=== PATIENT | female | born 1960 | race Two or more races ===

== ENCOUNTER → 2020-05-28 09:27 | Outpatient (BNVA) | payer OTHER, SELFPAY | PROVIDERS: PCP Internal Medicine; Referring Provider Internal Medicine; Visit Provider Hospitalist | DX: J45.909 Unspecified asthma, uncomplicated (principal); J47.9 Bronchiectasis, uncomplicated; R05 Cough; Z23 Encounter for immunization | CPT/HCPCS: 90686; 99212 ==

== ENCOUNTER → 2020-09-17 13:55 | Outpatient (BNVA) | payer OTHER, SELFPAY | PROVIDERS: PCP Internal Medicine; Visit Provider Hospitalist | DX: Z76.89 Persons encountering health services in other specified circumstances (principal) | CPT/HCPCS: 99212 ==

== ENCOUNTER → 2020-12-15 13:47 | Outpatient (BNVA) | payer OTHER, SELFPAY | PROVIDERS: PCP Internal Medicine; Visit Provider Hospitalist | DX: J47.9 Bronchiectasis, uncomplicated (principal); J45.40 Moderate persistent asthma, uncomplicated; R05 Cough | CPT/HCPCS: Q3014 ==

== ENCOUNTER 2021-01-18 09:06 | Outpatient (REF) | payer OTHER, SELFPAY ==
--- NOTE | ~2021-01-18 | XR_ITS ---
EXAMINATION: XR CHEST CLINICAL INFORMATION: J47.9 - Bronchiectasis, uncomplicated COMPARISON: Chest radiographs 05/23/2019, 05/30/2017, CT chest noncontrast 07/30/2019 TECHNIQUE: 2 views of the chest were obtained. FINDINGS: There are chronic postoperative changes right hemithorax with extensive surgical clips and pleural parenchymal scarring right apex. There is again volume loss on the right with rightward shift mediastinum and rightward bowing tracheal air column. There is known extensive basilar cystic bronchiectasis, greater on right. There is increased pleural reaction periphery right lower zone along with opacity lateral right base on frontal view. There is no lobar or segmental airspace consolidation on lateral view or air bronchogram. Right posterior costophrenic sulcus is clear. No effusion. The left lung is clear. Left costophrenic angle well-defined. The vascularity is normal. No acute bony abnormality. XR/XR chest 2V IMPRESSION: 1. Chronic right hemithorax postoperative changes. 2. Chronic cystic bronchiectasis, greater on right. 2. Opacity right lateral base with increased pleural thickening since prior exam 2018. Left lung clear.
[2021-01-18 10:01] LABS: MANUAL DIFF FLAG NO
[2021-01-18 10:06] LABS: Basophils Percent Auto 0.3 % (0-2); Eosinophils Absolute Auto 0.3 X10*3/uL (0.0-0.4); Eosinophils Percent Auto 4.3 % (0-4); Hematocrit 41.4 % (37-47); Hemoglobin 13.3 g/dl (12.0-16.0); Imm Gran Abs Auto 0.03 X10*3/uL (0.00-0.03); Imm Gran Pct Auto 0.5 % (0.0-0.4); Lymphocytes Absolute Auto 2.7 X10*3/uL (1.2-4.9); Lymphocytes Percent Auto 42.9 % (20-40); Mean Corpuscular HGB Conc 32.1 g/dl (31.0-35.0); Mean Corpuscular Hemoglobin 27.1 pg (27.0-33.0); Mean Corpuscular Volume 84.5 fL (80-98); Mean Platelet Volume 9.7 fL (9.4-12.3); Monocytes Absolute Auto 0.4 X10*3/uL (0.1-1.2); Monocytes Percent Auto 5.6 % (2-11); Neutrophils Absolute Auto 2.9 X10*3/uL (2.0-8.3); Neutrophils Percent Auto 46.4 % (45-73); Platelet Count 309 X10*3/uL (160-400); Red Cell Distribution Width 13.3 % (11.0-16.0); White Blood Count 6.3 X10*3/uL (4.8-10.8)
[2021-01-18 10:35] LABS: Alanine Aminotransferase 9 U/L (0-31); Alkaline Phosphatase 63 U/L (39-117); Anion Gap 11 (12-20); Aspartate Amino Transferase 14 U/L (5-31); Bilirubin Total 0.3 mg/dL (0.0-1.0); Blood Urea Nitrogen 13 mg/dL (9-16); Calcium 9.4 mg/dL (8.4-10.2); Carbon Dioxide 27 mmol/L (22-29); Chloride 107 mmol/L (96-108); Cholesterol 171 mg/dL; Estimated Glomerular Filt Rate > 60; Glucose Random 93 mg/dL (60-115); HDL Cholesterol 50 mg/dL; LDL Cholesterol Calculated 110 mg/dl; Potassium 4.2 mmol/L (3.3-5.1); Sodium 141 mmol/L (135-145); Total Protein 7.5 g/dL (6.5-8.0); Triglycerides 57 mg/dL
[2021-01-18 10:57] LABS: Thyroid Stimulating Hormone 1.17 uIU/mL (0.32-4.0)
[2021-01-18 11:08] LABS: Erythrocyte Sedimentation Rate 70 MM/HR (0-20)
[2021-01-19 13:42] LABS: IgA 516 mg/dL (47-310); IgG 1468 mg/dL (600-1640); IgM 255 mg/dL (50-300)
[2021-01-19 14:06] LABS: Alpha 1 Anti-trypsin 177 mg/dL (83-199)
[2021-01-19 20:37] LABS: Immunoglobulin G Subclass 1 675 mg/dL (382-929); Immunoglobulin G Subclass 2 519 mg/dL (241-700); Immunoglobulin G Subclass 3 194 mg/dL (22-178); Immunoglobulin G Subclass 4 55.8 mg/dL (4-86); Immunoglobulin G Total 1466 mg/dL (600-1640)
[2021-01-21 11:56] LABS: Immunoglobulin E 163 kU/L (<OR=114)
== END 2021-01-18 09:07 | disposition home or self-care (01) ==
LOC: HO.LAB 09:06
PROVIDERS: Absent Provider Internal Medicine; PCP Internal Medicine; Visit Provider Hospitalist
DX: F32.89 Other specified depressive episodes (principal); I10 Essential (primary) hypertension; J47.9 Bronchiectasis, uncomplicated
CPT/HCPCS: 36415; 71046; 80053; 80061; 82103; 82784; 82785; 84443; 85025; 85652

== ENCOUNTER → 2021-03-19 13:08 | Outpatient (BNVA) | payer OTHER, SELFPAY | PROVIDERS: PCP Internal Medicine; Visit Provider Hospitalist | DX: J47.0 Bronchiectasis with acute lower respiratory infection (principal); J45.40 Moderate persistent asthma, uncomplicated; R05 Cough | CPT/HCPCS: 99212 ==

== ENCOUNTER 2021-04-02 14:08 | Outpatient (REF) | payer OTHER, SELFPAY | END 2021-04-02 14:09 | disposition home or self-care (01) | LOC: HO.LAB 14:08 | PROVIDERS: PCP Internal Medicine; Visit Provider Internal Medicine | DX: Z20.822 Contact with and (suspected) exposure to COVID-19 (principal) | CPT/HCPCS: C9803; U0003; U0005 ==

== ENCOUNTER → 2021-05-20 10:04 | Outpatient (BNVA) | payer OTHER, SELFPAY | PROVIDERS: PCP Internal Medicine; Visit Provider Hospitalist | DX: J47.0 Bronchiectasis with acute lower respiratory infection (principal); J45.40 Moderate persistent asthma, uncomplicated; R05.9 Cough, unspecified | CPT/HCPCS: 99212 ==

== ENCOUNTER 2021-05-26 14:04 | Outpatient (REF) | payer OTHER, SELFPAY | END 2021-05-26 14:05 | disposition home or self-care (01) | LOC: HO.LAB 14:04 | PROVIDERS: PCP Internal Medicine; Visit Provider Internal Medicine | DX: Z20.822 Contact with and (suspected) exposure to COVID-19 (principal) | CPT/HCPCS: C9803; U0003; U0005 ==

== ENCOUNTER 2021-07-05 10:45 | Outpatient (REF) | payer OTHER, SELFPAY ==
--- NOTE | ~2021-07-05 | MM_ITS ---
EXAMINATION: MM SCREENING DIGITAL BREAST TOMOSYNTHESIS, BILATERAL CLINICAL INFORMATION: Screening. Asymptomatic. The lifetime risk of breast cancer based on the Tyrer-Cuzick Model is 5%. COMPARISON: Mammography: 01/20/2020, 01/11/2017 TECHNIQUE: Digital breast tomosynthesis is performed in both the craniocaudal and mediolateral oblique views along with computer-aided detection (CAD). Synthesized 2D images are generated from the tomosynthesis. FINDINGS: There are scattered areas of fibroglandular density (ACR BI-RADS breast composition Category b). There are no significant masses, abnormal calcifications, or other abnormalities. Parenchymal pattern is similar to prior exams. No developing density. No significant changes. MM/MM tomosynthesis screening BI IMPRESSION: No mammographic evidence of malignancy. ASSESSMENT: BI-RADS 1: Negative RECOMMENDATION: Routine annual mammography screening. This patient's information was entered into a reminder system with a target due date for their next mammogram.
== END 2021-07-05 10:46 | disposition home or self-care (01) ==
LOC: HO.MAMMO 10:45
PROVIDERS: Visit Provider Internal Medicine
DX: Z12.31 Encounter for screening mammogram for malignant neoplasm of breast (principal)
CPT/HCPCS: 77063; 77067

== ENCOUNTER → 2021-09-16 13:42 | Outpatient (BNVA) | payer OTHER, SELFPAY | PROVIDERS: PCP Internal Medicine; Visit Provider Hospitalist | DX: J47.0 Bronchiectasis with acute lower respiratory infection (principal); J45.40 Moderate persistent asthma, uncomplicated; J01.91 Acute recurrent sinusitis, unspecified; R05.9 Cough, unspecified; Z79.899 Other long term (current) drug therapy | CPT/HCPCS: Q3014 ==

== ENCOUNTER → 2021-10-12 14:06 | Outpatient (BNVA) | payer OTHER, SELFPAY | PROVIDERS: PCP Internal Medicine; Visit Provider Hospitalist | DX: J45.40 Moderate persistent asthma, uncomplicated (principal); J47.0 Bronchiectasis with acute lower respiratory infection; R05.9 Cough, unspecified | CPT/HCPCS: 99212 ==

== ENCOUNTER 2021-11-10 13:19 | Outpatient (REF) | payer OTHER, SELFPAY ==
--- NOTE | ~2021-11-10 | XR_ITS ---
EXAMINATION: XR CHEST CLINICAL INFORMATION: Bronchiectasis with acute lower respiratory infection COMPARISON: Chest x-ray 12/30/2020 TECHNIQUE: 2 views of the chest were obtained. FINDINGS: There is a chronic loss of right lung volume with right apical pleural thickening and postsurgical changes. There is ipsilateral mediastinal shift. There is a known cystic bronchiectasis changes in the right lower lobe with mild elevated right hemidiaphragm. There is left lung remains expanded and clear. The heart size and pulmonary vascularity is normal. No gross bony abnormality seen. XR/XR chest 2V IMPRESSION: Postsurgical changes right upper lobe with chronic loss of right lung volume and bronchiectasis in the right lower lobe. Ipsilateral mediastinal shift. Left lung remains clear. No major change from 01/18/2021.
[2021-11-10 13:42] LABS: MANUAL DIFF FLAG NO
[2021-11-10 14:06] LABS: Basophils Percent Auto 0.3 % (0-2); Eosinophils Absolute Auto 0.2 X10*3/uL (0.0-0.4); Eosinophils Percent Auto 2.4 % (0-4); Hematocrit 42.1 % (37.0-47.0); Hemoglobin 13.5 g/dl (12.0-16.0); Imm Gran Abs Auto 0.03 X10*3/uL (0.00-0.03); Imm Gran Pct Auto 0.3 % (0.0-0.4); Lymphocytes Absolute Auto 2.4 X10*3/uL (1.2-4.9); Lymphocytes Percent Auto 25.9 % (20-40); Mean Corpuscular HGB Conc 32.1 g/dl (31.0-35.0); Mean Corpuscular Hemoglobin 27.3 pg (27.0-33.0); Mean Corpuscular Volume 85.2 fL (80.0-98.0); Mean Platelet Volume 9.2 fL (9.4-12.3); Monocytes Absolute Auto 0.7 X10*3/uL (0.1-1.2); Monocytes Percent Auto 7.5 % (2-11); Neutrophils Absolute Auto 5.9 x10*3/uL (2.0-8.3); Neutrophils Percent Auto 63.6 % (45-73); Platelet Count 365 X10*3/uL (160-400); Red Blood Count 4.94 X10*6/uL (4.20-5.50); White Blood Count 9.3 X10*3/uL (4.8-10.8)
[2021-11-10 14:54] LABS: Erythrocyte Sedimentation Rate 80 MM/HR (0-20)
[2021-11-11 11:02] LABS: Immunoglobulin E 152 kU/L (<OR=114)
[2021-11-12 15:06] LABS: Immunoglobulin G Subclass 1 653 mg/dL (382-929); Immunoglobulin G Subclass 2 641 mg/dL (241-700); Immunoglobulin G Subclass 3 >220 mg/dL (22-178); Immunoglobulin G Subclass 4 68.4 mg/dL (4-86); Immunoglobulin G Total 1432 mg/dL (600-1640)
[2021-11-17 16:51] LABS: Asperg fumigatus Precip Abs NEGATIVE (NEGATIVE); Micropoly faeni Abs NEGATIVE (NEGATIVE); Pigeon serum Abs NEGATIVE (NEGATIVE); Saccharo pora viridis Abs NEGATIVE (NEGATIVE); Thermo candidus Abs NEGATIVE (NEGATIVE); Thermoa vulgaris #1 NEGATIVE (NEGATIVE)
== END 2021-11-10 13:20 | disposition home or self-care (01) ==
LOC: HO.XRAY 13:19
PROVIDERS: PCP Internal Medicine; Visit Provider Hospitalist
DX: J45.40 Moderate persistent asthma, uncomplicated (principal); J01.00 Acute maxillary sinusitis, unspecified; J47.0 Bronchiectasis with acute lower respiratory infection; R05.9 Cough, unspecified; R91.8 Other nonspecific abnormal finding of lung field
CPT/HCPCS: 36415; 71046; 82784; 82785; 85025; 85652; 86003; 86331; 86606; 86609

== ENCOUNTER 2022-01-07 14:29 | Outpatient (REF) | payer OTHER, SELFPAY ==
[2022-01-07 14:44] LABS: MANUAL DIFF FLAG NO
[2022-01-07 14:51] LABS: Basophils Percent Auto 0.3 % (0-2); Eosinophils Absolute Auto 0.3 X10*3/uL (0.0-0.4); Eosinophils Percent Auto 3.5 % (0-4); Hemoglobin 14.3 g/dl (12.0-16.0); Imm Gran Abs Auto 0.02 X10*3/uL (0.00-0.03); Imm Gran Pct Auto 0.2 % (0.0-0.4); Lymphocytes Absolute Auto 2.6 X10*3/uL (1.2-4.9); Lymphocytes Percent Auto 30.1 % (20-40); Mean Corpuscular HGB Conc 32.5 g/dl (31.0-35.0); Mean Corpuscular Hemoglobin 27.1 pg (27.0-33.0); Mean Corpuscular Volume 83.5 fL (80.0-98.0); Mean Platelet Volume 9.3 fL (9.4-12.3); Monocytes Absolute Auto 0.5 X10*3/uL (0.1-1.2); Monocytes Percent Auto 5.7 % (2-11); Neutrophils Absolute Auto 5.2 x10*3/uL (2.0-8.3); Neutrophils Percent Auto 60.2 % (45-73); Platelet Count 309 X10*3/uL (160-400); Red Blood Count 5.27 X10*6/uL (4.20-5.50); Red Cell Distribution Width 13.6 % (11.0-16.0); White Blood Count 8.6 X10*3/uL (4.8-10.8)
[2022-01-07 15:29] LABS: Erythrocyte Sedimentation Rate 57 MM/HR (0-20)
[2022-01-10 11:42] LABS: Alpha 1 Anti-trypsin 186 mg/dL (83-199); IgA 607 mg/dL (47-310); IgG 1701 mg/dL (600-1640); IgM 290 mg/dL (50-300)
[2022-01-10 14:21] LABS: Anti Nuclear Antibody Screen NEGATIVE (NEGATIVE)
[2022-01-12 00:27] LABS: Cyclic Citrullinated Peptide <16 UNITS
[2022-01-12 06:27] LABS: Angiotensin Converting Enzyme 44 U/L (9-67)
[2022-01-14 21:46] LABS: Immunoglobulin E 133 kU/L (<OR=114)
== END 2022-01-07 14:30 | disposition home or self-care (01) ==
LOC: HO.LAB 14:29
PROVIDERS: Visit Provider Hospitalist
DX: J47.0 Bronchiectasis with acute lower respiratory infection (principal); J45.50 Severe persistent asthma, uncomplicated
CPT/HCPCS: 36415; 82103; 82164; 82784; 82785; 85025; 85652; 86038; 86039; 86200; 87070; 87205; 99212

== ENCOUNTER → 2022-03-10 14:44 | Outpatient (BNVA) | payer OTHER, SELFPAY | PROVIDERS: PCP Internal Medicine; Visit Provider Hospitalist | DX: J44.9 Chronic obstructive pulmonary disease, unspecified (principal); R05.9 Cough, unspecified; J45.909 Unspecified asthma, uncomplicated | CPT/HCPCS: 94010; 99212 ==

== ENCOUNTER 2022-03-17 07:34 | Day surgery (SDC) | payer OTHER, SELFPAY ==
--- NOTE | 2022-03-16 08:46 | HO.ANESPROP2 ---
Documented by User: Grace Saravia NP 03/16/22 08:48 HPI - Anesthesia Eval Consult details Narrative: 61yo F for Bronchoscopy Fiberoptic PMFSH Active Problems Active Problems: All Active Problems (Updated 03/10/22 @ 23:24 by Mitchell Barron MD) Asthma-COPD overlap syndrome (Acute) Sinusitis (Acute) Sinusitis (Acute) Cough (Acute) Bronchiectasis (Acute) Asthma (Acute) Past Medical History Medical History Asthma Asthma-COPD overlap syndrome Bronchiectasis Cough Family History Family History (Updated 07/16/20 @ 22:07 by Mitchell Barron MD) Daughter Bronchiectasis Social History Social History (Updated 03/19/21 @ 13:19 by DREW Barnhart) Patient Tobacco Use Status: Former Tobacco user Tobacco use type: Cigarette Years Smoked: 5 years Use of substances other than those prescribed or required for medical reasons: No Are you DNR?: No Advance Directives: No Advance Directives Information Provided: Yes Meds Allergies Allergy/AdvReac Type Severity Reaction Status Date / Time lisinopril Allergy Mild cough Verified 03/10/22 14:45 moxifloxacin [Avelox] Allergy Mild rash Verified 03/10/22 14:45 Home Medications Medication Instructions Recorded Confirmed Last Taken Type clonazepam 0.5 mg tablet 1.5 mg PO Q OTHER DAY PRN 05/28/20 10/12/21 Unknown History ibuprofen 400 mg tablet 400 mg PO Q4-6H PRN 05/28/20 10/12/21 Unknown History ipratropium 0.5 mg-albuterol 3 mg 3 ml inhalation Q6-8H PRN 05/28/20 10/12/21 Unknown History (2.5 mg base)/3 mL nebulization soln ketotifen fumarate 0.025 % (0.035 1 drp ophthalmic (eye) BID 05/28/20 10/12/21 Unknown History %) eye drops losartan 100 1 tab PO DAILY 05/28/20 10/12/21 Unknown History mg-hydrochlorothiazide 12.5 mg tablet escitalopram oxalate 20 mg tablet 20 mg PO DAILY 07/16/20 10/12/21 Unknown History fluticasone propionate 50 0 mcg intranasal 09/17/20 10/12/21 Unknown History mcg/actuation nasal spray,suspension Exam Exam Date and Time: March 16, 2022 0846 Narrative Narrative: CXR 10/2021 XR chest 2V IMPRESSION: Postsurgical changes right upper lobe with chronic loss of right lung volume and bronchiectasis in the right lower lobe. Ipsilateral mediastinal shift. Left lung remains clear. ? No major change from 01/18/2021. Assessment and Plan Assessment Anesthesia Assessment: Chart Reviewed Documented by User: Syed Wilcox MD 03/17/22 08:43 PMFSH Active Problems Active Problems: All Active Problems (Updated 03/10/22 @ 23:24 by Mitchell Barron MD) Asthma-COPD overlap syndrome (Acute) Sinusitis (Acute) Sinusitis (Acute) Cough (Acute) Bronchiectasis (Acute) Asthma (Acute) hypertension Past Medical History Medical History Asthma Asthma-COPD overlap syndrome Bronchiectasis Cough Family History Family History (Updated 07/16/20 @ 22:07 by Mitchell Barron MD) Daughter Bronchiectasis Family history of problems with anesthesia: No Surgical History History of Problems with Anesthesia: No Social History Social History (Updated 03/19/21 @ 13:19 by DREW Barnhart) Patient Tobacco Use Status: Former Tobacco user Tobacco use type: Cigarette Years Smoked: 5 years Use of substances other than those prescribed or required for medical reasons: No Are you DNR?: No Advance Directives: No Advance Directives Information Provided: Yes Meds Allergies Allergy/AdvReac Type Severity Reaction Status Date / Time lisinopril Allergy Mild cough Verified 03/10/22 14:45 moxifloxacin [Avelox] Allergy Mild rash Verified 03/10/22 14:45 Home Medications Medication Instructions Recorded Confirmed Last Taken Type clonazepam 0.5 mg tablet 1.5 mg PO Q OTHER DAY PRN 05/28/20 10/12/21 Unknown History ibuprofen 400 mg tablet 400 mg PO Q4-6H PRN 05/28/20 10/12/21 Unknown History ipratropium 0.5 mg-albuterol 3 mg 3 ml inhalation Q6-8H PRN 05/28/20 10/12/21 Unknown History (2.5 mg base)/3 mL nebulization soln ketotifen fumarate 0.025 % (0.035 1 drp ophthalmic (eye) BID 05/28/20 10/12/21 Unknown History %) eye drops losartan 100 1 tab PO DAILY 05/28/20 10/12/21 Unknown History mg-hydrochlorothiazide 12.5 mg tablet escitalopram oxalate 20 mg tablet 20 mg PO DAILY 07/16/20 10/12/21 Unknown History fluticasone propionate 50 0 mcg intranasal 09/17/20 10/12/21 Unknown History mcg/actuation nasal spray,suspension Exam Airway Mallampati Class: I TM Dist: >3cm Neck ROM: Full Loose/Missing/Broken Teeth: Yes and Lower Heart: rrr Lungs: clear Assessment and Plan Final Anesthetic Review Family History of Problems with Anesthesia: No History of Problems with Anesthesia: No NPO: Yes ASA Class: III Final Preanesthetic Review: No Changes in Pt Med Stat, Meds/Allgs Chart Reviewed, Consent Obtained/Reviewed and Anes Risks/Benef Reviewed Patient Risk: Intermediate Procedure Risk: Low Anesthetic Plan Anesthetic Plan: MAC: Disposition: Standard PACU
[2022-03-17] VITALS (14 sets, daily range): BP systolic 83–148; BP diastolic 56–96; PULSE 74–104; RESP 18–31; TEMP 36.4–36.9; O2SAT 94–100; BMI 29.0
--- NOTE | 2022-03-17 07:58 | MHC.SHP ---
Pre-Procedural Eval Section A Date of Service: 03/17/22 The patient is an INPATIENT: No Changes since office visit: No Cold of Flu in the past 2 weeks, No New Medical Problems, No Changes in Medication and No Patient answered all questions The History & Physical has been completed within 30 days and I have reviewed it.: Yes Section B Chief Complaint: bronchiectasis Allergies: Allergies Allergy/AdvReac Type Severity Reaction Status Date / Time lisinopril Allergy Mild cough Verified 03/10/22 14:45 moxifloxacin [Avelox] Allergy Mild rash Verified 03/10/22 14:45 Plan I have reviewed the history and physical and performed a pertinent physical examination on my patient. No changes have occurred unless specified.
[2022-03-17] MEDS: Albuterol/Iprat 2.5/0.5MG 3 ML AMPUL.NEB INHALE (08:33)
--- NOTE | 2022-03-17 09:30 | PM.OP ---
Brief Operative Note Date of Service: 03/17/22 Pre-op diagnosis: bronchiectasis, TBM, asthma Post-op diagnosis: same Procedure: Bronchoscopy with washings Surgeon: Mitchell Barron MD Anesthesia: GLMA Was an Corporate Technical Recruiter used for this Procedure?: No Estimated blood loss (mL): 0 Pathology: none sent Condition: stable Disposition: same day
[2022-03-17] MEDS: methylPREDNISolone Sod Succ 125 MG/2 ML VIAL IVPUSH (09:38)
[2022-03-17] MEDS: Racepinephrine HCL 0.5 ML VIAL.NEB INHALE (09:57)
[2022-03-17] MEDS: Throat Lozenge, Medicated LOZENGE 1 LOZENGE MUCOUS MEM (10:50)
--- NOTE | 2022-03-17 21:25 | OP_ITS ---
SURGEON: Mitchell Barron MD PREOPERATIVE DIAGNOSIS: POSTOPERATIVE DIAGNOSIS: PROCEDURE PERFORMED: Bronchoscopy with washings. ESTIMATED BLOOD LOSS: Zero. COMPLICATIONS: None. ANESTHESIA: ASSISTANTS: SPECIMENS: ASA classification 4. PREOPERATIVE DIAGNOSES: Bronchiectasis and asthma. POSTOPERATIVE DIAGNOSES: Bronchiectasis, asthma, and tracheobronchomalacia. DESCRIPTION OF PROCEDURE: The patient was adequately sedated with MAC. The flexible digital bronchoscope was initially inserted through the oral airway. The patient started having some dry heaves and she also desaturated, therefore, the mask was removed and LMA was placed. The patient again had the bronchoscopy. The vocal cords were visualized, moved symmetrically to the midline, although she did have some laryngeal spasms at times. The bronchoscope was passed through vocal cords to the level of the trachea. Tracheal mucosa indeed had certain evidence of tracheomalacia and some purulent secretions that were little bit more thick and exudative. After instilling additional lidocaine, the bronchoscope was then navigated to the entire tracheobronchial tree, which was examined to the subsegmental level. Again, the patient did have some tracheal bronchomalacia, but mainly bronchomalacia. No endobronchial lesions or masses noted. Although, her tracheobronchial mucosa was very friable becoming significantly erythematous with minimal suctioning. No any bleeding noted. Bronchial washings were collected throughout removing mucus plugs bilaterally. Because of her tenuous state, we did not do any brushings and we did not use any Mucomyst. Once therapeutic cleaning of the airways was completed, the bronchoscope was removed. The total endoscopic time approximately 10 minutes. The patient again had some issues tolerating MAC and had some issues with hypoxia initially, but that improved. Otherwise, she tolerated procedure well. I will be treating her for her asthma upon completion of the bronchoscopy. INTERPRETATION: 1. Successful therapeutic cleaning of the airways. 2. Significant asthma, bronchiectasis, and exudative secretions with mucus plugs, status post cleaning out. MD MEMO Hickey/MODGopal / [id number]
== END 2022-03-17 11:53 | disposition home or self-care (01) ==
PROVIDERS: Visit Provider Hospitalist
PROC: 0BJ08ZZ Inspection of Tracheobronchial Tree, Via Natural or Artificial Opening Endoscopic (ICD-10-PCS; CPT 31622; principal; 2022-03-17 09:00)
DX: J47.0 Bronchiectasis with acute lower respiratory infection (principal); J39.8 Other specified diseases of upper respiratory tract; J45.909 Unspecified asthma, uncomplicated; Z87.891 Personal history of nicotine dependence
CPT/HCPCS: 31622; 87071; 87077; 87102; 87116; 87186; 87205; 88112; 88305; 88312; J0171; J2250; J2930

== ENCOUNTER → 2022-09-06 14:37 | Outpatient (BNVA) | payer OTHER, SELFPAY | PROVIDERS: PCP Internal Medicine; Visit Provider Hospitalist | DX: J45.50 Severe persistent asthma, uncomplicated (principal); J47.0 Bronchiectasis with acute lower respiratory infection | CPT/HCPCS: 99212 ==

== ENCOUNTER → 2022-11-11 14:29 | Outpatient (BNVA) | payer OTHER, SELFPAY | PROVIDERS: PCP Internal Medicine; Visit Provider Hospitalist | DX: J18.0 Bronchopneumonia, unspecified organism (principal); J47.0 Bronchiectasis with acute lower respiratory infection; J45.50 Severe persistent asthma, uncomplicated; H92.09 Otalgia, unspecified ear | CPT/HCPCS: 99212 ==

== ENCOUNTER 2022-11-15 12:52 | Outpatient (REF) | payer OTHER, SELFPAY ==
--- NOTE | ~2022-11-15 | MM_ITS ---
EXAMINATION: BONE DENSITOMETRY CLINICAL INDICATION: Menopause. COMPARISON: Baseline BD dated 06/04/2015. TECHNIQUE: Using a [employer] DXA System (software version: 13.1) manufactured by [employer], dual-energy x-ray absorptiometry was performed of the lumbar spine and left hip. The images are of good technical quality. Summary results are attached. FINDINGS: AP SPINE L1-L4: Current: BMD 1.265 g/cm2, Z-score 1.9, T-score 0.7, normal, 6.9% decrease from baseline (<5% change is not significant). Baseline: BMD 1.359 g/cm2. LEFT FEMUR, NECK: Current: BMD 0.912 g/cm2, Z-score 0.3, T-score -0.9, normal. Baseline: BMD 1.099 g/cm2. LEFT FEMUR, TOTAL: Current: BMD 0.959 g/cm2, Z-score 0.5, T-score -0.4, normal, 10.7% decrease from baseline (<5% change is not significant). Baseline: BMD 1.074 g/cm2. IDENTIFIED RISK FACTORS: Menopause. HISTORY OF FRACTURE: None listed. MEDICATIONS: None listed. MM/XR DEXA axial skeleton IMPRESSION: 1. DIAGNOSIS: Normal bone density based on the lowest T-score value of -0.9 in the femoral neck applying World Health Organization criteria. 2. 10-YEAR FRACTURE RISK PREDICTION, FRAX: According to the guidelines, FRAX calculation should only be performed on patients in the osteopenia bone density category. Therefore, FRAX was not performed on this patient. 3. Treatment Recommendations: NOF guidelines recommend consideration for treatment in postmenopausal women and men age 50 and older presenting with the following: -A hip or vertebral (clinical or morphometric) fracture. -T-score less than or equal to -2.5 at the femoral neck or spine after appropriate evaluation to exclude secondary causes. -Low bone mass at the hip or spine and a 10-year fracture probability by FRAX of greater than or equal to 3% for hip fracture or greater than or equal to 20% for major osteoporotic fracture based on the [place] adapted WHO algorithm. 4. Other Recommendations: All treatment decisions require clinical judgment and consideration of individual patient factors, including patient preferences, comorbidities, previous drug use, risk factors not captured in the FRAX model (e.g. frailty, falls, vitamin D deficiency, increased bone turnover, interval significant decline in bone density) and possible under or overestimation of fracture risk by FRAX. FUTURE SCAN RECOMMENDATION: People with diagnosed cases of osteoporosis or at high risk for fracture should have regular bone mineral density tests. For patients eligible for Medicare, routine testing is allowed once every 2 years. The testing frequency can be increased to one year for patients who have rapidly progressing disease, those who are receiving or discontinuing medical therapy to restore bone mass, or have additional risk factors.
--- NOTE | ~2022-11-15 | MM_ITS ---
EXAMINATION: MM SCREENING DIGITAL BREAST TOMOSYNTHESIS, BILATERAL CLINICAL INFORMATION: Screening. Asymptomatic. The lifetime risk of breast cancer based on the Tyrer-Cuzick Model is 5%. COMPARISON: Mammography: 07/05/2021 and studies dating back to 01/24/2011. TECHNIQUE: Digital breast tomosynthesis is performed in both the craniocaudal and mediolateral oblique views along with computer-aided detection (CAD). Synthesized 2-D images are generated from the tomosynthesis. FINDINGS: There are scattered areas of fibroglandular density (ACR BI-RADS breast composition Category b). There is stable parenchymal pattern of the left breast with no new abnormal dominant mass or suspicious grouping of microcalcifications. Within the anterior aspect of the right breast on mediolateral oblique projection only, there is a region of density not seen previously for which spot compression and 90 degree mediolateral views are recommended. This likely represents superimposition of fibroglandular tissue. No craniocaudal view correlate is seen. MM/MM tomosynthesis screening BI IMPRESSION: Right breast density for further evaluation. ASSESSMENT: BI-RADS 0: Incomplete - Need Additional Imaging Evaluation. RECOMMENDATION: 1. Additional views of the right breast. 2. Targeted ultrasound if warranted after review of the additional views. 3. Radiology department staff will contact the patient for additional imaging. This patient's information was entered into a reminder system with a target due date for their next mammogram.
== END 2022-11-15 12:53 | disposition home or self-care (01) ==
LOC: HO.MAMMO 12:52
PROVIDERS: PCP Internal Medicine; Visit Provider Internal Medicine
DX: Z12.31 Encounter for screening mammogram for malignant neoplasm of breast (principal); Z13.820 Encounter for screening for osteoporosis; Z78.0 Asymptomatic menopausal state
CPT/HCPCS: 77063; 77067; 77080

== ENCOUNTER → 2022-11-22 11:55 | Outpatient (BNVA) | payer OTHER, SELFPAY | PROVIDERS: PCP Internal Medicine; Visit Provider Physician Assistant | DX: Z12.11 Encounter for screening for malignant neoplasm of colon (principal); K59.09 Other constipation | CPT/HCPCS: 99202 ==

== ENCOUNTER 2022-12-06 14:57 | Outpatient (REF) | payer OTHER, SELFPAY ==
--- NOTE | ~2022-12-06 | MM_ITS ---
EXAMINATION: MM DIAGNOSTIC DIGITAL BREAST TOMOSYNTHESIS, RIGHT CLINICAL INFORMATION: Recall from screening for question of asymmetric density retroareolar right breast on MLO view, suspected summation artifact. COMPARISON: Prior mammography exams, most recent 11/15/2022. TECHNIQUE: Digital breast tomosynthesis is performed. 2D images are generated from the tomosynthesis. The following views are obtained: Spot MLO, standard ML. FINDINGS: There are scattered areas of fibroglandular density (ACR BI-RADS breast composition Category b). The additional views show no asymmetric density, mass, architectural abnormality. There are no significant changes from prior studies. Results are discussed with the patient at time of visit, using an neuroscience specialist. MM/MM tomosynthesis added views R IMPRESSION: -No mammographic evidence of malignancy. -No significant changes from prior studies. ASSESSMENT: BI-RADS 1: Negative RECOMMENDATION: Routine annual mammography screening. This patient's information was entered into a reminder system with a target due date for their next mammogram.
== END 2022-12-06 14:58 | disposition home or self-care (01) ==
LOC: HO.MAMMO 14:57
PROVIDERS: PCP Internal Medicine; Visit Provider Internal Medicine
DX: R92.2 Inconclusive mammogram (principal)
CPT/HCPCS: 77061; 77065

== ENCOUNTER 2023-02-08 14:06 | Outpatient (AMB) | payer OTHER, SELFPAY ==
--- NOTE | 2023-02-08 14:06 | A.OFFPC_ITS ---
Vital Signs 02/08/23 14:10 BP 138/81 Comment bp given by patient Intake Visit Reasons: 4m F/U BP/[phone] Intake Note: Telehealth 4 month follow up bp Allergies lisinopril Allergy (Mild, Verified 02/08/23 14:12) cough moxifloxacin [Avelox] Allergy (Mild, Verified 02/08/23 14:12) rash Medication List - Last Reconciled 02/08/23 by Sol Hall MD albuterol sulfate 2.5 mg (3 mL) inhalation Q4H PRN albuterol sulfate 90 mcg/actuation 2 puffs inhalation Q6H PRN bisacodyl (Dulcolax (bisacodyl)) 10 mg DC DAILY PRN bisacodyl (Dulcolax (bisacodyl)) 10 mg (2 x 5 mg) PO ONCE 1 day budesonide 0.5 mg (2 mL) inhalation BID cetirizine 10 mg PO DAILY docusate sodium (Colace) 200 mg (2 x 100 mg) PO BEDTIME escitalopram oxalate 20 mg PO DAILY fluticasone propionate 50 mcg/actuation 0 mcg intranasal lphdwbxmicw-cocansxjd-rnadflpj 200-62.5-25 mcg (Trelegy Ellipta) 1 inh inhalation DAILY 30 days ibuprofen 400 mg PO Q4-6H PRN ipratropium-albuterol 0.5 mg-3 mg(2.5 mg base)/3 mL 3 mL inhalation Q6-8H PRN lorazepam 0 mg PO losartan-hydrochlorothiazide 100-12.5 mg 1 tab PO DAILY 90 days methylcellulose (laxative) (Citrucel) 500 mg PO BID montelukast 10 mg PO BEDTIME polyethylene glycol 3350 (Miralax) 17 grams PO DAILY polyethylene glycol 3350 (Miralax) 238 grams PO ONCE 1 day prednisone PO daily; Take 2 tabs daily x 5 days, then 1 tablet daily x 5 days 10 days sodium chloride 3% 4 mL inhalation BID 30 days sulfamethoxazole-trimethoprim 800-160 mg (Bactrim DS) 1 tab PO Q12H 21 days Trelegy Ellipta 200-62.5-25 mcg (ktqwrjhlexk-nbjzbbvcb-kawvqltl) 1 inh inhalat ion DAILY NS triamcinolone acetonide 0.5% 1 appl topical TID Tobacco use date assessed: 10/03/22 HPI HPI Comments History of Present Illness Details This is a 62-year-old female with elevated hemoglobin, hypertension, asthma-COPD overlap syndrome and mild recurrent major depression that has tele health visit by phone today for follow-up on blood pressure. She takes her blood pressure at home and it has always been less than 140/90. Had recent labs at [facility] hemoglobin was elevated and this will be repeated. Asthma-COPD overlap syndrome has been well control and this is follow by pulmonology. Depression also stable. [facility] Medical History (Updated 02/08/23 @ 14:20 by Sol Hall MD) Asthma Asthma-COPD overlap syndrome Bronchiectasis Bronchopneumonia Cough Ear discomfort Surgical History History of lung surgery Family History Daughter Bronchiectasis Colon polyps Brother Mental health disorder Mother No problems noted. Father Stroke Social History Housing: Apartment Alcohol intake: current Alcohol intake frequency: holidays/special occasions only Alcohol type: wine Patient Tobacco Use Status: Former Tobacco user Tobacco use type: Cigarette Years Smoked: 5 years e-Cigarette/Vaping Use: Never Used Second Hand Smoke Exposure: No service: No Current occupational status: unemployed and retired Cognitive needs: No Hearing needs: No Vision needs: Yes Questionnaire PHQ-9 Over the last 2 weeks, how often have you been bothered by any of the following problems? 1. Little interest or pleasure in doing things: several days 2. Feeling down, depressed, or hopeless: more than half the days 3. Trouble falling or staying asleep, or sleeping too much: several days 4. Feeling tired or having little energy: several days 5. Poor appetite or overeating: not at all 6. Feeling bad about yourself - or that you are a failure or have let yourself or your family down: not at all 7. Trouble concentrating on things, such as reading the newspaper or watching television: not at all 8. Moving or speaking so slowly that other people could have noticed. Or the opposite - being so fidgety or restless that you have been moving around a lot more than usual: several days 9. Thoughts that you would be better off or of hurting yourself in some way: not at all Total score: 6 Depression Screening Interpretation: Positive Depression Screening Follow-up: Existing condition and In treatment 63833 - PHQ-9 Billing: Yes Source: Developed by Drs. Fredy Quiñones, Elsi Dominguez, Isiah Larkin and colleagues, with an educational joshua from [email or web address]. Thrive Questionnaire Date Thrive assessed: 10/03/22 AUDIT C Alcohol Use Questionnaire (AUDIT-C) 1. How often do you have a drink containing alcohol?: Monthly or less 2. How many drinks containing alcohol do you have on a typical day when you are drinking?: 1 or 2 3. How often do you have six or more drinks on one occasion?: Never Total Score: 1 Score Reviewed/Action Taken: No AMNA-7 AMB Questionnaire AMNA-7 Date AMNA - 7 assessed: 02/08/23 Feeling nervous, anxious, or on edge: 2 = More than half the days Not being able to stop or control worryin = Not at all Worrying too much about different things: 1 = Several days Trouble relaxin = Not at all Being so restless that it is hard to sit still: 0 = Not at all Becoming easily annoyed or irritable: 1 = Several days Feeling afraid as if something awful might happen: 0 = Not at all Total AMNA-7 score (0-4 normal; 5-9 mild; 10-14 moderate; 15-21 severe): 4 Source: Developed by Drs. Fredy Quiñones, Elsi Dominguez, Isiah Larkin and colleagues, with an educational joshua from [email or web address]. AMNA-7 Assessment Billing AMNA-7 Assessment Tool: AMNA-7 Assessment 62605 Review of Systems Const All systems reviewed & are unremarkable except as noted in HPI and below Eyes Reports no additional complaints, Denies change in vision and Denies other visual disturbances Card Denies chest pain at rest, Denies chest pain with activity, Denies edema, Denies irregular heart rhythm, Denies claudication, Denies dyspnea, Denies dyspnea on exertion, Denies orthopnea, Denies paroxysmal nocturnal dyspnea and Denies slow heart rate Resp Denies cough, Denies dyspnea and Denies dyspnea on exertion GI Denies abdominal pain, Denies change in bowel habits, Denies excessive flatus, Denies nausea and Denies vomiting Denies urinary incontinence, Denies urinary hesitancy and Denies urinary urgency Musc Denies abnormal gait, Denies atrophy, Denies deformity and Denies limited range of motion Skin/Breast Denies bleeding lesions, Denies changing lesions and Denies rash Neuro Denies abnormal gait and Denies lack of coordination Physical exam (Primary Care) Vital Signs: Last Vital Signs BP 138/81 02/08/23 14:10 Tobacco/Smoking Status: Tobacco use Status Tobacco use date assessed 10/03/22 02/08/23 14:12 Patient Tobacco Use Status Former Tobacco user 02/08/23 14:12 Tobacco use type Cigarette 02/08/23 14:12 e-Cigarette/Vaping Use Never Used 02/08/23 14:12 PHQ-9: PHQ-9 Score PHQ-9: Total score 6 02/08/23 14:16 Depression Screening Interpretation: Positive Depression Screening Follow-up: Existing condition and In treatment Thrive Assessment: Date of Thrive Assessment Date Thrive assessed 10/03/22 02/08/23 14:12 Telehealth Telehealth Location of provider rendering services: practice address Location of patient: address on file Patient Identification confirmed using: Name, : Yes Telehealth method: voice only Patient verbally consented to treatment: Yes Patient verbally consented to billing insurance company: Yes Patient informed of any privacy concerns related to visit: Yes Minutes spent on Phone/Video with Pt.: 15 Assessment and Plan Assessment & Plan (1) Asthma-COPD overlap syndrome: Code(s): J44.9 - Chronic obstructive pulmonary disease, unspecified Plan: Continue Trelegy. Use rescue inhaler as needed. Follow-up with pulmonology (2) Essential hypertension: Code(s): I10 - Essential (primary) hypertension Plan: Continue losartan-hydrochlorothiazide. Blood pressure goal is equal or less than 130/80 his (3) Mild recurrent major depression: Code(s): F33.0 - Major depressive disorder, recurrent, mild Plan: Continue escitalopram. (4) Elevated hemoglobin: Code(s): D58.2 - Other hemoglobinopathies Plan: Repeat hemoglobin Orders: Orders Comprehensive [place]. Panel Fast Today K59.09 - Other constipation Lipid Panel Today E78.5 - Hyperlipidemia, unspecified Magnesium Today M25.50 - Pain in unspecified joint Complete Blood Count Auto Diff Today D58.2 - Other hemoglobinopathies Coding Level of Care Code Tele New Pt Level 4 (33508) Diagnoses Asthma-COPD overlap syndrome J44.9 Essential hypertension I10 Mild recurrent major depression F33.0 Elevated hemoglobin D58.2 Additional Codes AMNA-7 Assessment Billing - AMNA-7 Assessment Tool: AMNA-7 Assessment 22148 ([id number]) Time Spent (min) 15
[2023-02-08 14:10] VITALS: BP 138/81
== END 2023-02-08 14:46 | disposition home or self-care (01) ==
LOC: HO.HMGH 14:06
PROVIDERS: PCP Internal Medicine; Visit Provider Internal Medicine
DX: J44.9 Chronic obstructive pulmonary disease, unspecified (principal); I10 Essential (primary) hypertension; F33.0 Major depressive disorder, recurrent, mild; D58.2 Other hemoglobinopathies
CPT/HCPCS: 99442

== ENCOUNTER 2023-03-20 13:05 | Outpatient (REF) | payer OTHER, SELFPAY ==
[2023-03-20 14:15] LABS: MANUAL DIFF FLAG NO
[2023-03-20 14:41] LABS: Basophils Percent Auto 0.4 % (0-2); Eosinophils Absolute Auto 0.2 X10*3/uL (0.0-0.4); Eosinophils Percent Auto 1.9 % (0-4); Hemoglobin 12.7 g/dl (12.0-16.0); Imm Gran Abs Auto 0.02 X10*3/uL (0.00-0.03); Imm Gran Pct Auto 0.2 % (0.0-0.4); Lymphocytes Absolute Auto 2.4 X10*3/uL (1.2-4.9); Lymphocytes Percent Auto 28.2 % (20-40); Mean Corpuscular HGB Conc 32.6 g/dl (31.0-35.0); Mean Corpuscular Hemoglobin 27.7 pg (27.0-33.0); Mean Corpuscular Volume 85.2 fL (80.0-98.0); Mean Platelet Volume 9.4 fL (9.4-12.3); Monocytes Absolute Auto 0.4 X10*3/uL (0.1-1.2); Monocytes Percent Auto 4.5 % (2-11); Neutrophils Absolute Auto 5.4 x10*3/uL (2.0-8.3); Neutrophils Percent Auto 64.8 % (45-73); Platelet Count 326 X10*3/uL (160-400); Red Blood Count 4.58 X10*6/uL (4.20-5.50); Red Cell Distribution Width 14.7 % (11.0-16.0); White Blood Count 8.4 X10*3/uL (4.8-10.8)
[2023-03-20 15:21] LABS: Erythrocyte Sedimentation Rate 65 MM/HR (0-20)
[2023-03-22 06:28] LABS: Immunoglobulin E 73 kU/L (<OR=114)
[2023-03-22 16:32] LABS: IgA 548 mg/dL (70-320); IgG 1583 mg/dL (600-1540); IgM 257 mg/dL (50-300)
[2023-03-27 10:14] LABS: Asperg fumigatus Precip Abs NEGATIVE (NEGATIVE); Micropoly faeni Abs NEGATIVE (NEGATIVE); Pigeon serum Abs NEGATIVE (NEGATIVE); Saccharo pora viridis Abs NEGATIVE (NEGATIVE); Thermo candidus Abs NEGATIVE (NEGATIVE); Thermoa vulgaris #1 NEGATIVE (NEGATIVE)
== END 2023-03-20 13:06 | disposition home or self-care (01) ==
LOC: HO.LAB 13:05
PROVIDERS: PCP Internal Medicine; Visit Provider Hospitalist
DX: J45.50 Severe persistent asthma, uncomplicated (principal); J44.9 Chronic obstructive pulmonary disease, unspecified; D58.2 Other hemoglobinopathies; J32.9 Chronic sinusitis, unspecified; J18.0 Bronchopneumonia, unspecified organism; R91.8 Other nonspecific abnormal finding of lung field; R05.9 Cough, unspecified
CPT/HCPCS: 36415; 82784; 82785; 85025; 85652; 86331; 86606; 86609; 87070; 87077; 87116; 87186; 87205; 87206; 99212

== ENCOUNTER 2023-03-20 13:05 | Outpatient (AMB) | payer OTHER, SELFPAY ==
[2023-03-20 13:11] VITALS: BP 128/70; PULSE 78; O2SAT 96; BMI 25.7
--- NOTE | 2023-03-20 13:11 | MHC.OFFVIS ---
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 She was in her usual state health until about a week ago when she started developing productive cough with yellowish phlegm. She has also had some chills and subjective fevers. Also has been complaining of pleuritic discomfort mainly on the right side. Mild in nature. In the office she was noted to be wheezing. She did receive a nebulized treatment. We try getting a sputum sample which he was unable to do so. She has had bronchoscopies in the past. I would have to go to [facility] to review her cultures. In the meantime going to treated for pneumonia. She was treated with Augmentin for bronchopneumonia. Her x-ray also demonstrated worsening right basilar opacity. She is status post bronchoscopy. Ultimately doing much better after the procedure. She did have significant period secretions. She did grow Proteus and was treated with antibiotics. No Pseudomonas was found into specimens which is reassuring that she no longer has Pseudomonas in her bronchiectatic airways. Unfortunate she did become sick with flu-like symptoms. She then developed a sore throat. She also has a cough. But otherwise has not had any fevers or chills or any other constitutional complaint. She has been on multiple antibiotics already so therefore will try to hold off on any antibiotics at this time. She has been using her nebulizer treatments and has been using her percussion vest. She is to continue to do so. 09/16/2021 the patient has a telephone visit. This is a sick visit. The patient started developing URI like symptoms along with chills. She lost her taste and smell. She was concerned she was developing COVID. She did have a COVID test done and just came back today negative. She was not sure if he was a PCR versus an antigen test. I did request that if he was in antigen test that she should Re test in a few days. In the meantime the patient does have significant sinus pressure and congestion. She has significant drainage of mucus greenish in color. She cannot tolerate the quinolones due to rash. Therefore I will start her on Augmentin. The patient does have significant chest congestion as well. She has Extensive bronchiectasis. After completing the 2 weeks of antibiotics will reassess in the office. If the patient is no better will plan to perform a bronchoscopy for therapeutic cleaning. 10/12/2021 the patient is here for a pulmonary follow-up visit. The patient is starting to feel better. She did require antibiotics recently for sinusitis. Ultimately feeling better. She continues with respiratory therapy with partial improvement of her symptoms. The patient has not been using the nebulizer nor her percussion wrap. She understands with the bronchiectasis she needs to be able to perform chest PT in order to minimize mucus plugging and decrease her risk of infection. The patient does have a significant family history of airway disease. Therefore will have her undergo awful 1 DNA testing today. The patient continues to have significant asthma. Severe persistent. She has been on maximum therapy is still requiring multiple courses of prednisone and antibiotics. Her eosinophils in her IgE level were elevated the last time they were checked. I will have her repeat blood work to see if there is still elevated and to see if she has a an Allergic phenotype. If the levels are elevated that she may be a great candidate for biologic therapy. Will consider Dupixent as a very good option for her. Will decide further when she gets her laboratory data. I will also have her get a chest x-ray in view of her significant bronchiectatic changes. 01/07/2022 the patient is here for pulmonary follow-up visit. Overall she is about the same. She started developing worsening productive cough with green thick tenacious sputum. She was able to save the specimen to sent to the laboratory. Will have her go for additional blood work. The patient also has significant asthma requiring frequent prednisone. Last time we did check her allergies in the were positive in her IgE levels were elevated. Will have her undergo blood work again to see if she qualifies for other biologic therapy. Based on her frequent prednisone use she will benefit from biologic therapy to reduce exacerbations and minimize hospitalizations. The patient also had a chest x-ray which we personally reviewed demonstrating the most of the airspace disease hearing on the right hemithorax. On examination she does have rhonchi and wheezing. He is going to start antibiotics and if she is no better she is going to start the prednisone as well. In the meantime will looking to starting Xolair therapy for the patient. 03/10/2022 the patient is here for a pulmonary follow-up visit. She continues to have worsening chest congestion shortness of breath and chest tightness. Moderate to severe. She has been maximizing her respiratory therapy. For trying to get her on biologics including Xolair with her elevated IgE and after she was denied by her insurance company we did try to approve Tezspire, but that was also denied. Her IgE level was elevated although her allergy testing that we perform has been negative. Therefore the patient is agreeable to a allergy referral in order to have additional allergy testing to see if she can be started on biologics in view of her severe asthma and bronchiectasis. The patient has significant chest congestion. Difficult to clear. She does have a percussion vest and also an Acapella valve. She needs to be started on hypertonic saline that she can use after using her bronchodilator. In the meantime we also talked about performing a bronchoscopy for airway clearance pulmonary toilet in addition to the cultures from her lungs. If the patient has any evidence of Pseudomonas inhaled tobramycin may be very effective in helping her symptoms. we did review her last chest x-ray demonstrating significant airspace disease in the right lower lobe zone. 09/06/2022 the patient is here for a pulmonary follow-up visit. She still complaining of chest congestion chest tightness. She continues with respiratory medication. However, she is not taking her biologic anymore. I did consult with the humanities coordinator. Apparently she did not follow-up at the new office. Therefore, if she were to continue taking biologics she will have to be reestablished. In the meantime she is not performing her chest physical therapy with her chest vest. She is going to start using it. I did speak to her family regarding that. She does have cough she with chest congestion which is typical of her significant bronchiectasis. It is moderate severity. She also has increased wheezing associated with it. Denies any fevers or chills. 11/11/2022 the patient is here for pulmonary follow-up visit. She is complaining of increasing pleuritic discomfort in the right lung. Also been noticing worsening cough with green sputum. Feeling more congested. The having some chest tightness. She has been using her nebulizer. Unfortunately his sister got sick and therefore she had not been following through with her medical therapy. She stop the azithromycin because it was causing her irritability and mood changes therefore she stopped it. She is not performing the percussion therapy. We did look at her cultures previously she grew Proteus. Sensitive to Bactrim. Under go ahead and give her back to in order to treat for Staph aureus and also Proteus. Hopefully this helps her. Otherwise she can always call and give her stronger antibiotic. We can also try to get a sputum culture. She will get an x-ray as well she has no better. She also has prednisone available in case she gets worse she can always start it. 03/20/2023 the patient is here for pulmonary follow-up visit. The patient is still struggling with her significant bronchiectasis. Has had increased chest congestion. The mucus is greenish in color. She did bring up a sample not appear to be more purulent. Significant amount of mucus. She has been using the Trelegy inhaler. She has not been using the nebulizer or the percussion vest. She is here with her daughter in a emphasize the need for chest physical therapy with percussion vest. I will increase her hypertonic saline from 3% to 7%. She needs to also use a nebulizer prior to the hypertonic saline. She had been using the azithromycin medication 3 times a week but has not seen a significant improvement. Will switch over to Augmentin. Previous that she did grow Proteus in her sputum. She has significant bronchiectasis. Her last chest x-ray was noted to be abnormal. Will request a CT scan of the chest to better address her ongoing symptoms. In the meantime she also has significant allergies. She had responded well to Dupixent although was given her adverse side effects of myalgias and arthralgias and she has to stop it. Will go ahead and request additional blood work today to see if she is a candidate for addition biologic injection. [facility] Medical History Asthma Asthma-COPD overlap syndrome Bronchiectasis Bronchopneumonia Cough Ear discomfort Surgical History History of lung surgery Family History Daughter Bronchiectasis Colon polyps Brother Mental health disorder Mother No problems noted. Father Stroke Social History Housing: Apartment Alcohol intake: current Alcohol intake frequency: holidays/special occasions only Alcohol type: wine Patient Tobacco Use Status: Former Tobacco user Tobacco use type: Cigarette Years Smoked: 5 years e-Cigarette/Vaping Use: Never Used Second Hand Smoke Exposure: No service: No Current occupational status: unemployed and retired Cognitive needs: No Hearing needs: No Vision needs: Yes Review of Systems Const Denies night sweats ENT Denies change in voice, Denies lip swelling, Denies mouth pain, Reports nasal congestion, Reports nasal discharge, Reports post nasal drip, Reports sinus pain, Reports sinus pressure and Denies tongue swelling Card Denies chest pain and Reports dyspnea Resp Reports change in phlegm color, Reports chest congestion, Reports cough, Denies hemoptysis, Reports excessive phlegm production and Reports dyspnea GI Denies abdominal pain Musc Denies no additional complaints Neuro Denies Neuro-related abnormal movements Psych Denies no additional complaints Jay/Lymph Denies easy bleeding and Denies lymphadenopathy Aller/Immun Denies lip swelling and Denies tongue swelling Physical Exam Vital Signs: Last Vital Signs Pulse 78 03/20/23 13:11 BP 128/70 03/20/23 13:11 Pulse Ox 96 03/20/23 13:11 Oxygen Delivery Method Room Air 03/20/23 13:11 BMI result Body Mass Index 25.7 Const General: alert Neck Neck: Yes normal visual inspection, Yes full ROM and Yes no lymphadenopathy Chest Chest palpation & inspection: normal inspection of the chest Resp Auscultation: crackles, rhonchi, wheezes and diminished lung sounds Cardio Rate: regular rate Rhythm: regular rhythm Heart sounds: S1 normal heart sound present and S2 normal heart sound present GI Palpation (GI): Soft to palpation and nontender Auscultation: normal bowel sounds Skin General skin exam: rashes and/or lesions noted Assessment & Plan Assessment & Plan (1) Asthma: Code(s): J45.909 - Unspecified asthma, uncomplicated Qualifiers: Asthma complication type: uncomplicated Asthma persistence: persistent Asthma severity: severe Qualified Code(s): J45.50 - Severe persistent asthma, uncomplicated (2) Bronchiectasis: Code(s): J47.9 - Bronchiectasis, uncomplicated Qualifiers: Bronchiectasis type: with acute lower respiratory infection Qualified Code(s): J47.0 - Bronchiectasis with acute lower respiratory infection (3) Cough: Code(s): R05 - Cough (4) Asthma-COPD overlap syndrome: Code(s): J44.9 - Chronic obstructive pulmonary disease, unspecified Plan Start Augmetin sputum culture Continue Trelegy Continue nebulized therapy bloodwork to assess for biologic therapy. Adverse reaction to Dupixent not using Daliresp Prednisone if no better Stopped Azithromycin MWF CPT with albuterol->hypertonic saline 7% with percussion vest Follow-up in 2-3 months Orders: Orders Complete Blood Count Auto Diff Today J32.9 - Chronic sinusitis, unspecified, J44.9 - Chronic obstructive pulmonary disease, unspecified, J45.909 - Unspecified asthma, uncomplicated Hypersensitive Pneumonitis Prf Today J32.9 - Chronic sinusitis, unspecified, J44.9 - Chronic obstructive pulmonary disease, unspecified, J45.909 - Unspecified asthma, uncomplicated, R91.8 - Other nonspecific abnormal finding of lung field Immunoglobulin E Today J32.9 - Chronic sinusitis, unspecified, J44.9 - Chronic obstructive pulmonary disease, unspecified, J45.909 - Unspecified asthma, uncomplicated CT chest wo IV con Today J18.0 - Bronchopneumonia, unspecified organism, J47.9 - Bronchiectasis, uncomplicated Sputum Cult + Gram stain Today J18.0 - Bronchopneumonia, unspecified organism, J45.909 - Unspecified asthma, uncomplicated Erythrocyte Sedimentation Rate Today J18.0 - Bronchopneumonia, unspecified organism, J45.909 - Unspecified asthma, uncomplicated Immunoglobulins,IgG IgA IgM Today J18.0 - Bronchopneumonia, unspecified organism, J45.909 - Unspecified asthma, uncomplicated Acid-fast Culture + Smear Today J18.0 - Bronchopneumonia, unspecified organism, J45.909 - Unspecified asthma, uncomplicated Medications: New albuterol sulfate 2.5 mg (3 mL) inhalation Q6H 30 days PRN 180 mL 11RF shortness of breath or wheezing sodium chloride 7% 4 mL inhalation BID 30 days 240 mL 11RF amoxicillin-pot clavulanate 875-125 mg 1 tab PO BID 14 days 28 tabs 0RF Coding Level of Care Code Est Pt Level 4 (00298) Diagnoses Asthma J45.50 Asthma complication type: uncomplicated Asthma persistence: persistent Asthma severity: severe Bronchiectasis J47.0 Bronchiectasis type: with acute lower respiratory infection Cough R05 Asthma-COPD overlap syndrome J44.9 Time Spent (min) 20
== END 2023-03-20 13:43 | disposition home or self-care (01) ==
PROVIDERS: PCP Internal Medicine; Visit Provider Hospitalist
DX: J45.50 Severe persistent asthma, uncomplicated (principal); R05.9 Cough, unspecified
CPT/HCPCS: 99214

== ENCOUNTER 2023-05-02 15:00 | Outpatient (REF) | payer OTHER, SELFPAY | END 2023-05-02 15:01 | disposition home or self-care (01) | LOC: HO.CT 15:00 | PROVIDERS: PCP Internal Medicine; Visit Provider Hospitalist | DX: J18.0 Bronchopneumonia, unspecified organism (principal); J47.9 Bronchiectasis, uncomplicated | CPT/HCPCS: 71250 ==

== ENCOUNTER 2023-06-26 13:52 | Outpatient (AMB) | payer OTHER, SELFPAY ==
--- NOTE | 2023-06-26 14:02 | A.OFFVIS_ITS ---
Intake Vital Signs 06/26/23 14:09 Height 5 ft 3 in Weight 140 lb BMI 24.8 Pulse 80 Pulse Source Pulse Oximeter Pulse Oximetry (%) 93 Oxygen Delivery Method Room Air Intake Visit Reasons: cough Third Loader Required: No Allergies lisinopril Allergy (Mild, Verified 06/26/23 14:10) cough moxifloxacin [Avelox] Allergy (Mild, Verified 06/26/23 14:10) rash sulfamethoxazole [From Bactrim] Allergy (Mild, Verified 06/26/23 14:10) Rash trimethoprim [From Bactrim] Allergy (Mild, Verified 06/26/23 14:10) Rash HPI HPI Comments History of Present Illness Details The patient is a 62-year-old woman known severe persistent asthma and also bronchiectasis. She was in her usual state health until about a week ago when she started developing productive cough with yellowish phlegm. She has also had some chills and subjective fevers. Also has been complaining of pleuritic discomfort mainly on the right side. Mild in nature. In the office she was noted to be wheezing. She did receive a nebulized treatment. We try getting a sputum sample which he was unable to do so. She has had bronchoscopies in the past. I would have to go to [facility] to review her cultures. In the meantime going to treated for pneumonia. She was treated with Augmentin for bronchopneumonia. Her x-ray also demonstrated worsening right basilar opacity. She is status post bronchoscopy. Ultimately doing much better after the procedure. She did have significant period secretions. She did grow Proteus and was treated with a ntibiotics. No Pseudomonas was found into specimens which is reassuring that she no longer has Pseudomonas in her bronchiectatic airways. Unfortunate she did become sick with flu-like symptoms. She then developed a sore throat. She also has a cough. But otherwise has not had any fevers or chills or any other constitutional complaint. She has been on multiple antibiotics already so therefore will try to hold off on any antibiotics at this time. She has been using her nebulizer treatments and has been using her percussion vest. She is to continue to do so. 09/16/2021 the patient has a telephone visit. This is a sick visit. The patient started developing URI like symptoms along with chills. She lost her taste and smell. She was concerned she was developing COVID. She did have a CO VID test done and just came back today negative. She was not sure if he was a PCR versus an antigen test. I did request that if he was in antigen test that she should Re test in a few days. In the meantime the patient does have significant sinus pressure and congestion. She has significant drainage of mucus greenish in color. She cannot tolerate the quinolones due to rash. Therefore I will start her on Augmentin. The patient does have significant chest congestion as well. She has Extensive bronchiectasis. After completing the 2 weeks of antibiotics will reassess in the office. If the patient is no better will plan to perform a bronchoscopy for therapeutic cleaning. 10/12/2021 the patient is here for a pulmonary follow-up visit. The patient is starting to feel better. She did require antibiotics recently for sinusitis. Ultimately feeling better. She continues with respiratory therapy with partial improvement of her symptoms. The patient has not been using the nebulizer nor her percussion wrap. She understands with the bronchiectasis she needs to be able to perform chest PT in order to minimize mucus plugging and decrease her risk of infection. The patient does have a significant family history of airway disease. Therefore will have her undergo awful 1 DNA testing today. The patient continues to have significant asthma. Severe persistent. She has been on maximum therapy is still requiring multiple courses of prednisone and antibiotics. Her eosinophils in her IgE level were elevated the last time they were checked. I will have her repeat blood work to see if there is still elevated and to see if she has a an Allergic phenotype. If the levels are elevated that she may be a great candidate for biologic therapy. Will consider Dupixent as a very good option for her. Will decide further when she gets her laboratory data. I will also have her get a chest x-ray in view of her significant bronchiectatic changes. 01/07/2022 the patient is here for pulmonary follow-up visit. Overall she is about the same. She started developing worsening productive cough with green thick tenacious sputum. She was able to save the specimen to sent to the laboratory. Will have her go for additional blood work. The patient also has significant asthma requiring frequent prednisone. Last time we did check her allergies in the were positive in her IgE levels were elevated. Will have her undergo blood work again to see if she qualifies for other biologic therapy. Based on her frequent prednisone use she will benefit from biologic therapy to reduce exacerbations and minimize hospitalizations. The patient also had a chest x-ray which we personally reviewed demonstrating the most of the airspace disease hearing on the right hemithorax. On examination she does have rhonchi and wheezing. He is going to start antibiotics and if she is no better she is going to start the prednisone as well. In the meantime will looking to starting Xolair therapy for the patient. 03/10/2022 the patient is here for a pulmonary follow-up visit. She continues to have worsening chest congestion shortness of breath and chest tightness. Moderate to severe. She has been maximizing her respiratory therapy. For trying to get her on biologics including Xolair with her elevated IgE and after she was denied by her insurance company we did try to approve Tezspire, but that was also denied. Her IgE level was elevated although her allergy testing that we perform has been negative. Therefore the patient is agreeable to a allergy referral in order to have additional allergy testing to see if she can be started on biologics in view of her severe asthma and bronchiectasis. The patient has significant chest congestion. Difficult to clear. She does have a percussion vest and also an Acapella valve. She needs to be started on hypertonic saline that she can use after using her bronchodilator. In the meantime we also talked about performing a bronchoscopy for airway clearance pulmonary toilet in addition to the cultures from her lungs. If the patient has any evidence of Pseudomonas inhaled tobramycin may be very effective in helping her symptoms. we did review her last chest x-ray demonstrating significant airspace disease in the right lower lobe zone. 09/06/2022 the patient is here for a pulmonary follow-up visit. She still complaining of chest congestion chest tightness. She continues with respiratory medication. However, she is not taking her biologic anymore. I did consult with the judicial law clerk. Apparently she did not follow-up at the new office. Therefore, if she were to continue taking biologics she will have to be reestablished. In the meantime she is not performing her chest physical therapy with her chest vest. She is going to start using it. I did speak to her family regarding that. She does have cough she with chest congestion which is typical of her significant bronchiectasis. It is moderate severity. She also has increased wheezing associated with it. Denies any fevers or chills. 11/11/2022 the patient is here for pulmonary follow-up visit. She is complaining of increasing pleuritic discomfort in the right lung. Also been noticing worsening cough with green sputum. Feeling more congested. The having some chest tightness. She has been using her nebulizer. Unfortunately his s ister got sick and therefore she had not been following through with her medical therapy. She stop the azithromycin because it was causing her irritability and mood changes therefore she stopped it. She is not performing the percussion therapy. We did look at her cultures previously she grew Proteus. Sensitive to Bactrim. Under go ahead and give her back to in order to treat for Staph aureus and also Proteus. Hopefully this helps her. Otherwise she can always call and give her stronger antibiotic. We can also try to get a sputum culture. She will get an x-ray as well she has no better. She also has prednisone available in case she gets worse she can always start it. 03/20/2023 the patient is here for pulmonary follow-up visit. The patient is still struggling with her significant bronchiectasis. Has had increased chest congestion. The mucus is greenish in color. She did bring up a sample not appear to be more purulent. Significant amount of mucus. She has been using the Trelegy inhaler. She has not been using the nebulizer or the percussion vest. She is here with her daughter in a emphasize the need for chest physical therapy with percussion vest. I will increase her hypertonic saline from 3% to 7%. She needs to also use a nebulizer prior to the hypertonic saline. She had been using the azithromycin medication 3 times a week but has not seen a significant improvement. Will switch over to Augmentin. Previous that she did grow Proteus in her sputum. She has significant bronchiectasis. Her last chest x-ray was noted to be abnormal. Will request a CT scan of the chest to better address her ongoing symptoms. In the meantime she also has significant allergies. She had responded well to Dupixent although was given her adverse side effects of myalgias and arthralgias and she has to stop it. Will go ahead and request additional blood work today to see if she is a candidate for addition biologic injection. 06/26/2023 the patient is here for a pulmonary follow-up visit. She is doing better from a medication adherence standpoint. She did complete the Augmentin and treated the Proteus lung infection. She has been using her percussion vest. She also has been using the Trelegy inhaler and also hypertonic saline for CPT. The patient also has been taking the azithromycin 3 times a week. She is doing a little better and I did remind her that this is chronic therapy and she needs to continue. It is helping. Recently she did have a respiratory illness and she was having worsening respiratory symptoms and she responded well to just using her nebulizer more often. Did not need any more prednisone which is reassuring. Right now her respiratory exam is better. Also, we did review her CT scan of the chest. She has extensive bronchiectatic changes. significantly cystic in nature. Affecting primarily the right hemithorax although also has some in the left lower lobe. We did review the blood work. No evidence of any immunodeficiencies or connective tissue conditions. She did have a surgery when she was in [place]. We do not have the pathology although that would be helpful. based on the severity of disease in her asthma we did review her blood work. Her IgE level was actually within normal and also her eosinophilic level. Therefore biologic therapies are likely to be effective for her. Therefore hold off. I did recommend she get a 2nd opinion in [place]. Ideally the same hospital that her daughter goes to in case there is a genetic disposition. The patient will give me the name in the hospital so I can make the referral. In the meantime we are going to repeat her sweat test looking for cystic fibrosis variance and also would be also a candidate for lung transplant specially the bronchiectasis were to worsen. [facility] Medical History Asthma Asthma-COPD overlap syndrome Bronchiectasis Bronchopneumonia Cough Ear discomfort Surgical History History of lung surgery Family History Daughter Bronchiectasis Colon polyps Brother Mental health disorder Mother No problems noted. Father Stroke Housing: Apartment Alcohol intake: current Alcohol intake frequency: holidays/special occasions only Alcohol type: wine Patient Tobacco Use Status: Former Tobacco user Tobacco use type: Cigarette Years Smoked: 5 years e-Cigarette/Vaping Use: Never Used Second Hand Smoke Exposure: No service: No Current occupational status: unemployed and retired Cognitive needs: No Hearing needs: No Vision needs: Yes Review of Systems Const Denies night sweats ENT Denies change in voice, Denies lip swelling, Denies mouth pain, Reports nasal congestion, Reports nasal discharge, Reports post nasal drip and Denies tongue swelling Card Denies chest pain and Reports dyspnea Resp Reports chest congestion, Reports cough, Denies hemoptysis and Reports dyspnea GI Denies abdominal pain Musc Denies no additional complaints Neuro Denies Neuro-related abnormal movements Psych Denies no additional complaints Jay/Lymph Denies easy bleeding and Denies lymphadenopathy Aller/Immun Denies lip swelling and Denies tongue swelling Physical Exam Vital Signs: Last Vital Signs Pulse 80 06/26/23 14:09 Pulse Ox 93 06/26/23 14:09 Oxygen Delivery Method Room Air 06/26/23 14:09 BMI result Body Mass Index 24.8 Const General: alert Neck Neck: Yes normal visual inspection, Yes full ROM and Yes no lymphadenopathy Chest Chest palpation & inspection: normal inspection of the chest Resp Effort & Inspection: normal respiratory effort Auscultation: no rhonchi, no wheezes and diminished lung sounds Cardio Rate: regular rate Rhythm: regular rhythm Heart sounds: S1 normal heart sound present and S2 normal heart sound present GI Palpation (GI): Soft to palpation and nontender Auscultation: normal bowel sounds Skin General skin exam: rashes and/or lesions noted Assessment & Plan Assessment & Plan (1) Asthma: Code(s): J45.909 - Unspecified asthma, uncomplicated Qualifiers: Asthma complication type: uncomplicated Asthma persistence: persistent Asthma severity: severe Qualified Code(s): J45.50 - Severe persistent asthma, uncomplicated (2) Bronchiectasis: Code(s): J47.9 - Bronchiectasis, uncomplicated Qualifiers: Bronchiectasis type: with acute lower respiratory infection Qualified Code(s): J47.0 - Bronchiectasis with acute lower respiratory infection (3) Cough: Code(s): R05 - Cough Qualifiers: Cough type: chronic Qualified Code(s): R05.3 - Chronic cough (4) Asthma-COPD overlap syndrome: Code(s): J44.9 - Chronic obstructive pulmonary disease, unspecified Plan Continue Trelegy Continue nebulized therapy conrinue Azithromycin MWF CPT with albuterol->hypertonic saline 7% with percussion vest sweat test at [facility] [place] referral to [place] for the extensive bronchiectasis Follow-up in 3-4 months Medications: New azithromycin Take 1 tablet on Monday/Monday/Monday 250 mg PO 3XW 28 days 12 tabs 11RF K21.9 - Gastro-esophageal reflux disease without esophagitis Refilled Trelegy Ellipta 200-62.5-25 mcg ([id number]) 1 inh inhalation DAILY 60 ea 11RF NS Coding Level of Care Code Est Pt Level 4 (00336) Diagnoses Severe persistent asthma without complication J45.50 Asthma complication type: uncomplicated Asthma persistence: persistent Asthma severity: severe Bronchiectasis with acute lower respiratory infection J47.0 Bronchiectasis type: with acute lower respiratory infection Chronic cough R05.3 Cough type: chronic Asthma-COPD overlap syndrome J44.9 Time Spent (min) 17
[2023-06-26 14:09] VITALS: PULSE 80; O2SAT 93; BMI 24.8
== END 2023-06-26 14:41 | disposition home or self-care (01) ==
PROVIDERS: PCP Internal Medicine; Visit Provider Hospitalist
DX: J45.50 Severe persistent asthma, uncomplicated (principal); J47.0 Bronchiectasis with acute lower respiratory infection; R05.3 Chronic cough; J44.9 Chronic obstructive pulmonary disease, unspecified
CPT/HCPCS: 99214

== ENCOUNTER → 2023-06-26 13:52 | Outpatient (BNVA) | payer OTHER, SELFPAY | PROVIDERS: PCP Internal Medicine; Visit Provider Hospitalist | DX: J45.50 Severe persistent asthma, uncomplicated (principal); J47.0 Bronchiectasis with acute lower respiratory infection; J47.9 Bronchiectasis, uncomplicated; J18.0 Bronchopneumonia, unspecified organism; R05.3 Chronic cough; J44.9 Chronic obstructive pulmonary disease, unspecified | CPT/HCPCS: 99212 ==

== ENCOUNTER 2023-06-27 10:57 | Outpatient (AMB) | payer OTHER, SELFPAY ==
--- NOTE | 2023-06-27 11:03 | A.OFFVIS_ITS ---
Intake Vital Signs 06/27/23 11:04 Height 5 ft 3 in Weight 140 lb 3.424 oz BMI 24.8 BP 120/74 Blood Pressure Location Rt brachial Position Sitting Pulse 82 Pulse Source Pulse Oximeter Temp 97.0 F Temp Source Skin Pulse Oximetry (%) 96 Oxygen Delivery Method Room Air Intake Visit Reasons: Polyarthralgia Intake Note: New pt presents today for consult. C/o diffuse joint pain. Chief Warden Required: No Accompanied by: Daughter Allergies lisinopril Allergy (Mild, Verified 06/27/23 11:07) cough moxifloxacin [Avelox] Allergy (Mild, Verified 06/27/23 11:07) rash sulfamethoxazole [From Bactrim] Allergy (Mild, Verified 06/27/23 11:07) Rash trimethoprim [From Bactrim] Allergy (Mild, Verified 06/27/23 11:07) Rash Medication List - Last Reconciled 06/27/23 by Mahogany Olea MD albuterol sulfate 2.5 mg (3 mL) inhalation Q4H PRN albuterol sulfate 90 mcg/actuation 2 puffs inhalation Q6H PRN albuterol sulfate 2.5 mg (3 mL) inhalation Q6H PRN 30 days azithromycin 250 mg PO 3XW 28 days budesonide 0.5 mg (2 mL) inhalation BID cetirizine 10 mg PO DAILY escitalopram oxalate 20 mg PO DAILY fluticasone propionate 50 mcg/actuation 1 spray intranasal PRN [id number] 200-62.5-25 mcg (Trelegy Ellipta) 1 inh inhalation DAILY 30 days ibuprofen 400 mg PO Q6H PRN 30 days ipratropium-albuterol 0.5 mg-3 mg(2.5 mg base)/3 mL 3 mL inhalation Q6-8H PRN lorazepam 0 mg PO losartan-hydrochlorothiazide 100-12.5 mg 1 tab PO DAILY 90 days methylcellulose (laxative) (Citrucel) 500 mg PO BID montelukast 10 mg PO BEDTIME nebulizers As directed polyethylene glycol 3350 (Miralax) 17 grams PO DAILY PRN sodium chloride 7% 4 mL inhalation BID 30 days Trelegy Ellipta 200-62.5-25 mcg (mhtaapoezba-hxppwgcep-[id number]) 1 inh inhalation DAILY NS triamcinolone acetonide 0.5% 1 appl topical TID HPI HPI Comments History of Present Illness Details This is a 62-year-old female with bronchiectasis who presents for evaluation of diffuse pain. Patient states that she has pain in her neck, shoulders, upper back, elbows, thighs. She denies any swollen joints. Patient lost her 41-year-old son from a heart attack 6 months ago. She has lost 25 lb. She does not sleep well. Has not had much of an appetite. She follows up with a counselor regularly. She is on escitalopram. She states that she was diagnosed with bronchiectasis since she was a child. She is unaware of any family history of an autoimmune rheumatic illness. Denies any history of DVT/PE [facility] Medical History Bronchopneumonia Ear discomfort Asthma-COPD overlap syndrome Cough Bronchiectasis Asthma Surgical History History of lung surgery Family History Daughter Bronchiectasis Colon polyps Brother Mental health disorder Mother No problems noted. Father Stroke Housing: Apartment Alcohol intake: current Alcohol intake frequency: holidays/special occasions only Alcohol type: wine Patient Tobacco Use Status: Former Tobacco user Tobacco use type: Cigarette Years Smoked: 5 years e-Cigarette/Vaping Use: Never Used Second Hand Smoke Exposure: No service: No Current occupational status: unemployed and retired Cognitive needs: No Hearing needs: No Vision needs: Yes Female Reproductive History Menstrual Total pregnancies: 4 Full term: 5 Number of Living Children: 4 Review of Systems Const Reports fatigue, Reports snoring, Reports weakness and Reports weight loss Eyes Reports blurry vision, Reports diplopia and Reports itchy eyes ENT Reports neck pain Card Reports chest pain, Reports irregular heart rhythm and Reports dyspnea Resp Reports dyspnea, Reports snoring and Reports wheezing GI Reports abdominal pain and Reports constipation Musc Reports back pain, Reports myalgias, Reports arthralgias and Reports neck pain Skin/Breast Reports alopecia Neuro Reports weakness Psych Reports abnormal sleep pattern and Reports anxiety Endo Reports fatigue and Reports polydipsia Aller/Immun Reports itchy eyes and Reports wheezing Physical Exam Vital Signs: Last Vital Signs Temp 97.0 F 06/27/23 11:04 Pulse 82 06/27/23 11:04 BP 120/74 06/27/23 11:04 Pulse Ox 96 06/27/23 11:04 Oxygen Delivery Method Room Air 06/27/23 11:04 BMI result Body Mass Index 24.8 Const General: cooperative, healthy appearing and comfortable Nutritional Appearance: average body habitus Orientation/consciousness: patient oriented x3 Limitations: no limitations HEENT Head: Yes normocephalic and Yes atraumatic Mouth: moist mucous membranes Resp Effort & Inspection: normal respiratory effort and able to speak in complete sentences Auscultation: crackles and diminished lung sounds Cardio Rate: regular rate Rhythm: regular rhythm Neuro General: patient oriented x3 Extrem Other: No active synovitis Few myofascial tender points Proximal Muscle strength 5/5 all 4 extremities Normal nailfold capillaroscopy Assessment & Plan Assessment & Plan (1) Polyarthralgia: Code(s): M25.50 - Pain in unspecified joint Plan: This is a 62-year-old female with history of bronchiectasis who presents for evaluation of diffuse pain. Upon evaluation I do not see any signs of an autoimmune rheumatic disease. Previous labs showed negative NANY/PCP. Follow-up with PCP. Plan I spent 26 minutes reviewing patient's chart, evaluating patient, counseling patient and documenting in the chart Coding Level of Care Code New Pt Level 3 (77678) Diagnoses Polyarthralgia M25.50
[2023-06-27 11:04] VITALS: BP 120/74; PULSE 82; TEMP 36.1; O2SAT 96; BMI 24.8
== END 2023-06-27 11:35 | disposition home or self-care (01) ==
PROVIDERS: PCP Internal Medicine; Visit Provider Student in an Organized Health Care Education/Training Program
DX: M25.50 Pain in unspecified joint (principal)
CPT/HCPCS: 99203

== ENCOUNTER → 2023-06-27 10:57 | Outpatient (BNVA) | payer OTHER, SELFPAY | PROVIDERS: PCP Internal Medicine; Visit Provider Student in an Organized Health Care Education/Training Program | DX: M25.50 Pain in unspecified joint (principal) | CPT/HCPCS: 99202 ==

== ENCOUNTER 2023-07-04 11:21 | Outpatient (AMB) | payer OTHER, SELFPAY ==
[2023-07-04 11:22] VITALS: BP 116/68; PULSE 63; O2SAT 95; BMI 25.5
--- NOTE | 2023-07-04 11:22 | MHC.PC.OV ---
Vital Signs 07/04/23 11:22 Height 5 ft 3 in Weight 144 lb 0.2 oz BMI 25.5 BP 116/68 Blood Pressure Location Lt brachial Position Sitting Pulse 63 Pulse Source Pulse Oximeter Temp Source Skin Pulse Oximetry (%) 95 Oxygen Delivery Method Room Air Intake Visit Reasons: inflammation/headaches and vision Intake Note: pt states dizziness/headaches, blurry vision right eye X1 month It Sales Representative Required: No Allergies lisinopril Allergy (Mild, Verified 07/04/23 11:33) cough moxifloxacin [Avelox] Allergy (Mild, Verified 07/04/23 11:33) rash sulfamethoxazole [From Bactrim] Allergy (Mild, Verified 07/04/23 11:33) Rash trimethoprim [From Bactrim] Allergy (Mild, Verified 07/04/23 11:33) Rash Medication List - Last Reconciled 07/04/23 by EDMUND Acuña albuterol sulfate 2.5 mg (3 mL) inhalation Q4H PRN albuterol sulfate 90 mcg/actuation 2 puffs inhalation Q6H PRN albuterol sulfate 2.5 mg (3 mL) inhalation Q6H PRN 30 days azithromycin 250 mg PO 3XW 28 days budesonide 0.5 mg (2 mL) inhalation BID cetirizine 10 mg PO DAILY escitalopram oxalate 20 mg PO DAILY fluticasone propionate 50 mcg/actuation 1 spray intranasal PRN mbhbenispji-fyixujulm-uypoghdh 200-62.5-25 mcg (Trelegy Ellipta) 1 inh inhalation DAILY 30 days ibuprofen 400 mg PO Q6H PRN 30 days ipratropium-albuterol 0.5 mg-3 mg(2.5 mg base)/3 mL 3 mL inhalation Q6-8H PRN lorazepam 0 mg PO losartan-hydrochlorothiazide 100-12.5 mg 1 tab PO DAILY 90 days methylcellulose (laxative) (Citrucel) 500 mg PO BID montelukast 10 mg PO BEDTIME nebulizers As directed polyethylene glycol 3350 (Miralax) 17 grams PO DAILY PRN sodium chloride 7% 4 mL inhalation BID 30 days Trelegy Ellipta 200-62.5-25 mcg (mvasmjbzswl-dfyuxunto-ksileyfb) 1 inh inhalation DAILY NS triamcinolone acetonide 0.5% 1 appl topical TID Tobacco use date assessed: 07/04/23 Dental Screening Dental Screen Date: 07/04/23 Did you have a dental visit in the last 12 months?: Yes Did you have a dental problem in the last 6 months where you did not have access to dental care?: No Was dental information given to patient?: Patient has dentist HPI inflammation/headaches and vision HPI Details Patient is a 62-year-old female who presents today with headaches for many years now and blurry vision intermittent in both eyes for long time now. Patient of Dr. Simon. Medical history significant for asthma, hypertension, anxiety, depression. Patient reports that 1 month ago she did see bright light on the side of her right eye, no more episodes since then, she will call her eye doctor for an appointment. Denies eyeball pain, reports her eyes get watery sometimes. Reports she has cataracts, saw eye doctor 02/2023. Reports usually headaches in the morning that go away on its own or after taking Motrin or Tylenol. Patient also reports that she wears glasses. Denies headache or dizziness in the office today. Also reports intermittent dizziness. Patient is a [place]-speaking and her daughter Kalli was helping with interpretation. [facility] Medical History Bronchopneumonia Ear discomfort Asthma-COPD overlap syndrome Cough Bronchiectasis Asthma Surgical History History of lung surgery Family History Daughter Bronchiectasis Colon polyps Brother Mental health disorder Mother No problems noted. Father Stroke Social History Housing: Apartment Alcohol intake: current Alcohol intake frequency: holidays/special occasions only Alcohol type: wine Patient Tobacco Use Status: Former Tobacco user Tobacco use type: Cigarette Years Smoked: 5 years e-Cigarette/Vaping Use: Never Used Second Hand Smoke Exposure: No service: No Current occupational status: unemployed and retired Cognitive needs: No Hearing needs: No Vision needs: Yes Questionnaire Thrive Questionnaire Date Thrive assessed: 10/03/22 AUDIT C Alcohol Use Questionnaire (AUDIT-C) 1. How often do you have a drink containing alcohol?: Monthly or less 2. How many drinks containing alcohol do you have on a typical day when you are drinking?: 1 or 2 3. How often do you have six or more drinks on one occasion?: Never Total Score: 1 Score Reviewed/Action Taken: No AMNA-7 AMB Questionnaire AMNA-7 Date AMNA - 7 assessed: 02/08/23 Source: Developed by Drs. Fredy Quiñones, Elsi Dominguez, Isiah Larkin and colleagues, with an educational joshua from [employer]. Review of Systems Const Denies body aches, Denies chills, Denies fever(s) and Reports headache(s) (Intermittent) Eyes Reports blurry vision (Intermittent) and Denies change in vision ENT Reports dizziness (Intermittent), Denies otalgia, Reports headache(s) (Intermittent), Denies nasal discharge, Denies sinus pain and Denies sore throat Card Denies chest pain, Denies edema, Denies lightheadedness and Denies dyspnea Resp Denies cough, Denies dyspnea and Denies wheezing GI Denies abdominal pain Musc Denies myalgias Skin/Breast Denies rash Neuro Reports dizziness (Intermittent) and Reports headache(s) (Intermittent) Aller/Immun Denies wheezing Physical exam (Primary Care) Vital Signs: Last Vital Signs Pulse 63 07/04/23 11:22 BP 116/68 07/04/23 11:22 Pulse Ox 95 07/04/23 11:22 Oxygen Delivery Method Room Air 07/04/23 11:22 BMI result Body Mass Index 25.5 Tobacco/Smoking Status: Tobacco use Status Tobacco use date assessed 07/04/23 07/04/23 11:30 Patient Tobacco Use Status Former Tobacco user 07/04/23 11:30 Tobacco use type Cigarette 07/04/23 11:30 e-Cigarette/Vaping Use Never Used 07/04/23 11:30 Thrive Assessment: Date of Thrive Assessment Date Thrive assessed 10/03/22 07/04/23 11:30 Const General: cooperative and no acute distress Orientation/consciousness: patient oriented x3 HENMT Head: Yes normocephalic and Yes atraumatic Face and sinus: Yes sinuses nontender Mouth: oropharynx normal and moist mucous membranes Throat: Yes posterior oropharynx normal Eyes General: appearance normal, both eyes and all related structures Pupils: Equal, round and reactive pupils present EOM: EOMs intact bilaterally Neck Neck: Yes normal visual inspection, Yes full ROM and Yes no lymphadenopathy Resp Effort & Inspection: normal respiratory effort and able to speak in complete sentences Auscultation: clear to auscultation bilaterally, no crackles, no rales, no rhonchi and no wheezes Cardio Rate: regular rate Rhythm: regular rhythm Heart sounds: S1 normal heart sound present and S2 normal heart sound present GI Auscultation: normal bowel sounds Skin General skin exam: no rashes or lesions noted Neuro General: patient oriented x3 and CN's II-XI intact bilaterally Cranial nerves: Yes Equal, round and reactive pupils present Gait exam (Neuro): Normal gait present Motor exam (neuro): 5/5 motor strength present throughout Romberg Test: Negative Extrem General: Yes full ROM Assessment and Plan Assessment & Plan (1) Headache: Code(s): R51.9 - Headache, unspecified Plan: Patient reports intermittent headaches in the morning for many years now that are resolved on its own or after taking kinb-fuf-fhjfnqw medication. Physical exam with no acute findings. Patient denies headache in the office today. Patient is to continue Tylenol 650 mg every 6 hours as needed or ibuprofen 400 mg every 8 hours as needed. Signs and symptoms reviewed when to notify provider go to the emergency department. (2) Blurry vision, bilateral: Code(s): H53.8 - Other visual disturbances Plan: Encouraged patient to follow-up with her eye doctor for an exam. Signs and symptoms reviewed when to notify provider or when to go to the emergency department Plan Keep appointment with PCP as scheduled or follow-up sooner as needed Coding Level of Care Code Est Pt Level 3 (82732) Diagnoses Headache R51.9 Blurry vision, bilateral H53.8
== END 2023-07-04 12:07 | disposition home or self-care (01) ==
PROVIDERS: PCP Internal Medicine; Visit Provider Nurse Practitioner Family
DX: R51.9 Headache, unspecified (principal); H53.8 Other visual disturbances
CPT/HCPCS: 99213

== ENCOUNTER 2023-08-21 18:37 | Inpatient (IN) | payer OTHER, SELFPAY ==
[2023-08-21] VITALS (11 sets, daily range): BP systolic 100–160; BP diastolic 38–69; PULSE 64–123; RESP 17–30; TEMP 36.8–38.8; O2SAT 89–96; BMI 27.8
--- NOTE | ~2023-08-21 | XR_ITS ---
EXAMINATION: XR CHEST CLINICAL INFORMATION: Cough chills COMPARISON: CT chest from 05/02/2023 TECHNIQUE: Frontal view of the chest was obtained. FINDINGS: Postsurgical changes of the right lung with volume loss, right apical scarring, bronchiectatic changes, elevation the right hemidiaphragm, and mediastinal/tracheal deviation to the right, stable. Slightly more prominent left basilar radiopacity which may reflect atelectasis versus evolving infectious/inflammatory etiology. No pneumothorax. Cardiomediastinal silhouette is stable. No large pleural effusion. Osseous structures are intact. Surgical clips right upper chest/lower neck. XR/XR chest 1V IMPRESSION: 1. Slightly more prominent left basilar radiopacity which may reflect atelectasis versus evolving infectious/inflammatory etiology. 2. Postsurgical changes of the right lung with volume loss, right apical scarring, bronchiectatic changes, elevation the right hemidiaphragm, and mediastinal/tracheal deviation to the right, stable.
--- NOTE | 2023-08-21 18:49 | ECG_ITS ---
Test Reason : SOB Blood Pressure : / mmHG Vent. Rate : 109 BPM Atrial Rate : 109 BPM P-R Int : 132 ms QRS Dur : 072 ms QT Int : 308 ms P-R-T Axes : 051 062 -20 degrees QTc Int : 414 ms Sinus tachycardia Nonspecific ST and T wave abnormality Abnormal ECG When compared with ECG of 30-MAY-2017 18:38, Non-specific change in ST segment in Anterior leads Inverted T waves have replaced nonspecific T wave abnormality in Inferior leads Nonspecific T wave abnormality now evident in Anterolateral leads Referred By: Sofya Canales Electronically Signed By:Roberto Carlos Uribe
--- NOTE | 2023-08-21 19:40 | ED.URI ---
HPI - URI/Sore Throat General Chief Complaint: Dyspnea Stated Complaint: difficulty breathing, tightness and burning Time Seen by Provider: 08/21/23 18:42 Source: patient and old records reviewed Mode of arrival: EMS Limitations: no limitations History of Present Illness HPI Narrative: 63 yo female with PMH of bronchiectasis on trelegy and azithromycin MWF managed by Dr. Mantilla, AMNA, depression, HTN, asthma-COPD overlap, asthma, bronchitis here with c/o nausea, cough, shortness of breath and not feeling well. No travel no sick contacts. States her stomach was upset earlier today as well but feels better. MD elicited complaint: fever and cough Pertinent past history: asthma Onset (ago): day(s) (1) Consistency: constant Severity: moderate Description of mucous: clear Able to tolerate fluids by mouth: Yes Exacerbating factors: nothing Relieving factors: nothing Associated symptoms: chills, headache, cough, shortness of breath and nausea Treatments prior to arrival: other (EMS gave zofran) Related Data Home Medications Medication Instructions Recorded Confirmed ipratropium 0.5 mg-albuterol 3 mg 3 ml inhalation Q6-8H PRN 05/28/20 07/04/23 (2.5 mg base)/3 mL nebulization soln escitalopram oxalate 20 mg tablet 20 mg PO DAILY 07/16/20 07/04/23 lorazepam 0.5 mg tablet 0 mg PO 05/19/22 07/04/23 triamcinolone acetonide 0.5 % 1 appl topical TID 05/19/22 07/04/23 topical cream cetirizine 10 mg tablet 10 mg PO DAILY 11/11/22 07/04/23 nebulizers 06/26/23 07/04/23 fluticasone propionate 50 1 spray intranasal PRN 06/27/23 07/04/23 mcg/actuation nasal spray,suspension polyethylene glycol 3350 17 17 g PO DAILY PRN 06/27/23 07/04/23 gram/dose oral powder (Miralax) Previous Rx's Medication Instructions Recorded budesonide 0.5 mg/2 mL suspension 0.5 mg (2 mL) inhalation BID #120 02/10/21 for nebulization mL albuterol sulfate 2.5 mg/3 mL 2.5 mg (3 mL) inhalation Q4H PRN 08/24/21 (0.083 %) solution for nebulization for wheezing #300 mL montelukast 10 mg tablet 10 mg PO BEDTIME #30 tabs 09/02/22 fluticasone fur. 200 mcg-umeclid 1 inh inhalation DAILY 30 days #60 09/06/22 62.5 mcg-vilant 25 mcg ea inhalat.powder (Trelegy Ellipta) albuterol sulfate 90 mcg/actuation 2 puff inhalation Q6H PRN for 10/27/22 aerosol inhaler wheezing #1 ea methylcellulose (laxative) 500 mg 500 mg PO BID #60 tabs 11/22/22 tablet (Citrucel) ibuprofen 400 mg tablet 400 mg PO Q6H PRN pain 30 days 02/13/23 #120 tabs albuterol sulfate 2.5 mg/3 mL 2.5 mg (3 mL) inhalation Q6H PRN 03/20/23 (0.083 %) solution for nebulization shortness of breath or wheezing 30 days #180 mL sodium chloride 7 % for 4 ml inhalation BID 30 days #240 mL 03/20/23 nebulization Trelegy Ellipta 200 mcg-62.5 1 inh inhalation DAILY #60 ea 06/26/23 mcg-25 mcg powder for inhalation (nvjdkhjtmck-tckbxqiru-fwwoetlc) azithromycin 250 mg tablet 250 mg PO 3XW 28 days #12 tabs 06/26/23 losartan 100 1 tab PO DAILY 90 days #90 tabs 07/06/23 mg-hydrochlorothiazide 12.5 mg tablet disposable gloves #200 ea 07/07/23 Allergies Allergy/AdvReac Type Severity Reaction Status Date / Time lisinopril Allergy Mild cough Verified 07/04/23 11:33 moxifloxacin [Avelox] Allergy Mild rash Verified 07/04/23 11:33 sulfamethoxazole Allergy Mild Rash Verified 07/04/23 11:33 [From Bactrim] trimethoprim [From Bactrim] Allergy Mild Rash Verified 07/04/23 11:33 Review of Systems Review of Systems: Constitutional : No Fever, pos Chills ENT/Mouth : No Hoarseness, No sore throat, No Rhinorrhea Eyes: No Redness, No Discharge, No Vision Changes Cardiovascular : No Chest Pain, positive SOB, positive Dyspnea on Exertion, No Edema Respiratory : positive Cough, No Sputum, positive Wheezing, Gastrointestinal : pos Nausea, No Vomiting, No Diarrhea, No abdominal Pain Genitourinary : No Dysuria, No Hematuria Musculoskeletal : No joint pain, No Myalgias Skin : No rash Neuro : No Weakness, No Numbness, No Headache Psych : No anxiety, depression Heme/Lymph: No Bruising, No Bleeding Endocrine : No Polyuria, No Polydipsia All other systems reviewed and are negative [facility] Past Medical History Source: old records reviewed Medical History Bronchopneumonia Ear discomfort Asthma-COPD overlap syndrome Cough Bronchiectasis Asthma Surgical History History of lung surgery Family History Family History Daughter Bronchiectasis Colon polyps Brother Mental health disorder Mother No problems noted. Father Stroke Social History Social History Housing: Apartment Alcohol intake: current Alcohol intake frequency: holidays/special occasions only Alcohol type: wine Patient Tobacco Use Status: Former Tobacco user Tobacco use type: Cigarette Years Smoked: 5 years e-Cigarette/Vaping Use: Never Used Second Hand Smoke Exposure: No Advance Directives: No Advance Directives Information Provided: No service: No Current occupational status: unemployed and retired Cognitive needs: No Hearing needs: No Vision needs: Yes Physical Exam Vital Signs: Vital Signs: Last Vital Signs Temp 99.5 F 08/21/23 21:00 Pulse 102 H 08/21/23 22:08 Resp 18 08/21/23 22:08 BP 113/51 L 08/21/23 22:08 Pulse Ox 95 08/21/23 22:08 O2 Del Method Nasal Cannula 08/21/23 22:08 O2 Flow Rate 2 08/21/23 22:08 BMI result Body Mass Index 27.8 Appearance: Alert. Oriented X3. No acute distress. Eyes: Pupils equal, round and reactive to light. ENT: Pharynx normal. Neck: Normal inspection. Neck supple. CVS: sinus tachycardic heart rate and rhythm. Pulses normal. Respiratory: No respiratory distress. Breath sounds diminished in both bases Abdomen: Soft and very mild epigastric ttp no rebound or guarding Skin: Skin warm and dry. Normal skin color. Normal skin turgor. Extremities: No lower extremity edema. No calf ttp Neuro: Oriented X 3. No motor deficit. No sensory deficit. Medications Administered Generic Name Dose Route Start Last Admin Trade Name Kyleigh PRN Reason Stop Dose Admin Azithromycin 500 mg/ Sodium 250 mls @ 125 mls/hr 08/21/23 20:56 08/21/23 21:17 Chloride IV 08/21/23 22:55 125 mls/hr ONCE ONE Administration Discontinued Medications Generic Name Dose Route Start Last Admin Trade Name Kyleigh PRN Reason Stop Dose Admin Acetaminophen 650 mg 08/21/23 19:29 08/21/23 19:52 Acetaminophen 325 Mg Tablet PO 08/21/23 19:30 650 mg ONCE ONE Administration Albuterol Sulfate 2.5 mg/ 5 mg 08/21/23 20:22 08/21/23 20:26 Albuterol Sulfate 2.5 mg INHALE 08/21/23 20:23 5 mg ONCE ONE Administration Ceftriaxone Sodium 1 gm/ 50 mls @ 100 mls/hr 08/21/23 19:29 08/21/23 21:02 Sodium Chloride IV 08/21/23 19:58 Infused ONCE ONE Infusion Sodium Chloride 1,000 mls @ 999 mls/hr 08/21/23 19:45 08/21/23 21:02 Ns IV 08/21/23 20:45 Infused .Q1H1M CHELY Infusion Sodium Chloride 1,000 mls @ 999 mls/hr 08/21/23 21:00 08/21/23 21:11 Ns IV 08/21/23 22:00 999 mls/hr .Q1H1M CHELY Administration Methylprednisolone Sodium Succinate 60 mg 08/21/23 18:48 08/21/23 19:53 Methylprednisolone Sod Succ 125 Mg/2 Ml Vial IVPUSH 08/21/23 18:49 60 mg ONCE ONE Administration Oseltamivir Phosphate 75 mg 08/21/23 20:14 08/21/23 20:36 Oseltamivir Phosphate 75 Mg Capsule PO 08/21/23 20:15 75 mg ONCE ONE Administration Medical Decision Making Medical Decision Making MDM Narrative: 63 yo female with PMH of bronchiectasis on trelegy and azithromycin MWF managed by Dr. Mantilla, AMNA, depression, HTN, asthma-COPD overlap, asthma, bronchitis, Proteus in sputum in past at this time presents with chills, not feeling well, cough, increased shortness of breath and nausea at this time arrives with fever of 102, will alert sepsis and start on IVF, cultures, lactic acid, CXR and start on empiric steroids/bronch protocol and ceftriaxone based off prior proteus. Viral panel also sent off. Differential Diagnosis Differential Diagnoses: The differential diagnosis associated with the presentation includes viral syndrome, bronchiectasis, pneumonia, UTI Admission/Observation Consideration of admission/observation: Escalation of care including admission/observation considered admit given flu A fever, work of breathing 89% on RA hypoxic does not use O2 at home Consult Healthcare Provider Management of the patient was discussed with: Hospitalist (will admit) Lab Data MDM Lab Attestation statement: I reviewed the patient's lab results. 08/21/23 21:08 08/21/23 19:41 Labs: Lab Results 08/21/23 08/21/23 08/21/23 Range/Units 19:41 20:20 21:08 WBC 12.7 H (4.8-10.8) X10*3/uL RBC 4.57 (4.20-5.50) X10*6/uL Hgb 12.5 (12.0-16.0) g/dl Hct 37.6 (37.0-47.0) % MCV 82.3 (80.0-98.0) fL MCH 27.4 (27.0-33.0) pg MCHC 33.2 (31.0-35.0) g/dl RDW 14.4 (11.0-16.0) % Plt Count 283 (160-400) X10*3/uL MPV 8.9 L (9.4-12.3) fL Immature Gran % (Auto) 0.4 (0.0-0.4) % Neut % (Auto) 93.3 H (45-73) % Lymph % (Auto) 3.9 L (20-40) % Runnels % (Auto) 2.2 (2-11) % Eos % (Auto) 0.0 (0-4) % Baso % (Auto) 0.2 (0-2) % Lymph # (Auto) 0.5 L (1.2-4.9) X10*3/uL Runnels # (Auto) 0.3 (0.1-1.2) X10*3/uL Eos # (Auto) 0.0 (0.0-0.4) X10*3/uL Baso # (Auto) 0.0 (0.0-0.2) X10*3/uL Abs Immat Gran (auto) 0.05 H (0.00-0.03) X10*3/uL Absolute Neuts (auto) 11.8 H (2.0-8.3) x10*3/uL Absolute Nucleated RBC 0.000 (0.0-0.012) X10*3/uL Nucleated RBC % (auto) 0.0 (0.0-0.2) /100WBC Smear Tech's Comments VERIFIED PT 13.1 (11.1-13.3) SEC INR 1.1 (0.9-1.1) VBG pH (7.32-7.43) VBG pCO2 mmHg VBG pO2 mmHg VBG HCO3 (22-26) mmol/L VBG O2 Saturation % VBG Base Excess mmol/L Sodium 135 (135-145) mmol/L Potassium 3.7 (3.3-5.1) mmol/L Chloride 103 (96-108) mmol/L Carbon Dioxide 22 (22-29) mmol/L Anion Gap 14 (12-20) BUN 10 (9-16) mg/dL Creatinine 0.66 (0.5-1.4) mg/dL Estim Creat Clear Calc 80.3 Estimated GFR > 60 Random Glucose 106 (60-115) mg/dL Lactic Acid 1.2 (0.5-2.0) mmol/L Calcium 9.5 (8.4-10.2) mg/dL Magnesium 1.7 (1.6-2.6) mg/dL Total Bilirubin 0.3 (0.0-1.0) mg/dL Direct Bilirubin 0.1 (0.0-0.5) mg/dL AST 23 (5-31) U/L ALT 15 (0-31) U/L Alkaline Phosphatase 74 (39-117) U/L Troponin I High Sens < 2.7 (<3.5-17.0) ng/L B-Natriuretic Peptide 71 (<100) pg/mL Total Protein 7.8 (6.5-8.0) g/dL Albumin 3.8 (3.5-5.0) g/dL Lipase 12 (8-78) U/L COVID-19 (TOSIN) Negative (Negative) COVID-19 Clin Com See Note Influenza Type A (FLORINDA) Positive A (Negative) Influenza Type B (FLORINDA) Negative (Negative) Influenza A & B Note See Note 08/21/23 Range/Units 21:14 WBC (4.8-10.8) X10*3/uL RBC (4.20-5.50) X10*6/uL Hgb (12.0-16.0) g/dl Hct (37.0-47.0) % MCV (80.0-98.0) fL MCH (27.0-33.0) pg MCHC (31.0-35.0) g/dl RDW (11.0-16.0) % Plt Count (160-400) X10*3/uL MPV (9.4-12.3) fL Immature Gran % (Auto) (0.0-0.4) % Neut % (Auto) (45-73) % Lymph % (Auto) (20-40) % Runnels % (Auto) (2-11) % Eos % (Auto) (0-4) % Baso % (Auto) (0-2) % Lymph # (Auto) (1.2-4.9) X10*3/uL Runnels # (Auto) (0.1-1.2) X10*3/uL Eos # (Auto) (0.0-0.4) X10*3/uL Baso # (Auto) (0.0-0.2) X10*3/uL Abs Immat Gran (auto) (0.00-0.03) X10*3/uL Absolute Neuts (auto) (2.0-8.3) x10*3/uL Absolute Nucleated RBC (0.0-0.012) X10*3/uL Nucleated RBC % (auto) (0.0-0.2) /100WBC Smear Tech's Comments PT (11.1-13.3) SEC INR (0.9-1.1) VBG pH 7.50 H (7.32-7.43) VBG pCO2 28 mmHg VBG pO2 104 mmHg VBG HCO3 22 (22-26) mmol/L VBG O2 Saturation 100.0 % VBG Base Excess 0.1 mmol/L Sodium (135-145) mmol/L Potassium (3.3-5.1) mmol/L Chloride (96-108) mmol/L Carbon Dioxide (22-29) mmol/L Anion Gap (12-20) BUN (9-16) mg/dL Creatinine (0.5-1.4) mg/dL Estim Creat Clear Calc Estimated GFR Random Glucose (60-115) mg/dL Lactic Acid (0.5-2.0) mmol/L Calcium (8.4-10.2) mg/dL Magnesium (1.6-2.6) mg/dL Total Bilirubin (0.0-1.0) mg/dL Direct Bilirubin (0.0-0.5) mg/dL AST (5-31) U/L ALT (0-31) U/L Alkaline Phosphatase (39-117) U/L Troponin I High Sens (<3.5-17.0) ng/L B-Natriuretic Peptide (<100) pg/mL Total Protein (6.5-8.0) g/dL Albumin (3.5-5.0) g/dL Lipase (8-78) U/L COVID-19 (TOSIN) (Negative) COVID-19 Clin Com Influenza Type A (FLORINDA) (Negative) Influenza Type B (FLORINDA) (Negative) Influenza A & B Note Independent Interpretation I performed an independent interpretation of an: EKG and Plain X-Ray (worsening disease left lung) Interpretation: Rate: 109 Rhythm: sinus tachycardia [place]: normal Normal P waves. Normal DARIANA. Normal QRS complex. ST T wave : nonspecific ST T wave changes diffusely qTC: 414 prior studies: no prior The study has been interpreted contemporaneously by me. . Radiology Impression Discussion of test interpretation with radiology: I have reviewed the radiologist's reading. Independent Historian Clinical information obtained from an independent historian. History obtained from or confirmed by: EMS External Record Review External record reviewed: Inpatient record and Office record Critical Care Time Critical Care Time Critical Care Time: Yes Total Critical Care Time: 35 Attestation: correction of hypoxia, review of records, sepsis protocol I attest to this time spent taking care of the patient Discharge Plan Discharge Clinical Impression: Influenza A, Acute febrile illness, Hypoxia Asthma Qualifiers: Asthma severity: moderate Asthma persistence: persistent Asthma complication type: with acute exacerbation Qualified Code(s): J45.41 - Moderate persistent asthma with (acute) exacerbation Bronchiectasis Qualifiers: Bronchiectasis type: with acute lower respiratory infection Qualified Code(s): J47.0 - Bronchiectasis with acute lower respiratory infection Patient Disposition: Admitted As Inpatient
--- NOTE | 2023-08-21 19:45 | PC.NURSE ---
delay in 30 minute antibiotic administrationfor sepsis protocol as there was a mild delay in second blood culture draw due to patient being a hard stick.
[2023-08-21] MEDS: Acetaminophen 325 MG TABLET 650 MG PO (19:52)
[2023-08-21] MEDS: methylPREDNISolone Sod Succ 125 MG/2 ML VIAL 60 MG IVPUSH (19:53)
[2023-08-21] MEDS: 0.9 % Sodium Chloride 1,000 ML 999 ML IV ×2 (19:54→21:11)
[2023-08-21 20:03] LABS: Lactic Acid 1.2 mmol/L (0.5-2.0)
[2023-08-21 20:06] LABS: COVID-19 Test Negative (Negative); IDNOW Serial# 08D9AD1C
[2023-08-21 20:08] LABS: IDNOW Serial# 152EDE1D; Influenza A Positive (Negative); Influenza B2 Negative (Negative)
[2023-08-21 20:12] LABS: Alanine Aminotransferase 15 U/L (0-31); Albumin Level 3.8 g/dL (3.5-5.0); Alkaline Phosphatase 74 U/L (39-117); Anion Gap 14 (12-20); Aspartate Amino Transferase 23 U/L (5-31); Bilirubin Direct 0.1 mg/dL (0.0-0.5); Bilirubin Total 0.3 mg/dL (0.0-1.0); Blood Urea Nitrogen 10 mg/dL (9-16); Calcium 9.5 mg/dL (8.4-10.2); Carbon Dioxide 22 mmol/L (22-29); Chloride 103 mmol/L (96-108); Creatinine Clr Calc Pharmacy 80.3; Estimated Glomerular Filt Rate > 60; Glucose Random 106 mg/dL (60-115); Lipase 12 U/L (8-78); Magnesium 1.7 mg/dL (1.6-2.6); Potassium 3.7 mmol/L (3.3-5.1); Sodium 135 mmol/L (135-145); Total Protein 7.8 g/dL (6.5-8.0)
[2023-08-21 20:16] LABS: Troponin-I High Sensitivity < 2.7 ng/L (<3.5-17.0)
[2023-08-21] MEDS: cefTRIAXone sodium 1 GM in 0.9 % Sodium Chloride 50 ML IV (20:24)
[2023-08-21] MEDS: Albuterol Sulfate 2.5 MG, Albuterol Sulfate (0.083%) 2.5 MG 5 MG INHALE (20:26)
[2023-08-21] MEDS: Oseltamivir Phosphate 75 MG CAPSULE PO (20:36)
[2023-08-21 20:41] LABS: INTERNATIONAL NORM RATIO 1.1 (0.9-1.1); Prothrombin Time 13.1 SEC (11.1-13.3)
[2023-08-21] MEDS: Azithromycin 500 MG in 0.9 % Sodium Chloride 250 ML 125 MG IV (21:17)
[2023-08-21 21:19] LABS: Basophils Percent Auto 0.2 % (0-2); Hematocrit 37.6 % (37.0-47.0); Hemoglobin 12.5 g/dl (12.0-16.0); Imm Gran Abs Auto 0.05 X10*3/uL (0.00-0.03); Imm Gran Pct Auto 0.4 % (0.0-0.4); Lymphocytes Absolute Auto 0.5 X10*3/uL (1.2-4.9); Lymphocytes Percent Auto 3.9 % (20-40); MANUAL DIFF FLAG SCAN; Mean Corpuscular HGB Conc 33.2 g/dl (31.0-35.0); Mean Corpuscular Hemoglobin 27.4 pg (27.0-33.0); Mean Corpuscular Volume 82.3 fL (80.0-98.0); Mean Platelet Volume 8.9 fL (9.4-12.3); Monocytes Absolute Auto 0.3 X10*3/uL (0.1-1.2); Monocytes Percent Auto 2.2 % (2-11); Neutrophils Absolute Auto 11.8 x10*3/uL (2.0-8.3); Neutrophils Percent Auto 93.3 % (45-73); Platelet Count 283 X10*3/uL (160-400); Red Blood Count 4.57 X10*6/uL (4.20-5.50); Red Cell Distribution Width 14.4 % (11.0-16.0); SCAN SMEAR FLAG 1; White Blood Count 12.7 X10*3/uL (4.8-10.8)
[2023-08-21 21:20] LABS: VBG Base Excess 0.1 mmol/L; VBG HCO3 22 mmol/L (22-26); VBG pCO2 28 mmHg; VBG pO2 104 mmHg
[2023-08-21 21:22] LABS: Venous Blood Gas Refer to POC result
[2023-08-21 21:45] LABS: B Type Natriuretic Peptide 71 pg/mL (<100)
[2023-08-21 21:56] LABS: SLIDE REVIEW VERIFIED
[2023-08-21 22:28] LABS: Appearance Urine Clear; Color Urine Yellow; Glucose Urine UA Negative (Negative); Leukocyte Esterase Urine Small (1+) (Negative); Nitrite Urine Negative (Negative); PH 5.5 (5.0-9.0); UMIC TRIGGER UACC YES; Urine Blood Negative (Negative); Urine Ketones 15 mg/dL (Negative); Urine Protein Negative (Neg-Trace)
[2023-08-21 22:38] LABS: Bacteria Urine None Seen (None Seen); Hyaline Casts Urine 0-2 /LPF (0-2); RBC Urine 0-2 /HPF (0-2); Squamous Epithelial Cell Urine 0-2 /HPF (0-2); UACC Culture Trigger YES; WBC Urine 0-5 /HPF (0-5)
--- NOTE | 2023-08-21 23:17 | P.HPHOSP_ITS ---
History of Present Illness Date of Service: 08/21/23 Attending physician on admission: Aisha Boyle Chief Complaint: Shortness of breath. Dina Neville is a 63 years old woman with past medical history significant for COPD -not on home O2 or chronic steroids use, anxiety and depression presents to the emergency department complaining of worsening shortness of breath that started yesterday. She mentioned that on Monday she started to present sore throat associated with chills and generalized weakness. Yesterday she started to develop a dry cough and mild wheezing. She also report nausea but no events of vomiting or diarrhea. She does have an occasional abdominal discomfort. Patient denies fever. She denied any acute urinary symptoms. She is a former tobacco smoker, quit smoking several years ago. She denied alcohol abuse or illicit drug use. She takes azithromycin every other day. In the ED, she was found to have sinus tachycardia and tachypnea. Blood pressure is stable. She is currently requiring 2 liters/minute supplemental oxygen via nasal cannula and satting at 95%. Blood workup is remarkable for leukocytosis of 12.7. Venous blood gas showed elevated pH, 7.5. CO2 is not elevated. LFTs are normal as well as the renal function. BNP is normal. Urinalysis is unremarkable. Viral testing is positive for influenza type A. CXR showed slightly more prominent left basilar radiopacity, atelectasis versus infectious/inflammatory etiology. ED tx: Solu-Medrol 60 mg IV, acetaminophen 650 mg p.o., ceftriaxone 1 g IV, Tamiflu 75 mg p.o. x1, azithromycin 500 mg IV and 1 L NS bolus. Review of Systems 2 Review of Systems: All 12 systems were reviewed and normal except as noted in HPI. [facility] Medical History Bronchopneumonia Ear discomfort Asthma-COPD overlap syndrome Cough Bronchiectasis Asthma Family History Daughter Bronchiectasis Colon polyps Brother Mental health disorder Mother No problems noted. Father Stroke Surgical History History of lung surgery Social History Housing: Apartment Alcohol intake: current Alcohol intake frequency: holidays/special occasions only Alcohol type: wine Patient Tobacco Use Status: Former Tobacco user Tobacco use type: Cigarette Years Smoked: 5 years e-Cigarette/Vaping Use: Never Used Second Hand Smoke Exposure: No Advance Directives: No Advance Directives Information Provided: No service: No Current occupational status: unemployed and retired Cognitive needs: No Hearing needs: No Vision needs: Yes Meds Allergies Allergy/AdvReac Type Severity Reaction Status Date / Time lisinopril Allergy Mild cough Verified 07/04/23 11:33 moxifloxacin [Avelox] Allergy Mild rash Verified 07/04/23 11:33 sulfamethoxazole Allergy Mild Rash Verified 07/04/23 11:33 [From Bactrim] trimethoprim [From Bactrim] Allergy Mild Rash Verified 07/04/23 11:33 Active Medications: Current Medications Acetaminophen (Acetaminophen 325 Mg Tablet) 975 mg PO Q6H PRN PRN Reason: Pain, Mild (Pain Scale 1-3) Albuterol/Ipratropium (Albuterol/Iprat 2.5/0.5mg 3 Ml Ampul.Neb) 3 ml INHALE RQ4H WHILE AWAKE [facility] Fluticasone/Umeclidinium/Vilanterol (Fluticasone/Umeclidinium/Vilanterol 200/62.5/25 Blst.W.Dev) 1 puff INHALE DAILY [facility] Heparin Sodium (Porcine) (Heparin Sodium,Porcine 5,000 Unit/Ml Vial) 5,000 unit SUBCUT Q8H [facility] Azithromycin 500 mg/ Sodium (Chloride) 250 mls @ 125 mls/hr IV Q24H [facility] Ceftriaxone Sodium 1 gm/ (Sodium Chloride) 100 mls @ 200 mls/hr IV Q24H [facility] Lorazepam (Lorazepam 0.5 Mg Tablet) 0.5 mg PO Q6H PRN PRN Reason: Anxiety Losartan Potassium (Losartan Potassium 50 Mg Tablet) 100 mg PO ONCE CHELY; Protocol Methylprednisolone Sodium Succinate (Methylprednisolone Sod Succ 40 Mg/Ml Vial) 40 mg IVPUSH Q12H CHE[facility] Ondansetron HCl (Ondansetron Hcl 4 Mg/2 Ml Vial) 4 mg IVPUSH Q8H PRN PRN Reason: Nausea and Vomiting Sodium Chloride (0.9 % Sodium Chloride Flush 3 Ml Syringe) 3 ml IVFLUSH QSHIFT [facility] Home Medications Medication Instructions Recorded Confirmed Last Taken Type ipratropium 0.5 mg-albuterol 3 mg 3 ml inhalation Q6-8H PRN 05/28/20 07/04/23 Unknown History (2.5 mg base)/3 mL nebulization soln escitalopram oxalate 20 mg tablet 20 mg PO DAILY 07/16/20 07/04/23 Unknown History lorazepam 0.5 mg tablet 0 mg PO 05/19/22 07/04/23 Unknown History triamcinolone acetonide 0.5 % 1 appl topical TID 05/19/22 07/04/23 Unknown History topical cream cetirizine 10 mg tablet 10 mg PO DAILY 11/11/22 07/04/23 Unknown History nebulizers 06/26/23 07/04/23 Unknown History fluticasone propionate 50 1 spray intranasal PRN 06/27/23 07/04/23 Unknown History mcg/actuation nasal spray,suspension polyethylene glycol 3350 17 17 g PO DAILY PRN 06/27/23 07/04/23 Unknown History gram/dose oral powder (Miralax) Physical Exam 2 Vital Signs and Narrative: Vital Signs: Last Vital Signs Temp 99.5 F 08/21/23 21:00 Pulse 102 H 08/21/23 22:08 Resp 18 08/21/23 22:08 BP 113/51 L 08/21/23 22:08 Pulse Ox 95 08/21/23 22:08 O2 Del Method Nasal Cannula 08/21/23 22:08 O2 Flow Rate 2 08/21/23 22:08 BMI result Body Mass Index 27.8 Constitutional - Awake and Alert, No apparent distress. Nasal cannula in place. HEENT -atraumatic, normocephalic, moist oral mucosa. Erythematous throat. Cardiovascular - mild tachycardia. Regular rate. No murmurs. Respiratory - Normal lung expansion, Normal respiratory effort, No respiratory distress. Tachypnea. End expiratory wheezes. No crackles. No rhonchi. Gastrointestinal - NT / ND; +BS; No rebound or guarding Extremities - no calf tenderness bilaterally, no swelling Musculoskeletal - Normal inspection, normal ROM Skin - Warm/Dry Neurological - Alert & oriented x3. Psychological - Appropriate affect Results Labs 08/21/23 21:08 08/21/23 19:41 Labs: Laboratory Results - last 24 hr 08/21/23 08/21/23 08/21/23 19:41 20:20 21:08 MCV 82.3 MCH 27.4 MCHC 33.2 RDW 14.4 Plt Count 283 MPV 8.9 L Immature Gran % (Auto) 0.4 Neut % (Auto) 93.3 H Lymph % (Auto) 3.9 L [place] % (Auto) 2.2 Eos % (Auto) 0.0 Baso % (Auto) 0.2 Lymph # (Auto) 0.5 L [place] # (Auto) 0.3 Eos # (Auto) 0.0 Baso # (Auto) 0.0 Abs Immat Gran (auto) 0.05 H Absolute Neuts (auto) 11.8 H Absolute Nucleated RBC 0.000 Nucleated RBC % (auto) 0.0 Smear Tech's Comments VERIFIED PT 13.1 INR 1.1 VBG pH VBG pCO2 VBG pO2 VBG HCO3 VBG O2 Saturation VBG Base Excess Anion Gap 14 Estim Creat Clear Calc 80.3 Estimated GFR > 60 Random Glucose 106 Lactic Acid 1.2 Calcium 9.5 Magnesium 1.7 Total Bilirubin 0.3 Direct Bilirubin 0.1 AST 23 ALT 15 Alkaline Phosphatase 74 B-Natriuretic Peptide 71 Total Protein 7.8 Albumin 3.8 Lipase 12 Urine Color Urine Appearance Urine pH Ur Specific [place] Urine Protein Urine Glucose (UA) Urine Ketones Urine Blood Urine Nitrite Ur Leukocyte Esterase Urine RBC Urine WBC Ur Squamous Epith Cells Urine Bacteria Hyaline Casts COVID-19 (TOSIN) Negative COVID-19 Clin Com See Note Influenza Type A (FLORINDA) Positive A Influenza Type B (FLORINDA) Negative Influenza A & B Note See Note 08/21/23 08/21/23 21:14 22:19 MCV MCH MCHC RDW Plt Count MPV Immature Gran % (Auto) Neut % (Auto) Lymph % (Auto) [place] % (Auto) Eos % (Auto) Baso % (Auto) Lymph # (Auto) [place] # (Auto) Eos # (Auto) Baso # (Auto) Abs Immat Gran (auto) Absolute Neuts (auto) Absolute Nucleated RBC Nucleated RBC % (auto) Smear Tech's Comments PT INR VBG pH 7.50 H VBG pCO2 28 VBG pO2 104 VBG HCO3 22 VBG O2 Saturation 100.0 VBG Base Excess 0.1 Anion Gap Estim Creat Clear Calc Estimated GFR Random Glucose Lactic Acid Calcium Magnesium Total Bilirubin Direct Bilirubin AST ALT Alkaline Phosphatase B-Natriuretic Peptide Total Protein Albumin Lipase Urine Color Yellow Urine Appearance Clear Urine pH 5.5 Ur Specific [place] 1.010 Urine Protein Negative Urine Glucose (UA) Negative Urine Ketones 15 Urine Blood Negative Urine Nitrite Negative Ur Leukocyte Esterase Small (1+) H Urine RBC 0-2 Urine WBC 0-5 Ur Squamous Epith Cells 0-2 Urine Bacteria None Seen Hyaline Casts 0-2 COVID-19 (TOSIN) COVID-19 Clin Com Influenza Type A (FLORINDA) Influenza Type B (FLORINDA) Influenza A & B Note Imaging Radiologist's Impressions: Impressions Chest X-Ray 08/21/23 19:59 IMPRESSION: 1. Slightly more prominent left basilar radiopacity which may reflect atelectasis versus evolving infectious/inflammatory etiology. 2. Postsurgical changes of the right lung with volume loss, right apical scarring, bronchiectatic changes, elevation the right hemidiaphragm, and mediastinal/tracheal deviation to the right, stable. Assessment and Plan (1) Influenza A: Status: Acute (2) Acute hypoxic respiratory failure: Status: Acute Plan Dina Neville is a 63 years old woman admitted with: 1. Acute hypoxic respiratory failure secondary to influenza type a infection associated with acute exacerbation of chronic obstructive pulmonary disease. Admit to hospitalist service. Telemetry. Pulse oximetry. Continue supplemental oxygen to keep oxygen saturation above 90%. Continue bronchodilator therapy, IV steroids and empiric IV antibiotic therapy as well as Tamiflu course to complete a course of 5 days. Pulmonology consult for further recommendations. 2. Anxiety. Low-dose lorazepam as needed. 3. Depression. Patient stated that she take escitalopram sometimes only. DVT prophylaxis: Heparin subcut. Code status: Full. Patient will require hospitalization for at least 2 midnight for hypoxic respiratory failure treatment/acute exacerbation of chronic obstructive pulmonary disease therapy with supplemental oxygen, bronchodilator therapy, IV steroids, empiric IV antibiotic therapy, Tamiflu and pulmonology service evaluation. Quality Stroke Does the patient have a stroke diagnosis?: No VTE Prior VTE?: No VTE Risk Level:: Medical - moderate - high VTE Device Contraindication: Treatment Not Indicated VTE Drug Contraindication: N/A - Med Ordered
[2023-08-22] VITALS (11 sets, daily range): BP systolic 105–128; BP diastolic 50–66; PULSE 63–97; RESP 18–20; TEMP 36.3–37.7; O2SAT 92–97
[2023-08-22] MEDS: Albuterol/Iprat 2.5/0.5MG 3 ML AMPUL.NEB INHALE ×5 (03:15→19:07)
[2023-08-22] MEDS: methylPREDNISolone Sod Succ 40 MG/ML VIAL IVPUSH ×2 (05:18→17:56)
[2023-08-22] MEDS: Acetaminophen 325 MG TABLET 975 MG PO ×2 (05:18→17:55)
[2023-08-22 05:44] LABS: Basophils Percent Auto 0.3 % (0-2); Hematocrit 36.5 % (37.0-47.0); Hemoglobin 11.9 g/dl (12.0-16.0); Imm Gran Abs Auto 0.05 X10*3/uL (0.00-0.03); Imm Gran Pct Auto 0.5 % (0.0-0.4); Lymphocytes Absolute Auto 0.4 X10*3/uL (1.2-4.9); Lymphocytes Percent Auto 3.4 % (20-40); MANUAL DIFF FLAG SCAN; Mean Corpuscular HGB Conc 32.6 g/dl (31.0-35.0); Mean Corpuscular Hemoglobin 28.1 pg (27.0-33.0); Mean Corpuscular Volume 86.3 fL (80.0-98.0); Mean Platelet Volume 9.6 fL (9.4-12.3); Monocytes Absolute Auto 0.2 X10*3/uL (0.1-1.2); Monocytes Percent Auto 1.7 % (2-11); Neutrophils Absolute Auto 10.3 x10*3/uL (2.0-8.3); Neutrophils Percent Auto 94.1 % (45-73); Platelet Count 257 X10*3/uL (160-400); Red Blood Count 4.23 X10*6/uL (4.20-5.50); Red Cell Distribution Width 14.6 % (11.0-16.0); SCAN SMEAR FLAG 1
[2023-08-22 06:01] LABS: Alanine Aminotransferase 16 U/L (0-31); Albumin Level 3.5 g/dL (3.5-5.0); Alkaline Phosphatase 61 U/L (39-117); Anion Gap 12 (12-20); Aspartate Amino Transferase 23 U/L (5-31); Bilirubin Total 0.1 mg/dL (0.0-1.0); Blood Urea Nitrogen 10 mg/dL (9-16); Calcium 8.9 mg/dL (8.4-10.2); Carbon Dioxide 24 mmol/L (22-29); Chloride 106 mmol/L (96-108); Creatinine Clr Calc Pharmacy 75.7; Estimated Glomerular Filt Rate > 60; Glucose Random 136 mg/dL (60-115); Potassium 3.8 mmol/L (3.3-5.1); Sodium 138 mmol/L (135-145); Total Protein 7.3 g/dL (6.5-8.0)
--- NOTE | 2023-08-22 08:26 | PHA.MEDREC ---
Pharmacy Consult ? Medication Reconciliation Pharmacy has completed the medication reconciliation. Spoke with patient in the ED who was able to list off her medications.
--- NOTE | 2023-08-22 10:25 | PM.CNPUL ---
History of Present Illness History of Present Illness Consult date: 08/22/23 Requesting physician: Aisha Boyle Chief complaint: Hypoxic respiratory failure Narrative: 63-year-old lady with underlying severe right-sided bronchiectasis and asthma, no evidence of COPD admitted on 08/21/2023 with dyspnea and hypoxia. Evaluation patient influenza positive and started on empiric antibiotics and Tamiflu. Requiring 2 L of supplemental oxygen via nasal cannula to maintain normal oximetry. On my examination this a.m. patient reports improved dyspnea symptoms and no longer requires supplemental oxygen to maintain normal oximetry. Review of Systems Constitutional: Constitutional: Denies daytime sleepiness, Denies excessive sweating, Denies fatigue, Reports fever(s), Denies lethargy, Reports malaise, Denies night sweats, Denies snoring and Denies weight loss Eyes: Eyes: Denies blurry vision and Denies itchy eyes ENT: Denies nasal congestion, Denies post nasal drip, Denies sinus pain, Denies sinus pressure and Denies other ( Thrush) Cardiovascular: Cardiovascular: Denies chest pain, Denies pedal edema, Denies dyspnea, Reports dyspnea on exertion, Denies orthopnea and Denies paroxysmal nocturnal dyspnea Respiratory: Respiratory: Denies cough, Denies hemoptysis, Denies excessive phlegm production, Denies dyspnea, Reports dyspnea on exertion, Denies snoring and Denies wheezing Gastrointestinal: Gastrointestinal: Denies abdominal pain and Denies heartburn Musculoskeletal: Musculoskeletal: Denies myalgias, Denies arthralgias and Denies joint swelling Integumentary/Breasts: Skin/Breast: Denies rash Neurologic: Denies memory loss and Denies seizure-like activity Psychiatric: Psychiatric: Denies abnormal sleep pattern, Denies anxiety and Denies memory loss Endocrine: Endocrine: Denies excessive sweating, Denies fatigue and Denies heat intolerance Hematologic/Lymphatic: Hematologic/Lymphatic: Denies easy bruising Allergic/Immunologic: Allergic/Immunologic: Denies itchy eyes, Denies seasonal rhinorrhea and Denies wheezing PMFSH Past Medical History Medical History Bronchopneumonia Ear discomfort Asthma-COPD overlap syndrome Cough Bronchiectasis Asthma Family History Family History Daughter Bronchiectasis Colon polyps Brother Mental health disorder Mother No problems noted. Father Stroke Surgical History Surgical History History of lung surgery Social History Social History Housing: Apartment Alcohol intake: current Alcohol intake frequency: holidays/special occasions only Alcohol type: wine Patient Tobacco Use Status: Former Tobacco user Tobacco use type: Cigarette Years Smoked: 5 years e-Cigarette/Vaping Use: Never Used Second Hand Smoke Exposure: No Advance Directives: No Advance Directives Information Provided: No Nutrition Risks: No Nutritional Risk service: No Current occupational status: unemployed and retired Cognitive needs: No Hearing needs: No Vision needs: Yes Meds Allergies Allergy/AdvReac Type Severity Reaction Status Date / Time lisinopril Allergy Mild cough Verified 07/04/23 11:33 moxifloxacin [Avelox] Allergy Mild rash Verified 07/04/23 11:33 sulfamethoxazole Allergy Mild Rash Verified 07/04/23 11:33 [From Bactrim] trimethoprim [From Bactrim] Allergy Mild Rash Verified 07/04/23 11:33 Active Medications: Current Medications Acetaminophen (Acetaminophen 325 Mg Tablet) 975 mg PO Q6H PRN PRN Reason: Pain, Mild (Pain Scale 1-3) Last Admin: 08/22/23 05:18 Dose: 975 mg Albuterol/Ipratropium (Albuterol/Iprat 2.5/0.5mg 3 Ml Ampul.Neb) 3 ml INHALE RQ4H WHILE AWAKE [facility] Last Admin: 08/22/23 07:35 Dose: 3 ml Escitalopram Oxalate (Escitalopram Oxalate 20 Mg Tablet) 20 mg PO DAILY [facility] Fluticasone/Umeclidinium/Vilanterol (Fluticasone/Umeclidinium/Vilanterol 200/62.5/25 Blst.W.Dev) 1 puff INHALE DAILY [facility] Heparin Sodium (Porcine) (Heparin Sodium,Porcine 5,000 Unit/Ml Vial) 5,000 unit SUBCUT Q8H [facility] Azithromycin 500 mg/ Sodium (Chloride) 250 mls @ 125 mls/hr IV Q24H [facility] Ceftriaxone Sodium 1 gm/ (Sodium Chloride) 100 mls @ 200 mls/hr IV Q24H [facility] Loratadine (Loratadine 10 Mg Tablet) 10 mg PO DAILY [facility] Lorazepam (Lorazepam 0.5 Mg Tablet) 0.5 mg PO Q6H PRN PRN Reason: Anxiety Lorazepam (Lorazepam 0.5 Mg Tablet) 0.5 mg PO BID PRN PRN Reason: Anxiety Losartan Potassium (Losartan Potassium 50 Mg Tablet) 100 mg PO ONCE CHELY; Protocol Methylprednisolone Sodium Succinate (Methylprednisolone Sod Succ 40 Mg/Ml Vial) 40 mg IVPUSH Q12H [facility] Last Admin: 08/22/23 05:18 Dose: 40 mg Ondansetron HCl (Ondansetron Hcl 4 Mg/2 Ml Vial) 4 mg IVPUSH Q8H PRN PRN Reason: Nausea and Vomiting Oseltamivir Phosphate (Oseltamivir Phosphate 75 Mg Capsule) 75 mg PO Q12H [facility] Stop: 08/26/23 09:01 Polyethylene Glycol (Polyethylene Glycol 3350 17 Gm Powd.Pack) 17 gm PO DAILY PRN PRN Reason: Constipation Sodium Chloride (0.9 % Sodium Chloride Flush 3 Ml Syringe) 3 ml IVFLUSH QSHIFT [facility] Last Admin: 08/22/23 07:35 Dose: Not Given Sodium Chloride (Sodium Chloride 3 % Inhalation 15 Ml Vial.Neb) 4 ml INHALE BID [facility] Triamcinolone Acetonide (Triamcinolone Acet 0.5 % Cream 15 Gm Tube) 1 appl TOPICAL TID PRN; Protocol PRN Reason: Rash Home Medications Medication Instructions Recorded Confirmed Last Taken Type escitalopram oxalate 20 mg tablet 20 mg PO DAILY 07/16/20 08/22/23 08/21/23 History lorazepam 0.5 mg tablet 0.5 mg PO BID PRN Anxiety 05/19/22 08/22/23 Unknown History triamcinolone acetonide 0.5 % 1 appl topical TID PRN Rash 05/19/22 08/22/23 Unknown History topical cream cetirizine 10 mg tablet 10 mg PO DAILY 11/11/22 08/22/23 08/21/23 History nebulizers 06/26/23 07/04/23 Unknown History fluticasone propionate 50 1 spray intranasal DAILY PRN 06/27/23 08/22/23 Unknown History mcg/actuation nasal Allergy Symptoms spray,suspension polyethylene glycol 3350 17 17 g PO DAILY PRN Constipation 06/27/23 08/22/23 Unknown History gram/dose oral powder (Miralax) azithromycin 250 mg tablet 250 mg PO MOWEFR@0900 08/22/23 08/22/23 08/21/23 History sodium chloride 7 % for 4 ml inhalation BID 08/22/23 08/22/23 08/21/23 History nebulization Physical Exam Vital Signs: Vital Signs: Last Vital Signs Temp 99.5 F 08/22/23 06:42 Pulse 86 08/22/23 07:37 Resp 18 08/22/23 07:37 BP 125/64 08/22/23 05:13 Pulse Ox 96 08/22/23 05:13 O2 Del Method Nasal Cannula 08/22/23 05:13 O2 Flow Rate 2 08/22/23 05:13 BMI result Body Mass Index 27.8 Const: General: no acute distress and alert Nutritional Appearance: not obese Orientation/consciousness: Other orientation findings ( oriented) HEENT: Head: Yes atraumatic Eyes: General: appearance normal, both eyes and all related structures Sclerae: sclerae normal EOM: EOMs intact bilaterally Neck: Neck: Yes supple Lymphatic: no lymphadenopathy noted Resp: Effort & Inspection: normal respiratory effort and no use of accessory muscles Auscultation: clear to auscultation bilaterally Cardio: Rate: regular rate Rhythm: regular rhythm Heart sounds: no gallops, no murmurs and no rubs Skin: General skin exam: other ( warm) Extrem: General: No clubbing, No cyanosis and No edema Results Laboratory Findings 08/22/23 05:07 08/22/23 05:07 ABG, PT/INR, D-dimer: PT/INR, D-dimer PT 13.1 SEC (11.1-13.3) 08/21/23 20:20 INR 1.1 (0.9-1.1) 08/21/23 20:20 Abnormal lab findings: Abnormal Labs 08/21/23 08/21/23 08/21/23 19:41 21:08 21:14 WBC 12.7 H Hgb Hct MPV 8.9 L Immature Gran % (Auto) Neut % (Auto) 93.3 H Lymph % (Auto) 3.9 L [place] % (Auto) Lymph # (Auto) 0.5 L Abs Immat Gran (auto) 0.05 H Absolute Neuts (auto) 11.8 H VBG pH 7.50 H Random Glucose Ur Leukocyte Esterase Influenza Type A (FLORINDA) Positive A 08/21/23 08/22/23 22:19 05:07 WBC 11.0 H Hgb 11.9 L Hct 36.5 L MPV Immature Gran % (Auto) 0.5 H Neut % (Auto) 94.1 H Lymph % (Auto) 3.4 L [place] % (Auto) 1.7 L Lymph # (Auto) 0.4 L Abs Immat Gran (auto) 0.05 H Absolute Neuts (auto) 10.3 H VBG pH Random Glucose 136 H Ur Leukocyte Esterase Small (1+) H Influenza Type A (FLORINDA) Assessment and Plan (1) Bronchiectasis: Qualifiers: Bronchiectasis type: with acute lower respiratory infection Qualified Code(s): J47.0 - Bronchiectasis with acute lower respiratory infection Status: Acute (2) Influenza A: Status: Acute (3) Asthma: Qualifiers: Asthma complication type: with acute exacerbation Asthma persistence: persistent Asthma severity: moderate Qualified Code(s): J45.41 - Moderate persistent asthma with (acute) exacerbation Status: Acute Plan Impression: 63-year-old lady with underlying severe bronchiectasis and asthma admitted with acute hypoxic respiratory failure secondary to influenza a and exacerbation of underlying bronchiectasis, now improving slowly. Recommendations: Agree with Tamiflu and empiric antibiotics for community-acquired pneumonia to cover bronchiectasis exacerbation and prevent possible post viral pneumonia. Hypoxemia has essentially resolved. At this time does not require systemic glucocorticoids. Procedures Date of Service Date of Service: 08/22/23
[2023-08-22] MEDS: Heparin Sodium,Porcine 5,000 UNIT/ML VIAL 5000 UNIT SUBCUT ×2 (11:01→17:56)
[2023-08-22] MEDS: Escitalopram Oxalate 20 MG TABLET PO (11:01)
[2023-08-22] MEDS: Loratadine 10 MG TABLET PO (11:01)
[2023-08-22] MEDS: Oseltamivir Phosphate 75 MG CAPSULE PO ×2 (11:01→20:24)
[2023-08-22] MEDS: Fluticasone/Umeclidinium/Vilanterol 200/62.5/25 BLST.W.DEV 1 PUFF INHALE (11:33)
--- NOTE | 2023-08-22 13:24 | MHC.CM.PN ---
IMM 08/22/23, Pt. lives with her family, she has 33 hours a week of [employer] services, provided by her daughter and grand daughter. She has medical equipment of cane and shower chair. Pt. completed HCP, naming Kalli Mcguire, . She has a nurse from [facility] that visits her once a month. Her family can transport home upon DC. PCP: Sol Hall.
--- NOTE | 2023-08-22 16:59 | HO.PM.IMPN ---
Subjective Subjective Date of Service: 08/22/23 Interval History: Acute hypoxemic respiratory failure secondary to COPD exacerbation and influenza. Review of Systems Patient is still short of breath with minimal exertion, has cough Denies any chest pain. Physical Exam Vital Signs: Vital Signs: Last Vital Signs Temp 97.6 F 08/22/23 16:42 Pulse 69 08/22/23 16:42 Resp 18 08/22/23 16:42 BP 128/66 08/22/23 16:42 Pulse Ox 92 08/22/23 16:42 O2 Del Method Room Air 08/22/23 16:42 O2 Flow Rate 2 08/22/23 05:13 BMI result Body Mass Index 27.8 Appearance: Alert.? Oriented X3.? ENT: Pharynx normal.? Moist mucous membranes. cvs: rrr, [id number] , no murmur res: air entry diminshed ,b/l wheezing abd: no rebound or guarding ,nt, bs present. ext pulses present , no cyanosis. neuro: axo3 , nonfocal. Objective Data Active Medications Acetaminophen (Acetaminophen 325 Mg Tablet) 975 mg PO Q6H PRN PRN Reason: Pain, Mild (Pain Scale 1-3) Last Admin: 08/22/23 05:18 Dose: 975 mg Documented By: NATHALIE Albuterol/Ipratropium (Albuterol/Iprat 2.5/0.5mg 3 Ml Ampul.Neb) 3 ml INHALE RQ4H WHILE AWAKE [facility] Last Admin: 08/22/23 16:34 Dose: 3 ml Documented By: BAR Escitalopram Oxalate (Escitalopram Oxalate 20 Mg Tablet) 20 mg PO DAILY [facility] Last Admin: 08/22/23 11:01 Dose: 20 mg Documented By: MARLEE Fluticasone/Umeclidinium/Vilanterol (Fluticasone/Umeclidinium/Vilanterol 200/62.5/25 Blst.W.Dev) 1 puff INHALE DAILY [facility] Last Admin: 08/22/23 11:33 Dose: 1 puff Documented By: BAR Heparin Sodium (Porcine) (Heparin Sodium,Porcine 5,000 Unit/Ml Vial) 5,000 unit SUBCUT Q8H [facility] Last Admin: 08/22/23 11:01 Dose: 5,000 unit Documented By: MARLEE Azithromycin 500 mg/ Sodium (Chloride) 250 mls @ 125 mls/hr IV Q24H [facility] Ceftriaxone Sodium 1 gm/ (Sodium Chloride) 100 mls @ 200 mls/hr IV Q24H [facility] Loratadine (Loratadine 10 Mg Tablet) 10 mg PO DAILY [facility] Last Admin: 08/22/23 11:01 Dose: 10 mg Documented By: MARLEE Lorazepam (Lorazepam 0.5 Mg Tablet) 0.5 mg PO Q6H PRN PRN Reason: Anxiety Lorazepam (Lorazepam 0.5 Mg Tablet) 0.5 mg PO BID PRN PRN Reason: Anxiety Losartan Potassium (Losartan Potassium 50 Mg Tablet) 100 mg PO ONCE CHELY; Protocol Methylprednisolone Sodium Succinate (Methylprednisolone Sod Succ 40 Mg/Ml Vial) 40 mg IVPUSH Q12H [facility] Last Admin: 08/22/23 05:18 Dose: 40 mg Documented By: NATHALIE Ondansetron HCl (Ondansetron Hcl 4 Mg/2 Ml Vial) 4 mg IVPUSH Q8H PRN PRN Reason: Nausea and Vomiting Oseltamivir Phosphate (Oseltamivir Phosphate 75 Mg Capsule) 75 mg PO Q12H [facility] Stop: 08/26/23 09:01 Last Admin: 08/22/23 11:01 Dose: 75 mg Documented By: MARLEE Polyethylene Glycol (Polyethylene Glycol 3350 17 Gm Powd.Pack) 17 gm PO DAILY PRN PRN Reason: Constipation Sodium Chloride (0.9 % Sodium Chloride Flush 3 Ml Syringe) 3 ml IVFLUSH QSHIFT [facility] Last Admin: 08/22/23 07:35 Dose: Not Given Documented By: MARLEE Non-Admin Reason: Med Not Available Sodium Chloride (Sodium Chloride 3 % Inhalation 15 Ml Vial.Neb) 4 ml INHALE BID [facility] Triamcinolone Acetonide (Triamcinolone Acet 0.5 % Cream 15 Gm Tube) 1 appl TOPICAL TID PRN; Protocol PRN Reason: Rash Labs 08/22/23 05:07 08/22/23 05:07 Labs: Laboratory Results - last 24 hr 08/21/23 08/21/23 08/21/23 19:41 20:20 21:08 MCV 82.3 MCH 27.4 MCHC 33.2 RDW 14.4 Plt Count 283 MPV 8.9 L Immature Gran % (Auto) 0.4 Neut % (Auto) 93.3 H Lymph % (Auto) 3.9 L [place] % (Auto) 2.2 Eos % (Auto) 0.0 Baso % (Auto) 0.2 Lymph # (Auto) 0.5 L [place] # (Auto) 0.3 Eos # (Auto) 0.0 Baso # (Auto) 0.0 Abs Immat Gran (auto) 0.05 H Absolute Neuts (auto) 11.8 H Absolute Nucleated RBC 0.000 Nucleated RBC % (auto) 0.0 Smear Tech's Comments VERIFIED PT 13.1 INR 1.1 VBG pH VBG pCO2 VBG pO2 VBG HCO3 VBG O2 Saturation VBG Base Excess Anion Gap 14 Estim Creat Clear Calc 80.3 Estimated GFR > 60 Random Glucose 106 Lactic Acid 1.2 Calcium 9.5 Magnesium 1.7 Total Bilirubin 0.3 Direct Bilirubin 0.1 AST 23 ALT 15 Alkaline Phosphatase 74 B-Natriuretic Peptide 71 Total Protein 7.8 Albumin 3.8 Lipase 12 Urine Color Urine Appearance Urine pH Ur Specific [place] Urine Protein Urine Glucose (UA) Urine Ketones Urine Blood Urine Nitrite Ur Leukocyte Esterase Urine RBC Urine WBC Ur Squamous Epith Cells Urine Bacteria Hyaline Casts COVID-19 (TOSIN) Negative COVID-19 Clin Com See Note Influenza Type A (FLORINDA) Positive A Influenza Type B (FLORINDA) Negative Influenza A & B Note See Note 08/21/23 08/21/23 08/22/23 21:14 22:19 05:07 MCV 86.3 MCH 28.1 MCHC 32.6 RDW 14.6 Plt Count 257 MPV 9.6 Immature Gran % (Auto) 0.5 H Neut % (Auto) 94.1 H Lymph % (Auto) 3.4 L [place] % (Auto) 1.7 L Eos % (Auto) 0.0 Baso % (Auto) 0.3 Lymph # (Auto) 0.4 L [place] # (Auto) 0.2 Eos # (Auto) 0.0 Baso # (Auto) 0.0 Abs Immat Gran (auto) 0.05 H Absolute Neuts (auto) 10.3 H Absolute Nucleated RBC 0.000 Nucleated RBC % (auto) 0.0 Smear Tech's Comments PT INR VBG pH 7.50 H VBG pCO2 28 VBG pO2 104 VBG HCO3 22 VBG O2 Saturation 100.0 VBG Base Excess 0.1 Anion Gap 12 Estim Creat Clear Calc 75.7 Estimated GFR > 60 Random Glucose 136 H Lactic Acid Calcium 8.9 D Magnesium Total Bilirubin 0.1 Direct Bilirubin AST 23 ALT 16 Alkaline Phosphatase 61 B-Natriuretic Peptide Total Protein 7.3 Albumin 3.5 Lipase Urine Color Yellow Urine Appearance Clear Urine pH 5.5 Ur Specific [place] 1.010 Urine Protein Negative Urine Glucose (UA) Negative Urine Ketones 15 Urine Blood Negative Urine Nitrite Negative Ur Leukocyte Esterase Small (1+) H Urine RBC 0-2 Urine WBC 0-5 Ur Squamous Epith Cells 0-2 Urine Bacteria None Seen Hyaline Casts 0-2 COVID-19 (TOSIN) COVID-19 Clin Com Influenza Type A (FLORINDA) Influenza Type B (FLORINDA) Influenza A & B Note Microbiology Microbiology Results: Microbiology 08/21/23 Unknown Urine Culture - Preliminary Urine clean catch - Urine bello top No growth to date. Assessment and Plan (1) Acute hypoxic respiratory failure: Status: Acute (2) Influenza A: Status: Acute Plan 63 years old woman admitted with: Acute hypoxic respiratory failure secondary to influenza type a infection associated with acute exacerbation of chronic obstructive pulmonary disease. Admit to hospitalist service. Telemetry. Pulse oximetry. Continue supplemental oxygen to keep oxygen saturation above 90%. Continue bronchodilator therapy, IV steroids and empiric IV antibiotic therapy as well as Tamiflu course to complete a course of 5 days. Pulmonology consult for further recommendations. Anxiety. Low-dose lorazepam as needed. Depression. Patient stated that she take escitalopram sometimes only. DVT prophylaxis: Heparin subcut. ongoing hospitalization need :for hypoxic respiratory failure treatment/acute exacerbation of chronic obstructive pulmonary disease therapy with supplemental oxygen, bronchodilator therapy, IV steroids, empiric IV antibiotic therapy, Tamiflu and pulmonology service evaluation. Quality Stroke Does the patient have a stroke diagnosis?: No VTE Prior VTE?: No VTE Risk Level:: Medical - moderate - high VTE Device Contraindication: Treatment Not Indicated VTE Drug Contraindication: N/A - Med Ordered
[2023-08-22] MEDS: 0.9 % Sodium Chloride Flush 3 ML SYRINGE IVFLUSH ×2 (17:56→21:51)
[2023-08-22] MEDS: Sodium Chloride 3 % Inhalation 15 ML VIAL.NEB 4 ML INHALE (19:07)
[2023-08-22] MEDS: LORazepam 0.5 MG TABLET PO (20:40)
[2023-08-22] MEDS: cefTRIAXone sodium 1 GM in 0.9 % Sodium Chloride 50 ML IV (20:46)
[2023-08-22] MEDS: Azithromycin 500 MG in 0.9 % Sodium Chloride 250 ML 125 MG IV (21:51)
[2023-08-23 03:25] VITALS: BP 103/59; PULSE 61; RESP 18; TEMP 36.2; O2SAT 94
[2023-08-23] MEDS: methylPREDNISolone Sod Succ 40 MG/ML VIAL IVPUSH (05:39)
[2023-08-23] MEDS: Heparin Sodium,Porcine 5,000 UNIT/ML VIAL 5000 UNIT SUBCUT ×2 (05:40→09:41)
[2023-08-23 07:42] VITALS: BP 131/70; PULSE 69; RESP 20; TEMP 36.7; O2SAT 95
[2023-08-23] MEDS: Sodium Chloride 3 % Inhalation 15 ML VIAL.NEB 4 ML INHALE (07:55)
[2023-08-23] MEDS: Albuterol/Iprat 2.5/0.5MG 3 ML AMPUL.NEB INHALE ×2 (07:55→11:29)
[2023-08-23] MEDS: Fluticasone/Umeclidinium/Vilanterol 200/62.5/25 BLST.W.DEV 1 PUFF INHALE (07:56)
[2023-08-23 07:58] VITALS: PULSE 52; RESP 16; O2SAT 100
[2023-08-23] MEDS: 0.9 % Sodium Chloride Flush 3 ML SYRINGE IVFLUSH (09:41)
[2023-08-23] MEDS: Loratadine 10 MG TABLET PO (09:44)
[2023-08-23] MEDS: Oseltamivir Phosphate 75 MG CAPSULE PO (09:44)
[2023-08-23] MEDS: Escitalopram Oxalate 20 MG TABLET PO (09:44)
[2023-08-23] MEDS: guaiFEN/Codeine SF 200/20/10ML 10 ML LIQUID PO (10:26)
--- NOTE | 2023-08-23 11:07 | MHC.CM.PN ---
Addendum entered by Julia العراقي RN 08/23/23 12:47: CM CONTACTED PT'S DTR ELISABET WHO PT STAYS WITH, ELISABET CURRENTLY UNABLE TO DRIVE D/T AWAITING HEART TRANSPLANT, ELISABET'S DTR IS THE ONE WHO CARES FOR PT HOWEVER IS AT WORK UNTIL 5:30PM, CM OFFERED TO SET UP TRANSPORT HOWEVER ELISABET WOULD LIKE TO FIND PT A RIDE HOME AND WILL FOLLOW UP W/CM. Original Note: PT MEDICALLY CLEARED FOR DC HOME W/RESUMP OF SCRAP CHARGER HRS, MONTHLY NSG VISITS FROM [facility] AND FAMILY SUPPORT W/FAMILY FOR TRANSPORT.
--- NOTE | 2023-08-23 11:16 | PM.DS ---
DS: Providers Provider Date of Service: 08/23/23 Date of admission: 08/21/23 23:09 Date of discharge: 08/23/23 Primary care physician: Sol Hall MD Consults: 08/21/23 23:06 Consult to Pulmonology Routine Consulting Provider: [facility] [place] Pulmonology Services Reason for consultation: Hypoxic respiratory failure Has provider been notified: No Attending physician on discharge: Erica Lopez Discharging clinician: Erica Lopez DS: Diagnosis Discharge Diagnosis (1) Acute hypoxic respiratory failure: Status: Acute (2) Influenza A: Status: Acute DS: Summary Hospital Course Hospital Course: 63 years old woman with past medical history significant for COPD -not on home O2 or chronic steroids use, anxiety and depression presents to the emergency department complaining of worsening shortness of breath that started yesterday. She mentioned that on Monday she started to present sore throat associated with chills and generalized weakness. Yesterday she started to develop a dry cough and mild wheezing. She also report nausea but no events of vomiting or diarrhea. She does have an occasional abdominal discomfort. Patient denies fever. She denied any acute urinary symptoms. She is a former tobacco smoker, quit smoking several years ago. She denied alcohol abuse or illicit drug use. She takes azithromycin every other day. In the ED, she was found to have sinus tachycardia and tachypnea. Blood pressure is stable. She is currently requiring 2 liters/minute supplemental oxygen via nasal cannula and satting at 95%. Blood workup is remarkable for leukocytosis of 12.7. Venous blood gas showed elevated pH, 7.5. CO2 is not elevated. LFTs are normal as well as the renal function. BNP is normal. Urinalysis is unremarkable. Viral testing is positive for influenza type A. CXR showed slightly more prominent left basilar radiopacity, atelectasis versus infectious/inflammatory etiology. ED tx: Solu-Medrol 60 mg IV, acetaminophen 650 mg p.o., ceftriaxone 1 g IV, Tamiflu 75 mg p.o. x1, azithromycin 500 mg IV and 1 L NS bolus. Hospital course: Acute hypoxemic respiratory failure secondary to COPD exacerbation and influenza- found to have leucocytosis and Slightly more prominent left basilar radiopacity(possible mild pneumonia) ,blood culture sent-started on nebs ,steriods ,antibiotics and tamiflu, pulmonary Seen the patient(patient seems to be improved significantly with current management): Leukocytosis trending down, blood culture negative @24hours.no fevers ,sats 95% room air . going home with tamiflu for 4 days ,prednisone 40 mg po daily for 4 days ,continue ceftin 500 mg po bid for 7 days ,azithromycin 500 mg daily 5 days. plan: tamiflu for 4 days ,prednisone 40 mg po daily for 4 days ,continue ceftin 500 mg po bid for 7 days ,azithromycin 500 mg daily 5 days, Repeat chest imaging in 3-4 weeks to see resolution of pneumonia. Above management discussed with the patient in detail length she understand and in agreement with the above plan, time spent 50 minutes and 50% time spent on counseling. Time Attestation Discharge coordination time: Greater than 30 minutes Quality: Safe Use of Opioids Does Pt have an Active Cancer Diagnosis on the Problem List?: No Quality: Stroke Does the patient have a stroke diagnosis?: No Physical Exam Vital Signs: Vital Signs: Last Vital Signs Temp 98.1 F 08/23/23 07:42 Pulse 52 08/23/23 07:58 Resp 16 08/23/23 07:58 BP 131/70 08/23/23 07:42 Pulse Ox 95 08/23/23 07:42 O2 Del Method Room Air 08/23/23 07:42 O2 Flow Rate 2 08/23/23 03:25 BMI result Body Mass Index 27.8 Appearance: Alert.? Oriented X3.? cvs: [id number], [id number] , no murmur res: clear to auscultation ,no rhonchii or wheezing abd: no rebound or guarding ,nt, bs present. ext pulses present , no cyanosis . neuro: axo3 , nonfocal. DS: Data Data Completed and Pending Labs on day of discharge: Preliminary micro results at discharge 08/21/23 20:20 Blood Culture - Preliminary Blood - Venous No growth after 24 hours. 08/21/23 19:41 Blood Culture - Preliminary Blood - Venous No growth after 24 hours. 08/21/23 Unknown Urine Culture - Preliminary Urine clean catch - Urine bello top No growth to date. Imaging Chest x-ray: Radiologist's impression: ITS Impressions Chest X-Ray 08/21/23 19:59 IMPRESSION: 1. Slightly more prominent left basilar radiopacity which may reflect atelectasis versus evolving infectious/inflammatory etiology. 2. Postsurgical changes of the right lung with volume loss, right apical scarring, bronchiectatic changes, elevation the right hemidiaphragm, and mediastinal/tracheal deviation to the right, stable. Discharge Plan Discharge Anticipated Discharge Date/Time: 08/23/23 10:53 Patient Disposition: Home, Self-Care Discharge Diagnosis: Hypoxemic respiratory failure secondary to copd excerebation and influenza A. Referrals: Sol Mendosa MD [Primary Care Provider] - 1 Week Discharge Medications: New oseltamivir [Tamiflu] 75 mg Capsule 75 mg PO Q12H Qty: 6 0RF azithromycin 500 mg tablet 500 mg PO DAILY 5 Days Qty: 5 0RF cefuroxime axetil 500 mg tablet 500 mg PO BID Qty: 14 0RF prednisone 20 mg tablet 40 mg PO DAILY Qty: 8 0RF codeine-guaifenesin 10-100 mg/5 mL Liquid 10 ml PO Q6H PRN (Reason: Cough) Qty: 100 0RF Continued albuterol sulfate 2.5 mg /3 mL (0.083 %) solution for nebulization 2.5 mg inhalation Q4H PRN (Reason: for wheezing) Qty: 300 0RF albuterol sulfate 90 mcg/actuation HFA aerosol inhaler 2 puff inhalation Q6H PRN (Reason: for wheezing) Qty: 1 0RF losartan-hydrochlorothiazide 100-12.5 mg tablet 1 tab PO DAILY 90 Days Qty: 90 1RF (DME) disposable gloves Misc See Rx Instructions .Route Qty: 200 0RF Rx Instructions: As directed azithromycin 250 mg tablet 250 mg PO MOWEFR@0900 Rx Instructions: Take 1 tablet on Monday/Monday/Monday sodium chloride 7 % solution for nebulization 4 ml inhalation BID lorazepam 0.5 mg tablet 0.5 mg PO BID PRN (Reason: Anxiety) triamcinolone acetonide 0.5 % cream 1 appl topical TID PRN (Reason: Rash) escitalopram oxalate 20 mg tablet 20 mg PO DAILY fluticasone propionate 50 mcg/actuation spray,suspension 1 spray intranasal DAILY PRN (Reason: Allergy Symptoms) cetirizine 10 mg tablet 10 mg PO DAILY (DME) nebulizers Misc See Rx Instructions .Route Rx Instructions: As directed Trelegy Ellipta 200-62.5-25 mcg blister with device 1 inh inhalation DAILY Qty: 60 11RF polyethylene glycol 3350 [Miralax] 17 gram/dose powder 17 g PO DAILY PRN (Reason: Constipation) Held ibuprofen 400 mg tablet 400 mg PO Q6H PRN (Reason: pain) 30 Days Qty: 120 1RF Hold Instructions: Resume on 08/29/23. Discharge Orders: Discharge Order (Routine); Ordered 08/23/23 Ordered By: Erica Lopez Diet: Advance to usual diet Activity on Discharge: As tolerated Stand Alone Forms: Patient Portal Discharge page Care Plan Goals: Acute hypoxemic respiratory failure secondary to COPD exacerbation and influenza- found to have leucocytosis and Slightly more prominent left basilar radiopacity ,blood culture sent-started on nebs ,steriods ,antibiotics and tamiflu, pulmonary Seen the patient(patient seems to be improved significantly with current management): Leukocytosis trending down, blood culture negative @24hours.no fevers ,sats 95% room air . going home with tamiflu for 4 days ,prednisone 40 mg po daily for 4 days ,continue ceftin 500 mg po bid for 7 days ,azithromycin 500 mg daily 5 days. please repeat chest imaging in 3-4 weeks to see resolution of pneumonia. Health Concerns: as above. Plan of Treatment: as above. Assessment: as above. Discharge Date/Time: 08/23/23 14:44
[2023-08-23 11:22] VITALS: BP 139/63
[2023-08-23 11:30] VITALS: PULSE 68; RESP 18; O2SAT 99
[2023-08-23 12:00] VITALS: BP 137/63; PULSE 58; RESP 20; TEMP 36.5; O2SAT 98
== END 2023-08-23 14:44 | disposition home or self-care (01) | DRG 191 ==
LOC: HO.ED 21:00 → HO.EDOVER 23:14 → HO.IMC 08-22 14:55
PROVIDERS: Admitting Provider Internal Medicine; Emergency Provider Emergency Medicine; PCP Internal Medicine; Visit Provider Internal Medicine
DX: J47.1 Bronchiectasis with (acute) exacerbation (principal); J45.41 Moderate persistent asthma with (acute) exacerbation; J98.11 Atelectasis; J10.1 Influenza due to other identified influenza virus with other respiratory manifestations; J47.0 Bronchiectasis with acute lower respiratory infection; J18.9 Pneumonia, unspecified organism; F41.9 Anxiety disorder, unspecified; F32.A Depression, unspecified; Z87.891 Personal history of nicotine dependence; Z79.899 Other long term (current) drug therapy
CPT/HCPCS: 36415; 71045; 80048; 80053; 80076; 81001; 82803; 83605; 83690; 83735; 83880; 84484; 85025; 85610; 87040; 87086; 87502; 87635; 93005; 94640; 99285; J0456; J0696; J1644; J2920; J2930

== ENCOUNTER → 2023-08-21 18:49 | Outpatient (BNV) | payer OTHER, SELFPAY | PROVIDERS: Admitting Provider Internal Medicine; Emergency Provider Emergency Medicine; PCP Internal Medicine; Visit Provider Internal Medicine Cardiovascular Disease | DX: R00.0 Tachycardia, unspecified (principal); R94.31 Abnormal electrocardiogram [ECG] [EKG] | CPT/HCPCS: 93010 ==

== ENCOUNTER → 2023-08-21 23:09 | Outpatient (BNV) | payer OTHER, SELFPAY | PROVIDERS: Admitting Provider Internal Medicine; Emergency Provider Emergency Medicine; PCP Internal Medicine; Visit Provider Internal Medicine Pulmonary Disease | DX: J47.0 Bronchiectasis with acute lower respiratory infection (principal); J10.1 Influenza due to other identified influenza virus with other respiratory manifestations; J45.41 Moderate persistent asthma with (acute) exacerbation | CPT/HCPCS: 99222 ==

== ENCOUNTER → 2023-08-21 23:09 | Outpatient (BNV) | payer OTHER, SELFPAY | PROVIDERS: Admitting Provider Internal Medicine; Emergency Provider Emergency Medicine; PCP Internal Medicine; Visit Provider Internal Medicine | DX: J96.01 Acute respiratory failure with hypoxia (principal); J10.1 Influenza due to other identified influenza virus with other respiratory manifestations | CPT/HCPCS: 99223; 99232; 99239 ==

== ENCOUNTER 2023-09-12 09:55 | Outpatient (AMB) | payer OTHER, SELFPAY ==
--- NOTE | 2023-09-12 09:55 | A.OFFVIS_ITS ---
Intake Vital Signs 09/12/23 09:56 Height 5 ft 3 in Weight 140 lb BMI 24.8 Intake Visit Reasons: Hypoxic respiratory failure : Hosp f/u Secy Required: No Allergies lisinopril Allergy (Mild, Verified 09/12/23 09:56) cough moxifloxacin [Avelox] Allergy (Mild, Verified 09/12/23 09:56) rash sulfamethoxazole [From Bactrim] Allergy (Mild, Verified 09/12/23 09:56) Rash trimethoprim [From Bactrim] Allergy (Mild, Verified 09/12/23 09:56) Rash HPI HPI Comments History of Present Illness Details The patient is a 63-year-old woman known severe persistent asthma and also bronchiectasis. She was in her usual state health until about a week ago when she started developing productive cough with yellowish phlegm. She has also had some chills and subjective fevers. Also has been complaining of pleuritic discomfort mainly on the right side. Mild in nature. In the office she was noted to be wheezing. She did receive a nebulized treatment. We try getting a sputum sample which he was unable to do so. She has had bronchoscopies in the past. I would have to go to [facility] to review her cultures. In the meantime going to treated for pneumonia. She was treated with Augmentin for bronchopneumonia. Her x-ray also demonstrated worsening right basilar opacity. She is status post bronchoscopy. Ultimately doing much better after the procedure. She did have significant period secretions. She did grow Proteus and was treated with antibiotics. No Pseudomonas was found into specimens which is reassuring that she no longer has Pseudomonas in her bronchiectatic airways. Unfortunate she did become sick with flu-like symptoms. She then developed a sore throat. She also has a cough. But otherwise has not had any fevers or chills or any other constitutional complaint. She has been on multiple antibiotics already so therefore will try to hold off on any antibiotics at this time. She has been using her nebulizer treatments and has been using her percussion vest. She is to continue to do so. 09/16/2021 the patient has a telephone vi sit. This is a sick visit. The patient started developing URI like symptoms along with chills. She lost her taste and smell. She was concerned she was developing COVID. She did have a COVID test done and just came back today negative. She was not sure if he was a PCR versus an antigen test. I did request that if he was in antigen test that she should Re test in a few days. In the meantime the patient does have significant sinus pressure and congestion. She has significant drainage of mucus greenish in color. She cannot tolerate the quinolones due to rash. Therefore I will start her on Augmentin. The patient does have significant chest congestion as well. She has Extensive bronchiectasis. After completing the 2 weeks of antibiotics will reassess in the office. If the patient is no better will plan to perform a bronchoscopy for therapeutic cleaning. 10/12/2021 the patient is here for a pulm onary follow-up visit. The patient is starting to feel better. She did require antibiotics recently for sinusitis. Ultimately feeling better. She continues with respiratory therapy with partial improvement of her symptoms. The patient has not been using the nebulizer nor her percussion wrap. She understands with the bronchiectasis she needs to be able to perform chest PT in order to minimize mucus plugging and decrease her risk of infection. The patient does have a significant family history of airway disease. Therefore will have her undergo awful 1 DNA testing today. The patient continues to have significant asthma. Severe persistent. She has been on maximum therapy is still requiring multiple courses of prednisone and antibiotics. Her eosinophils in her IgE level were elevated the last time they were checked. I will have her repeat blood work to see if there is still elevated and to see if she has a an Allergic phenotype. If the levels are elevated that she may be a great candidate for biologic therapy. Will consider Dupixent as a very good option for her. Will decide further when she gets her laboratory data. I will also have her get a chest x-ray in view of her significant bronchiectatic changes. 01/07/2022 the patient is here for pulmon abdirashid follow-up visit. Overall she is about the same. She started developing worsening productive cough with green thick tenacious sputum. She was able to save the specimen to sent to the laboratory. Will have her go for additional blood work. The patient also has significant asthma requiring frequent prednisone. Last time we did check her allergies in the were positive in her IgE levels were elevated. Will have her undergo blood work again to see if she qualifies for other biologic therapy. Based on her frequent prednisone use she will benefit from biologic therapy to reduce exacerbations and minimize hospitalizations. The patient also had a chest x-ray which we personally reviewed demonstrating the most of the airspace disease hearing on the right hemithorax. On examination she does have rhonchi and wheezing. He is going to start antibiotics and if she is no better she is going to start the prednisone as well. In the meantime will looking to starting Xolair therapy for the patient. 03/10/2022 the patient is here for a pul onbreesport follow-up visit. She continues to have worsening chest congestion shortness of breath and chest tightness. Moderate to severe. She has been maximizing her respiratory therapy. For trying to get her on biologics including Xolair with her elevated IgE and after she was denied by her insurance company we did try to approve Tezspire, but that was also denied. Her IgE level was elevated although her allergy testing that we perform has been negative. Therefore the patient is agreeable to a allergy referral in order to have additional allergy testing to see if she can be started on biologics in view of her severe asthma and bronchiectasis. The patient has significant chest congestion. Difficult to clear. She does have a percussion vest and also an Acapella valve. She needs to be started on hypertonic saline that she can use after using her bronchodilator. In the mic ntime we also talked about performing a bronchoscopy for airway clearance pulmonary toilet in addition to the cultures from her lungs. If the patient has any evidence of Pseudomonas inhaled tobramycin may be very effective in helping her symptoms. we did review her last chest x-ray demonstrating significant airspace disease in the right lower lobe zone. 09/06/2022 the patient is here for a pulmo nary follow-up visit. She still complaining of chest congestion chest tightness. She continues with respiratory medication. However, she is not taking her biologic anymore. I did consult claus encarnacion the optometry doctor. Apparently she did not follow-up at the new office. Therefore, if she were to continue taking biologics she will have to be reestablished. In the meantime she is not performing her chest physical therapy with her chest vest. She is going to start using it. I did speak to her family regarding that. She does have cough she with chest congestion which is typical of her significant bronchiectasis. It is moderate severity. She also has increased wheezing associated with it. Denies any fevers or chills. 11/11/2022 the patient is here for pulmon abdirashid follow-up visit. She is complaining of increasing pleuritic discomfort in the right lung. Also been noticing worsening cough with green sputum. Feeling more congested. The having some chest tightness. She has been using her nebulizer. Unfortunately his sister got sick and therefore she had not been following through with her medical therapy. She stop the azithromycin because it was causing her irritability and mood changes therefore she stopped it. She is not performing the percussion therapy. We did look at her cultures previously she grew Proteus. Sensitive to Bactrim. Under go ahead and give her back to in order to treat for Staph aureus and also Proteus. Hopefully this helps her. Otherwise she can always call and give her stronger antibiotic. We can also try to get a sputum culture. She w ill get an x-ray as well she has no better. She also has prednisone available in case she gets worse she can always start it. 03/20/2023 the patient is here for pulmon abdirashid follow-up visit. The patient is still struggling with her significant bronchiectasis. Has had increased chest congestion. The mucus is greenish in color. She did bring up a sample not appear to be more purulent. Significant amount of mucus. She has been using the Trelegy inhaler. She has not been using the nebulizer or the percussion vest. She is here with her daughter in a emphasize the need for chest physical therapy with percussion vest. I will increase her hypertonic saline from 3% to 7%. She needs to also use a nebulizer prior to the hypertonic saline. She had been using the azithromycin medication 3 times a week but has not seen a significant improvement. Will switch over to Augmentin. Previous that she did grow Proteus in her sputum. She has significant bronchiectasis. Her last chest x-ray was noted to be abnormal. Will request a CT scan of the chest to better address her ongoing symptoms. In the meantime she also has significant allergies. She had responded well to Dupixent although was given her adverse side effects of myalgias and arthralgias and she has to stop it. Will go ahead and request additional blood work today to see if she is a candidate for addition biologic injection. 06/26/2023 the patient is here for a pul monary follow-up visit. She is doing better from a medication adherence standpoint. She did complete the Augmentin and treated the Proteus lung infection. She has been using her percussion vest. She also has been using the Trelegy inhaler and also hypertonic saline for CPT. The patient also has been taking the azithromycin 3 times a week. She is doing a little better and I did remind her that this is chronic therapy and she needs to continue. It is helping. Recently she did have a respiratory illness and she was having worsening respiratory symptoms and she responded well to just using her nebulizer more often. Did not need any more prednisone which is reassuring. Right now her respiratory exam is better. Also, we did review her CT scan of the chest. She has extensive bronchiectatic changes. significantly cystic in nature. Affecting primarily the right hemithorax although also has some in the left lower lobe. We did review the blood work. No evidence of any immunodeficiencies or connective tissue conditions. She did have a surgery when she was in [place]. We do not have the pathology although that would be helpful. based on the severity of disease in her asthma we did review her blood work. Her IgE level was actually within normal and also her eosinophilic level. Therefore biologic therapies are likely to be effective for her. Therefore hold off. I did recommend she get a 2nd opinion in [place]. Ideally the same hospital that her daughter goes to in case there is a genetic disposition. The patient will give me the name in the hospital so I can make the referral. In the meantime we are going to repeat her sweat test looking for cystic fibrosis variance and also would be also a candidate for lung transplant specially the bronchiectasis were to worsen. 09/12/2023 the patient has a telehealth v isit today. She was recently in the hospital with severe influenza. The patient did have an abnormal chest x-ray with airspace disease and she was treated with antiviral therapy. She was also given antibiotics and prednisone. She was receiving oxygen. She was able to be weaned off oxygen and be able to be discharged on oral antibiotics. Initially she was feeling well and now she started to develop worsening cough chest congestion. Her mucus secretions are greenish in color. They are thick and tenacious. She is using the nebulizer. She also has a percussion vest that she can use for chest physical therapy. Will go ahead and send doxycycline to the pharmacy to treat her for postviral bacterial infections. In the meantime if symptoms worsen or not improve she should call back the office back to the hospital the patient did complete a course of prednisone although she still feels chest tightness and wheezing. Will go ahead and send a lower dose for longer period of time. Otherwise follow-up in several weeks in the office to perform a 6 minute walk test. Likely the patient will need additional imaging studies. [facility] Medical History Bronchopneumonia Ear discomfort Asthma-COPD overlap syndrome Cough Bronchiectasis Asthma Surgical History History of lung surgery Family History Daughter Bronchiectasis Colon polyps Brother Mental health disorder Mother No problems noted. Father Stroke Social History Housing: Apartment Do you presently have visiting nurse or other home services: No Alcohol intake: current Alcohol intake frequency: holidays/special occasions only Alcohol type: wine Patient Tobacco Use Status: Former Tobacco user Tobacco use type: Cigarette Years Smoked: 5 years e-Cigarette/Vaping Use: Never Used Second Hand Smoke Exposure: No service: No Current occupational status: unemployed and retired Cognitive needs: No Hearing needs: No Vision needs: Yes Review of Systems Const Denies night sweats ENT Denies change in voice, Denies lip swelling, Denies mouth pain, Reports nasal congestion, Reports nasal discharge, Reports post nasal drip and Denies tongue swelling Card Denies chest pain, Reports dyspnea and Reports dyspnea on exertion Resp Reports change in phlegm color, Reports chest congestion, Reports cough, Denies hemoptysis, Reports excessive phlegm production, Reports dyspnea and Reports dyspnea on exertion GI Denies abdominal pain Musc Denies no additional complaints Neuro Denies Neuro-related abnormal movements Psych Denies no additional complaints Jay/Lymph Denies easy bleeding and Denies lymphadenopathy Aller/Immun Denies lip swelling and Denies tongue swelling Physical Exam Vital Signs: BMI result Body Mass Index 24.8 Const General: comfortable Orientation/consciousness: patient oriented x3 Resp Effort & Inspection: normal respiratory effort and able to speak in complete sentences Neuro General: patient oriented x3 Assessment & Plan Assessment & Plan (1) Asthma: Code(s): J45.909 - Unspecified asthma, uncomplicated Qualifiers: Asthma complication type: uncomplicated Asthma persistence: persistent Asthma severity: severe Qualified Code(s): J45.50 - Severe persistent asthma, uncomplicated (2) Bronchiectasis: Code(s): J47.9 - Bronchiectasis, uncomplicated Qualifiers: Bronchiectasis type: with acute lower respiratory infection Qualified Code(s): J47.0 - Bronchiectasis with acute lower respiratory infection (3) Cough: Code(s): R05 - Cough Qualifiers: Cough type: chronic Qualified Code(s): R05.3 - Chronic cough (4) Asthma-COPD overlap syndrome: Code(s): J44.9 - Chronic obstructive pulmonary disease, unspecified Plan Continue Trelegy Continue nebulized therapy start Doxycycline start prednisone low taper hold Azithromycin MWF while on Doxy CPT with albuterol->hypertonic saline 7% with percussion vest sweat test at [facility] referral to [place] for the extensive bronchiectasis Follow-up in 3-4 weeks Medications: New doxycycline monohydrate 100 mg PO BID 14 days 28 tabs 0RF prednisone PO daily; 2 tabs daily x 10 days, then 1 tab daily x 10 days 20 days 30 tabs 0RF Telehealth Telehealth Location of provider rendering services: practice address Location of patient: address on file Patient Identification confirmed using: Name, : Yes Telehealth method: voice only Patient verbally consented to treatment: Yes Patient verbally consented to billing insurance company: Yes Patient informed of any privacy concerns related to visit: Yes Coding Level of Care Code Tele Est Pt Level 4 (58729) Diagnoses Severe persistent asthma without complication J45.50 Asthma complication type: uncomplicated Asthma persistence: persistent Asthma severity: severe Bronchiectasis with acute lower respiratory infection J47.0 Bronchiectasis type: with acute lower respiratory infection Chronic cough R05.3 Cough type: chronic Asthma-COPD overlap syndrome J44.9 Time Spent (min) 16
[2023-09-12 09:56] VITALS: BMI 24.8
== END 2023-09-12 10:27 | disposition home or self-care (01) ==
LOC: HO.HPS 09:55
PROVIDERS: PCP Internal Medicine; Visit Provider Hospitalist
DX: J45.50 Severe persistent asthma, uncomplicated (principal); R05.3 Chronic cough
CPT/HCPCS: 99442

== ENCOUNTER → 2023-09-12 09:55 | Outpatient (BNVA) | payer OTHER, SELFPAY | PROVIDERS: PCP Internal Medicine; Visit Provider Hospitalist ==

== ENCOUNTER 2023-10-06 14:00 | Outpatient (AMB) | payer OTHER, SELFPAY ==
--- NOTE | 2023-10-06 14:03 | A.OFFVIS_ITS ---
Intake Vital Signs 10/06/23 14:05 Height 5 ft 3 in Weight 147 lb BMI 26.0 BP 111/64 Blood Pressure Location Rt brachial Position Sitting Pulse 90 Pulse Source Doppler Pulse Oximetry (%) 94 Oxygen Delivery Method Room Air Intake Visit Reasons: cough Allergies lisinopril Allergy (Mild, Verified 10/06/23 14:07) cough moxifloxacin [Avelox] Allergy (Mild, Verified 10/06/23 14:07) rash sulfamethoxazole [From Bactrim] Allergy (Mild, Verified 10/06/23 14:07) Rash trimethoprim [From Bactrim] Allergy (Mild, Verified 10/06/23 14:07) Rash HPI HPI Comments History of Present Illness Details The patient is a 63-year-old woman known severe persistent asthma and also bronchiectasis. She was in her usual state health until about a week ago when she started developing productive cough with yellowish phlegm. She has also had some chills and subjective fevers. Also has been complaining of pleuritic discomfort mainly on the right side. Mild in nature. In the office she was noted to be wheezing. She did receive a nebulized treatment. We try getting a sputum sample which he was unable to do so. She has had bronchoscopies in the past. I would have to go to [facility] to review her cultures. In the meantime going to treated for pneumonia. She was treated with Augmentin for bronchopneumonia. Her x-ray also demonstrated worsening right basilar opacity. She is status post bronchoscopy. Ultimately doing much better after the procedure. She did have significant period secretions. She did grow Proteus and was treated with antibiotics. No Pseudomonas was found into specimens which is reassuring that she no longer has Pseudomonas in her bronchiectatic airways. Unfortunate she did become sick with flu-like symptoms. She then developed a sore throat. She also has a cough. But otherwise has not had any fevers or chills or any other constitutional complaint. She has been on multiple antibiotics already so therefore will try to hold off on any antibiotics at this time. She has been using her nebulizer treatments and has been using her percussion vest. She is to continue to do so. 09/16/2021 the patient has a telephone vi sit. This is a sick visit. The patient started developing URI like symptoms along with chills. She lost her taste and smell. She was concerned she was developing COVID. She did have a COVID test done and just came back today negative. She was not sure if he was a PCR versus an antigen test. I did request that if he was in antigen test that she should Re test in a few days. In the meantime the patient does have significant sinus pressure and congestion. She has significant drainage of mucus greenish in color. She cannot tolerate the quinolones due to rash. Therefore I will start her on Augmentin. The patient does have significant chest congestion as well. She has Extensive bronchiectasis. After completing the 2 weeks of antibiotics will reassess in the office. If the patient is no better will plan to perform a bronchoscopy for therapeutic cleaning. 10/12/2021 the patient is here for a pulm onary follow-up visit. The patient is starting to feel better. She did require antibiotics recently for sinusitis. Ultimately feeling better. She continues with respiratory therapy with partial improvement of her symptoms. The patient has not been using the nebulizer nor her percussion wrap. She understands with the bronchiectasis she needs to be able to perform chest PT in order to minimize mucus plugging and decrease her risk of infection. The patient does have a significant family history of airway disease. Therefore will have her undergo awful 1 DNA testing today. The patient continues to have significant asthma. Severe persistent. She has been on maximum therapy is still requiring multiple courses of prednisone and antibiotics. Her eosinophils in her IgE level were elevated the last time they were checked. I will have her repeat blood work to see if there is still elevated and to see if she has a an Allergic phenotype. If the levels are elevated that she may be a great candidate for biologic therapy. Will consider Dupixent as a very good option for her. Will decide further when she gets her laboratory data. I will also have her get a chest x-ray in view of her significant bronchiectatic changes. 01/07/2022 the patient is here for pulmon abdirashid follow-up visit. Overall she is about the same. She started developing worsening productive cough with green thick tenacious sputum. She was able to save the specimen to sent to the laboratory. Will have her go for additional blood work. The patient also has significant asthma requiring frequent prednisone. Last time we did check her allergies in the were positive in her IgE levels were elevated. Will have her undergo blood work again to see if she qualifies for other biologic therapy. Based on her frequent prednisone use she will benefit from biologic therapy to reduce exacerbations and minimize hospitalizations. The patient also had a chest x-ray which we personally reviewed demonstrating the most of the airspace disease hearing on the right hemithorax. On examination she does have rhonchi and wheezing. He is going to start antibiotics and if she is no better she is going to start the prednisone as well. In the meantime will looking to starting Xolair therapy for the patient. 03/10/2022 the patient is here for a pulm onary follow-up visit. She continues to have worsening chest congestion shortness of breath and chest tightness. Moderate to severe. She has been maximizing her respiratory therapy. For trying to get her on biologics including Xolair with her elevated IgE and after she was denied by her insurance company we did try to approve Tezspire, but that was also denied. Her IgE level was elevated although her allergy testing that we perform has been negative. Therefore the patient is agreeable to a allergy referral in order to have additional allergy testing to see if she can be started on biologics in view of her severe asthma and bronchiectasis. The patient has significant chest congestion. Difficult to clear. She does have a percussion vest and also an Acapella valve. She needs to be started on hypertonic saline that she can use after using her bronchodilator. In the meantime we also talked about performing a bronchoscopy for airway clearance pulmonary toilet in addition to the cultures from her lungs. If the patient has any evidence of Pseudomonas inhaled tobramycin may be very effective in helping her symptoms. we did review her last chest x-ray demonstrating significant airspace disease in the right lower lobe zone. 09/06/2022 the patient is here for a pulmo nary follow-up visit. She still complaining of chest congestion chest tightness. She continues with respiratory medication. However, she is not taking her biologic anymore. I did consult with the machine assembler. Apparently she did not follow-up at the new office. Therefore, if she were to continue taking biologics she will have to be reestablished. In the meantime she is not performing her chest physical therapy with her chest vest. She is going to start using it. I did speak to her family regarding that. She does have cough she with chest congestion which is typical of her significant bronchiectasis. It is moderate severity. She also has increased wheezing associated with it. Denies any fevers or chills. 11/11/2022 the patient is here for pulmon abdirashid follow-up visit. She is complaining of increasing pleuritic discomfort in the right lung. Also been noticing worsening cough with green sputum. Feeling more congested. The having some chest tightness. She has been using her nebulizer. Unfortunately his sister got sick and therefore she had not been following through with her medical therapy. She stop the azithromycin because it was causing her irritability and mood changes therefore she stopped it. She is not performing the percussion therapy. We did look at her cultures previously she grew Proteus. Sensitive to Bactrim. Under go ahead and give her back to in order to treat for Staph aureus and also Proteus. Hopefully this helps her. Otherwise she can always call and give her stronger antibiotic. We can also try to get a sputum culture. She will get an x-ray as well she has no better. She also has prednisone available in case she gets worse she can always start it. 03/20/2023 the patient is here for pulmon abdirashid follow-up visit. The patient is still struggling with her significant bronchiectasis. Has had increased chest congestion. The mucus is greenish in color. She did bring up a sample not appear to be more purulent. Significant amount of mucus. She has been using the Trelegy inhaler. She has not been using the nebulizer or the percussion vest. She is here with her daughter in a emphasize the need for chest physical therapy with percussion vest. I will increase her hypertonic saline from 3% to 7%. She needs to also use a nebulizer prior to the hypertonic saline. She had been using the azithromycin medication 3 times a week but has not seen a significant improvement. Will switch over to Augmentin. Previous that she did grow Proteus in her sputum. She has significant bronchiectasis. Her last chest x-ray was noted to be abnormal. Will request a CT scan of the chest to better address her ongoing symptoms. In the meantime she also has significant allergies. She had responded well to Dupixent although was given her adverse side effects of myalgias and arthralgias and she has to stop it. Will go ahead and request additional blood work today to see if she is a candidate for addition biologic injection. 06/26/2023 the patient is here for a pul monary follow-up visit. She is doing better from a medication adherence standpoint. She did complete the Augmentin and treated the Proteus lung infection. She has been using her percussion vest. She also has been using the Trelegy inhaler and also hypertonic saline for CPT. The patient also has been taking the azithromycin 3 times a week. She is doing a little better and I did remind her that this is chronic therapy and she needs to continue. It is helping. Recently she did have a respiratory illness and she was having worsening respiratory symptoms and she responded well to just using her nebulizer more often. Did not need any more prednisone which is reassuring. Right now her respiratory exam is better. Also, we did review her CT scan of the chest. She has extensive bronchiectatic changes. significantly cystic in nature. Affecting primarily the right hemithorax although also has some in the left lower lobe. We did review the blood work. No evidence of any immunodeficiencies or connective tissue conditions. She did have a surgery when she was in [place]. We do not have the pathology although that would be helpful. based on the severity of disease in her asthma we did review her blood work. Her IgE level was actually within normal and also her eosinophilic level. Therefore biologic therapies are likely to be effective for her. Therefore hold off. I did recommend she get a 2nd opinion in [place]. Ideally the same hospital that her daughter goes to in case there is a genetic disposition. The patient will give me the name in the hospital so I can make the referral. In the meantime we are going to repeat her sweat test looking for cystic fibrosis variance and also would be also a candidate for lung transplant specially the bronchiectasis were to worsen. 09/12/2023 the patient has a telehealth v isit today. She was recently in the hospital with severe influenza. The patient did have an abnormal chest x-ray with airspace disease and she was treated with antiviral therapy. She was also given antibiotics and prednisone. She was receiving oxygen. She was able to be weaned off oxygen and be able to be discharged on oral antibiotics. Initially she was feeling well and now she started to develop worsening cough chest co ngestion. Her mucus secretions are greenish in color. They are thick and tenacious. She is using the nebulizer. She also has a percussion vest that she can use for chest physical therapy. Will go ahead and send doxycycline to the pharmacy to treat her for postviral bacterial infections. In the meantime if symptoms worsen or not improve she should call back the office back to the hospital the patient did complete a course of prednisone although she still feels chest tightness and wheezing. Will go ahead and send a lower dose for longer period of time. Otherwise follow-up in several weeks in the office to perform a 6 minute walk test. Likely the patient will need additional imaging studies. 10/06/2023 the patient is here for pulmona ry follow-up visit. She still struggles with her cough and chest congestion. Her cough is productive of purulent like secretions. We were able to get 1 for the laboratory. Will waiting for the results. In the meantime she had been on doxycycline and she did respond well to it while she was on it for few weeks. Now she is offering her symptoms are getting worse. It may be that she has a component of stenotrophomonas. Will go ahead and send another sputum in place her back on doxycycline. If she has a resistant organism or resistant enteric organism we may need to do additional antibiotics. We could also consider inhaled tobramycin for Pseudomonas. Will have to wait for the results. In the meantime she does have significant bronchiectasis. She does not always use her vest. I did have an Acapella valve I did provide her she can use that in between when she can not get to using her percussion vest. She understands the importance of mucus clearance. She continues with respiratory therapy. Currently she has not on any prednisone. We also talked about a referral to [place]. Right now which the waiting for her to be scheduled but I do believe that based on the severity of disease would be very reasonable to have her go to [place] for a 2nd opinion. [facility] Medical History Bronchopneumonia Ear discomfort Asthma-COPD overlap syndrome Cough Bronchiectasis Asthma Surgical History History of lung surgery Family History Daughter Bronchiectasis Colon polyps Brother Mental health disorder Mother No problems noted. Father Stroke Social History Housing: Apartment Do you presently have visiting nurse or other home services: No Alcohol intake: current Alcohol intake frequency: holidays/special occasions only Alcohol type: wine Patient Tobacco Use Status: Former Tobacco user Tobacco use type: Cigarette Years Smoked: 5 years e-Cigarette/Vaping Use: Never Used Second Hand Smoke Exposure: No service: No Current occupational status: unemployed and retired Cognitive needs: No Hearing needs: No Vision needs: Yes Review of Systems Const Denies night sweats ENT Denies change in voice, Denies lip swelling, Denies mouth pain, Reports nasal congestion, Reports nasal discharge, Reports post nasal drip and Denies tongue swelling Card Denies chest pain, Reports dyspnea and Reports dyspnea on exertion Resp Reports change in phlegm color, Reports chest congestion, Reports cough, Denies hemoptysis, Reports excessive phlegm production, Reports dyspnea and Reports dyspnea on exertion GI Denies abdominal pain Musc Denies no additional complaints Neuro Denies Neuro-related abnormal movements Psych Denies no additional complaints Jay/Lymph Denies easy bleeding and Denies lymphadenopathy Aller/Immun Denies lip swelling and Denies tongue swelling Physical Exam Vital Signs: Last Vital Signs Pulse 90 10/06/23 14:05 BP 111/64 10/06/23 14:05 Pulse Ox 94 10/06/23 14:05 Oxygen Delivery Method Room Air 10/06/23 14:05 BMI result Body Mass Index 26.0 Const General: alert Neck Neck: Yes normal visual inspection, Yes full ROM and Yes no lymphadenopathy Chest Chest palpation & inspection: normal inspection of the chest Resp Effort & Inspection: normal respiratory effort Auscultation: rhonchi, no wheezes and diminished lung sounds Cardio Rate: regular rate Rhythm: regular rhythm Heart sounds: S1 normal heart sound present and S2 normal heart sound present GI Palpation (GI): Soft to palpation and nontender Auscultation: normal bowel sounds Skin General skin exam: rashes and/or lesions noted Assessment & Plan Assessment & Plan (1) Asthma: Code(s): J45.909 - Unspecified asthma, uncomplicated Qualifiers: Asthma complication type: uncomplicated Asthma persistence: persistent Asthma severity: severe Qualified Code(s): J45.50 - Severe persistent asthma, uncomplicated (2) Bronchiectasis: Code(s): J47.9 - Bronchiectasis, uncomplicated Qualifiers: Bronchiectasis type: with acute lower respiratory infection Qualified Code(s): J47.0 - Bronchiectasis with acute lower respiratory infection (3) Cough: Code(s): R05 - Cough Qualifiers: Cough type: chronic Qualified Code(s): R05.3 - Chronic cough (4) Asthma-COPD overlap syndrome: Code(s): J44.9 - Chronic obstructive pulmonary disease, unspecified (5) Bronchiectasis: Code(s): J47.9 - Bronchiectasis, uncomplicated Qualifiers: Bronchiectasis type: with acute lower respiratory infection Qualified Code(s): J47.0 - Bronchiectasis with acute lower respiratory infection Plan Continue Trelegy Continue nebulized therapy hold Azithromycin MWF while on Doxy daily bloodwork CPT with albuterol->hypertonic saline 7% with percussion vest and also has an acapella sputum cx sweat [place] [facility] for the extensive bronchiectasis Follow-up in 3-4 weeks Orders: Orders Sputum Cult + Gram stain 10/06/23 J47.9 - Bronchiectasis, uncomplicated Complete Blood Count Auto Diff 10/06/23 R09.02 - Hypoxemia, T78.40XA - Allergy, unspecified, initial encounter Resp Allergy Profile Region I 10/06/23 R09.02 - Hypoxemia, R91.1 - Solitary pulmonary nodule, T78.40XA - Allergy, unspecified, initial encounter Cyclic Citrullinated Peptide 10/06/23 R09.02 - Hypoxemia, T78.40XA - Allergy, unspecified, initial encounter Alpha 1 Anti-trypsin 10/06/23 R09.02 - Hypoxemia, T78.40XA - Allergy, unspecified, initial encounter NANY Reflex Titer and Pattern 10/06/23 R09.02 - Hypoxemia, T78.40XA - Allergy, unspecified, initial encounter Hypersensitive Pneumonitis Prf 10/06/23 R09.02 - Hypoxemia, R91.8 - Other nonspecific abnormal finding of lung field, T78.40XA - Allergy, unspecified, initial encounter Referrals Pulmonary Medicine Referral J47.9 - Bronchiectasis, uncomplicated Medications: Changed From doxycycline monohydrate 100 mg PO BID 14 days 28 tabs 0RF To doxycycline monohydrate 100 mg PO DAILY 30 days 30 tabs 3RF Coding Level of Care Code Est Pt Level 4 (14431) Diagnoses Severe persistent asthma without complication J45.50 Asthma complication type: uncomplicated Asthma persistence: persistent Asthma severity: severe Bronchiectasis with acute lower respiratory infection J47.0 Bronchiectasis type: with acute lower respiratory infection Chronic cough R05.3 Cough type: chronic Asthma-COPD overlap syndrome J44.9 Time Spent (min) 18
[2023-10-06 14:05] VITALS: BP 111/64; PULSE 90; O2SAT 94; BMI 26.0
== END 2023-10-06 14:27 | disposition home or self-care (01) ==
PROVIDERS: PCP Internal Medicine; Visit Provider Hospitalist
DX: J45.50 Severe persistent asthma, uncomplicated (principal); J47.0 Bronchiectasis with acute lower respiratory infection; R05.3 Chronic cough; J44.9 Chronic obstructive pulmonary disease, unspecified
CPT/HCPCS: 99214

== ENCOUNTER 2023-10-06 14:00 | Outpatient (REF) | payer OTHER, SELFPAY | END 2023-10-06 14:01 | disposition home or self-care (01) | LOC: HO.LNP 14:00 | PROVIDERS: PCP Internal Medicine; Visit Provider Hospitalist | DX: J44.9 Chronic obstructive pulmonary disease, unspecified (principal); J18.0 Bronchopneumonia, unspecified organism; K21.9 Gastro-esophageal reflux disease without esophagitis; J45.50 Severe persistent asthma, uncomplicated; J47.0 Bronchiectasis with acute lower respiratory infection; R05.3 Chronic cough; R09.02 Hypoxemia; T78.40XA Allergy, unspecified, initial encounter; R91.1 Solitary pulmonary nodule | CPT/HCPCS: 87070; 87077; 87186; 87205; 99212 ==

== ENCOUNTER 2023-10-11 12:47 | Outpatient (AMB) | payer OTHER, SELFPAY ==
--- NOTE | 2023-10-11 12:55 | A.OFFPC_ITS ---
Vital Signs 10/11/23 12:58 Height 5 ft 3 in Weight 156 lb BMI 27.6 BP 122/80 Blood Pressure Location Lt brachial Position Sitting Intake Visit Reasons: PE Intake Note: Patient here for a physical exam Customer Care Consultant Required: No Accompanied by: Daughter Allergies lisinopril Allergy (Mild, Verified 10/11/23 13:14) cough moxifloxacin [Avelox] Allergy (Mild, Verified 10/11/23 13:14) rash sulfamethoxazole [From Bactrim] Allergy (Mild, Verified 10/11/23 13:14) Rash trimethoprim [From Bactrim] Allergy (Mild, Verified 10/11/23 13:14) Rash Medication List - Last Reconciled 10/11/23 by Sol Hall MD albuterol sulfate 2.5 mg (3 mL) inhalation Q4H PRN albuterol sulfate 90 mcg/actuation 2 puffs inhalation Q6H PRN cetirizine 10 mg PO DAILY disposable gloves As directed doxycycline monohydrate 100 mg PO DAILY 30 days escitalopram oxalate 20 mg PO DAILY fluticasone propionate 50 mcg/actuation 1 spray intranasal DAILY PRN ibuprofen 400 mg PO Q6H PRN 30 days lorazepam 0.5 mg PO BID PRN losartan-hydrochlorothiazide 100-12.5 mg 1 tab PO DAILY 90 days nebulizers As directed polyethylene glycol 3350 (Miralax) 17 grams PO DAILY PRN sodium chloride 7% 4 mL inhalation BID Trelegy Ellipta 200-62.5-25 mcg (esbuqxglxjb-fxjsztkxs-nbuntggz) 1 inh inhalation DAILY NS triamcinolone acetonide 0.5% 1 appl topical TID PRN trifluridine 1% drps ophthalmic (eye) Tobacco use date assessed: 10/11/23 Dental Screening Dental Screen Date: 10/11/23 Did you have a dental visit in the last 12 months?: No Did you have a dental problem in the last 6 months where you did not have access to dental care?: No Was dental information given to patient?: Patient has dentist HPI HPI Comments History of Present Illness Details This is a 63-year-old female with mild recurrent major depression and asthma-COPD overlap syndrome that comes for her physical exam accompanied by daughter. Depression stable with medications and this is follow by Psychiatry. Asthma-COPD overlap syndrome stable with Trelegy and this is follow by pulmonology. She denies any chest pain or shortness of breath. Last bone density was 2022 and was normal. Last mammogram was 2022. Last colonoscopy was 2011 and was referred through open access but thinks she missed appointment. Last Pap smear was less than 4 years ago as per patient. Complains of diffuse joint pain and would like to be referred to [employer]. [facility] Medical History Bronchopneumonia Ear discomfort Asthma-COPD overlap syndrome Cough Bronchiectasis Asthma Surgical History History of lung surgery Family History Daughter Bronchiectasis Colon polyps Brother Mental health disorder Mother No problems noted. Father Stroke Social History Housing: Apartment Do you presently have visiting nurse or other home services: No Alcohol intake: current Alcohol intake frequency: holidays/special occasions only Alcohol type: wine Patient Tobacco Use Status: Former Tobacco user Tobacco use type: Cigarette Years Smoked: 5 years e-Cigarette/Vaping Use: Never Used Second Hand Smoke Exposure: No service: No Current occupational status: unemployed and retired Cognitive needs: No Hearing needs: No Vision needs: Yes Questionnaire PHQ-9 Over the last 2 weeks, how often have you been bothered by any of the following problems? 1. Little interest or pleasure in doing things: several days 2. Feeling down, depressed, or hopeless: nearly every day 3. Trouble falling or staying asleep, or sleeping too much: more than half the days 4. Feeling tired or having little energy: nearly every day 5. Poor appetite or overeating: several days 6. Feeling bad about yourself - or that you are a failure or have let yourself or your family down: not at all 7. Trouble concentrating on things, such as reading the newspaper or watching television: more than half the days 8. Moving or speaking so slowly that other people could have noticed. Or the opposite - being so fidgety or restless that you have been moving around a lot more than usual: more than half the days 9. Thoughts that you would be better off or of hurting yourself in some way: not at all Total score: 14 Depression Screening Interpretation: Positive Depression Screening Follow-up: Existing condition, In treatment and Community Mental Health Worker F/U Depression Screening Done: Yes 64982 - PHQ-9 Billing: Yes Source: Developed by Drs. Fredy Quiñones, Elsi Dominguez, Isiah Larkin and colleagues, with an educational joshua from [employer]. Thrive Questionnaire Date Thrive assessed: 10/11/23 I am a: Patient What is your living situation today?: I have a steady place to live Within the past 12 months, did the food you bought not last and you didn't have the money to get more?: Never true Within the past 12 months, did you worry whether your food would run out before you got money to buy more?: Never true Do you have trouble paying for medicines?: No Do you have trouble getting transportation to medical appointments?: No Do you have trouble paying your heating and electricity bill?: No Do you have trouble taking care of your child, family member or friend?: No Do you have trouble with day-to-day activities such as bathing, preparing meals, shopping, managing finances, etc.?: No Are you currently unemployed and looking for a job?: No Are you interested in more education?: No Please select the resources that you would like help with: None Currently or been in a relationship where the following occur: no concerns reported THRIVE Score: 0 AUDIT C Alcohol Use Questionnaire (AUDIT-C) 1. How often do you have a drink containing alcohol?: Monthly or less 2. How many drinks containing alcohol do you have on a typical day when you are drinking?: 1 or 2 3. How often do you have six or more drinks on one occasion?: Never Total Score: 1 Score Reviewed/Action Taken: No AMNA-7 AMB Questionnaire AMNA-7 Date AMNA - 7 assessed: 10/11/23 Feeling nervous, anxious, or on edge: 2 = More than half the days Not being able to stop or control worryin = Several days Worrying too much about different things: 2 = More than half the days Trouble relaxin = Several days Being so restless that it is hard to sit still: 0 = Not at all Becoming easily annoyed or irritable: 1 = Several days Feeling afraid as if something awful might happen: 1 = Several days Total AMNA-7 score (0-4 normal; 5-9 mild; 10-14 moderate; 15-21 severe): 8 Source: Developed by Drs. Fredy Quiñones, Elsi Dominguez, Isiah Larkin and colleagues, with an educational joshua from [employer]. AMNA-7 Assessment Billing AMNA-7 Assessment Tool: AMNA-7 Assessment 01809 Review of Systems Const All systems reviewed & are unremarkable except as noted in HPI and below Eyes Reports no additional complaints, Denies change in vision and Denies other visual disturbances Card Denies chest pain at rest, Denies chest pain with activity, Denies edema, Denies irregular heart rhythm, Denies claudication, Denies dyspnea, Denies dyspnea on exertion, Denies orthopnea, Denies paroxysmal nocturnal dyspnea and Denies slow heart rate Resp Denies cough, Denies dyspnea and Denies dyspnea on exertion GI Denies abdominal pain, Denies change in bowel habits, Denies excessive flatus, Denies nausea and Denies vomiting Denies urinary incontinence, Denies urinary hesitancy and Denies urinary urgency Musc Denies abnormal gait, Denies atrophy, Denies deformity and Denies limited range of motion Skin/Breast Denies bleeding lesions, Denies changing lesions and Denies rash Neuro Denies abnormal gait, Denies behavioral changes, Denies confusion and Denies lack of coordination Psych Denies behavioral changes and Denies confusion Physical exam (Primary Care) Vital Signs: Last Vital Signs BP 122/80 10/11/23 12:58 BMI result Body Mass Index 27.6 Tobacco/Smoking Status: Tobacco use Status Tobacco use date assessed 10/11/23 10/11/23 13:06 Patient Tobacco Use Status Former Tobacco user 10/11/23 12:57 Tobacco use type Cigarette 10/11/23 12:57 e-Cigarette/Vaping Use Never Used 10/11/23 12:57 PHQ-9: PHQ-9 Score PHQ-9: Total score 14 10/11/23 13:06 Depression Screening Interpretation: Positive Depression Screening Follow-up: Existing condition, In treatment and Community Mental Health Worker F/U Thrive Assessment: Date of Thrive Assessment Date Thrive assessed 10/11/23 10/11/23 13:06 Currently or been in a relationship where the following occur: no concerns reported Const General: No confusion Orientation/consciousness: patient oriented x3 and No confusion HENMT Head: Yes normal to inspection, Yes normocephalic and Yes atraumatic Ears: external ears normal Eyes General: appearance normal, both eyes and all related structures Eyelids: Yes eyelids normal Conjunctivae: conjunctivae normal Neck Neck: Yes normal visual inspection and Yes supple Resp Effort & Inspection: normal respiratory effort Auscultation: wheezes Cardio Jugular venous distension: no JVD Rate: regular rate Rhythm: regular rhythm Heart sounds: S1 normal heart sound present and S2 normal heart sound present GI Inspection: Yes normal to inspection Palpation (GI): Soft to palpation and nontender Auscultation: normal bowel sounds Skin General skin exam: no rashes or lesions noted Neuro General: patient oriented x3, no focal motor deficits and No confusion Extrem General: Yes full ROM Psych Appearance: grossly normal Assessment and Plan Assessment & Plan (1) Physical exam: Code(s): Z00.00 - Encounter for general adult medical examination without abnormal findings Plan: Repeat in a year. (2) Mild recurrent major depression: Code(s): F33.0 - Major depressive disorder, recurrent, mild Plan: Continue escitalopram. (3) Asthma-COPD overlap syndrome: Code(s): J44.9 - Chronic obstructive pulmonary disease, unspecified Plan: Continue Trelegy. Use rescue inhaler as needed. Follow-up with pulmonology. Orders: Orders Comprehensive [place]. Panel Fast Today Z00.00 - Encounter for general adult medical examination without abnormal findings Lipid Panel Today Z00.00 - Encounter for general adult medical examination without abnormal findings Complete Blood Count Auto Diff Today D64.9 - Anemia, unspecified IRON PROFILE Today D64.9 - Anemia, unspecified MM screening mammo BI Today Z12.31 - Encounter for screening mammogram for malignant neoplasm of breast Referrals Open Access Screening Colonoscopy Referral Z12.11 - Encounter for screening for malignant neoplasm of colon Rheumatology Referral M25.50 - Pain in unspecified joint Coding Level of Care Code Est Pt Prev Care 40-64y(94886) Diagnoses Physical exam Z00.00 Mild recurrent major depression F33.0 Asthma-COPD overlap syndrome J44.9 Additional Codes AMNA-7 Assessment Billing - AMNA-7 Assessment Tool: AMNA-7 Assessment [id number] ([id number]) Time Spent (min) 34
[2023-10-11 12:58] VITALS: BP 122/80; BMI 27.6
== END 2023-10-11 13:29 | disposition home or self-care (01) ==
PROVIDERS: Visit Provider Internal Medicine
DX: Z00.00 Encounter for general adult medical examination without abnormal findings (principal); F33.0 Major depressive disorder, recurrent, mild; J44.9 Chronic obstructive pulmonary disease, unspecified
CPT/HCPCS: 99396

== ENCOUNTER 2023-12-06 13:05 | Outpatient (REF) | payer OTHER, SELFPAY | END 2023-12-06 13:06 | disposition home or self-care (01) | LOC: HO.MAMMO 13:05 | PROVIDERS: PCP Internal Medicine; Visit Provider Internal Medicine | DX: Z12.31 Encounter for screening mammogram for malignant neoplasm of breast (principal) | CPT/HCPCS: 77063; 77067 ==

== ENCOUNTER → 2023-12-06 13:15 | Outpatient (BNV) | payer OTHER, SELFPAY | PROVIDERS: PCP Internal Medicine; Visit Provider Radiology Diagnostic Radiology | DX: Z12.31 Encounter for screening mammogram for malignant neoplasm of breast (principal) | CPT/HCPCS: 77063; 77067 ==

== ENCOUNTER 2023-12-18 15:13 | Outpatient (AMB) | payer OTHER, SELFPAY ==
[2023-12-18 15:17] VITALS: PULSE 90; O2SAT 93; BMI 27.6
--- NOTE | 2023-12-18 15:17 | A.OFFVIS_ITS ---
Vital Signs 12/18/23 15:17 Height 5 ft 3 in Weight 155 lb 13.869 oz BMI 27.6 Pulse 90 Pulse Source Pulse Oximeter Pulse Oximetry (%) 93 Oxygen Delivery Method Room Air Intake Visit Reasons: Cough Finishing Operator Required: No Allergies lisinopril Allergy (Mild, Verified 12/18/23 15:18) cough moxifloxacin [Avelox] Allergy (Mild, Verified 12/18/23 15:18) rash sulfamethoxazole [From Bactrim] Allergy (Mild, Verified 12/18/23 15:18) Rash trimethoprim [From Bactrim] Allergy (Mild, Verified 12/18/23 15:18) Rash HPI Comments Details: The patient is a 63-year-old woman known severe persistent asthma and also bronchiectasis. She was in her usual state health until about a week ago when she started developing productive cough with yellowish phlegm. She has also had some chills and subjective fevers. Also has been complaining of pleuritic discomfort mainly on the right side. Mild in nature. In the office she was noted to be wheezing. She did receive a nebulized treatment. We try getting a sputum sample which he was unable to do so. She has had bronchoscopies in the past. I would have to go to [facility] to review her cultures. In the meantime going to treated for pneumonia. She was treated with Augmentin for bronchopneumonia. Her x-ray also demonstrated worsening right basilar opacity. She is status post bronchoscopy. Ultimately doing much better after the procedure. She did have significant period secretions. She did grow Proteus and was treated with antibiotics. No Pseudomonas was found into specimens which is reassuring that she no longer has Pseudomonas in her bronchiectatic airways. Unfortunate she did become sick with flu-like symptoms. She then developed a sore throat. She also has a cough. But otherwise has not had any fevers or chills or any other constitutional complaint. She has been on multiple antibiotics already so therefore will try to hold off on any antibiotics at this time. She has been using her nebulizer treatments and has been using her percussion vest. She is to continue to do so. 06/26/2023 the patient is here for a pulmonary follow-up visit. She is doing better from a medication adherence standpoint. She did complete the Augmentin and treated the Proteus lung infection. She has been using her percussion vest. She also has been using the Trelegy inhaler and also hypertonic saline for CPT. The patient also has been taking the azithromycin 3 times a week. She is doing a little better and I did remind her that this is chronic therapy and she needs to continue. It is helping. Recently she did have a respiratory illness and she was having worsening respiratory symptoms and she responded well to just using her nebulizer more often. Did not need any more prednisone which is reassuring. Right now her respiratory exam is better. Also, we did review her CT scan of the chest. She has extensive bronchiectatic changes. significantly cystic in nature. Affecting primarily the right hemithorax although also has some in the left lower lobe. We did review the blood work. No evidence of any immunodeficiencies or connective tissue conditions. She did have a surgery when she was in [place]. We do not have the pathology although that would be helpful. based on the severity of disease in her asthma we did review her blood work. Her IgE level was actually within normal and also her eosinophilic level. Therefore biologic therapies are likely to be effective for her. Therefore hold off. I did recommend she get a 2nd opinion in [place]. Ideally the same hospital that her daughter goes to in case there is a genetic disposition. The patient will give me the name in the hospital so I can make the referral. In the meantime we are going to repeat her sweat test looking for cystic fibrosis variance and also would be also a candidate for lung transplant specially the bronchiectasis were to worsen. 09/12/2023 the patient has a telehealth visit today. She was recently in the hospital with severe influenza. The patient did have an abnormal chest x-ray with airspace disease and she was treated with antiviral therapy. She was also given antibiotics and prednisone. She was receiving oxygen. She was able to be weaned off oxygen and be able to be discharged on oral antibiotics. Initially she was feeling well and now she started to develop worsening cough chest congestion. Her mucus secretions are greenish in color. They are thick and tenacious. She is using the nebulizer. She also has a percussion vest that she can use for chest physical therapy. Will go ahead and send doxycycline to the pharmacy to treat her for postviral bacterial infections. In the meantime if symptoms worsen or not improve she should call back the office back to the hospital the patient did complete a course of prednisone although she still feels chest tightness and wheezing. Will go ahead and send a lower dose for longer period of time. Otherwise follow-up in several weeks in the office to perform a 6 minute walk test. Likely the patient will need additional imaging studies. 10/06/2023 the patient is here for pulmonary follow-up visit. She still struggles with her cough and chest congestion. Her cough is productive of purulent like secretions. We were able to get 1 for the laboratory. Will waiting for the results. In the meantime she had been on doxycycline and she did respond well to it while she was on it for few weeks. Now she is offering her symptoms are getting worse. It may be that she has a component of stenotrophomonas. Will go ahead and send another sputum in place her back on doxycycline. If she has a resistant organism or resistant enteric organism we may need to do additional antibiotics. We could also consider inhaled tobramycin for Pseudomonas. Will have to wait for the results. In the meantime she does have significant bronchiectasis. She does not always use her vest. I did have an Acapella valve I did provide her she can use that in between when she can not get to using her percussion vest. She understands the importance of mucus clearance. She continues with respiratory therapy. Currently she has not on any prednisone. We also talked about a referral to [place]. Right now which the waiting for her to be scheduled but I do believe that based on the severity of disease would be very reasonable to have her go to [place] for a 2nd opinion. 12/18/2023 the patient is here for a pulmonary follow-up visit. Since we last spoke the patient did have a sputum sample positive for Pseudomonas. We did order the inhaled tobramycin but she had an allergic reaction with some redness of the eyes. She then took a break and then she restarted the medicine just once a day she still had a reaction should she stopped it altogether. The patient starting to get more chest congestion. She feels shortness of breath. During the office visit we did taken for 6 minute walk test the patient did desaturate down to 88% during the walk. She was visibly dyspneic with a dyspnea score of 6/10. The patient at this point based on her chronic lung disease and now seems to be worsening progressive in nature would benefit from oxygen supplementation. Will set her up with a local [employer] with a portable oxygen concentrator that she can use with activity. The patient also will start ciprofloxacin to see if we can treat her underlying Pseudomonas in her lungs seems to be getting worse at this time. She has had a reaction to Avelox in the past. Although was mainly rash. Will go ahead and start a small dose and see if she can not tolerate it. If she does then she will continue. Then, I did give her a Ernestine system where she could try to see if using this device will be less contact with her eyes and hopefully she could tolerate the inhaled CARLOS. But she knows not to start both antibiotics together because then we will not know if she has a reaction or interaction. The patient does have a referral to [place] for her underlying bronchiectasis and she will be seeing 1 of the hospitals in [place] in the beginning all this. So the Will try to improve her respiratory issues right now but hopefully she will get further guidance when she goes for her 2nd opinion. [facility] Medical History Bronchopneumonia Ear discomfort Asthma-COPD overlap syndrome Cough Bronchiectasis Asthma Surgical History History of lung surgery Family History Daughter Bronchiectasis Colon polyps Brother Mental health disorder Mother No problems noted. Father Stroke Social History Housing: Apartment Do you presently have visiting nurse or other home services: No Alcohol intake: current Alcohol intake frequency: holidays/special occasions only Alcohol type: wine Patient Tobacco Use Status: Former Tobacco user Tobacco use type: Cigarette Years Smoked: 5 years e-Cigarette/Vaping Use: Never Used Second Hand Smoke Exposure: No service: No Current occupational status: unemployed and retired Cognitive needs: No Hearing needs: No Vision needs: Yes Review of Systems Const Denies night sweats ENT Denies change in voice, Denies lip swelling, Denies mouth pain, Reports nasal congestion, Reports nasal discharge, Reports post nasal drip and Denies tongue swelling Card Denies chest pain, Reports dyspnea and Reports dyspnea on exertion Resp Reports change in phlegm color, Reports chest congestion, Reports cough, Denies hemoptysis, Reports excessive phlegm production, Reports dyspnea and Reports dyspnea on exertion GI Denies abdominal pain Musc Denies no additional complaints Neuro Denies Neuro-related abnormal movements Psych Denies no additional complaints Jay/Lymph Denies easy bleeding and Denies lymphadenopathy Aller/Immun Denies lip swelling and Denies tongue swelling Physical Exam Vital Signs: Last Vital Signs Pulse 90 12/18/23 15:17 Pulse Ox 93 12/18/23 15:17 Oxygen Delivery Method Room Air 12/18/23 15:17 BMI result Body Mass Index 27.6 Const General: alert Neck Neck: Yes normal visual inspection, Yes full ROM and Yes no lymphadenopathy Chest Chest palpation & inspection: normal inspection of the chest Resp Effort & Inspection: normal respiratory effort Auscultation: rhonchi, no wheezes and diminished lung sounds Cardio Rate: regular rate Rhythm: regular rhythm Heart sounds: S1 normal heart sound present and S2 normal heart sound present GI Palpation (GI): Soft to palpation and nontender Auscultation: normal bowel sounds Skin General skin exam: rashes and/or lesions noted Office Procedures 6 Minute Walk Time:: 23:14 SPO2 % at rest: 94 Pulse at rest: 78 SPO2 % during excercise: 88 Pulse during excercise: 102 Distance in yards walked: 300 Ranjith Score: 6 Supplemental Oxygen: pt on RA at rest maintained pox 94%. With activity on RA dropped to 88%. placed on 2L/pulse keeping pox 93% with activity. 25911 - 6 Minute Walk Assessment & Plan Assessment & Plan (1) Asthma: Code(s): J45.909 - Unspecified asthma, uncomplicated Category: Medical Qualifiers: Asthma complication type: uncomplicated Asthma persistence: persistent Asthma severity: severe Qualified Code(s): J45.50 - Severe persistent asthma, uncomplicated (2) Bronchiectasis: Code(s): J47.9 - Bronchiectasis, uncomplicated Category: Medical Qualifiers: Bronchiectasis type: with acute lower respiratory infection Qualified Code(s): J47.0 - Bronchiectasis with acute lower respiratory infection (3) Cough: Code(s): R05 - Cough Category: Medical Qualifiers: Cough type: chronic Qualified Code(s): R05.3 - Chronic cough (4) Asthma-COPD overlap syndrome: Code(s): J44.9 - Chronic obstructive pulmonary disease, unspecified Category: Medical (5) Bronchiectasis: Code(s): J47.9 - Bronchiectasis, uncomplicated Category: Medical Qualifiers: Bronchiectasis type: with acute lower respiratory infection Qualified Code(s): J47.0 - Bronchiectasis with acute lower respiratory infection Plan start oxygen 2L/pulse with portable oxygen concentrator with activity Continue Trelegy Continue nebulized therapy hold Azithromycin MWF start cipro, monitor for allergic reactions consider trying the inhaled Carlos again with the ernestine system once completed the cipro CPT with albuterol->hypertonic saline 7% with percussion vest and also has an acapella sweat test at [facility] [place] referral to [place] for the extensive bronchiectasis, February 28 Follow-up in 3-4 months Medications: New ciprofloxacin HCl (Cipro) 250 mg PO BID 28 tabs 0RF 14 days Coding Level of Care Code Est Pt Level 4 (26364) Diagnoses Severe persistent asthma without complication J45.50 Asthma complication type: uncomplicated Asthma persistence: persistent Asthma severity: severe Bronchiectasis with acute lower respiratory infection J47.0 Bronchiectasis type: with acute lower respiratory infection Chronic cough R05.3 Cough type: chronic Asthma-COPD overlap syndrome J44.9 CPT Codes Coding ([id number]) Time Spent (min) 18
[2023-12-18 23:13] VITALS: PULSE 78; O2SAT 94
== END 2023-12-18 15:53 | disposition home or self-care (01) ==
PROVIDERS: PCP Internal Medicine; Visit Provider Hospitalist
DX: J45.50 Severe persistent asthma, uncomplicated (principal); J47.0 Bronchiectasis with acute lower respiratory infection; R05.3 Chronic cough; J44.9 Chronic obstructive pulmonary disease, unspecified
CPT/HCPCS: 94618; 99214

== ENCOUNTER → 2023-12-18 15:13 | Outpatient (BNVA) | payer OTHER, SELFPAY | PROVIDERS: PCP Internal Medicine; Visit Provider Hospitalist | DX: J45.50 Severe persistent asthma, uncomplicated (principal); J47.0 Bronchiectasis with acute lower respiratory infection; J44.9 Chronic obstructive pulmonary disease, unspecified; R05.3 Chronic cough | CPT/HCPCS: 94618; 99212 ==

== ENCOUNTER 2024-03-26 14:06 | Outpatient (AMB) | payer OTHER, SELFPAY ==
--- NOTE | 2024-03-26 14:15 | MHC.OFFVIS ---
Vital Signs 03/26/24 14:17 Height 5 ft 3 in Weight 139 lb BMI 24.6 Pulse 84 Pulse Source Pulse Oximeter Pulse Oximetry (%) 97 Oxygen Delivery Method Room Air Comment 2 Liters Oxygen([employer]) Intake Visit Reasons: Cough Allergies lisinopril Allergy (Mild, Verified 03/26/24 14:15) cough moxifloxacin [Avelox] Allergy (Mild, Verified 03/26/24 14:15) rash sulfamethoxazole [From Bactrim] Allergy (Mild, Verified 03/26/24 14:15) Rash trimethoprim [From Bactrim] Allergy (Mild, Verified 03/26/24 14:15) Rash HPI Comments Details: The patient is a 63-year-old woman known severe persistent asthma and also bronchiectasis. She was in her usual state health until about a week ago when she started developing productive cough with yellowish phlegm. She has also had some chills and subjective fevers. Also has been complaining of pleuritic discomfort mainly on the right side. Mild in nature. In the office she was noted to be wheezing. She did receive a nebulized treatment. We try getting a sputum sample which he was unable to do so. She has had bronchoscopies in the past. I would have to go to [facility] to review her cultures. In the meantime going to treated for pneumonia. She was treated with Augmentin for bronchopneumonia. Her x-ray also demonstrated worsening right basilar opacity. She is status post bronchoscopy. Ultimately doing much better after the procedure. She did have significant period secretions. She did grow Proteus and was treated with antibiotics. No Pseudomonas was found into specimens which is reassuring that she no longer has Pseudomonas in her bronchiectatic airways. Unfortunate she did become sick with flu-like symptoms. She then developed a sore throat. She also has a cough. But otherwise has not had any fevers or chills or any other constitutional complaint. She has been on multiple antibiotics already so therefore will try to hold off on any antibiotics at this time. She has been using her nebulizer treatments and has been using her percussion vest. She is to continue to do so. 06/26/2023 the patient is here for a pulmonary follow-up visit. She is doing better from a medication adherence standpoint. She did complete the Augmentin and treated the Proteus lung infection. She has been using her percussion vest. She also has been using the Trelegy inhaler and also hypertonic saline for CPT. The patient also has been taking the azithromycin 3 times a week. She is doing a little better and I did remind her that this is chronic therapy and she needs to continue. It is helping. Recently she did have a respiratory illness and she was having worsening respiratory symptoms and she responded well to just using her nebulizer more often. Did not need any more prednisone which is reassuring. Right now her respiratory exam is better. Also, we did review her CT scan of the chest. She has extensive bronchiectatic changes. significantly cystic in nature. Affecting primarily the right hemithorax although also has some in the left lower lobe. We did review the blood work. No evidence of any immunodeficiencies or connective tissue conditions. She did have a surgery when she was in [place]. We do not have the pathology although that would be helpful. based on the severity of disease in her asthma we did review her blood work. Her IgE level was actually within normal and also her eosinophilic level. Therefore biologic therapies are likely to be effective for her. Therefore hold off. I did recommend she get a 2nd opinion in [place]. Ideally the same hospital that her daughter goes to in case there is a genetic disposition. The patient will give me the name in the hospital so I can make the referral. In the meantime we are going to repeat her sweat test looking for cystic fibrosis variance and also would be also a candidate for lung transplant specially the bronchiectasis were to worsen. 09/12/2023 the patient has a telehealth visit today. She was recently in the hospital with severe influenza. The patient did have an abnormal chest x-ray with airspace disease and she was treated with antiviral therapy. She was also given antibiotics and prednisone. She was receiving oxygen. She was able to be weaned off oxygen and be able to be discharged on oral antibiotics. Initially she was feeling well and now she started to develop worsening cough chest congestion. Her mucus secretions are greenish in color. They are thick and tenacious. She is using the nebulizer. She also has a percussion vest that she can use for chest physical therapy. Will go ahead and send doxycycline to the pharmacy to treat her for postviral bacterial infections. In the meantime if symptoms worsen or not improve she should call back the office back to the hospital the patient did complete a course of prednisone although she still feels chest tightness and wheezing. Will go ahead and send a lower dose for longer period of time. Otherwise follow-up in several weeks in the office to perform a 6 minute walk test. Likely the patient will need additional imaging studies. 10/06/2023 the patient is here for pulmonary follow-up visit. She still struggles with her cough and chest congestion. Her cough is productive of purulent like secretions. We were able to get 1 for the laboratory. Will waiting for the results. In the meantime she had been on doxycycline and she did respond well to it while she was on it for few weeks. Now she is offering her symptoms are getting worse. It may be that she has a component of stenotrophomonas. Will go ahead and send another sputum in place her back on doxycycline. If she has a resistant organism or resistant enteric organism we may need to do additional antibiotics. We could also consider inhaled tobramycin for Pseudomonas. Will have to wait for the results. In the meantime she does have significant bronchiectasis. She does not always use her vest. I did have an Acapella valve I did provide her she can use that in between when she can not get to using her percussion vest. She understands the importance of mucus clearance. She continues with respiratory therapy. Currently she has not on any prednisone. We also talked about a referral to [place]. Right now which the waiting for her to be scheduled but I do believe that based on the severity of disease would be very reasonable to have her go to [place] for a 2nd opinion. 12/18/2023 the patient is here for a pulmonary follow-up visit. Since we last spoke the patient did have a sputum sample positive for Pseudomonas. We did order the inhaled tobramycin but she had an allergic reaction with some redness of the eyes. She then took a break and then she restarted the medicine just once a day she still had a reaction should she stopped it altogether. The patient starting to get more chest congestion. She feels shortness of breath. During the office visit we did taken for 6 minute walk test the patient did desaturate down to 88% during the walk. She was visibly dyspneic with a dyspnea score of 6/10. The patient at this point based on her chronic lung disease and now seems to be worsening progressive in nature would benefit from oxygen supplementation. Will set her up with a local [employer] with a portable oxygen concentrator that she can use with activity. The patient also will start ciprofloxacin to see if we can treat her underlying Pseudomonas in her lungs seems to be getting worse at this time. She has had a reaction to Avelox in the past. Although was mainly rash. Will go ahead and start a small dose and see if she can not tolerate it. If she does then she will continue. Then, I did give her a Ernestine system where she could try to see if using this device will be less contact with her eyes and hopefully she could tolerate the inhaled CARLOS. But she knows not to start both antibiotics together because then we will not know if she has a reaction or interaction. The patient does have a referral to [place] for her underlying bronchiectasis and she will be seeing 1 of the hospitals in [place] in the beginning all this. So the Will try to improve her respiratory issues right now but hopefully she will get further guidance when she goes for her 2nd opinion. 03/26/2024 the patient is here for a pulmonary follow-up visit. The patient did go to [place]. She is currently being evaluated. She is going to undergo a CT scan is PFTs in the near future. In the meantime she does continue to use inhaled tobramycin. She has been taking care for daughter who has been sick after a cardiac transplant. Therefore she has not been as compliant to the therapy. She does have worsening chest congestion. Moderate severity. Significant mucus production. Will go ahead and start her on ciprofloxacin times if we can help with significant worsening of respiratory symptoms. She has been using the oxygen with good effect. She does have a portable oxygen concentrator that she uses with activity. [facility] Medical History Bronchopneumonia Ear discomfort Asthma-COPD overlap syndrome Cough Bronchiectasis Asthma Surgical History History of lung surgery Family History Daughter Bronchiectasis Colon polyps Brother Mental health disorder Mother No problems noted. Father Stroke Social History Housing: Apartment Do you presently have visiting nurse or other home services: No Alcohol intake: current Alcohol intake frequency: holidays/special occasions only Alcohol type: wine Patient Tobacco Use Status: Former Tobacco user Tobacco use type: Cigarette Years Smoked: 5 years e-Cigarette/Vaping Use: Never Used Second Hand Smoke Exposure: No service: No Current occupational status: unemployed and retired Cognitive needs: No Hearing needs: No Vision needs: Yes Review of Systems Const Denies night sweats ENT Denies change in voice, Denies lip swelling, Denies mouth pain, Reports nasal congestion, Reports nasal discharge, Reports post nasal drip and Denies tongue swelling Card Denies chest pain, Reports dyspnea and Reports dyspnea on exertion Resp Reports change in phlegm color, Reports chest congestion, Reports cough, Denies hemoptysis, Reports excessive phlegm production, Reports dyspnea and Reports dyspnea on exertion GI Denies abdominal pain Musc Denies no additional complaints Neuro Denies Neuro-related abnormal movements Psych Denies no additional complaints Jay/Lymph Denies easy bleeding and Denies lymphadenopathy Aller/Immun Denies lip swelling and Denies tongue swelling Physical Exam Vital Signs: Last Vital Signs Pulse 84 03/26/24 14:17 Pulse Ox 97 03/26/24 14:17 Oxygen Delivery Method Room Air 03/26/24 14:17 BMI result Body Mass Index 24.6 Const General: alert Neck Neck: Yes normal visual inspection, Yes full ROM and Yes no lymphadenopathy Chest Chest palpation & inspection: normal inspection of the chest Resp Effort & Inspection: normal respiratory effort Auscultation: crackles, rhonchi, no wheezes and diminished lung sounds Cardio Rate: regular rate Rhythm: regular rhythm Heart sounds: S1 normal heart sound present and S2 normal heart sound present GI Palpation (GI): Soft to palpation and nontender Auscultation: normal bowel sounds Skin General skin exam: rashes and/or lesions noted Assessment & Plan Assessment & Plan (1) Asthma: Code(s): J45.909 - Unspecified asthma, uncomplicated Category: Medical Qualifiers: Asthma complication type: uncomplicated Asthma persistence: persistent Asthma severity: severe Qualified Code(s): J45.50 - Severe persistent asthma, uncomplicated (2) Bronchiectasis: Code(s): J47.9 - Bronchiectasis, uncomplicated Category: Medical Qualifiers: Bronchiectasis type: with acute lower respiratory infection Qualified Code(s): J47.0 - Bronchiectasis with acute lower respiratory infection (3) Cough: Code(s): R05 - Cough Category: Medical Qualifiers: Cough type: chronic Qualified Code(s): R05.3 - Chronic cough (4) Asthma-COPD overlap syndrome: Code(s): J44.9 - Chronic obstructive pulmonary disease, unspecified Category: Medical (5) Bronchiectasis: Code(s): J47.9 - Bronchiectasis, uncomplicated Category: Medical Qualifiers: Bronchiectasis type: with acute lower respiratory infection Qualified Code(s): J47.0 - Bronchiectasis with acute lower respiratory infection Plan continue oxygen 2L/pulse with portable oxygen concentrator with activity Continue Breztri Continue nebulized therapy start Azithromycin MWF once completed the cipro inhaled Carlos 28 days on; 28 days off CPT with albuterol->hypertonic saline 7% with percussion vest and also has an [facility] referral to [place] for the extensive bronchiectasis Follow-up in 3-4 months Medications: New prednisone PO daily; Take 2 tabs daily x 7 days, then 1 tab daily x 7 days 28 tabs 0RF 14 days ciprofloxacin HCl 500 mg PO BID 28 tabs 0RF 14 days Coding Level of Care Code Est Pt Level 4 (16499) Complex EM visit Add On G2211 Diagnoses Severe persistent asthma without complication J45.50 Asthma complication type: uncomplicated Asthma persistence: persistent Asthma severity: severe Bronchiectasis with acute lower respiratory infection J47.0 Bronchiectasis type: with acute lower respiratory infection Chronic cough R05.3 Cough type: chronic Asthma-COPD overlap syndrome J44.9 Time Spent (min) 16
[2024-03-26 14:17] VITALS: PULSE 84; O2SAT 97; BMI 24.6
== END 2024-03-26 14:49 | disposition home or self-care (01) ==
PROVIDERS: PCP Internal Medicine; Visit Provider Hospitalist
DX: J45.50 Severe persistent asthma, uncomplicated (principal); J47.0 Bronchiectasis with acute lower respiratory infection; R05.3 Chronic cough; J44.9 Chronic obstructive pulmonary disease, unspecified
CPT/HCPCS: 99214; G2211

== ENCOUNTER → 2024-03-26 14:06 | Outpatient (BNVA) | payer OTHER, SELFPAY | PROVIDERS: PCP Internal Medicine; Visit Provider Hospitalist | DX: J44.9 Chronic obstructive pulmonary disease, unspecified (principal); J45.50 Severe persistent asthma, uncomplicated; J47.0 Bronchiectasis with acute lower respiratory infection; R05.3 Chronic cough; Z99.81 Dependence on supplemental oxygen | CPT/HCPCS: 99212 ==

== ENCOUNTER 2024-04-15 14:10 | Outpatient (AMB) | payer OTHER, SELFPAY ==
[2024-04-15 14:12] VITALS: BP 110/64; BMI 24.4
--- NOTE | 2024-04-15 14:12 | A.OFFPC_ITS ---
Vital Signs 04/15/24 14:12 Height 5 ft 3 in Weight 138 lb BMI 24.4 BP 110/64 Blood Pressure Location Lt brachial Position Sitting Intake Visit Reasons: polyarthralgia, depression Edge [employer] Required: No Accompanied by: Self / Same As Patient Allergies lisinopril Allergy (Mild, Verified 04/15/24 14:22) cough moxifloxacin [Avelox] Allergy (Mild, Verified 04/15/24 14:22) rash sulfamethoxazole [From Bactrim] Allergy (Mild, Verified 04/15/24 14:22) Rash trimethoprim [From Bactrim] Allergy (Mild, Verified 04/15/24 14:22) Rash Medication List - Last Reconciled 04/15/24 by Sol Hall MD albuterol sulfate 2.5 mg (3 mL) inhalation Q4H PRN albuterol sulfate 90 mcg/actuation 2 puffs inhalation Q6H PRN cetirizine 10 mg PO DAILY disposable gloves As directed escitalopram oxalate 20 mg PO DAILY fluticasone propionate 50 mcg/actuation 1 spray intranasal DAILY PRN nkotfwyzakn-qhiizwavj-pfcqkwsz 200-62.5-25 mcg (Trelegy Ellipta) 1 inh inhalation DAILY 30 days ibuprofen 400 mg PO Q6H PRN 30 days lorazepam 0.5 mg PO BID PRN losartan-hydrochlorothiazide 100-12.5 mg 1 tab PO DAILY 90 days nebulizers As directed Oxygen Home Use As directed [pulse oximeter As directed] sodium chloride 7% 4 mL inhalation BID tobramycin in 0.225 % NaCl 300 mg/5 mL (Chris) 300 mg (5 mL) inhalation BID 28 days Trelegy Ellipta 200-62.5-25 mcg (ashxqeudzwv-xlkyrflgb-xehlhuiu) 1 inh inhalation DAILY NS triamcinolone acetonide 0.5% 1 appl topical TID PRN underpads (Bed Underpads) As directed [wipes As directed] Tobacco use date assessed: 10/11/23 Dental Screening Dental Screen Date: 04/15/24 Did you have a dental visit in the last 12 months?: No Did you have a dental problem in the last 6 months where you did not have access to dental care?: No Was dental information given to patient?: Patient has dentist HPI HPI Comments History of Present Illness Details This is a 63-year-old female with mild recurrent major depression, anxiety, asthma-COPD overlap syndrome and bronchiectasis that comes today for follow-up on her conditions. Depression and anxiety have been stable with medications and follow by counseling. She is short of breath and is follow by [facility] pulmonology and in [place] for her asthma-COPD overlap syndrome and bronchiectasis. She complains of diffuse joint pain and was referred to rheum atology but did not heard back from them so I will make the referral again. She also complains of dizziness when she picked up something from the floor to quick most likely due to vasovagal reaction. I did explain to the patient. [facility] Medical History (Updated 04/15/24 @ 14:36 by Sol Hall MD) Acute hypoxic respiratory failure Bronchopneumonia Ear discomfort Asthma-COPD overlap syndrome Cough Bronchiectasis Asthma Surgical History History of lung surgery Family History Daughter Bronchiectasis Colon polyps Brother Mental health disorder Mother No problems noted. Father Stroke Social History Housing: Apartment Do you presently have visiting nurse or other home services: No Alcohol intake: current Alcohol intake frequency: holidays/special occasions only Alcohol type: wine Patient Tobacco Use Status: Former Tobacco user Tobacco use type: Cigarette Years Smoked: 5 years e-Cigarette/Vaping Use: Never Used Second Hand Smoke Exposure: No service: No Current occupational status: unemployed and retired Cognitive needs: No Hearing needs: No Vision needs: Yes Questionnaire Thrive Questionnaire Date Thrive assessed: 10/11/23 Are you currently unemployed and looking for a job?: No AMNA-7 AMB Questionnaire AMNA-7 Date AMNA - 7 assessed: 10/11/23 Source: Developed by Drs. Fredy Quiñones, Elsi Dominguez, Isiah Larkin and colleagues, with an educational joshua from [employer]. Review of Systems Const All systems reviewed & are unremarkable except as noted in HPI and below ENT Reports dizziness Card Denies chest pain at rest, Denies chest pain with activity, Denies edema, Denies irregular heart rhythm, Denies claudication, Reports dyspnea, Reports dyspnea on exertion, Denies orthopnea, Denies paroxysmal nocturnal dyspnea and Denies slow heart rate Resp Denies cough, Reports dyspnea and Reports dyspnea on exertion Musc Reports arthralgias Neuro Reports dizziness Physical exam (Primary Care) Vital Signs: Last Vital Signs BP 110/64 04/15/24 14:12 BMI result Body Mass Index 24.4 Tobacco/Smoking Status: Tobacco use Status Tobacco use date assessed 10/11/23 04/15/24 14:18 Patient Tobacco Use Status Former Tobacco user 04/15/24 14:18 Tobacco use type Cigarette 04/15/24 14:18 e-Cigarette/Vaping Use Never Used 04/15/24 14:18 Thrive Assessment: Date of Thrive Assessment Date Thrive assessed 10/11/23 04/15/24 14:18 Resp Effort & Inspection: normal respiratory effort Auscultation: rhonchi Cardio Jugular venous distension: no JVD Rate: regular rate Rhythm: regular rhythm Heart sounds: S1 normal heart sound present and S2 normal heart sound present Extrem General: Yes full ROM Assessment and Plan Assessment & Plan (1) Bronchiectasis: Code(s): J47.9 - Bronchiectasis, uncomplicated Qualifiers: Bronchiectasis type: with acute lower respiratory infection Qualified Code(s): J47.0 - Bronchiectasis with acute lower respiratory infection Plan: Continue long-acting inhaler. Follow-up with pulmonology. (2) Mild recurrent major depression: Code(s): F33.0 - Major depressive disorder, recurrent, mild Plan: Continue escitalopram. Follow-up with counseling and psychiatry. (3) AMNA (generalized anxiety disorder): Code(s): F41.1 - Generalized anxiety disorder Plan: Continue escitalopram. Follow-up with psychiatry. (4) Asthma-COPD overlap syndrome: Code(s): J44.9 - Chronic obstructive pulmonary disease, unspecified Plan: Continue Trelegy. Use rescue inhaler as needed. Orders: Referrals Rheumatology Referral M25.50 - Pain in unspecified joint Medications: Changed From cetirizine 10 mg PO DAILY To cetirizine 10 mg PO DAILY 90 days PRN 90 tabs 1RF allergy symptoms Coding Level of Care Code Est Pt Level 4 (93961) Complex EM visit Add On G2211 Diagnoses Bronchiectasis J47.0 Bronchiectasis type: with acute lower respiratory infection Mild recurrent major depression F33.0 AMNA (generalized anxiety disorder) F41.1 Asthma-COPD overlap syndrome J44.9 Time Spent (min) 21
== END 2024-04-15 14:33 | disposition home or self-care (01) ==
PROVIDERS: PCP Internal Medicine; Visit Provider Internal Medicine
DX: J47.0 Bronchiectasis with acute lower respiratory infection (principal); F33.0 Major depressive disorder, recurrent, mild; F41.1 Generalized anxiety disorder; J44.9 Chronic obstructive pulmonary disease, unspecified

== ENCOUNTER → 2024-04-15 14:10 | Outpatient (BNVA) | payer OTHER, SELFPAY | PROVIDERS: PCP Internal Medicine; Visit Provider Internal Medicine | DX: J47.0 Bronchiectasis with acute lower respiratory infection (principal); F33.0 Major depressive disorder, recurrent, mild; F41.1 Generalized anxiety disorder; J44.9 Chronic obstructive pulmonary disease, unspecified | CPT/HCPCS: 99212 ==

== ENCOUNTER 2024-06-06 09:10 | Outpatient (AMB) | payer OTHER, SELFPAY ==
--- NOTE | 2024-06-06 09:13 | MHC.PC.OV ---
Vital Signs 06/06/24 09:15 Height 5 ft 3 in Weight 136 lb BMI 24.1 BP 112/80 Blood Pressure Location Lt brachial Position Sitting Intake Visit Reasons: left-sided nasal intubation on 06/25 Business Applications Specialist Required: No Accompanied by: Self / Same As Patient Allergies lisinopril Allergy (Mild, Verified 06/06/24 09:36) cough moxifloxacin [Avelox] Allergy (Mild, Verified 06/06/24 09:36) rash sulfamethoxazole [From Bactrim] Allergy (Mild, Verified 06/06/24 09:36) Rash trimethoprim [From Bactrim] Allergy (Mild, Verified 06/06/24 09:36) Rash Medication List - Last Reconciled 06/06/24 by Sol Hall MD albuterol sulfate 2.5 mg (3 mL) inhalation Q4H PRN albuterol sulfate 90 mcg/actuation 2 puffs inhalation Q6H PRN cetirizine 10 mg PO DAILY PRN 90 days disposable gloves As directed escitalopram oxalate 20 mg PO DAILY fluticasone propionate 50 mcg/actuation 1 spray intranasal DAILY PRN nzdgslpuhmd-chdolchtn-agagfnsu 200-62.5-25 mcg (Trelegy Ellipta) 1 inh inhalation DAILY 30 days ibuprofen 400 mg PO Q6H PRN 30 days lorazepam 0.5 mg PO BID PRN losartan-hydrochlorothiazide 100-12.5 mg 1 tab PO DAILY 90 days nebulizers As directed Oxygen Home Use As directed [pulse oximeter As directed] sodium chloride 7% 4 mL inhalation BID tobramycin in 0.225 % NaCl 300 mg/5 mL (Chris) 300 mg (5 mL) inhalation BID 28 days Trelegy Ellipta 200-62.5-25 mcg (jlmeesbpjoa-bmdmswshw-npjkfsrk) 1 inh inhalation DAILY NS triamcinolone acetonide 0.5% 1 appl topical TID PRN underpads (Bed Underpads) As directed [wipes As directed] Tobacco use date assessed: 10/11/23 Dental Screening Dental Screen Date: 04/15/24 HPI HPI Comments History of Present Illness Details This is a 63-year-old female with hypertension, mild recurrent major depression, bronchiectasis and asthma-COPD overlap syndrome that comes today for preop evaluation for left-sided dacryocystorhinostomy and nasolacrimal duct intubation under general anesthesia scheduled for 06/25/2024. She complains of occasional chest pain and shortness of breaths that happens at rest. She follows with pulmonology. Has 4-7 Mets of activities of daily living. EKG and labs are pending for medical clearance but I will defer preop to pulmonology due to her bronchiectasis and asthma-COPD overlap syndrome. Blood pressure stable. Depression well control with escitalopram. [facility] Medical History Acute hypoxic respiratory failure Bronchopneumonia Ear discomfort Asthma-COPD overlap syndrome Cough Bronchiectasis Asthma Surgical History History of lung surgery Family History Daughter Bronchiectasis Colon polyps Brother Mental health disorder Mother No problems noted. Father Stroke Social History Housing: Apartment Do you presently have visiting nurse or other home services: No Alcohol intake: current Alcohol intake frequency: holidays/special occasions only Alcohol type: wine Patient Tobacco Use Status: Former Tobacco user Tobacco use type: Cigarette Years Smoked: 5 years e-Cigarette/Vaping Use: Never Used Second Hand Smoke Exposure: No service: No Current occupational status: unemployed and retired Cognitive needs: No Hearing needs: No Vision needs: Yes Questionnaire Thrive Questionnaire Date Thrive assessed: 06/06/24 I am a: Patient What is your living situation today?: I have a steady place to live Within the past 12 months, did the food you bought not last and you didn't have the money to get more?: Never true Within the past 12 months, did you worry whether your food would run out before you got money to buy more?: Never true Do you have trouble paying for medicines?: No Do you have trouble getting transportation to medical appointments?: No Do you have trouble paying your heating and electricity bill?: No Do you have trouble taking care of your child, family member or friend?: No Do you have trouble with day-to-day activities such as bathing, preparing meals, shopping, managing finances, etc.?: No Are you currently unemployed and looking for a job?: No Are you interested in more education?: No Please select the resources that you would like help with: None Currently or been in a relationship where the following occur: No concerns reported THRIVE Score: 0 AUDIT C Alcohol Use Questionnaire (AUDIT-C) 1. How often do you have a drink containing alcohol?: Monthly or less 2. How many drinks containing alcohol do you have on a typical day when you are drinking?: 1 or 2 3. How often do you have six or more drinks on one occasion?: Less than monthly Total Score: 2 Score Reviewed/Action Taken: No AMNA-7 AMB Questionnaire AMNA-7 Date AMNA - 7 assessed: 10/11/23 Source: Developed by Drs. Fredy Quiñones, Elsi Dominguez, Isiah Larkin and colleagues, with an educational joshua from [employer]. Review of Systems Const All systems reviewed & are unremarkable except as noted in HPI and below Card Reports chest pain at rest, Reports chest pain with activity, Denies edema, Denies irregular heart rhythm, Denies claudication, Reports dyspnea, Denies dyspnea on exertion, Denies orthopnea, Denies paroxysmal nocturnal dyspnea and Denies slow heart rate Resp Denies cough, Reports dyspnea and Denies dyspnea on exertion Denies urinary incontinence, Denies urinary hesitancy and Denies urinary urgency Physical exam (Primary Care) Vital Signs: Last Vital Signs BP 112/80 06/06/24 09:15 BMI result Body Mass Index 24.1 Tobacco/Smoking Status: Tobacco use Status Tobacco use date assessed 10/11/23 06/06/24 09:22 Patient Tobacco Use Status Former Tobacco user 06/06/24 09:22 Tobacco use type Cigarette 06/06/24 09:22 e-Cigarette/Vaping Use Never Used 06/06/24 09:22 Thrive Assessment: Date of Thrive Assessment Date Thrive assessed 06/06/24 06/06/24 09:22 Currently or been in a relationship where the following occur: No concerns reported Resp Effort & Inspection: normal respiratory effort Auscultation: wheezes Cardio Jugular venous distension: no JVD Rate: regular rate Rhythm: regular rhythm Heart sounds: S1 normal heart sound present and S2 normal heart sound present Extrem General: Yes full ROM Office Procedures Flu Questionnaire Does the patient have a severe egg allergy?: No Does the patient have severe life threatening allergies?: No Does the patient have a fever or illness today?: No Has the patient ever had Guillain-Dewitt Syndrome?: No Has the patient ever had any past reaction to a flu shot?: No Immunizations Fluarix Triv [id number] (PF) 45 mcg (15 mcg x 3)/0.5 mL IM syringe Performing Provider: Sol Hall MD [facility] Administered by: DREW Ornelas on 06/06/24 09:54 Dose Route Admin Location Dispensed Lot Number Expiration Date NDC Distance Education Faculty Liaison 0.5 mL IM Right Deltoid 0.5 mL [id number] 01/27/25 06664-700-50 [employer] VIS Given Date VIS Provided VIS Publication Date 06/06/24 Single Vaccine 21 Eligibility Eligibility Date Funding Source Not [facility] Eligible 06/06/24 Private Coding Level of Care Code Est Pt Level 4 (75208) Complex EM visit Add On G2211 Diagnoses Pre-op evaluation Z01.818 Bronchiectasis J47.0 Bronchiectasis type: with acute lower respiratory infection Asthma-COPD overlap syndrome J44.9 Mild recurrent major depression F33.0 Essential hypertension I10 Time Spent (min) 23 Assessment & Plan Assessment & Plan (1) Pre-op evaluation: Code(s): Z01.818 - Encounter for other preprocedural examination Category: Medical Plan: EKG and labs ordered. Deferred to pulmonology for medical clearance. (2) Bronchiectasis: Code(s): J47.9 - Bronchiectasis, uncomplicated Category: Medical Qualifiers: Bronchiectasis type: with acute lower respiratory infection Qualified Code(s): J47.0 - Bronchiectasis with acute lower respiratory infection Plan: Follow-up with pulmonology. (3) Asthma-COPD overlap syndrome: Code(s): J44.9 - Chronic obstructive pulmonary disease, unspecified Category: Medical Plan: Continue long-acting inhaler. Use rescue inhaler as needed. (4) Mild recurrent major depression: Code(s): F33.0 - Major depressive disorder, recurrent, mild Category: Medical Plan: Continue escitalopram. (5) Essential hypertension: Code(s): I10 - Essential (primary) hypertension Category: Medical Plan: Continue losartan-hydrochlorothiazide. Blood pressure goal is equal or less than 130/80. Orders: Orders Comprehensive [place]. Panel Fast Today Z01.818 - Encounter for other preprocedural examination Influenza [id number] Immunization Today Z23 - Encounter for immunization ECG 12 lead EKG Today Z01.818 - Encounter for other preprocedural examination Complete Blood Count Auto Diff Today T78.40XA - Allergy, unspecified, initial encounter Referrals Pulmonology Referral Z01.818 - Encounter for other preprocedural examination
[2024-06-06 09:15] VITALS: BP 112/80; BMI 24.1
== END 2024-06-06 09:59 | disposition home or self-care (01) ==
LOC: HO.HMCH 09:10
PROVIDERS: PCP Internal Medicine; Visit Provider Internal Medicine
DX: Z01.818 Encounter for other preprocedural examination (principal); J47.0 Bronchiectasis with acute lower respiratory infection; J44.9 Chronic obstructive pulmonary disease, unspecified; F33.0 Major depressive disorder, recurrent, mild; I10 Essential (primary) hypertension; Z23 Encounter for immunization

== ENCOUNTER → 2024-06-06 09:10 | Outpatient (BNVA) | payer OTHER, SELFPAY | PROVIDERS: PCP Internal Medicine; Visit Provider Internal Medicine | DX: Z01.818 Encounter for other preprocedural examination (principal); Z23 Encounter for immunization; J47.0 Bronchiectasis with acute lower respiratory infection; J44.9 Chronic obstructive pulmonary disease, unspecified; F33.0 Major depressive disorder, recurrent, mild; I10 Essential (primary) hypertension | CPT/HCPCS: 90471; 90656; 99212 ==

== ENCOUNTER 2024-06-08 08:49 | Outpatient (REF) | payer OTHER, SELFPAY ==
[2024-06-08 09:09] LABS: MANUAL DIFF FLAG NO
[2024-06-08 09:55] LABS: Basophils Percent Auto 0.4 % (0-2); Eosinophils Absolute Auto 0.3 X10*3/uL (0.0-0.4); Eosinophils Percent Auto 3.4 % (0-4); Hematocrit 41.2 % (37.0-47.0); Hemoglobin 13.2 g/dl (12.0-16.0); Imm Gran Abs Auto 0.06 X10*3/uL (0.00-0.03); Imm Gran Pct Auto 0.8 % (0.0-0.4); Lymphocytes Absolute Auto 2.6 X10*3/uL (1.2-4.9); Lymphocytes Percent Auto 34.6 % (20-40); Mean Corpuscular Hemoglobin 26.7 pg (27.0-33.0); Mean Corpuscular Volume 83.4 fL (80.0-98.0); Mean Platelet Volume 9.2 fL (9.4-12.3); Monocytes Absolute Auto 0.5 X10*3/uL (0.1-1.2); Monocytes Percent Auto 6.6 % (2-11); Neutrophils Percent Auto 54.2 % (45-73); Platelet Count 372 X10*3/uL (160-400); Red Blood Count 4.94 X10*6/uL (4.20-5.50); White Blood Count 7.4 X10*3/uL (4.8-10.8)
[2024-06-08 10:21] LABS: Alanine Aminotransferase 11 U/L (0-31); Alkaline Phosphatase 73 U/L (39-117); Anion Gap 16 (12-20); Aspartate Amino Transferase 20 U/L (5-31); Bilirubin Total 0.3 mg/dL (0.0-1.0); Blood Urea Nitrogen 14 mg/dL (9-16); Calcium 10.2 mg/dL (8.4-10.2); Carbon Dioxide 26 mmol/L (22-29); Chloride 104 mmol/L (96-108); Estimated Glomerular Filt Rate > 60; Glucose Fasting 97 mg/dL (60-99); Sodium 142 mmol/L (135-145); Total Protein 8.4 g/dL (6.5-8.0)
== END 2024-06-08 08:50 | disposition home or self-care (01) ==
LOC: HO.LAB 08:49
PROVIDERS: Absent Provider Hospitalist; PCP Internal Medicine; Visit Provider Internal Medicine
DX: Z01.818 Encounter for other preprocedural examination (principal); T78.40XA Allergy, unspecified, initial encounter
CPT/HCPCS: 36415; 80053; 85025

== ENCOUNTER 2024-06-17 09:22 | Outpatient (AMB) | payer OTHER, SELFPAY ==
[2024-06-17 09:24] VITALS: BP 108/62; PULSE 111; O2SAT 93; BMI 24.0
--- NOTE | 2024-06-17 09:24 | A.OFFVIS_ITS ---
Vital Signs 3 06/17/24 09:24 Height 5 ft 3 in Weight 135 lb 9.349 oz BMI 24.0 BP 108/62 Blood Pressure Location Rt brachial Position Sitting Pulse 111 H Pulse Source Doppler Pulse Oximetry (%) 93 Oxygen Delivery Method Room Air Intake Visit Reasons: Bronchiectasis/L tear duct ([facility]) Allergies lisinopril Allergy (Mild, Verified 06/17/24 09:29) cough moxifloxacin [Avelox] Allergy (Mild, Verified 06/17/24 09:29) rash sulfamethoxazole [From Bactrim] Allergy (Mild, Verified 06/17/24 09:29) Rash trimethoprim [From Bactrim] Allergy (Mild, Verified 06/17/24 09:29) Rash HPI Comments Details: The patient is a 63-year-old woman known severe persistent asthma and also bronchiectasis. She was in her usual state health until about a week ago when she started developing productive cough with yellowish phlegm. She has also had some chills and subjective fevers. Also has been complaining of pleuritic discomfort mainly on the right side. Mild in nature. In the office she was noted to be wheezing. She did receive a nebulized treatment. We try getting a sputum sample which he was unable to do so. She has had bronchoscopies in the past. I would have to go to [facility] to review her cultures. In the meantime going to treated for pneumonia. She was treated with Augmentin for bronchopneumonia. Her x-ray also demonstrated worsening right basilar opacity. She is status post bronchoscopy. Ultimately doing much better after the procedure. She did have significant period secretions. She did grow Proteus and was treated with antibiotics. No Pseudomonas was found into specimens which is reassuring that she no longer has Pseudomonas in her bronchiectatic airways. Unfortunate she did become sick with flu-like symptoms. She then developed a sore throat. She also has a cough. But otherwise has not had any fevers or chills or any other constitutional complaint. She has been on multiple antibiotics already so therefore will try to hold off on any antibiotics at this time. She has been using her nebulizer treatments and has been using her percussion vest. She is to continue to do so. 06/26/2023 the patient is here for a pulmonary follow-up visit. She is doing better from a medication adherence standpoint. She did complete the Augmentin and treated the Proteus lung infection. She has been using her percussion vest. She also has been using the Trelegy inhaler and also hypertonic saline for CPT. The patient also has been taking the azithromycin 3 times a week. She is doing a little better and I did remind her that this is chronic therapy and she needs to continue. It is helping. Recently she did have a respiratory illness and she was having worsening respiratory symptoms and she responded well to just using her nebulizer more often. Did not need any more prednisone which is reassuring. Right now her respiratory exam is better. Also, we did review her CT scan of the chest. She has extensive bronchiectatic changes. significantly cystic in nature. Affecting primarily the right hemithorax although also has some in the left lower lobe. We did review the blood work. No evidence of any immunodeficiencies or connective tissue conditions. She did have a surgery when she was in [place]. We do not have the pathology although that would be helpful. based on the severity of disease in her asthma we did review her blood work. Her IgE level was actually within normal and also her eosinophilic level. Therefore biologic therapies are likely to be effective for her. Therefore hold off. I did recommend she get a 2nd opinion in [place]. Ideally the same hospital that her daughter goes to in case there is a genetic disposition. The patient will give me the name in the hospital so I can make the referral. In the meantime we are going to repeat her sweat test looking for cystic fibrosis variance and also would be also a candidate for lung transplant specially the bronchiectasis were to worsen. 09/12/2023 the patient has a telehealth visit today. She was recently in the hospital with severe influenza. The patient did have an abnormal chest x-ray with airspace disease and she was treated with antiviral therapy. She was also given antibiotics and prednisone. She was receiving oxygen. She was able to be weaned off oxygen and be able to be discharged on oral antibiotics. Initially she was feeling well and now she started to develop worsening cough chest congestion. Her mucus secretions are greenish in color. They are thick and tenacious. She is using the nebulizer. She also has a percussion vest that she can use for chest physical therapy. Will go ahead and send doxycycline to the pharmacy to treat her for postviral bacterial infections. In the meantime if symptoms worsen or not improve she should call back the office back to the hospital the patient did complete a course of prednisone although she still feels chest tightness and wheezing. Will go ahead and send a lower dose for longer period of time. Otherwise follow-up in several weeks in the office to perform a 6 minute walk test. Likely the patient will need additional imaging studies. 10/06/2023 the patient is here for pulmonary follow-up visit. She still struggles with her cough and chest congestion. Her cough is productive of purulent like secretions. We were able to get 1 for the laboratory. Will waiting for the results. In the meantime she had been on doxycycline and she did respond well to it while she was on it for few weeks. Now she is offering her symptoms are getting worse. It may be that she has a component of stenotrophomonas. Will go ahead and send another sputum in place her back on doxycycline. If she has a resistant organism or resistant enteric organism we may need to do additional antibiotics. We could also consider inhaled tobramycin for Pseudomonas. Will have to wait for the results. In the meantime she does have significant bronchiectasis. She does not always use her vest. I did have an Acapella valve I did provide her she can use that in between when she can not get to using her percussion vest. She understands the importance of mucus clearance. She continues with respiratory therapy. Currently she has not on any prednisone. We also talked about a referral to [place]. Right now which the waiting for her to be scheduled but I do believe that based on the severity of disease would be very reasonable to have her go to [place] for a 2nd opinion. 12/18/2023 the patient is here for a pulmonary follow-up visit. Since we last spoke the patient did have a sputum sample positive for Pseudomonas. We did order the inhaled tobramycin but she had an allergic reaction with some redness of the eyes. She then took a break and then she restarted the medicine just once a day she still had a reaction should she stopped it altogether. The patient starting to get more chest congestion. She feels shortness of breath. During the office visit we did taken for 6 minute walk test the patient did desaturate down to 88% during the walk. She was visibly dyspneic with a dyspnea score of 6/10. The patient at this point based on her chronic lung disease and now seems to be worsening progressive in nature would benefit from oxygen supplementation. Will set her up with a local [employer] with a portable oxygen concentrator that she can use with activity. The patient also will start ciprofloxacin to see if we can treat her underlying Pseudomonas in her lungs seems to be getting worse at this time. She has had a reaction to Avelox in the past. Although was mainly rash. Will go ahead and start a small dose and see if she can not tolerate it. If she does then she will continue. Then, I did give her a Ernestine system where she could try to see if using this device will be less contact with her eyes and hopefully she could tolerate the inhaled CARLOS. But she knows not to start both antibiotics together because then we will not know if she has a reaction or interaction. The patient does have a referral to [place] for her underlying bronchiectasis and she will be seeing 1 of the hospitals in [place] in the beginning all this. So the Will try to improve her respiratory issues right now but hopefully she will get further guidance when she goes for her 2nd opinion. 03/26/2024 the patient is here for a pulmonary follow-up visit. The patient did go to [place]. She is currently being evaluated. She is going to undergo a CT scan is PFTs in the near future. In the meantime she does continue to use inhaled tobramycin. She has been taking care for daughter who has been sick after a cardiac transplant. Therefore she has not been as compliant to the therapy. She does have worsening chest congestion. Moderate severity. Significant mucus production. Will go ahead and start her on ciprofloxacin times if we can help with significant worsening of respiratory symptoms. She has been using the oxygen with good effect. She does have a portable oxygen concentrator that she uses with activity. 06/17/2024 the patient is here for preoperative evaluation. The patient overall has been doing okay from a respiratory status. She has been doing the inhaled tobramycin and also the azithromycin 3 times a week. She also continues with chest PT. she is having issues with her tearing specially on the left eye. She did follow-up with Ophthalmology they did recommend surgery. She was referred to us for preoperative evaluation. Respiratory status is doing okay. She is having some on and off discomfort in the right lung which she has significant bronchiectasis. The patient also has oxygen that she uses with activity. She has been able to intermittently use it since she has been feeling a little better. The patient also followed up in [place] and getting additional workup for the bronchiectasis and sinusitis. She completed spirometry in the office and her FEV1 is only 48% consistent with severe obstructive airway disease. [facility] Medical History (Updated 06/17/24 @ 09:35 by Mitchell Barron MD) Pre-op chest exam Acute hypoxic respiratory failure Bronchopneumonia Ear discomfort Asthma-COPD overlap syndrome Cough Bronchiectasis Asthma Surgical History History of lung surgery Family History Daughter Bronchiectasis Colon polyps Brother Mental health disorder Mother No problems noted. Father Stroke Social History Housing: Apartment Do you presently have visiting nurse or other home services: No Alcohol intake: current Alcohol intake frequency: holidays/special occasions only Alcohol type: wine Patient Tobacco Use Status: Former Tobacco user Tobacco use type: Cigarette Years Smoked: 5 years e-Cigarette/Vaping Use: Never Used Second Hand Smoke Exposure: No service: No Current occupational status: unemployed and retired Cognitive needs: No Hearing needs: No Vision needs: Yes Review of Systems Const Denies night sweats Eyes Reports as per HPI ENT Denies change in voice, Denies lip swelling, Denies mouth pain, Reports nasal congestion, Reports nasal discharge, Reports post nasal drip and Denies tongue swelling Card Denies chest pain and Reports dyspnea on exertion Resp Reports chest congestion, Reports cough, Denies hemoptysis, Denies excessive phlegm production and Reports dyspnea on exertion GI Denies abdominal pain Musc Denies no additional complaints Neuro Denies Neuro-related abnormal movements Psych Denies no additional complaints Jay/Lymph Denies easy bleeding and Denies lymphadenopathy Aller/Immun Denies lip swelling and Denies tongue swelling Physical Exam Vital Signs: Last Vital Signs Pulse 111 H 06/17/24 09:24 BP 108/62 06/17/24 09:24 Pulse Ox 93 06/17/24 09:24 Oxygen Delivery Method Room Air 06/17/24 09:24 BMI result Body Mass Index 24.0 Const General: alert Neck Neck: Yes normal visual inspection, Yes full ROM and Yes no lymphadenopathy Chest Chest palpation & inspection: normal inspection of the chest Resp Effort & Inspection: normal respiratory effort Auscultation: crackles, no wheezes and diminished lung sounds Cardio Rate: regular rate Rhythm: regular rhythm Heart sounds: S1 normal heart sound present and S2 normal heart sound present GI Palpation (GI): Soft to palpation and nontender Auscultation: normal bowel sounds Skin General skin exam: rashes and/or lesions noted Office Procedures Spirometry Testing Spirometry Comments: In office spirometry completed with results given to Dr Barron. [id number] Spirometry Results Reviewed Results Reviewed: Assessment & Plan Assessment & Plan (1) Pre-op chest exam: Code(s): Z01.811 - Encounter for preprocedural respiratory examination Category: Medical (2) Asthma: Code(s): J45.909 - Unspecified asthma, uncomplicated Category: Medical Qualifiers: Asthma complication type: uncomplicated Asthma persistence: persistent Asthma severity: severe Qualified Code(s): J45.50 - Severe persistent asthma, uncomplicated (3) Bronchiectasis: Code(s): J47.9 - Bronchiectasis, uncomplicated Category: Medical Qualifiers: Bronchiectasis type: with acute lower respiratory infection Qualified Code(s): J47.0 - Bronchiectasis with acute lower respiratory infection (4) Cough: Code(s): R05 - Cough Category: Medical Qualifiers: Cough type: chronic Qualified Code(s): R05.3 - Chronic cough (5) Asthma-COPD overlap syndrome: Code(s): J44.9 - Chronic obstructive pulmonary disease, unspecified Category: Medical (6) Bronchiectasis: Code(s): J47.9 - Bronchiectasis, uncomplicated Category: Medical Qualifiers: Bronchiectasis type: with acute lower respiratory infection Qualified Code(s): J47.0 - Bronchiectasis with acute lower respiratory infection Plan The patient is high risk for perioperative pulmonary complications, which include: atelectasis, hypoxia, bronchospasms, pneumonia, prolonged mechanical ventilation, and . I would not recommend the patient having any elective surgeries. If the patient requires semi elective surgery, then, should only be considered if all alternative non surgical procedures have been tried. continue oxygen 2L/pulse with portable oxygen concentrator with activity Continue Breztri Continue nebulized therapy Azithromycin MWF once completed the cipro inhaled Carlos 28 days on; 28 days off CPT with albuterol->hypertonic saline 7% with percussion vest and also has an [facility] referral to [place] for the extensive bronchiectasis in progress Follow-up in 3-4 months Orders: Orders 2 AMB Spirometry Testing Today J44.9 - Chronic obstructive pulmonary disease, unspecified, J47.0 - Bronchiectasis with acute lower respiratory infection Coding Level of Care Code Est Pt Level 4 (35954) Complex EM visit Add On G2211 Diagnoses Pre-op chest exam Z01.811 Severe persistent asthma without complication J45.50 Asthma complication type: uncomplicated Asthma persistence: persistent Asthma severity: severe Bronchiectasis with acute lower respiratory infection J47.0 Bronchiectasis type: with acute lower respiratory infection Chronic cough R05.3 Cough type: chronic Asthma-COPD overlap syndrome J44.9 CPT Codes Spirometry - CPT: 07100- Spirometry ([id number]) Time Spent (min) 20
== END 2024-06-17 10:09 | disposition home or self-care (01) ==
PROVIDERS: PCP Internal Medicine; Visit Provider Hospitalist
DX: Z01.811 Encounter for preprocedural respiratory examination (principal); J45.50 Severe persistent asthma, uncomplicated; J47.0 Bronchiectasis with acute lower respiratory infection; R05.3 Chronic cough; J44.9 Chronic obstructive pulmonary disease, unspecified
CPT/HCPCS: 94010; 99214; G2211

== ENCOUNTER → 2024-06-17 09:22 | Outpatient (REF) | payer OTHER, SELFPAY ==
--- NOTE | 2024-06-17 10:21 | ECG_ITS ---
Test Reason : PRE OP Blood Pressure : / mmHG Vent. Rate : 070 BPM Atrial Rate : 070 BPM P-R Int : 144 ms QRS Dur : 078 ms QT Int : 402 ms P-R-T Axes : -09 063 028 degrees QTc Int : 434 ms Normal sinus rhythm Normal ECG When compared with ECG of 21-AUG-2023 19:48, Vent. rate has decreased BY 39 BPM Non-specific change in ST segment in Anterior leads Nonspecific T wave abnormality has replaced inverted T waves in Inferior leads Nonspecific T wave abnormality no longer evident in Anterolateral leads Referred By: Sol Hall Electronically Signed By:HENNY LAYNE MD
== END ==
LOC: HO.CARD 09:22
PROVIDERS: Absent Provider Internal Medicine; PCP Internal Medicine; Visit Provider Hospitalist
DX: Z01.818 Encounter for other preprocedural examination (principal); J45.50 Severe persistent asthma, uncomplicated; J47.0 Bronchiectasis with acute lower respiratory infection; R05.3 Chronic cough
CPT/HCPCS: 93005; 94010; 99212

== ENCOUNTER → 2024-06-17 10:21 | Outpatient (BNV) | payer OTHER, SELFPAY | PROVIDERS: Absent Provider Internal Medicine; PCP Internal Medicine; Visit Provider Internal Medicine Cardiovascular Disease | DX: Z01.810 Encounter for preprocedural cardiovascular examination (principal) | CPT/HCPCS: 93010 ==

== ENCOUNTER 2024-08-09 14:13 | Outpatient (AMB) | payer OTHER, SELFPAY ==
[2024-08-09 14:16] VITALS: BP 123/75; PULSE 101; BMI 23.1
--- NOTE | 2024-08-09 14:16 | MHC.OFFVIS ---
Vital Signs 08/09/24 14:16 Height 5 ft 3 in Weight 130 lb 8.218 oz BMI 23.1 BP 123/75 Blood Pressure Location Rt brachial Position Sitting Pulse 101 H Intake Visit Reasons: Colonoscopy Screening/Nano PT Intake Note: Dina presents in office today for colonoscopy screening. CC: Patient reports poor appetite and weight loss. She c/o of abdominal pain sometimes after eating, and nausea. Final Operations Technician Required: No Accompanied by: Self / Same As Patient Allergies lisinopril Allergy (Mild, Verified 08/09/24 14:27) cough moxifloxacin [Avelox] Allergy (Mild, Verified 08/09/24 14:27) rash sulfamethoxazole [From Bactrim] Allergy (Mild, Verified 08/09/24 14:27) Rash trimethoprim [From Bactrim] Allergy (Mild, Verified 08/09/24 14:27) Rash HPI HPI Colonoscopy Screening/Nano PT: Details: 63-year-old female here for preprocedural meeting to discuss a screening colonoscopy. Apparently she was seen in the past by Nano Rizvi but the colonoscopy never happened. Her primary care provider is Sol Mendosa. PMX Asthma/COPD overlap Bronchiectasis Hypertension Chronic headaches Polyarthralgia Depression with anxiety Urinary incontinence Constipation Chronic sinusitis glaucoma Blocked tear ducts * SURGICAL HISTORY Bronchoscopy COlonoscopy - 10 years ago Kelley neg study Tonsillectomy * ALLERGIES Lisinopril - swelling Avelox - severe itching Sulfa - rash * [facility] LABS: Laboratory Tests 06/08/24 09:08 WBC 7.4 Hgb 13.2 Hct 41.2 Plt Count 372 D Estimated GFR > 60 Total Bilirubin 0.3 AST 20 ALT 11 Alkaline Phosphatase 73 TODAY'S VISIT Croatian #Sol Live She does not remember seeing Nano Rizvi. She had a prior colonoscopy 10 years ago that was negative. She has ASTHMA/COPD and is seen by both Dr. Barron and at [facility], I will send note to be sure we have resp approval, she denies any cardiac problems. There are no prior problems with anesthesia and sedation. NO ID problems. There is no known FHX or crc or polyps. [facility] Medical History Blurry vision, bilateral Asthma Cough Sinusitis Sinusitis Bronchiectasis Asthma Physical exam Screen for colon cancer Ear discomfort Bronchopneumonia Elevated hemoglobin Influenza A Acute febrile illness Hypoxia Allergies Pre-op chest exam Acute hypoxic respiratory failure Asthma-COPD overlap syndrome Bronchiectasis Surgical History (Updated 08/09/24 @ 15:10 by LORI Churchill) H/O pneumonectomy History of bronchoscopy Family History Daughter Bronchiectasis Colon polyps Brother Mental health disorder Mother No problems noted. Father Stroke Social History Housing: Apartment Do you presently have visiting nurse or other home services: No Alcohol intake: current Alcohol intake frequency: holidays/special occasions only Alcohol type: wine Patient Tobacco Use Status: Former Tobacco user Tobacco use type: Cigarette Years Smoked: 5 years e-Cigarette/Vaping Use: Never Used Second Hand Smoke Exposure: No service: No Current occupational status: unemployed and retired Cognitive needs: No Hearing needs: No Vision needs: Yes Review of Systems Const Denies fatigue, Denies fever(s), Denies night sweats, Denies poor appetite and Denies weight loss ENT Reports Normal hearing present, Denies dysphagia, Denies odynophagia, Denies throat swelling and Denies tongue swelling Card Reports no additional complaints Resp Reports no additional complaints GI Details: Denies abdominal pain, Denies melena, Denies bloating, Denies hematochezia, Denies constipation, Denies GI cramping, Denies dysphagia, Denies excessive flatus, Denies early satiety, Denies heartburn, Denies diarrhea, Denies nausea, Denies odynophagia, Denies vomiting and Denies hematemesis Skin/Breast Denies pruritus, Denies lesions, Denies rash and Denies jaundice Neuro Reports Normal hearing present and Denies Abnormal speech present Endo Denies fatigue Aller/Immun Denies throat swelling and Denies tongue swelling Physical Exam Vital Signs: Last Vital Signs Pulse 101 H 08/09/24 14:16 BP 123/75 08/09/24 14:16 BMI result Body Mass Index 23.1 Const General: cooperative, no acute distress, well developed and well groomed Nutritional Appearance: average body habitus and well nourished Orientation/consciousness: oriented to person, oriented to place and oriented to time Limitations: language barrier HEENT Head: Yes normocephalic and Yes atraumatic Eyes General: appearance normal, both eyes and all related structures Pupils: Equal, round and reactive pupils present Neck Neck: Yes normal visual inspection and Yes no lymphadenopathy Thyroid: Thyroid normal Resp Other: absent breath sounds RLL Effort & Inspection: normal respiratory effort and able to speak in complete sentences Auscultation: wheezes expiratory wheezes, inspiratory wheezes and throughout and diminished lung sounds on the left in the lower lung hawkins Cardio Palpation: abnormal PMI displaced PMI (to right) Rate: regular rate Rhythm: regular rhythm Heart sounds: Normal, physiologic split S2 sound present Peripheral pulses: radial pulses present and posterior tibial pulses present GI Inspection: No distended and No Abdominal panniculus present Palpation (GI): Soft to palpation, nontender, no guarding, not rigid and No hepatosplenomegaly present Percussion: Yes normal to percussion Auscultation: normal bowel sounds Rectal Exam - Female: deferred Skin General skin exam: no rashes or lesions noted, turgor normal, skin not dry, no jaundice, No spider nevi and no striae Rashes: no rashes Nails: normal Neuro General: oriented to person, oriented to place and oriented to time Cranial nerves: Yes Equal, round and reactive pupils present and Yes Normal hearing present Speech: No Abnormal speech present Extrem General: Yes normal to inspection, No clubbing, No cyanosis and No edema Psych Appearance: grossly normal and well kempt Mental Status: mental status grossly normal Speech and movement: Normal speech and movement present Affect: normal affect Attitude: cooperative Thought process: Normal thought process present and not confabulating Thought content: Normal thought content present Insight: Fair insight present (Psych) Judgement: Fair judgement present (Psych) Results Reviewed Results Reviewed: Laboratory Tests 06/08/24 09:08 WBC 7.4 Hgb 13.2 Hct 41.2 Plt Count 372 D Estimated GFR > 60 Total Bilirubin 0.3 AST 20 ALT 11 Alkaline Phosphatase 73 Assessment & Plan Assessment & Plan (1) Pre-op evaluation: Code(s): Z01.818 - Encounter for other preprocedural examination Category: Medical (2) Asthma-COPD overlap syndrome: Code(s): J44.9 - Chronic obstructive pulmonary disease, unspecified Category: Medical (3) Bronchiectasis: Code(s): J47.9 - Bronchiectasis, uncomplicated Category: Medical Qualifiers: Bronchiectasis type: with acute lower respiratory infection Qualified Code(s): J47.0 - Bronchiectasis with acute lower respiratory infection Plan Croatian #Sol Live She does not remember seeing Nano Rizvi. She had a prior colonoscopy 10 years ago that was negative. She has ASTHMA/COPD and is seen by both Dr. Barron and at [facility], I will send note to be sure we have resp approval, she denies any cardiac problems. There are no prior problems with anesthesia and sedation. NO ID problems. There is no known FHX or crc or polyps. Orders: Orders Colonoscopy - GI Use Only Today Z.818 - Encounter for other preprocedural examination Medications: New bisacodyl (Dulcolax (bisacodyl)) 10 mg (2 x 5 mg) PO BEDTIME 4 tabs 0RF 2 days peg 3350-electrolytes 236-22.74-6.74 -5.86 gram (Golytely) until fecal effluent is clear; do not exceed a total volume of 2,000 mL 240 mL PO Q10M 4,000 mL 0RF 1 day Z12.11 - Encounter for screening for malignant neoplasm of colon Coding Level of Care Code Est Pt Level 4 (42907) Diagnoses Pre-op evaluation Z. Asthma-COPD overlap syndrome J44.9 Bronchiectasis with acute lower respiratory infection J47.0 Bronchiectasis type: with acute lower respiratory infection Time Spent (min) 35
== END 2024-08-09 15:12 | disposition home or self-care (01) ==
PROVIDERS: PCP Internal Medicine; Visit Provider Nurse Practitioner
DX: Z01.818 Encounter for other preprocedural examination (principal); Z12.11 Encounter for screening for malignant neoplasm of colon; J44.9 Chronic obstructive pulmonary disease, unspecified; J47.0 Bronchiectasis with acute lower respiratory infection
CPT/HCPCS: 99024

== ENCOUNTER → 2024-08-09 14:13 | Outpatient (BNVA) | payer OTHER, SELFPAY | PROVIDERS: PCP Internal Medicine; Visit Provider Nurse Practitioner | DX: Z01.818 Encounter for other preprocedural examination (principal); J44.9 Chronic obstructive pulmonary disease, unspecified; J47.0 Bronchiectasis with acute lower respiratory infection | CPT/HCPCS: 99212 ==

== ENCOUNTER 2024-10-14 14:32 | Outpatient (AMB) | payer OTHER, SELFPAY ==
--- NOTE | 2024-10-14 14:53 | A.OFFPC_ITS ---
Vital Signs 10/14/24 14:54 Height 5 ft 3 in Weight 126 lb BMI 22.3 BP 112/76 Blood Pressure Location Lt brachial Position Sitting Intake Visit Reasons: Annual Exam Intake Note: Patient here for a physical exam Psychodramatist Required: Yes Psychodramatist Language: Director Of Rehabilitation And Wellness Name: Sol Hall MD Information Interpreted: non-clinical & clinical Accompanied by: Self / Same As Patient Allergies lisinopril Allergy (Mild, Verified 10/14/24 15:12) cough moxifloxacin [Avelox] Allergy (Mild, Verified 10/14/24 15:12) rash sulfamethoxazole [From Bactrim] Allergy (Mild, Verified 10/14/24 15:12) Rash trimethoprim [From Bactrim] Allergy (Mild, Verified 10/14/24 15:12) Rash Medication List - Last Reconciled 10/14/24 by Sol Hall MD albuterol sulfate 2.5 mg (3 mL) inhalation Q4H PRN albuterol sulfate 90 mcg/actuation 2 puffs inhalation Q6H PRN bisacodyl (Dulcolax (bisacodyl)) 10 mg (2 x 5 mg) PO BEDTIME 2 days cetirizine 10 mg PO DAILY PRN 90 days disposable gloves As directed escitalopram oxalate 20 mg PO DAILY fluticasone propionate 50 mcg/actuation 1 spray intranasal DAILY PRN [id number]-bgoefodbu-eleuxohd 200-62.5-25 mcg (Trelegy Ellipta) 1 ea PO DAILY [hand held showerhead As directed] ibuprofen 400 mg PO Q6H PRN 30 days lorazepam 0.5 mg PO BID PRN losartan-hydrochlorothiazide 100-12.5 mg 1 tab PO DAILY 90 days nebulizers As directed Oxygen Home Use As directed peg 3350-electrolytes 236-22.74-6.74 -5.86 gram (Golytely) 240 mL PO Q10M 1 day [pulse oximeter As directed] Shower Chair As directed sodium chloride 7% 4 mL inhalation BID tobramycin in 0.225 % NaCl 300 mg/5 mL (Chris) 300 mg inhalation BID triamcinolone acetonide 0.5% 1 appl topical TID PRN underpads (Bed Underpads) As directed [wipes As directed] Tobacco use date assessed: 10/14/24 Dental Screening Dental Screen Date: 10/14/24 Did you have a dental visit in the last 12 months?: No Did you have a dental problem in the last 6 months where you did not have access to dental care?: No Was dental information given to patient?: Patient has dentist HPI HPI Comments History of Present Illness Details The patient is a 64-year-old female presenting for a wellness and physical exam with a specific focus on managing her chronic conditions. She has a documented history of depression with anxiety, which is under management with citalopram, and her psychiatric follow-up encounters difficulties due to technology issues. Physical complaints include symptoms indicative of osteoarthritis, specifically pain and weakness in the neck and hands, for which she occasionally finds relief with fqup-vjt-hqmyhts ibuprofen. She has asthma-COPD overlap syndrome and bronchiectasis follow by pulmonology. Noteworthy is her history of pneumonectomy performed in childhood requiring long-term pulmonary care given retained complications and risk for recurrent lung infections. She remains under the care of computer programmer analyst Dr. Victoria. Allergic reactions have been noted to lisinopril, Avelox, and sulfa medications. Her allergies are managed with cetirizine and respiratory issues with a Trelegy inhaler. - Referral for bone densitometry sched ed for November 2022. - Mammography pending since the last was in November 2021; coordination for the next screening. - Blood labs to be conducted fasting. [facility] Medical History (Updated 10/14/24 @ 19:18 by Sol Hall MD) Physical exam Blurry vision, bilateral Asthma Cough Sinusitis Sinusitis Bronchiectasis Asthma Screen for colon cancer Ear discomfort Bronchopneumonia Elevated hemoglobin Influenza A Acute febrile illness Hypoxia Allergies Pre-op chest exam Acute hypoxic respiratory failure Asthma-COPD overlap syndrome Bronchiectasis Surgical History H/O pneumonectomy History of bronchoscopy Family History Daughter Bronchiectasis Colon polyps Brother Mental health disorder Mother No problems noted. Father Stroke Social History Housing: Apartment Do you presently have visiting nurse or other home services: No Alcohol intake: current Alcohol intake frequency: holidays/special occasions only Alcohol type: wine Patient Tobacco Use Status: Former Tobacco user Tobacco use type: Cigarette Years Smoked: 5 years e-Cigarette/Vaping Use: Never Used Second Hand Smoke Exposure: No service: No Current occupational status: unemployed and retired Cognitive needs: No Hearing needs: No Vision needs: Yes Questionnaire PHQ-9 Over the last 2 weeks, how often have you been bothered by any of the following problems? 1. Little interest or pleasure in doing things: nearly every day 2. Feeling down, depressed, or hopeless: nearly every day 3. Trouble falling or staying asleep, or sleeping too much: more than half the days 4. Feeling tired or having little energy: nearly every day 5. Poor appetite or overeating: nearly every day 6. Feeling bad about yourself - or that you are a failure or have let yourself or your family down: more than half the days 7. Trouble concentrating on things, such as reading the newspaper or watching television: nearly every day 8. Moving or speaking so slowly that other people could have noticed. Or the opposite - being so fidgety or restless that you have been moving around a lot more than usual: more than half the days 9. Thoughts that you would be better off or of hurting yourself in some way: not at all Total score: 21 Depression Screening Interpretation: Positive (no suicidal thoughts) Depression Screening Follow-up: Existing condition, In treatment, Community Mental Health Worker F/U and Follow-up Visit Requested Depression Screening Done: Yes 78727 - PHQ-9 Billing: Yes Source: Developed by Drs. Fredy Quiñones, Elsi Dominguez, Isiah Larkin and colleagues, with an educational joshua from [employer]. Thrive Questionnaire Date Thrive assessed: 10/14/24 I am a: Patient What is your living situation today?: I have a steady place to live Within the past 12 months, did the food you bought not last and you didn't have the money to get more?: Sometimes True Within the past 12 months, did you worry whether your food would run out before you got money to buy more?: Sometimes True Do you have trouble paying for medicines?: No Do you have trouble getting transportation to medical appointments?: No Do you have trouble paying your heating and electricity bill?: Yes Do you have trouble taking care of your child, family member or friend?: No Do you have trouble with day-to-day activities such as bathing, preparing meals, shopping, managing finances, etc.?: Yes Are you currently unemployed and looking for a job?: No Are you interested in more education?: No Please select the resources that you would like help with: None Currently or been in a relationship where the following occur: No concerns reported THRIVE Score: 3 AUDIT C Alcohol Use Questionnaire (AUDIT-C) 1. How often do you have a drink containing alcohol?: Monthly or less 2. How many drinks containing alcohol do you have on a typical day when you are drinking?: 1 or 2 3. How often do you have six or more drinks on one occasion?: Less than monthly Total Score: 2 Score Reviewed/Action Taken: No AMNA-7 AMB Questionnaire AMNA-7 Date AMNA - 7 assessed: 10/14/24 Feeling nervous, anxious, or on edge: 2 = More than half the days Not being able to stop or control worryin = Nearly every day Worrying too much about different things: 3 = Nearly every day Trouble relaxin = Nearly every day Being so restless that it is hard to sit still: 2 = More than half the days Becoming easily annoyed or irritable: 3 = Nearly every day Feeling afraid as if something awful might happen: 2 = More than half the days Total AMNA-7 score (0-4 normal; 5-9 mild; 10-14 moderate; 15-21 severe): 18 Source: Developed by Drs. Fredy Quiñones, Elsi Dominguez, Isiah Larkin and colleagues, with an educational joshua from [employer]. AMNA-7 Assessment Billing AMNA-7 Assessment Tool: AMNA-7 Assessment 41609 Review of Systems Const All systems reviewed & are unremarkable except as noted in HPI and below Card Denies chest pain at rest, Denies chest pain with activity, Denies edema, Denies irregular heart rhythm, Denies claudication, Denies dyspnea, Denies dyspnea on exertion, Denies orthopnea, Denies paroxysmal nocturnal dyspnea and Denies slow heart rate Resp Denies cough, Denies dyspnea and Denies dyspnea on exertion GI Denies abdominal pain, Denies change in bowel habits, Denies excessive flatus, Denies nausea and Denies vomiting Physical exam (Primary Care) Vital Signs: Last Vital Signs BP 112/76 10/14/24 14:54 BMI result Body Mass Index 22.3 Tobacco/Smoking Status: Tobacco use Status Tobacco use date assessed 10/14/24 10/14/24 15:00 Patient Tobacco Use Status Former Tobacco user 10/14/24 15:00 Tobacco use type Cigarette 10/14/24 15:00 e-Cigarette/Vaping Use Never Used 10/14/24 15:00 PHQ-9: PHQ-9 Score PHQ-9: Total score 21 10/14/24 15:18 Depression Screening Interpretation: Positive (no suicidal thoughts) Depression Screening Follow-up: Existing condition, In treatment, Community Mental Health Worker F/U and Follow-up Visit Requested Thrive Assessment: Date of Thrive Assessment Date Thrive assessed 10/14/24 10/14/24 15:00 Currently or been in a relationship where the following occur: No concerns reported HENMT Head: Yes normal to inspection, Yes normocephalic and Yes atraumatic Ears: external ears normal Eyes General: appearance normal, both eyes and all related structures Eyelids: Yes eyelids normal Conjunctivae: conjunctivae normal Neck Neck: Yes normal visual inspection and Yes supple Resp Effort & Inspection: normal respiratory effort Auscultation: clear to auscultation bilaterally Cardio Jugular venous distension: no JVD Rate: regular rate Rhythm: regular rhythm Heart sounds: S1 normal heart sound present and S2 normal heart sound present GI Inspection: Yes normal to inspection Palpation (GI): Soft to palpation and nontender Auscultation: normal bowel sounds Skin General skin exam: no rashes or lesions noted Neuro General: no focal motor deficits Extrem General: Yes full ROM Psych Appearance: grossly normal Coding Level of Care Code Est Pt Level 3 (57798) Est Pt Prev Care 40-64y(03215) Diagnoses Physical exam Z00.00 Mild recurrent major depression F33.0 Polyarthralgia M25.50 Asthma-COPD overlap syndrome J44.9 Bronchiectasis with acute lower respiratory infection J47.0 Bronchiectasis type: with acute lower respiratory infection Additional Codes AMNA-7 Assessment Billing - AMNA-7 Assessment Tool: AMNA-7 Assessment 80649 ([id number]) PHQ-9 - 66342 - PHQ-9 Billing: Yes ([id number]) Time Spent (min) 33 Assessment & Plan Assessment & Plan (1) Physical exam: Code(s): Z00.00 - Encounter for general adult medical examination without abnormal findings Category: Medical (2) Mild recurrent major depression: Code(s): F33.0 - Major depressive disorder, recurrent, mild Category: Medical (3) Polyarthralgia: Code(s): M25.50 - Pain in unspecified joint Category: Medical (4) Asthma-COPD overlap syndrome: Code(s): J44.9 - Chronic obstructive pulmonary disease, unspecified Category: Medical (5) Bronchiectasis: Code(s): J47.9 - Bronchiectasis, uncomplicated Category: Medical Qualifiers: Bronchiectasis type: with acute lower respiratory infection Qualified Code(s): J47.0 - Bronchiectasis with acute lower respiratory infection Plan The patient's mental health condition appears to require better access to psychiatric care, which could be improved by resolving technological barriers. Referral for rheumatology evaluation is advisable to address musculoskeletal complaints and determine optimal long-term therapeutic strategies. Maintaining current inhaler usage and routine computer programmer analyst reviews to track pulmonary condition post-pneumonectomy is essential. Health maintenance screenings such as mammography and bone scans are to be arranged and completed alongside ongoing monitoring of potential allergen exposures. Coordination of lab work is also required, as per wellness evaluations. Patient was informed and verbally consented to the use of an ambient scribe for clinic note documentation during this visit. During this visit, we reviewed the patient's ongoing medical conditions, with emphasis on addressing her depression with anxiety, osteoarthritis symptoms, and respiratory care following her pneumonectomy. We discussed the necessity of seamless access to psychiatric services and a rheumatology referral to manage her musculoskeletal pain more effectively. The patient agreed to adhere to the prescribed medication and to pursue the recommended specialist consultations. We also discussed the importance of completing scheduled screenings for mammography and bone densitometry to optimize preventive care. The patient was instructed on taking medications as prescribed, seeking specialist consultation, and carrying out fasting lab work. The importance of reviewing her allergy management plan was considered to mitigate any possible risks associated with her known drug sensitivities. Orders: Orders Lipid Panel Today E78.5 - Hyperlipidemia, unspecified Vitamin D 25-OH Total Today E55.9 - Vitamin D deficiency, unspecified Complete Blood Count Auto Diff Today D64.9 - Anemia, unspecified Vitamin B12 and Folate Today E53.8 - Deficiency of other specified B group vitamins IRON PROFILE Today D64.9 - Anemia, unspecified Comprehensive Gower. Panel Fast Today M25.50 - Pain in unspecified joint XR DEXA axial skeleton Today Z78.0 - Asymptomatic menopausal state MM tomosynthesis screening BI Today Z12.31 - Encounter for screening mammogram for malignant neoplasm of breast Referrals Rheumatology Referral M25.50 - Pain in unspecified joint Medications: New ibuprofen 600 mg PO Q8H PRN 90 tabs 0RF pain 30 days Discontinued ibuprofen Discontinued Reason: Patient Completed Course 400 mg PO Q6H 30 days PRN 120 tabs 1RF pain Patient Instructions: - Continue citalopram and cetirizine as prescribed. - Schedule bone densitometry in November 2022. - Follow up with mammography, as the last was conducted in November 2021. - Use ibuprofen only as needed for pain, and explore rheumatology for alternative treatments. - Keep regular appointments with your computer programmer analyst for continued respiratory health management. - Attempt to resolve technological issues to facilitate psychiatric follow-up. - Complete fasting labs as planned. - Notify about any significant changes in symptoms or health status.
[2024-10-14 14:54] VITALS: BP 112/76; BMI 22.3
== END 2024-10-14 15:24 | disposition home or self-care (01) ==
LOC: HO.HMCH 14:33
PROVIDERS: PCP Internal Medicine; Visit Provider Internal Medicine
DX: Z00.00 Encounter for general adult medical examination without abnormal findings (principal); J44.9 Chronic obstructive pulmonary disease, unspecified; F33.0 Major depressive disorder, recurrent, mild; J47.0 Bronchiectasis with acute lower respiratory infection; M25.50 Pain in unspecified joint

== ENCOUNTER → 2024-10-14 14:32 | Outpatient (BNVA) | payer OTHER, SELFPAY | PROVIDERS: PCP Internal Medicine; Visit Provider Internal Medicine | DX: Z00.00 Encounter for general adult medical examination without abnormal findings (principal); F33.0 Major depressive disorder, recurrent, mild; M25.50 Pain in unspecified joint; J44.9 Chronic obstructive pulmonary disease, unspecified; J47.0 Bronchiectasis with acute lower respiratory infection | CPT/HCPCS: 96127; 99212; 99396 ==

== ENCOUNTER 2024-11-29 11:13 | Outpatient (AMB) | payer OTHER, SELFPAY ==
[2024-11-29 11:16] VITALS: BP 110/66; PULSE 97; O2SAT 97; BMI 22.6
--- NOTE | 2024-11-29 11:16 | A.OFFVIS_ITS ---
Vital Signs 11/29/24 11:16 Height 5 ft 3 in Weight 127 lb 13.89 oz BMI 22.6 BP 110/66 Blood Pressure Location Lt brachial Position Sitting Pulse 97 Pulse Source Pulse Oximeter Pulse Oximetry (%) 97 Oxygen Delivery Method Room Air Intake Visit Reasons: Cough Allergies lisinopril Allergy (Mild, Verified 11/29/24 11:21) cough moxifloxacin [Avelox] Allergy (Mild, Verified 11/29/24 11:21) rash sulfamethoxazole [From Bactrim] Allergy (Mild, Verified 11/29/24 11:21) Rash trimethoprim [From Bactrim] Allergy (Mild, Verified 11/29/24 11:21) Rash HPI Comments Details: The patient is a 64 year-old woman known severe persistent asthma and also bronchiectasis. She was in her usual state health until about a week ago when [place] laws started developing productive cough with yellowish phlegm. She has also had some chills and subjective fevers. Also has been complaining of pleuritic discomfort mainly on the right side. Mild in nature. In the office she was noted to be wheezing. She did receive a nebulized treatment. We try getting a sputum sample which he was unable to do so. She has had bronchoscopies in the past. I would have to go to [facility] to review her cultures. In the meantime going to treated for pneumonia. She was treated with Augmentin for bronchopneumonia. Her x-ray also demonstrated worsening right basilar opacity. She is status post bronchoscopy. Ultimately doing much better after the procedure. She did have significant period secretions. She did grow Proteus and was treated with antibiotics. No Pseudomonas was found into specimens which is reassuring that she no longer has Pseudomonas in her bronchiectatic airways. Unfortunate she did become sick with flu-like symptoms. She then developed a sore throat. She also has a cough. But otherwise has not had any fevers or chills or any other constitutional complaint. She has been on multiple antibiotics already so therefore will try to hold off on any antibiotics at this time. She has been using her nebulizer treatments and has been using her percussion vest. She is to continue to do so. 06/26/2023 the patient is here for a pulmonary follow-up visit. She is doing better from a medication adherence standpoint. She did complete the Augmentin and treated the Proteus lung infection. She has been using her percussion vest. She also has been using the Trelegy inhaler and also hypertonic saline for CPT. The patient also has been taking the azithromycin 3 times a week. She is doing a little better and I did remind her that this is chronic therapy and she needs to continue. It is helping. Recently she did have a respiratory illness and she was having worsening respiratory symptoms and she responded well to just using her nebulizer more often. Did not need any more prednisone which is reassuring. Right now her respiratory exam is better. Also, we did review her CT scan of the chest. She has extensive bronchiectatic changes. significantly cystic in nature. Affecting primarily the right hemithorax although also has some in the left lower lobe. We did review the blood work. No evidence of any immunodeficiencies or connective tissue conditions. She did have a surgery when she was in [place]. We do not have the pathology although that would be helpful. based on the severity of disease in her asthma we did review her blood work. Her IgE level was actually within normal and also her eosinophilic level. Therefore biologic therapies are likely to be effective for her. Therefore hold off. I did recommend she get a 2nd opinion in [place]. Ideally the same hospital that her daughter goes to in case there is a genetic disposition. The patient will give me the name in the hospital so I can make the referral. In the meantime we are going to repeat her sweat test looking for cystic fibrosis variance and also would be also a candidate for lung transplant specially the bronchiectasis were to worsen. 09/12/2023 the patient has a telehealth visit today. She was recently in the hospital with severe influenza. The patient did have an abnormal chest x-ray with airspace disease and she was treated with antiviral therapy. She was also given antibiotics and prednisone. She was receiving oxygen. She was able to be weaned off oxygen and be able to be discharged on oral antibiotics. Initially she was feeling well and now she started to develop worsening cough chest congestion. Her mucus secretions are greenish in color. They are thick and tenacious. She is using the nebulizer. She also has a percussion vest that she can use for chest physical therapy. Will go ahead and send doxycycline to the pharmacy to treat her for postviral bacterial infections. In the meantime if symptoms worsen or not improve she should call back the office back to the hospital the patient did complete a course of prednisone although she still feels chest tightness and wheezing. Will go ahead and send a lower dose for longer period of time. Otherwise follow-up in several weeks in the office to perform a 6 minute walk test. Likely the patient will need additional imaging studies. 10/06/2023 the patient is here for pulmonary follow-up visit. She still struggles with her cough and chest congestion. Her cough is productive of purulent like secretions. We were able to get 1 for the laboratory. Will waiting for the results. In the meantime she had been on doxycycline and she did respond well to it while she was on it for few weeks. Now she is offering her symptoms are getting worse. It may be that she has a component of stenotrophomonas. Will go ahead and send another sputum in place her back on doxycycline. If she has a resistant organism or resistant enteric organism we may need to do additional antibiotics. We could also consider inhaled tobramycin for Pseudomonas. Will have to wait for the results. In the meantime she does have significant bronchiectasis. She does not always use her vest. I did have an Acapella valve I did provide her she can use that in between when she can not get to using her percussion vest. She understands the importance of mucus clearance. She continues with respiratory therapy. Currently she has not on any prednisone. We also talked about a referral to [place]. Right now which the waiting for her to be scheduled but I do believe that based on the severity of disease would be very reasonable to have her go to [place] for a 2nd opinion. 12/18/2023 the patient is here for a pulmonary follow-up visit. Since we last spoke the patient did have a sputum sample positive for Pseudomonas. We did order the inhaled tobramycin but she had an allergic reaction with some redness of the eyes. She then took a break and then she restarted the medicine just once a day she still had a reaction should she stopped it altogether. The patient starting to get more chest congestion. She feels shortness of breath. During the office visit we did taken for 6 minute walk test the patient did desaturate down to 88% during the walk. She was visibly dyspneic with a dyspnea score of 6/10. The patient at this point based on her chronic lung disease and now seems to be worsening progressive in nature would benefit from oxygen supplementation. Will set her up with a local [employer] with a portable oxygen concentrator that she can use with activity. The patient also will start ciprofloxacin to see if we can treat her underlying Pseudomonas in her lungs seems to be getting worse at this time. She has had a reaction to Avelox in the past. Although was mainly rash. Will go ahead and start a small dose and see if she can not tolerate it. If she does then she will continue. Then, I did give her a Ernestine system where she could try to see if using this device will be less contact with her eyes and hopefully she could tolerate the inhaled CARLOS. But she knows not to start both antibiotics together because then we will not know if she has a reaction or interaction. The patient does have a referral to [place] for her underlying bronchiectasis and she will be seeing 1 of the hospitals in [place] in the beginning all this. So the Will try to improve her respiratory issues right now but hopefully she will get further guidance when she goes for her 2nd opinion. 03/26/2024 the patient is here for a pulmonary follow-up visit. The patient did go to [place]. She is currently being evaluated. She is going to undergo a CT scan is PFTs in the near future. In the meantime she does continue to use inhaled tobramycin. She has been taking care for daughter who has been sick after a cardiac transplant. Therefore she has not been as compliant to the therapy. She does have worsening chest congestion. Moderate severity. Significant mucus production. Will go ahead and start her on ciprofloxacin times if we can help with significant worsening of respiratory symptoms. She has been using the oxygen with good effect. She does have a portable oxygen concentrator that she uses with activity. 06/17/2024 the patient is here for preoperative evaluation. The patient overall has been doing okay from a respiratory status. She has been doing the inhaled tobramycin and also the azithromycin 3 times a week. She also continues with chest PT. she is having issues with her tearing specially on the left eye. She did follow-up with Ophthalmology they did recommend surgery. She was referred to us for preoperative evaluation. Respiratory status is doing okay. She is having some on and off discomfort in the right lung which she has significant bronchiectasis. The patient also has oxygen that she uses with activity. She has been able to intermittently use it since she has been feeling a little better. The patient also followed up in [place] and getting additional workup for the bronchiectasis and sinusitis. She completed spirometry in the office and her FEV1 is only 48% consistent with severe obstructive airway disease. 11/29/2024 the patient is here for a pulmonary follow-up visit. She is complaining of worsening respiratory symptoms. Has had significant chest tightness and cough. Very thick tenacious mucus difficult to clear. Yellowish in color. She has a Aer[employer]ika valve that she uses regularly. Unfortunately she has been taking care of her very sick daughter that underwent a cardiac transplant and she was not being adherent to her therapy. She is no longer using the inhaled CARLOS 20 days on 20 days off for the bronchiectasis and Pseudomonas. Therefore we did resubmit to the pharmacy and will go ahead and get him started on that. In the meantime will start her on Cipro she is colonized with Pseudomonas and gets frequent infections. She will continue with CPT. She does get tremulous from the albuterol so I will send her Xopenex that she can use between 2 to 4 times a day. She also has been using the hypertonic saline should be using that twice a day. She does have a percussion vest but does not seem to use it regularly. So at least she can use the Aerobika for now. She is following up in [place] soon and will be having a CT scan of the chest. Further recommendations based on forthcoming data. [facility] Medical History (Updated 10/14/24 @ 19:18 by Sol Hall MD) Physical exam Blurry vision, bilateral Asthma Cough Sinusitis Sinusitis Bronchiectasis Asthma Screen for colon cancer Ear discomfort Bronchopneumonia Elevated hemoglobin Influenza A Acute febrile illness Hypoxia Allergies Pre-op chest exam Acute hypoxic respiratory failure Asthma-COPD overlap syndrome Bronchiectasis Surgical History H/O pneumonectomy History of bronchoscopy Family History Daughter Bronchiectasis Colon polyps Brother Mental health disorder Mother No problems noted. Father Stroke Social History Housing: Apartment Do you presently have visiting nurse or other home services: No Alcohol intake: current Alcohol intake frequency: holidays/special occasions only Alcohol type: wine Patient Tobacco Use Status: Former Tobacco user Tobacco use type: Cigarette Years Smoked: 5 years e-Cigarette/Vaping Use: Never Used Second Hand Smoke Exposure: No service: No Current occupational status: unemployed and retired Cognitive needs: No Hearing needs: No Vision needs: Yes Review of Systems Const Denies chills, Denies fatigue, Denies fever(s), Denies weight gain and Denies weight loss Eyes Reports as per HPI ENT Denies dizziness, Denies lip swelling and Denies tongue swelling Card Denies chest pain, Denies leg edema, Denies lightheadedness, Denies palpitations, Denies dyspnea on exertion, Denies orthopnea and Denies other Resp Denies cough and Denies dyspnea on exertion GI Denies hematochezia and Denies change in stool character Musc Denies abnormal gait, Denies muscle weakness, Denies numbness, Denies radiating pain into limb and Denies tingling Neuro Denies abnormal gait, Denies dizziness, Denies numbness and Denies tingling Psych Denies no additional complaints Endo Denies fatigue and Denies palpitations Jay/Lymph Denies easy bleeding and Denies lymphadenopathy Aller/Immun Denies lip swelling and Denies tongue swelling Physical Exam Vital Signs: Last Vital Signs Pulse 97 11/29/24 11:16 BP 110/66 11/29/24 11:16 Pulse Ox 97 11/29/24 11:16 Oxygen Delivery Method Room Air 11/29/24 11:16 BMI result Body Mass Index 22.6 Const General: alert Neck Neck: Yes normal visual inspection, Yes full ROM and Yes no lymphadenopathy Chest Chest palpation & inspection: normal inspection of the chest Resp Effort & Inspection: normal respiratory effort Auscultation: crackles, no wheezes and diminished lung sounds Cardio Rate: regular rate Rhythm: regular rhythm Heart sounds: S1 normal heart sound present and S2 normal heart sound present GI Palpation (GI): Soft to palpation and nontender Auscultation: normal bowel sounds Skin General skin exam: rashes and/or lesions noted Assessment & Plan Assessment & Plan (1) Asthma: Code(s): J45.909 - Unspecified asthma, uncomplicated Category: Medical Qualifiers: Asthma complication type: uncomplicated Asthma persistence: persistent Asthma severity: severe Qualified Code(s): J45.50 - Severe persistent asthma, uncomplicated (2) Bronchiectasis: Code(s): J47.9 - Bronchiectasis, uncomplicated Category: Medical Qualifiers: Bronchiectasis type: with acute lower respiratory infection Qualified Code(s): J47.0 - Bronchiectasis with acute lower respiratory infection (3) Cough: Code(s): R05 - Cough Category: Medical Qualifiers: Cough type: chronic Qualified Code(s): R05.3 - Chronic cough (4) Asthma-COPD overlap syndrome: Code(s): J44.9 - Chronic obstructive pulmonary disease, unspecified Category: Medical (5) Bronchiectasis: Code(s): J47.9 - Bronchiectasis, uncomplicated Category: Medical Qualifiers: Bronchiectasis type: with acute lower respiratory infection Qualified Code(s): J47.0 - Bronchiectasis with acute lower respiratory infection Plan continue oxygen 2L/pulse with portable oxygen concentrator with activity Continue Breztri Continue nebulized therapy start cipro x 14 days restart inhaled Carlos 28 days on; 28 days off sputum culture if not better CPT with albuterol->hypertonic saline 7% with percussion vest and [facility] [place] for the extensive bronchiectasis in progress Follow-up in 3-4 months Medications: New prednisone PO daily; Take 6 tabs daily x 3 days, then 5 tabs x 3 days, then 4 tabs x 3 days, then 3 tabs x 3 days, then 2 tabs daily x 3 days, then 1 tab x 3 days to complete. 63 tabs 0RF 18 days levalbuterol HCl 1.25 mg (3 mL) inhalation QID 360 mL 11RF 30 days J44.9 - Chronic obstructive pulmonary disease, unspecified ciprofloxacin HCl 500 mg PO BID 28 tabs 0RF 14 days Changed From tobramycin in 0.225 % NaCl 300 mg/5 mL (Carlos) separate doses by at least 6 hours every other month 300 mg inhalation BID To tobramycin in 0.225 % NaCl 300 mg/5 mL (Carlos) 28 days on, 28 days off 300 mg (5 mL) inhalation BID 560 mL 6RF 56 days Coding Level of Care Code Est Pt Level 4 (22054) Complex EM visit Add On G2211 Diagnoses Severe persistent asthma without complication J45.50 Asthma complication type: uncomplicated Asthma persistence: persistent Asthma severity: severe Bronchiectasis with acute lower respiratory infection J47.0 Bronchiectasis type: with acute lower respiratory infection Chronic cough R05.3 Cough type: chronic Asthma-COPD overlap syndrome J44.9 Time Spent (min) 17
--- OUTSIDE RECORDS SUMMARY | 2024-11-29 12:15 | XMS_ITS | Clinical Summary ---
Author Organization [facility] [employer] Address [address] [place] [address] [address] [place] [address] Care Team Providers Care Wire Brush Maker Name Role Phone Unavailable Primary Care Provider Unavailabl e Medications fluticasone (Flonase Allergy Relief) 50 MCG/ACT nasal sprayIndication s:Seasonal allergies Administer 1 spray into each nostril in the morning. Shake gently. Before first use, prime pump. After use, clean tip and replace cap. 16 g 1 3 Active Social History Tobacco Use Types Packs/Day Years Used Date Smoking Tobacco: Never Assessed Comments Unknown Sex and Gender Information Value Date Recorded Sex Assigned at Female 05/30/2022 10:15 AM EDT Legal Sex Female 10:15 AM EDT Gender Identity Female 05/30/2022 10:15 AM EDT Sexual Orientation Straight 05/30/2022 10 :15 AM EDT Last Filed Vital Signs Vital Sign Reading Time Taken Comments Blood Pressure 105/75 07/22/2020 12:12 AM EST Pulse 80 07/22/2020 12:12 AM EST Temperature - - Respiratory Rate - - Oxygen Saturation - - Inhaled Oxygen Concentration - - Weight 67.9 kg (149 lb 9.6 oz) 07/26/2019 12:12 AM EST Height 157.5 cm (5' 2 ) 07/26/2019 12:12 AM EST Body Mass Index 27.36 07/26/2019 12:12 AM EST Plan of Treatment Health Maintenance Due Date Last Done Comments CT Colonography 1961 Colonoscopy 1961 Colorectal Cancer Screening 1961 Depression Screening 1961 FIT DNA/Cologuard 1961 FIT 1961 FOBT 1961 Sigmoidoscopy 1961 Alcohol/Substance Use Screening 1973 Tobacco Screening 1973 Pap Smear 1982 Cervical Cancer Screening 1991 HPV/Cotest 1991 Pneumococcal Vaccine: 50+ Years (3 of 3 - PCV20 or PCV21) 02/26/2021 02/27/2016, 06/05/2007 Mammogram 01/20/2022 01/21/2020 COVID-19 Vaccine (3 - 2023-2 5 season) 2024 11/30/2020, 11/02/2020 Influenza Vaccine (#1) 2024 0, 06/06/2018 DTaP/Tdap/Td Vaccines (2 - T d or Tdap) 10/16/2029 10/17/2019, 12/22/2013 RSV Patients and Patients Aged 60 years or older (1 - 1-dose 75+ series) 2036 Pneumococcal Vaccine: Pediatrics (0 to 5 Years) and At-Risk Patients (6 to 49) Years) Aged Out 02/27/2016, 06/05/2007 No longer eligible based on patient's age to complete this topic Zoster Vaccines Completed 10/09/2019, 07/26/2019 HIB Vaccines Aged Out No longer eligi ble based on patient's age to complete this topic HPV Vaccines Aged Out No longer eligi ble based on patient's age to complete this topic Hepatitis A Vaccines Aged Out No long er eligible based on patient's age to complete this topic Hepatitis B Vaccines Aged Out No long er eligible based on patient's age to complete this topic IPV Vaccines Aged Out No longer eligi ble based on patient's age to complete this topic Meningococcal Vaccine Aged Out No meryl timothy eligible based on patient's age to complete this topic RSV under 20 months Aged Out No longe r eligible based on patient's age to complete this topic Rotavirus Vaccines Aged Out No longer eligible based on patient's age to complete this topic Procedures Procedure Name Priority Date/Time Associated Diagnosis Comments BI MAMMOGRAM SCREENING BILATERAL Routine 01/21/2020 11:21 AM EDT from Last 3 Months or Most Recently Relevant to Health Maintenance Results * 3D DIGITAL HERNAN SCR MAMMO 1 (01/21/2020 11:21 AM EDT) Anatomical Region Laterality Modality Breast Bilateral Mammography 01/21/2020 11:2 1 AM EDT Narrative 01/21/2020 11:23 AM EDT Refer to the Notes tab for result details [facility] Procedure: 3D DIGITAL HERNAN SCR MAMMO 1 Procedure Note Provider, MD Dewayne - 10/22/2022 Refer to the Notes tab for result details [facility] Procedure: 3D DIGITAL HERNAN SCR MAMMO 1 Matheus Fisherncourbaldemar Boyle MD IMG BI PROCEDURES Final Result from Last 3 Months or Most Recently Relevant to Health Maintenance
--- OUTSIDE RECORDS SUMMARY | 2024-11-29 12:15 | XMS_ITS | Data Portability ---
Author Organization [facility], [facility] Address [address] [place] [id number] Care Team Providers Care Lifter Driver Name Role Phone [facility] Referring Provider [phone] Assessment Encounter Date Assessment Date Assessment LastModified by Organization Details LastModified Time 09/14/2021 09/14/2021 I have reviewed and agree with the assessment and plan as documented by the hospital housekeeper. I provided real time medical direction for this encounter and was immediately available to provide additional phone based assistance as needed. History as noted by hospital housekeeper. Pt with history of COPD, has had recent generalized weakness and fatigue. Also had loss of taste but this has improved. She denies any cough, congestion, fevers or SOB. On exam, pt appears well, no distress. Vitals ok, O2 sat normal. Lungs with mild expiratory wheeze RLL field only. Pt has inhalers at home tht she uses prn. Pt has received Covid vaccine and booster. Will send Covid swab today. Pt instructed to f/u with her primary care team in 1-2 days to discuss her symptoms and her Covid swab results. Also to go to ED with any new symptoms such as fevers, vomiting or dyspnea btils Not available 09/14/2021 12:48:15 Plan of Treatment Reminders Order Date Submit Date Provider Last Modified By Organization Details Last Modified Time Details Appointments None recorded. Lab rapid SARS CoV 2 Ag, QL IA, respiratory specimen 2021 022 [email or web address] [facility], [address] [place] [address], [place], [id number] 19:28:56 unlisted lab - covid-19 (novel coronavirus ) PCR 2021 022 stepheno [facility] (Centralized Electronic Ordering - All Locations), Patient Can Go To The Location Of Their Choice, [id number] 17:23:43 Referral None recorded. Procedures None recorded. Surgeries None recorded. Imaging None recorded. Medication Orders Paxlovid 300 mg (150 mg x 2)-100 mg tablets in a dose pack 2021 [facility], [place] , [address], [place], [id number], 15:27:26 amoxicillin 875 mg-potassiu m clavulanate 125 mg tablet 2021 [facility], [place]- , [address], [place], [id number], 15:27:26 azithromyci n 250 mg tablet 2021 [facility], [place]- , [address], [place], [id number], 15:27:32 Patient TargetsNo targets recorded. Patient InstructionsNo instructions recorded. Reason for Referral None Reported. Results Created Date Observation Date Name Description Value Unit Range Abnormal Flag Note LastModifiedBy Organization Detail LastModifiedTime 04/13/2004/13/2022 rapid SARS CoV 2 Ag, QL IA, respi rator y speci men rapid SARS CoV 2 Ag, QL IA, respiratory specimen positi ve Not Available [facility] [address] [place] [address], [id number] 04/13/2022 19:28:44 Result Notes None recorded. Medical Equipment None Reported. Allergies Allergen ID Allergen Name Allergen Category Reaction Reaction Severity Criticality Documentation Date Start Date Code Code System Note Provider Name and Address Organization Details Recorded Time 7981 Bactrim medicatio n Not available Not available Not available 05/28/2024 57230 9 RxNorm Not Available [facility] 03:[facility]:06 Medications Name Sig Start Date Stop Date Status Note LastModified by Organization Details LastModified Time prednisone 10 mg tablet active Not Available Not Available No t Available albuterol sulfate 2.5 mg/3 mL (0.083 %) solution for nebulization active Not Available Not Available Not Available azithromycin 250 mg tablet TAKE 2 TABLETS (500 MG) BY ORAL ROUTE ONCE DAILY FOR 1 DAY THEN 1 TABLET (250 MG) BY ORAL ROUTE ONCE DAILY FOR 4 DAYS active Not Available Not Available No t Available ibuprofen 800 mg tablet TAKE 1 TABLET BY MOUTH EVERY 6 TO 8 HOURS active Not Available Not Available No t Available sodium chloride 3 % for nebulization active Not Available Not Available Not Available prednisone 20 mg tablet active Not Available Not Available No t Available clonazepam 0.5 mg tablet active Not Available Not Available No t Available lorazepam 0.5 mg tablet active Not Available Not Available No t Available budesonide 0.5 mg/2 mL suspension for nebulization active Not Available Not Available Not Available montelukast 10 mg tablet active Not Available Not Available No t Available albuterol sulfate HFA 90 mcg/actuation aerosol inhaler active Not Available Not Available Not Available fluticasone propionate 50 mcg/actuation nasal spray,suspensi on active Not Available Not Available Not Available amoxicillin 875 mg-potassium clavulanate 125 mg tablet Take 1 tablet every 12 hours by oral route for 5 days. active Not Available Not Available No t Available escitalopram 20 mg tablet active Not Available Not Available Not Available losartan 100 mg-hydrochloro thiazide 12.5 mg tablet active Not Available Not Available No t Available Eye Itch Relief 0.025 % (0.035 %) drops active Not Available Not Available Not Available Daliresp 250 mcg tablet active Not Available Not Available N ot Available Trelegy Ellipta 200 mcg-62.5 mcg-25 mcg powder for inhalation active Not Available Not Available N ot Available Paxlovid 300 mg (150 mg x 2)-100 mg tablets in a dose pack Take 1 dose pk by oral route. active Not Available Not Available No t Available Vitals Date Recorded Heart rate Respiratory rate Oxygen saturation Oxygen saturation in Arterial blood by Pulse oximetry Body temperature Systolic blood pressure Diastolic blood pressure Provider Name and Address Organization Details Last Updated DateTime 2 65 /min 18 /min 96 % 96 % 98 [degF] 129 mm[Hg] 76 mm[Hg] Nino Rosales MD [address] [facility],[address], [place], [address] [place], [place] - [employer] 2 12:42:05 Date Recorded Body temperature Heart rate Oxygen saturation Oxygen saturation in Arterial blood by Pulse oximetry Respiratory rate Body weight Body height Body weight Heart rate Respiratory rate Body temperature Oxygen saturation Oxygen saturation in Arterial blood by Pulse oximetry Body height Systolic blood pressure Diastolic blood pressure Systolic blood pressure Diastolic blood pressure Provider Name and Address Organization Details Last Updated DateTime 2 98 [degF] 96 /min 96 % 96 % 20 /min 03532.2 08 g 157.48 cm 51108.2 08 g 96 /min 20 /min 98 [degF] 96 % 96 % 157.48 cm 126 mm[Hg] 87 mm[Hg] 126 mm[Hg] 87 mm[Hg] Not Available [facility] - production 15:44:27 Social History None recorded. Functional Status None recorded. Mental Status None recorded. Family History Nothing Reported. Medical History No medical history recorded. Gynecological HistoryNo gynecological history recorded. Obstetrics History GPAL:G 0 P 0 0 0 0 Past Encounters Encounter ID Performer Location Encounter Start Date Encounter Closed Date Diagnosis/Indication Diagnosis SNOMED-CT Code Diagnosis ICD10 Code Diagnosis Note [id number] Nino Rosales MD [facility] [address] [place] [phone] 09/14/2021 11:46:50 02/15/2022 10:31:29 Malaise and fatigue 077641843 R53.83 [id number] Ramirez Will MD [facility] - [facility] [address] [place] [phone] 04/13/2022 15:17:43 04/25/2022 13:12:17 COVID-19 866909480 U07.1 Will tx empicially with Paxlovid Community acquired pneumonia 644228559 J18.9 Per hospital housekeeper example, rhonchi in lungs unilateral ly with green sputum. WIll tx empiricall y for CAP as well as COVID Health Concerns Section Related Observation LastModified by Organization Detai ls LastModified Time None Recorded Concern Status LastModified by Organization Details LastModified Time None Recorded Advance Directives Directive None Recorded Payers Encounter Date Sequence Insurance Name Policy Number Policy Fiore Covered Member ID Fiore Member ID Guarantor Name 09/14/2021 1 [facility] [employer] - DOS PRIOR TO 2022 - DUAL ELIGIBLE (MEDICARE REPLACEMENT/ADV ANTAGE - HMO) Dina Vasquez [id number] Dina Vasquez 04/13/2022 1 [facility] [employer] - DOS PRIOR TO 2022 - DUAL ELIGIBLE (MEDICARE REPLACEMENT/ADV ANTAGE - HMO) Dina Vasquez [id number] Dina Vasquez Notes Date Note Type Note Provider Name and Address Organization Details Recorded Time 09/14/2021 text/html This was a supervised home visit with hospital housekeeper Petar Shaffer. Member reports generalized weakness, and issues with right lung and loss of taste. HX partial right lobectomy. Home O2 sat 96 percent per member. Has appointment with pulmonology 09/16/21. Speaking in complete sentences, denies fever. PATIENT IS A 61 YEAR OLD FEMALE COMPLAINING OF GENERALIZED WEAKNESS AND SICKNESS. PATIENT ALERT, ORIENTED AND AMBULATORY. PATIENT IN NO ACUTE DISTRESS, AIRWAY PATENT, BREATHING NORMALLY, SKIN WPD. PATIENT STATES SHE JUST RECENTLY BEGAN TO FEEL MORE TIRED THAN USUAL, COMPLAINS OF A COUGH, MID RIGHT BACK PAIN ON EXHALE AND IS CONCERNED ABOUT HER BREATHING. PATIENT DENIES ANY SOB, OR DIFFICULTY BREATHING. PATIENT IS CONCEREND DUE TO PAST RIGHT LUNG LOBECTOMY, AND COPD. PATIENT STATES SHE HAS PULONOLOGY APPOINTMENT IN 2 DAYS TO ADDRESS HER CONCERNS. PATIENTS VITALS WERE ONTAINED AND ALL WITHIN NORMAL LIMITS. THERE IS A SLIGHT WHEEZ NOTED IN LOWER RIGHT LUNG WITH EXHALE. PATIENT IS VACCINATED X2 AND BOOSTED. PATIENT DENIES ANY CONTACT WITH SICK PEOPLE. PATIENT CONFIRMS GOOD ORAL AND FLUID INTAKE, USING RESTROOM NORMALLY. CONULTED WITH DR. ROSALES. COVID SWAB WAS ORDERED, OBTAINED AND BROUGHT TO [facility] FOR ANALYSIS, PATIENT IS TO FOLLOW UP WITH PCP AND CARE TEAM REGARDING S/S. RED FLAGS DISCUSSED. CONTACT 911 FOR ANY RED FLAGS OR EMERGENCIES. Nino Rosales MD [address] [facility],[address], [place], [phone], [employer] 09/14/2021 13:07:53 04/13/2022 text/html HPI: German speaking member called [facility], reports suspected COVID. C/o x 1wk pain in rt back, and chest pain when coughing, sore throat, runny nose, dry cough, chills. Temp 99.5. Member with PMH: severe persistent asthma, bronchiectasis, chronic sinusitis, acquired absence of rt lung, HTN, MDD, AMNA. Allergy: Avelox .................. .................. .................. .................. .................. .................. .................. ............... CRC Nursing Assessment: Comments: CRC RN did not require any additional information to process this visit. .................. .................. .................. .................. .................. .................. .................. ............... Marble Helper Note: Sent to a call for a pt complaining of a cough, chills and pain. SC8 arrives on scene, pt found in apartment. Pt is alert and oriented. Airway is patent. Pt states she has a chronic cough with intermittent mucous, but complains of worsening productive cough (green phlegm), rhinorrhea (white mucous), cp with cough, right upper back pain with cough, and chills. Pt denies headache, dizziness, sore throat, sob, n/v/d, abd pain, fever or loc. Pt has been taking robitussin for cough. BP:126/87, P:96, RR:20, SpO2:96% RA, T:98.0; Throat: erythema, no edema or exudate noted; Lung sounds: rhonchi bilaterally in upper lobes; Abdomen: soft, non-tender, no distention; Skin: pink, warm, dry; Rapid flu: neg, rapid covid: pos; [facility] sends script to pt's pharmacy for antibiotics to treat possible pneumonia and medication for covid. Pt advised to drink honey with tea, steam bowl to loosen phlegm, stay hydrated, and isolate according to covid precautions. Red flags discussed. Pt has no further questions. .................. .................. .................. .................. .................. .................. .................. ............... Disposition: Fulfilled note: , hx per above Ramirez Will MD [address] [facility],[address], [place], [address], [employer] [facility] [employer] 04/13/2022 19:29:47 OBGyn Episode No OBEpisode recorded.
--- OUTSIDE RECORDS SUMMARY | 2024-11-29 12:16 | XMS_ITS | Clinical Summary ---
Author Organization [facility] Address [address] [place] [address] Care Team Providers Care Tobacco Sampler Name Role Phone Unavailable Primary Care Provider Unavailabl e Surgical History Surgery Date Site/Laterality Comments OTHER SURGICAL HISTORY Right PROCEDURE: [place] THORACOSCOPY W/DX WEDGE RESEXN ANATO LUNG RESEXN; COMMENT: [place] Lung resection as a child in [place] COLONOSCOPY 07/05/2013 PROCEDURE: HISTORICAL COLONOSCOPY Medical History Medical History Date Comments Hypertension 01/24/2019 DX:Hypertension Depression 12/11/2018 DX:Depression Panic attacks 01/24/2019 DX:Panic attacks Allergic rhinitis 01/24/2019 DX:Allergic rh initis Bronchiectasis ([facility] V24, [facility] V28) 12/11/2018 DX:Bronchiectasis ([facility]) COPD (chronic obstructive pu lmonary disease) ([facility] V24, [facility] V28) 12/11/2018 DX:COPD (chronic o bstructive pulmonary disease) ([facility]) Pseudomonas pneumonia ([facility] V24, [facility] V28) 12/11/2018 DX:Pseudomonas pneumonia ([facility]) Family History Medical History Relation Name Comments Other: Transposition of Aorta Daughter x 4 surgeries, COPD, Bronchiectasis, s/p lobectomy Other: CVA Father TIA Relation Name Status Comments Daughter Father Social History Tobacco Use Types Packs/Day Years Used Date Smoking Tobacco: Former Smokeless Tobacco: Never Alcohol Use Standard Drinks/Week Comments Yes 1 (1 standard drink = 0.6 oz pur e alcohol) Comments Unknown Sex and Gender Information Value Date Recorded Sex Assigned at Not on file Legal Sex Female 5:46 AM EST Gender Identity Not on file Sexual Orientation Not on file Obstetrics History Plan of Treatment Health Maintenance Due Date Last Done Comments Breast Cancer Screening 1961 Cervical Cancer Screening: P ap Smear 1982 Zoster Vaccines (1 of 2) 2011 Pneumococcal Vaccine: 50+ Years (3 of 3 - PCV20 or PCV21) 02/26/2021 02/27/2016, 06/05/2007 DTaP,Tdap,and Td Vaccines (2 - Td or Tdap) 12/23/2023 12/22/2013 COVID-19 Vaccine (1 - 2023-2 5 season) 2024 Influenza Vaccine (Season Ended) 2025 06/06/2018 RSV Immunization Adult Patients (1 - 1-dose 75+ series) 2036 Pneumococcal Vaccine: Pediatrics (0 to 5 Years) and At-Risk Patients (6 to 64 Years) Aged Out 02/27/2016, 06/05/2007 No longer eligible based on patient's age to complete this topic HIB Vaccines Aged Out No longer eligi [...] on patient's age to complete this topic MMR Vaccines Aged Out No longer eligi ble based on patient's age to complete this topic Meningococcal ACWY Vaccine Aged Out N o longer eligible based on patient's age to complete this topic Meningococcal B Vaccine Aged Out No l onger eligible based on patient's age to complete this topic RSV Immunization Patients Under 20 months Aged Out No longer eligible b ased on patient's age to complete this topic Varicella Vaccines Aged Out No longer eligible based on patient's age to complete this topic
--- OUTSIDE RECORDS SUMMARY | 2024-11-29 12:16 | XMS_ITS | Data Portability ---
Author Organization [place] [facility] Address [address] [place] [id number] Care Team Providers Care Woods Superintendent Name Role Phone DAVIDAAUBREE LOPEZ Primary Care Provider Assessment Encounter Date Assessment Date Assessment LastModified by Organization Details LastModified Time 10/04/2018 10/04/2018 Overview/History : 58 y/o female w/a PMH of COPD, asthma, emphysema, depression, and HTN per pt. She is seen today because her VNA nurse was concerned because she said My lung sounds like there is water in it . Pt has been hospitalized twice for pneumonia, once in July 2018 for six or seven days and once in August 2018 for five days. She states she feels very weak and tired, cough with green sputum, increased shortness of breath, orthopnea, and fever. She denies taking any Tylenol, Motrin, or cough medicine. She denies chest pain, nausea, vomiting, diarrhea. She states that she has abdominal pain occasionally and a pain in the bottom of her right lung. Exam: Ill-appearing, pale for ethnicity, a&ox3, crackles noted bilateral bases, CV RRR, normal S1, S2 DDx considered, but not limited to: Influenza - Not likely, pt negative on Rapid Flu URI - Not likely, due to pt presentation and PMH of pneumonia x2 in the past two months Pneumonia - Most likely, pt weak, tired, low grade fever, productive cough w/green sputum, rhonchi, lack of appetite, PMH pnuemonia x2 in Jul/Aug 2018 Work up/Results: Pt to have outpatient CXR and called w/results Plan/Discussion: A rapid flu was done and it was negative for influenza. This is most likely a recurrence of the pnuemonia as evidenced by low grade fever, productive cough with green sputum, weakness, lack of appetite, and abnormal lung sounds. Pt to go to [facility] outpatient xray for a chest xray and if it shows pneumonia she will go to the Emergency Department for further evaluation and treatment. She has been treated twice as an inpatient with multiple different antibiotics and will need further testing, perhaps bronchoscopy. Pt to be called w/xray results Unable to obtain further information and compare any laboratory results/values, I have attempted access patient records on the [employer], however, these records were tagged as Restricted Access. This clinical presentation and history was pertinent in my medical decision making today. Time On Scene with Patient: 00:49:21 Not available 10/05/2018 08:25:10 11/07/2018 11/07/2018 Overview/History : Pt is a 58yo F with PMH sig for COPD, HTN, Depression, and Asthma. Pt has had numerous recent hospitalizations r/t recurrent PNA. Pt states that over the last few days she has been feeling more fatigued, coughing more, and having increased SOB. She states she has not been using her neb tx because it gives her heart palpations and doesn't seem to help her breathing. She states that she last had a treatment 2 days ago. She says that her visiting nurse wanted her to be seen sooner at her risk control representative but that there are no available appointment slots. Exam: Pt is A/Ox3, non-toxic appearing, VSS, HRR, resp reg and unlabored on RA, lungs pos for scattered wheezes bilat throughout. Pt given neb with good effect with decrease in wheezing. DDx considered, but not limited to: COPD exacerbation: likely given lack of fever, presence of wheezes that responded to neb tx PNA: possible given recent hx but no rhonchi noted, no fever PE: unlikely given presence of wheezes and normal VS ACS: unlikely given normal VS and lack of CP Work up/Results: CXR: ordered to r/o pna Plan/Discussion: Pt started on prednisone burst for COPD exacerbation. Ipratropium sent into pharmacy to help with breathing without causing tachycardia and palpations. Pt advised to use nebs every 6 hours while awake and to follow up with risk control representative next week as scheduled. Patients PCP contacted and updated on patient status. Patient verbalized understanding of discharge instructions and when to follow up with PCP/911/ED as needed. Patient in agreement with current plan and treatment. In order to obtain further information and compare any laboratory results/values, I have accessed old patient records. This information was pertinent in my medical decision making today. Time On Scene with Patient: 00:27:13 heidi Not available 11/08/2018 15:10:38 Plan of Treatment Reminders Order Date Submit Date Provider Last Modified By Organization Details Last Modified Time Details Appointments None recorded. Lab None recorded. Referral None recorded. Procedures None recorded. Surgeries None recorded. Imaging XR, chest, 2 view - [facility] Dx: COPD 2018 019 [email or web address] [facility], [address] [place] [address], [id number], 9 16:03:35 XR, chest, 2 view - [facility] [address] [place] [address], [id number], 9 06:22:00 Medication Orders prednison e 10 mg tablet 2018 019 heidi [facility] #[id number], [address] [place], [address], 9 11:58:51 ipratropi um bromide 0.02 % solution for inhalatio n 2018 019 heidi [facility]acy #[id number], [address] [place], [address], 9 11:58:51 ipratropi um bromide 0.02 % solution for inhalatio n 2018 019 heidi Not available 9 09:40:30 prednison e 20 mg tablet 2018 019 INTERFACE [id number], [address] [place], [address], 9 11:58:53 Patient TargetsNo targets recorded. Patient Instructions Encounter Date Encounter Id Patient Instructions Last Modified By Organization Details Last Modified Time 10/04/2018 [id number] Thank you for yo ur visit with [employer] today. We cannot always find the exact cause of your symptoms during your initial visit. A rapid flu was done and it was negative for influenza. We discussed that this is probably a recurrence of the pnuemonia because you have a low grade fever, productive cough with green sputum, weakness, lack of appetite, and abnormal lung sounds. You will go to [facility] for a chest xray and if it shows pneumonia you will need to go to the Emergency Department for further evaluation and treatment because you have been treated twice as an inpatient with multiple different antibiotics and will need further testing. You will be called with the results of your xray. If you develop any new or worsening symptoms and need after hours care, please go to nearest ER and/or call 911. If you have additional concerns or develop a change in your condition between 8am-10pm, please call [employer] [facility] at [phone] to help navigate your care. Pneumonia: Care Instructions Your Care Instructions Pneumonia is an infection of the lungs. Most cases are caused by infections from bacteria or viruses. Pneumonia may be mild or very severe. If it is caused by bacteria, you will be treated with antibiotics. It may take a few weeks to a few months to recover fully from pneumonia, depending on how sick you were and whether your overall health is good. Follow-up care is a groves part of your treatment and safety. Be sure to make and go to all appointments, and call your doctor if you are having problems. It's also a good idea to know your test results and keep a list of the medicines you take. How can you care for yourself at home? Take your antibiotics exactly as directed. Do not stop taking the medicine just because you are feeling better. You need to take the full course of antibiotics. Take your medicines exactly as prescribed. Call your doctor if you think you are having a problem with your medicine. Get plenty of rest and sleep. You may feel weak and tired for a while, but your energy level will improve with time. To prevent dehydration, drink plenty of fluids, enough so that your urine is light yellow or clear like water. Choose water and other caffeine-free clear liquids until you feel better. If you have kidney, heart, or liver disease and have to limit fluids, talk with your doctor before you increase the amount of fluids you drink. Take care of your cough so you can rest. A cough that brings up mucus from your lungs is common with pneumonia. It is one way your body gets rid of the infection. But if coughing keeps you from resting or causes severe fatigue and chest-wall pain, talk to your doctor. He or she may suggest that you take a medicine to reduce the cough. Use a vaporizer or humidifier to add moisture to your bedroom. Follow the directions for cleaning the machine. Do not smoke or allow others to smoke around you. Smoke will make your cough last longer. If you need help quitting, talk to your doctor about stop-smoking programs and medicines. These can increase your chances of quitting for good. Take an vfdt-vbr-dniydzp pain medicine, such as acetaminophen (Tylenol), ibuprofen (Advil, Motrin), or naproxen (Aleve). Read and follow all instructions on the label. Do not take two or more pain medicines at the same time unless the doctor told you to. Many pain medicines have acetaminophen, which is Tylenol. Too much acetaminophen (Tylenol) can be harmful. If you were given a spirometer to measure how well your lungs are working, use it as instructed. This can help your doctor tell how your recovery is going. To prevent pneumonia in the future, talk to your doctor about getting a flu vaccine (once a year) and a pneumococcal vaccine (one time only for most people). When should you call for help? Call 911 anytime you think you may need emergency care. For example, call if: You have severe trouble breathing. Call your doctor now or seek immediate medical care if: You cough up dark brown or bloody mucus (sputum). You have new or worse trouble breathing. You are dizzy or lightheaded, or you feel like you may faint. Watch closely for changes in your health, and be sure to contact your doctor if: You have a new or higher fever. You are coughing more deeply or more often. You are not getting better after 2 days (48 hours). You do not get better as expected. Care instructions adapted under license by [facility]. This care instruction is for use with your licensed healthcare professional. If you have questions about a medical condition or this instruction, always ask your healthcare professional. [employer] disclaims any warranty or liability for your use of this information. Not available 10/04/2018 15:46:52 11/07/2018 [id number] Acute Bronchitis/COPD Instructions BASIC INFORMATION Acute bronchitis is swelling and irritation in the air passages of your lungs. This irritation may cause you to cough or have other breathing problems. Acute bronchitis often starts because of another viral illness, such as a cold or the flu. The illness spreads from your nose and throat to your windpipe and airways. Bronchitis is often called a chest cold. Acute bronchitis lasts about 2 weeks and is usually not a serious illness. Most cases of bronchitis DO NOT require antibiotics. INSTRUCTIONS Medicines: Ibuprofen or acetaminophen: These medicines help lower a fever and treat aches. Refer to the bottles for proper dosing based on age and weight. Use as needed. Do not take either of these medicines for more than 3 days in a row. Prolonged use of Ibuprofen can hurt your kidney and stomach. Prolonged use of Tylenol can injure your liver. Cough medicine: Xzth-utu-hyspejp (OTC) medicine helps loosen mucus in your lungs and make it easier to cough up. OTC cough medicine should NOT be used in children under age 3. Inhalers: You may need an inhaler to help you breathe easier and cough less. Inhalers help to relax the airways An inhaler gives medicine in a mist form so that you can breathe it into your lungs. If you were given an inhaler, take 2 puffs, four times per day for 2 days. After that, just use as needed for increased coughing, wheezing or tightness in chest. Steroid medicine: You may have been given prednisone or another steroid medication which helps open your air passages so you can breathe easier. Antibiotics: In most cases, antibiotics are not necessary for bronchitis. However, if your provider did prescribe these for you, please complete the entire course. You should also ask your pharmacist for a good zukx-leg-yqmbsqw probiotic to take while you are on the antibiotic to help prevent antibiotic induced diarrhea. A good probiotic should have two species of live, active cultures. How to use an inhaler: 1) Shake the inhaler well to make sure you get the correct amount of medicine per puff. Remove the cover from your inhaler's mouthpiece. 2) Exhale as much air from your lungs as you can. Put the mouthpiece in your mouth, past your front teeth and rest it on the top of your tongue. Do not block the mouthpiece opening with your tongue. 3) Breathe in through your mouth at a slow and steady rate. As you do this, press the inhaler to release the puff of medicine. When your lungs are full, hold your breath for 10 seconds. Then breathe out slowly through puckered lips or through your nose. 4) If you need to take more puffs, wait at least 1 minute between each puff. 5) Using a spacer / air chamber ensures that you get the maximum amount of medicine from the inhaler. 6) Rinse your mouth with water after you use the inhaler. This may keep you from getting a mouth infection or irritation. 7) Follow the instructions that come with your inhaler to clean it. Self Care: 1) Do not smoke or allow others to smoke around you. Please call the [employer] Quit Line at to help in smoking cessation. Avoid chemicals, fumes, and dust. 2) Stay well hydrated 3) Seek care immediately if you: - develop a fever - develop a rash - become increasingly short of breath or you do not begin to improve 3-5 days (it may take 10 days for complete improvement) - cough up blood - have chest pain unrelated to coughing 4) Make appointment to follow up with you doctor within one week or sooner if directed by your [facility] provider. If you develop any new or worsening symptoms and need after hours care, please go to nearest ER and/or call 911. If you have additional concerns or develop a change in your condition between 8am-10pm, please call [facility] at [phone] to help navigate your care. heidi Not available 11/07/2018 11:58:49 Reason for Referral None Reported. Results Created Date Observation Date Name Description Value Unit Range Abnormal Flag Note LastModifiedBy Organization Detail LastModifiedTime 10/09/19 19 10/05/2018 XR, chest , 2 view No observ ation record ed. [email or web address] [facility] [address] [facility], [place], [address], 10/12/2018 10:06:58 Result Notes None recorded. Problems Name Problem SNOMED Code Status Onset Date Resolution Date Notes Provider Name and Address Organization Details Recorded Time Chronic obstructive pulmonary disease 46285222 Active 2018 CARYL VICK NP [address], [place], [address], [place] [facility] 9 11:43:27 Problem Notes None recorded. Procedures Surgical History Date Name Laterality Status Provider Name and Address Organization Details Recorded Time 9 Nebulizer treatment - DH completed CARYL VICK NP [address], [place], [address], [place] [facility] 11/07/2018 12:05:21 lobectomy of lung completed DAVID AGOSTO NP [address], [place], [address], [place] [facility] 10/04/2018 15:12:45 Imaging Results Imaging Date Name Status LastModified by Organiz ation Details LastModified Time 10/05/2018 XR, chest, 2 view completed [address] [place], [address], 10/12/2018 10:06:58 Procedure Notes None recorded. Medical Equipment None Reported. Allergies Allergen ID Allergen Name Allergen Category Reaction Reaction Severity Criticality Documentation Date Start Date Code Code System Note Provider Name and Address Organization Details Recorded Time 98074 Avelox medicatio n Not available Not available Not available 10/04/2018 38993 6 RxNorm DAVID AGOSTO NP [address], [place], [address], [place] [facility] 9 15:08:15 Medications Name Sig Start Date Stop Date Status Note LastModified by Organization Details LastModified Time prednisone 10 mg tablet 60 mg PO administe red on scene. Time administe red: 1200 2018 active Not Available Not Available Not Avai lable cefuroxime axetil 250 mg tablet 10/04 completed Not Available Not Available Not Available piperacilli n-tazobacta m 40.5 gram intravenous solution 10/04 completed Not Available Not Available Not Available trazodone 50 mg tablet active Not Available Not Available Not Available triamcinolo ne acetonide 0.5 % topical cream active Not Available Not Available Not Available azithromyci n 250 mg tablet 10/04 completed Not Available Not Available Not Available prednisone 20 mg tablet Take 3 tablets every day by oral route for 3 days. 2018 active Not Available Not Available Not Avai lable sertraline 100 mg tablet active Not Available Not Available Not Available ciprofloxac in 250 mg tablet 10/04 completed Not Available Not Available Not Available lorazepam 0.5 mg tablet active Not Available Not Available Not Available piperacilli n-tazobacta m 4.5 gram intravenous solution 10/04 completed Not Available Not Available Not Available meropenem 1 gram intravenous solution 10/04 completed Not Available Not Available Not Available losartan 50 mg-hydrochl orothiazide 12.5 mg tablet 11/07 completed Not Available Not Available Not Available fluticasone propionate 50 mcg/actuati on nasal spray,suspe nsion active Not Available Not Available Not Available ipratropium bromide 0.02 % solution for inhalation Inhale 2.5 mL every 6 hours by inhalatio n route for 30 days. 2018 active Not Available Not Available Not Avai lable losartan 100 mg-hydrochl orothiazide 12.5 mg tablet active Not Available Not Available Not Available Spiriva Respimat 2.5 mcg/actuati on solution for inhalation active Not Available Not Available N ot Available Vitals Date Recorded Heart rate Respiratory rate Body temperature Oxygen saturation Oxygen saturation in Arterial blood by Pulse oximetry Systolic blood pressure Diastolic blood pressure Provider Name and Address Organization Details Last Updated DateTime 9 68 /min 16 /min 99 [degF] 97 % 97 % 122 mm[Hg] 74 mm[Hg] Not Available [facility] 9 15:05:02 Date Recorded Respiratory rate Heart rate Oxygen saturation Oxygen saturation in Arterial blood by Pulse oximetry Body temperature Systolic blood pressure Diastolic blood pressure Provider Name and Address Organization Details Last Updated DateTime 9 22 /min 112 /min 94 % 94 % 97.9 [degF] 124 mm[Hg] 52 mm[Hg] Not Available [facility] 9 11:49:44 Social History Question Answer Notes LastModified by Organizat ion Details LastModified Time Tobacco Smoking Status Never Smoker DAVID AGOSTO NP [address], [place], [address], [place] [facility] 10/04/2018 15:11:03 Within The Past 12 Months, Has It Happened That The Food You Bought Just Didn't Last And You Didn't Have Money To Get More. Normal Information not available 10/04/2018 Within The Past 12 Months, Have You Worried That Your Food Would Run Out Before You Got Money To Buy More. Yes Information not available 10/04/2018 Fall Risk: Do You Feel Unsteady When Standing Or Walking? No Information not available 10/04/2018 What Was The Date Of Your Most Recent Tobacco Screening? 10/04/2018 Information not available 02/21/2019 Sex: Unknown Functional Status None recorded. Mental Status None recorded. Family History Relationship Description Onset Age of this Age Resolved Age Notes LastModified by Organization Details LastModified Time Father Cerebrovascu lar accident Not available 15:10:35 Mother Tuberculosis Not alessandro ilable 10/04/2018 15:10:57 Medical History Condition Response Diabetes N Coronary Artery Disease N High Cholesterol N Pulmonary Embolism N Cancer N Hypertension Y Stroke N Asthma Y COPD Y Depression Y Kidney Disease N Gynecological HistoryNo gynecological history recorded. Obstetrics History GPAL:G 0 P 0 0 0 0 Past Encounters Encounter ID Performer Location Encounter Start Date Encounter Closed Date Diagnosis/Indication Diagnosis SNOMED-CT Code Diagnosis ICD10 Code Diagnosis Note [id number] DAVID AGOSTO NP [facility] [address] [place] [address] 10/04/2018 14:57:59 10/09/2018 16:23:01 History of recurrent pneumonia 811316006 Z87.01 [id number] CARYL VICK NP [facility] [address] [place] [address] 11/07/2018 11:42:47 11/08/2018 17:44:38 Acute exacerbation of chronic obstructive pulmonary disease 389190265 J44.1 Health Concerns Section Related Observation LastModified by Organization Detai ls LastModified Time None Recorded Concern Status LastModified by Organization Details LastModified Time None Recorded Advance Directives Directive None Recorded Payers Encounter Date Sequence Insurance Name Policy Number Policy Fiore Covered Member ID Fiore Member ID Guarantor Name 10/04/2018 1 [place] [employer] Dina Mcguire [id number] Dina Vasquez 10/04/2018 2 [place] [facility] Dina Vasquez [id number] Dina Vasquez 11/07/2018 1 [facility] - DOS PRIOR TO 2022 - DUAL ELIGIBLE (MEDICARE REPLACEMENT/AD VANTAGE - HMO) Dina Vasquez [id number] Dina Vasquez Notes Date Note Type Note Provider Name and Address Organization Details Recorded Time 10/04/2018 text/html Dina Vasquez is a 58 y/o female w/a PMH of COPD, asthma, emphysema, depression, and HTN per pt. She is seen today because her VNA nurse was concerned because she said My lung sounds like there is water in it . Pt has been hospitalized twice for pneumonia, once in July 2018 for six or seven days and once in August 2018 for five days. She states she feels very weak and tired, cough with green sputum, increased shortness of breath, orthopnea, and fever. She denies taking any Tylenol, Motrin, or cough medicine. She denies chest pain, nausea, vomiting, diarrhea. She states that she has abdominal pain occasionally and a pain in the bottom of her right lung. DAVID AGOSTO, AMARIS [address] [place], [address], [place] [facility] 10/05/2018 08:25:17 11/07/2018 text/html Pt's visiting nu e stopped to day. Pt has been coughing up green phlegm, has been feeling weak and having dizziness. Has chills but no fever, has had less of an appetite, has had some increased SOB, gets SOB easily with walking, was feeling too tired to cook yesterday, dtr needed to help. Has had nausea and stomach pain that comes and goes, denies any active sx at this time. Has been in and out of the Hospital for PNA, has pseudomonas in her lungs. Last hospitalization was at the end of Aug. Pt has been using her albuterol treatment with some effect, last treatment was 2 days ago, states it doesn't really change much but it gives her heart palpations she says. Pt is not currently on any steroids. Last CXR was last month. And pt's appointment with risk control representative isn't until 11/14 and another appointment in November, pt is unable to get in to see the risk control representative sooner d/t lack of appointments. CARYL VICK NP [address], [place], [address], [place] [facility] 11/08/2018 15:10:46 OBGyn Episode No OBEpisode recorded.
== END 2024-11-29 11:58 | disposition home or self-care (01) ==
LOC: HO.HPS 11:14
PROVIDERS: PCP Internal Medicine; Visit Provider Hospitalist
DX: J45.50 Severe persistent asthma, uncomplicated (principal); J47.0 Bronchiectasis with acute lower respiratory infection; R05.3 Chronic cough; J44.9 Chronic obstructive pulmonary disease, unspecified
CPT/HCPCS: 99214; G2211

== ENCOUNTER → 2024-11-29 11:13 | Outpatient (BNVA) | payer OTHER, SELFPAY | PROVIDERS: PCP Internal Medicine; Visit Provider Hospitalist | DX: J47.0 Bronchiectasis with acute lower respiratory infection (principal); J45.50 Severe persistent asthma, uncomplicated; R05.3 Chronic cough | CPT/HCPCS: 99212 ==

== ENCOUNTER 2024-12-10 13:50 | Outpatient (REF) | payer OTHER, SELFPAY ==
--- NOTE | ~2024-12-10 | MM_ITS ---
EXAMINATION: DXA BONE DENSITY AXIAL HISTORY: Z78.0 - Asymptomatic menopausal state TECHNIQUE: [employer] Dual energy absorptiometry (DEXA) of the lumbar spine, total left hip, and femoral neck was performed. COMPARISON: Comparison is made with the prior examination dated 11/15/2022. FINDINGS: The bone mineral density of the lumbar spine is 1.251 with a T-score of 0.6, and a Z-score of 2.3. This is indicative of normal bone mineral density. This represents a BMD change of -1.1% compared to the prior exam. This is not statistically significant. The bone mineral density of the left total hip is 0.913 with a T-score of -0.7, and a Z-score of 0.5. This is indicative of normal bone mineral density. This represents a BMD change of -4.8% compared to the prior exam. This is statistically significant. The bone mineral density of the left femoral neck is 0.890 with a T-score of -1.1, and a Z-score of 0.5. This is indicative of osteopenia. This represents a BMD change of -2.4% compared to the prior exam. FRACTURE RISK: The FRAX index suggests a ten year probability of major osteoporotic fracture of 6.8%, and of hip fracture 0.5%. MM/XR DEXA axial skeleton IMPRESSION: Based on bone mineral density, and according to World Health Organization (WHO) criteria, the diagnosis is consistent with osteopenia. All bone density values are in grams per centimeter squared (g/cm2). Statistically, 68% of repeat scans fall within 1 SD (+/- 0.010 g/cm2 for AP spine L1-L4) and 1 SD (+/- 0.012 g/cm2 for femur total) FRAX is a trademark of the [employer]'s [place] [employer] Metabolic Bone Disease, a World Health Organization (WHO) Collaborating Center. Electronically signed by: Fredy Dutton MD 12/10/2024 02:48 PM EDT
--- OUTSIDE RECORDS SUMMARY | 2024-12-10 15:00 | XMS_ITS | Encounter Summary ---
Author Organization [facility] Address [facility] [place] [address] Care Team Providers Care Master Baker Name Role Phone Noelle Martínez Primary Care Provider [phone] Reason for Visit * Reason Comments E-prescribe Rx Request Encounter Details Date Type Department Care Team Description 01/21/2019 Refill Pulmonology - [place] [address] [facility] [address] [place] [address] Mitchell Barron MD E-prescribe Rx Request Social History Tobacco Use Types Packs/Day Years Used Date Smoking Tobacco: Former Smokeless Tobacco: Never Alcohol Use Standard Drinks/Week Comments Yes 1 (1 standard drink = 0.6 oz pur e alcohol) Sex Assigned at Date Recorded Not on file documented as of this encounter Miscellaneous Notes * Telephone Encounter - Marlene Lawrence - 01/21/2019 11:13 AM EDT Patient would like script to be: E-PRESCRIBED/FAXED TO PHARMACY WHEN WAS THE PATIENT'S LAST APPOINTMENT WITH THE PRESCRIBING PROVIDER? 12/11/18 Does patient have an upcoming appointment? Yes 02/01/19 (THE MEDICATION REQUESTED IS ON THE MED LIST ABOVE) All of the medications requested were on the CURRENT MEDS list Did you check the Pharmacy information above?: YES Patient wants: 30 -day supply Is this a mail order prescription request ? NO Patients current insurance carrier is: Payor: [facility] [place] [facility] / Plan: [facility] [place] / Product Type: HMO [id number] documented in this encounter Plan of Treatment Not on file documented as of this encounter Visit Diagnoses Not on filedocumented in this encounter Care Teams Master Baker Relationship Specialty Start Date End Date Noelle Martínez [address] [place] [address] [address] [place] [id number] PCP - General 06/13/00 documented as of this encounter
--- OUTSIDE RECORDS SUMMARY | 2024-12-10 15:00 | XMS_ITS | Encounter Summary ---
Author Organization [facility] Address [address] [place] [id number] Care Team Providers Care Pear Picker Name Role Phone Noelle Martínez Primary Care Provider [phone] Encounter Details Date Type Department Care Team Description 01/16/2019 Release of Information Medical Records [address] [place] [id number] Abstract, Provider Social History Tobacco Use Types Packs/Day Years Used Date Smoking Tobacco: Former Smokeless Tobacco: Never Alcohol Use Standard Drinks/Week Comments Yes 1 (1 standard drink = 0.6 oz pur e alcohol) Sex Assigned at Date Recorded Not on file documented as of this encounter Plan of Treatment Not on file documented as of this encounter Visit Diagnoses Not on filedocumented in this encounter Care Teams Pear Picker Relationship Specialty Start Date End Date Noelle Martínez [address] [facility] [address] [place], [place] [phone] PCP - General 06/13/00 documented as of this encounter
--- OUTSIDE RECORDS SUMMARY | 2024-12-10 15:00 | XMS_ITS | Clinical Summary ---
Author Organization [facility] Address [address] [place] [address] Care Team Providers Care Systems Software Developer Name Role Phone Noelle Martínez Primary Care Provider [phone] Allergies Active Allergy Reactions Severity Noted Date Comments Amlodipine Swelling/Edema 01/24/2019 Of legs Moxifloxacin Rash/Dermatitis 01/24/2019 Lisinopril Cough 01/24/2019 Medications Medication Sig Dispensed Refills Start Date End Date Status ipratropium (ATROVENT) 0.02 % nebulizer solution Take 1 mL by nebulization 2 times daily (before meals). 0 11/07/2018 Active ALAWAY 0.025 % ophthalmic solution apply 1 Drop to the eye 2 times daily. 0 11/19/2018 Active lorazepam (ATIVAN) 0.5 MG tablet Take 1 Tab by mouth daily. 0 11/19/2018 Active predniSONE (DELTASONE) 20 MG tablet Take 1 Tab by mouth daily. 0 11/07/2018 Active sertraline (ZOLOFT) 100 MG tablet Take 1 Tab by mouth daily. 0 11/19/2018 Active trazodone (DESYREL) 50 MG tablet Take 1 Tab by mouth at bedtime. 0 11/19/2018 Active mupirocin (BACTROBAN) 2 % ointment APPLY TO NARES TWICE A DAY X 5 DAYS 22 g 0 12/30/2018 Active doxycycline (VIBRA-TABS) 100 MG tablet TAKE 1 TABLET BY MOUTH TWICE A DAY 42 Tab 0 01/21/2019 Active Active Problems Problem Noted Date Hypertension 01/24/2019 Panic attacks 01/24/2019 Allergic rhinitis 01/24/2019 COPD (chronic obstructive pulmonary dise ase) 12/11/2018 Bronchiectasis 12/11/2018 Depression 12/11/2018 Pseudomonas pneumonia 12/11/2018 Immunizations Name Administration Dates Next Due Influenza (> 6 Months) 06/06/2018 Pneumoccoccal(Adult) Polysaccharide PPSV23 06/05 Pneumococcal Conjugate PCV-13 02/27/2016 TD (STATE SUPPLIED FOR ADULTS AND CHILDREN) 11/29 Family History Medical History Relation Name Comments Transposition of Aorta Daughter x 4 s urgeries, COPD, Bronchiectasis, s/p lobectomy CVA Father TIA Relation Name Status Comments Daughter Father Social History Tobacco Use Types Packs/Day Years Used Date Smoking Tobacco: Former Smokeless Tobacco: Never Alcohol Use Standard Drinks/Week Comments Yes 1 (1 standard drink = 0.6 oz pur e alcohol) Sex Assigned at Date Recorded Not on file Last Filed Vital Signs Vital Sign Reading Time Taken Comments Blood Pressure 122/86 12/11/2018 2:09 PM EDT Pulse 99 12/11/2018 2:09 PM EDT Temperature - - Respiratory Rate 16 12/11/2018 2:09 PM EDT Oxygen Saturation 94% 12/11/2018 2:09 PM EDT Inhaled Oxygen Concentration - - Weight 66.7 kg (147 lb) 12/11/2018 2:09 PM EDT Height 160 cm (5' 3 ) 12/11/2018 2:09 PM EDT Body Mass Index 26.04 12/11/2018 2:09 PM EDT Plan of Treatment Health Maintenance Due Date Last Done Comments Covid-19 Vaccine (#1) 02/14/1961 HEPATITIS C SCREENING 1979 CHOLESTEROL SCREENING 1981 BASELINE HEALTH EXAM 40-64 2001 COLON CANCER SCREENING 2011 SHINGLES VACCINE (1 of 2) 2011 DTAP/TDAP/TD (1 - Tdap) 12/23/2013 12/22/2013 CERVICAL CANCER SCREENING 03/21/20152011 (External Completion) MAMMOGRAM 06/08/2016 06/08/2015 (Exte rnal Completion) BMI CHECK/ADVISE 07/31/2024 INFLUENZA (Season Ended) 2025 06/06/2018 PNEUMOCOCCAL VACCINE FOR HIG H RISK PATIENTS Completed 02/27/2016, 06/05/2007 Care Teams Systems Software Developer Relationship Specialty Start Date End Date Noelle Martínez [address] [place] [address] [address] [place], [place] [phone] PCP - General 06/13/00
--- OUTSIDE RECORDS SUMMARY | 2024-12-10 15:00 | XMS_ITS | Clinical Summary ---
Author Organization [facility] Address [address] [place] [address] Care Team Providers Care Music Education Director Name Role Phone Unavailable Primary Care Provider Unavailabl e Surgical History Surgery Date Site/Laterality Comments OTHER SURGICAL HISTORY Right PROCEDURE: [place] THORACOSCOPY W/DX WEDGE RESEXN ANATO LUNG RESEXN; COMMENT: UL Lung resection as a child in [place] COLONOSCOPY 07/05/2013 PROCEDURE: HISTORICAL COLONOSCOPY Medical History Medical History Date Comments Hypertension 01/24/2019 DX:Hypertension Depression 12/11/2018 DX:Depression Panic attacks 01/24/2019 DX:Panic attacks Allergic rhinitis 01/24/2019 DX:Allergic rh initis Bronchiectasis ([facility] V24, [facility] V28) 12/11/2018 DX:Bronchiectasis ([facility]) COPD (chronic obstructive pu lmonary disease) ([facility] V24, [facility] V28) 12/11/2018 DX:COPD (chronic o bstructive pulmonary disease) ([facility]) Pseudomonas pneumonia ([facility]/ [facility] V24, [facility] V28) 12/11/2018 DX:Pseudomonas pneumonia ([facility]) Family [...]
--- OUTSIDE RECORDS SUMMARY | 2024-12-10 15:00 | XMS_ITS | Clinical Summary ---
Author Organization [facility] [employer] Address [address] [place] [address] [address] [place] [address] Care Team Providers Care Communication Specialist Name Role Phone Unavailable Primary Care Provider [...] 3D DIGITAL HERNAN SCR MAMMO 1 Matheus Boyle MD IMG BI PROCEDURES Final Result from Last 3 Months or Most Recently Relevant to Health Maintenance
--- OUTSIDE RECORDS SUMMARY | 2024-12-10 15:00 | XMS_ITS | Data Portability ---
Author Organization [facility] [place] - [facility] Address [address] [place] [phone] Care Team Providers Care Machined Parts Quality Inspector Name Role Phone [facility] Referring Provider Assessment Encounter Date Assessment Date Assessment LastModified by Organization Details LastModified Time 09/14/2021 09/14/2021 I have reviewed and agree with the assessment and plan as documented by the procurement coordinator. I provided real time medical direction for this encounter and was immediately available to provide additional phone based assistance as needed. History as noted by procurement coordinator. Pt with history of COPD, has had [...] QL IA, respiratory specimen 2021 022 [email or web address] [facility], [address] [place] [address], [place], [phone] 19:28:56 unlisted lab - covid-19 (novel coronavirus ) PCR 2021 022 stepheno [facility] (Centralized Electronic Ordering - All Locations), Patient Can Go To The Location Of Their Choice, [id number] 17:23:43 Referral None recorded. Procedures None recorded. Surgeries None recorded. Imaging None recorded. Medication Orders Paxlovid 300 mg (150 mg x 2)-100 mg tablets in a dose pack 2021 [facility]- , [address] [place], [place], [id number], 15:27:26 amoxicillin 875 mg-potassiu m clavulanate 125 mg tablet 2021 [facility]- , [address] [place], [place], [id number], 15:27:26 azithromyci n 250 mg tablet 2021 [facility]- , [address] [place], [place], [id number], 15:27:32 Patient TargetsNo targets recorded. Patient InstructionsNo instructions recorded. Reason for Referral None Reported. Results Created Date Observation Date Name Description Value Unit Range Abnormal Flag Note LastModifiedBy Organization Detail LastModifiedTime 04/13/2004/13/2022 rapid SARS CoV 2 Ag, QL IA, respi rator y speci men rapid SARS CoV 2 Ag, QL IA, respiratory specimen positi ve Not Available [facility] ed [address] [place] [address], [phone] 04/13/2022 19:28:44 Result Notes None recorded. Medical Equipment None Reported. Allergies Allergen ID Allergen Name Allergen Category Reaction Reaction Severity Criticality Documentation Date Start Date Code Code System Note Provider Name and Address Organization Details Recorded Time 7981 Bactrim medicatio n Not available Not available Not available 05/28/2024 37229 9 RxNorm Not Available [facility] 03:41:06 Medications Name Sig [...] mm[Hg] 76 mm[Hg] Nino Rosales MD [address] [facility],[address], [place], [address] [place], [place] - [employer] 2 12:42:05 Date Recorded Body temperature Heart [...] /min 96 % 96 % 20 /min 89132.2 08 g 157.48 cm 46013.2 08 g 96 /min 20 /min 98 [...] 62 Nino Rosales MD Main - [facility] [address] [place] [phone] 09/14/2021 11:46:50 02/15/2022 10:31:29 Malaise and fatigue 295234511 R53.83 [id number] Ramirez Will MD Main - [facility] [address] [place] [phone] 04/13/2022 15:17:43 04/25/2022 13:12:17 COVID-19 802388095 U07.1 Will tx empicially with Paxlovid Community acquired pneumonia 219643809 J18.9 Per procurement coordinator example, rhonchi in lungs unilateral ly with green sputum. WIll tx empiricall y for CAP as well as COVID Health Concerns Section Related Observation LastModified by Organization Detai ls LastModified Time None Recorded Concern Status LastModified by Organization Details LastModified Time None Recorded Advance Directives Directive None Recorded Payers Insurance Date Sequence Insurance Name Policy Number Policy Fiore Covered Member ID Fiore Member ID Guarantor Name 08/21/2023 1 [facility] - DOS PRIOR TO 2022 - DUAL ELIGIBLE (MEDICARE REPLACEMENT/ADV ANTAGE - HMO) Dina Vasquez [id number] Dina Vasquez 02/08/2024 1 [facility] - DOS ON OR AFTER 2022 - DUAL ELIGIBLE - INTERMEDIATE OPTIONS AND ONE CARE (MEDICARE REPLACEMENT/ADV ANTAGE - HMO) Dina Vasquez [id number] Dina Vasquez Notes Date Note Type Note Provider Name and Address Organization Details Recorded Time 09/14/2021 text/html This was a supervised home visit with procurement coordinator Petar Shaffer. Member reports generalized weakness, and [...] SWAB WAS ORDERED, OBTAINED AND BROUGHT TO [facility] FOR [facility]NALYSIS, PATIENT IS TO FOLLOW UP WITH PCP AND CARE TEAM REGARDING S/S. RED FLAGS DISCUSSED. CONTACT 911 FOR ANY RED FLAGS OR EMERGENCIES. Nino Rosales MD [address] [facility],[address], [place], [phone], Behavio 09/14/2021 13:07:53 04/13/2022 text/html HPI: Cuban speaking member called [facility], reports suspected COVID. [...] .................. .................. .................. .................. .................. .................. ............... Human Anatomy Teacher Note: Sent to a call for a [...] dry; Rapid flu: neg, rapid covid: pos; [facility] sends script to pt's pharmacy for antibiotics to treat possible pneumonia and medication for covid. Pt advised to drink honey with tea, steam bowl to loosen phlegm, stay hydrated, and isolate according to covid precautions. Red flags discussed. Pt has no further questions. .................. .................. .................. .................. .................. .................. .................. ............... Disposition: Fulfilled note: , hx per above Ramirez Will MD [address] [facility],[address], [place], [address], SACHI SembraireJUAN FRYE 04/13/2022 19:29:47 OBGyn Episode No OBEpisode recorded.
== END 2024-12-10 13:51 | disposition home or self-care (01) ==
LOC: HO.MAMMO 13:50
PROVIDERS: PCP Internal Medicine; Visit Provider Internal Medicine
DX: Z12.31 Encounter for screening mammogram for malignant neoplasm of breast (principal); Z13.820 Encounter for screening for osteoporosis; Z78.0 Asymptomatic menopausal state
CPT/HCPCS: 77063; 77067; 77080

== ENCOUNTER → 2024-12-10 14:30 | Outpatient (BNV) | payer OTHER, SELFPAY | PROVIDERS: PCP Internal Medicine; Visit Provider Radiology Diagnostic Radiology | DX: E28.39 Other primary ovarian failure (principal) | CPT/HCPCS: 77080 ==

== ENCOUNTER 2025-02-11 14:09 | Outpatient (AMB) | payer OTHER, SELFPAY ==
--- NOTE | 2025-02-11 14:14 | A.OFFVIS_ITS ---
Vital Signs 02/11/25 14:15 Height 5 ft 3 in Weight 126 lb 12.253 oz BMI 22.5 BP 124/70 Blood Pressure Location Lt brachial Position Sitting Pulse 92 Pulse Source Pulse Oximeter Pulse Oximetry (%) 95 Oxygen Delivery Method Room Air Intake Visit Reasons: Cough Accompanied by: Self / Same As Patient Allergies lisinopril Allergy (Mild, Verified 02/11/25 14:20) cough moxifloxacin (Avelox) Allergy (Mild, Verified 02/11/25 14:20) rash sulfamethoxazole (From Bactrim) Allergy (Mild, Verified 02/11/25 14:20) Rash trimethoprim (From Bactrim) Allergy (Mild, Verified 02/11/25 14:20) Rash HPI Comments Details: The patient is a 64 year-old woman known severe persistent asthma and also bronchiectasis. She was in her usual state health until about a week ago when she started developing productive cough with yellowish phlegm. She has also had some chills and subjective fevers. Also has been complaining of pleuritic discomfort mainly on the right side. Mild in nature. In the office she was noted to be wheezing. She did receive a nebulized treatment. We try getting a sputum sample which he was unable to do so. She has had bronchoscopies in the past. I would have to go to [facility] to review her cultures. In the meantime going to treated for pneumonia. She was treated with Augmentin for bronchopneumonia. Her x-ray also demonstrated worsening right basilar opacity. She is status post bronchoscopy. Ultimately doing much better after the procedure. She did have significant period secretions. She did grow Proteus and was treated with antibiotics. No Pseudomonas was found into specimens which is reassuring that she no longer has Pseudomonas in her bronchiectatic airways. Unfortunate she did become sick with flu-like symptoms. She then developed a sore throat. She also has a cough. But otherwise has not had any fevers or chills or any other constitutional complaint. She has been on multiple antibiotics already so therefore will try to hold off on any antibiotics at this time. She has been using her nebulizer treatments and has been using her percussion vest. She is to continue to do so. 06/26/2023 the patient is here for a pulmonary follow-up visit. She is doing better from a medication adherence standpoint. She did complete the Augmentin and treated the Proteus lung infection. She has been using her percussion vest. She also has been using the Trelegy inhaler and also hypertonic saline for CPT. The patient also has been taking the azithromycin 3 times a week. She is doing a little better and I did remind her that this is chronic therapy and she needs to continue. It is helping. Recently she did have a respiratory illness and she was having worsening respiratory symptoms and she responded well to just using her nebulizer more often. Did not need any more prednisone which is reassuring. Right now her respiratory exam is better. Also, we did review her CT scan of the chest. She has extensive bronchiectatic changes. significantly cystic in nature. Affecting primarily the right hemithorax although also has some in the left lower lobe. We did review the blood work. No evidence of any immunodeficiencies or connective tissue conditions. She did have a surgery when she was in [place]. We do not have the pathology although that would be helpful. based on the severity of disease in her asthma we did review her blood work. Her IgE level was actually within normal and also her eosinophilic level. Therefore biologic therapies are likely to be effective for her. Therefore hold off. I did recommend she get a 2nd opinion in [place]. Ideally the same hospital that her daughter goes to in case there is a genetic disposition. The patient will give me the name in the hospital so I can make the referral. In the meantime we are going to repeat her sweat test looking for cystic fibrosis variance and also would be also a candidate for lung transplant specially the bronchiectasis were to worsen. 09/12/2023 the patient has a telehealth visit today. She was recently in the hospital with severe influenza. The patient did have an abnormal chest x-ray with airspace disease and she was treated with antiviral therapy. She was also given antibiotics and prednisone. She was receiving oxygen. She was able to be weaned off oxygen and be able to be discharged on oral antibiotics. Initially she was feeling well and now she started to develop worsening cough chest congestion. Her mucus secretions are greenish in color. They are thick and tenacious. She is using the nebulizer. She also has a percussion vest that she can use for chest physical therapy. Will go ahead and send doxycycline to the pharmacy to treat her for postviral bacterial infections. In the meantime if symptoms worsen or not improve she should call back the office back to the hospital the patient did complete a course of prednisone although she still feels chest tightness and wheezing. Will go ahead and send a lower dose for longer period of time. Otherwise follow-up in several weeks in the office to perform a 6 minute walk test. Likely the patient will need additional imaging studies. 10/06/2023 the patient is here for pulmonary follow-up visit. She still struggles with her cough and chest congestion. Her cough is productive of purulent like secretions. We were able to get 1 for the laboratory. Will waiting for the results. In the meantime she had been on doxycycline and she did respond well to it while she was on it for few weeks. Now she is offering her symptoms are getting worse. It may be that she has a component of stenotrophomonas. Will go ahead and send another sputum in place her back on doxycycline. If she has a resistant organism or resistant enteric organism we may need to do additional antibiotics. We could also consider inhaled tobramycin for Pseudomonas. Will have to wait for the results. In the meantime she does have significant bronchiectasis. She does not always use her vest. I did have an Acapella valve I did provide her she can use that in between when she can not get to using her percussion vest. She understands the importance of mucus clearance. She continues with respiratory therapy. Currently she has not on any prednisone. We also talked about a referral to [place]. Right now which the waiting for her to be scheduled but I do believe that based on the severity of disease would be very reasonable to have her go to [place] for a 2nd opinion. 12/18/2023 the patient is here for a pulmonary follow-up visit. Since we last spoke the patient did have a sputum sample positive for Pseudomonas. We did order the inhaled tobramycin but she had an allergic reaction with some redness of the eyes. She then took a break and then she restarted the medicine just once a day she still had a reaction should she stopped it altogether. The patient starting to get more chest congestion. She feels shortness of breath. During the office visit we did taken for 6 minute walk test the patient did desaturate down to 88% during the walk. She was visibly dyspneic with a dyspnea score of 6/10. The patient at this point based on her chronic lung disease and now seems to be worsening progressive in nature would benefit from oxygen supplementation. Will set her up with a local [employer] with a portable oxygen concentrator that she can use with activity. The patient also will start ciprofloxacin to see if we can treat her underlying Pseudomonas in her lungs seems to be getting worse at this time. She has had a reaction to Avelox in the past. Although was mainly rash. Will go ahead and start a small dose and see if she can not tolerate it. If she does then she will continue. Then, I did give her a Ernestine system where she could try to see if using this device will be less contact with her eyes and hopefully she could tolerate the inhaled CARLOS. But she knows not to start both antibiotics together because then we will not know if she has a reaction or interaction. The patient does have a referral to [place] for her underlying bronchiectasis and she will be seeing 1 of the [facility] in [place] in the beginning all this. So the Will try to improve her respiratory issues right now but hopefully she will get further guidance when she goes for her 2nd opinion. 03/26/2024 the patient is here for a pulmonary follow-up visit. The patient did go to [place]. She is currently being evaluated. She is going to undergo a CT scan is PFTs in the near future. In the meantime she does continue to use inhaled tobramycin. She has been taking care for daughter who has been sick after a cardiac transplant. Therefore she has not been as compliant to the therapy. She does have worsening chest congestion. Moderate severity. Significant mucus production. Will go ahead and start her on ciprofloxacin times if we can help with significant worsening of respiratory symptoms. She has been using the oxygen with good effect. She does have a portable oxygen concentrator that she uses with activity. 06/17/2024 the patient is here for preoperative evaluation. The patient overall has been doing okay from a respiratory status. She has been doing the inhaled tobramycin and also the azithromycin 3 times a week. She also continues with chest PT. she is having issues with her tearing specially on the left eye. She did follow-up with Ophthalmology they did recommend surgery. She was referred to us for preoperative evaluation. Respiratory status is doing okay. She is having some on and off discomfort in the right lung which she has significant bronchiectasis. The patient also has oxygen that she uses with activity. She has been able to intermittently use it since she has been feeling a little better. The patient also followed up in [place] and getting additional workup for the bronchiectasis and sinusitis. She completed spirometry in the office and her FEV1 is only 48% consistent with severe obstructive airway disease. 11/29/2024 the patient is here for a pulmonary follow-up visit. She is complaining of worsening respiratory symptoms. Has had significant chest tightness and cough. Very thick tenacious mucus difficult to clear. Yellowish in color. She has a Aerobika valve that she uses regularly. Unfortunately she has been taking care of her very sick daughter that underwent a cardiac transplant and she was not being adherent to her therapy. She is no longer using the inhaled CARLOS 20 days on 20 days off for the bronchiectasis and Pseudomonas. Therefore we did resubmit to the pharmacy and will go ahead and get him started on that. In the meantime will start her on Cipro she is colonized with Pseudomonas and gets frequent infections. She will continue with CPT. She does get tremulous from the albuterol so I will send her Xopenex that she can use between 2 to 4 times a day. She also has been using the hypertonic saline should be using that twice a day. She does have a percussion vest but does not seem to use it regularly. So at least she can use the Aerobika for now. She is following up in [place] soon and will be having a CT scan of the chest. Further recommendations based on forthcoming data. 02/11/2025 the patient is here for pulmonary follow-up visit. Overall she is doing well she continues on the inhaled CARLOS 28 days on and 28 days off. She continues with rest with respiratory therapy. He does not perform as much CPT as she should although she does have all the resources for. The patient did follow-up in [place]. She did have a CT scan also a sputum sample sent. She was told she did not have any lung infections actively. Overall reassuring. In the meantime she does complaint of cough and chest congestion and sneezing. Will go ahead and restart her back in the Singulair and also will start her on azithromycin 3 times a week. She will continue with his current respiratory therapy and we did talk about the importance of CPT. The patient will follow-up in about 4 months. Otherwise if she has any issues she will call for further recommendations. We also talked about vaccines. She needs to get her Prevnar 21 vaccine. In the fall she should get her RSV and her flu and COVID as she gets it. [facility] Medical History (Updated 10/14/24 @ 19:18 by Sol Hall MD) Physical exam Blurry vision, bilateral Asthma Cough Sinusitis Sinusitis Bronchiectasis Asthma Screen for colon cancer Ear discomfort Bronchopneumonia Elevated hemoglobin Influenza A Acute febrile illness Hypoxia Allergies Pre-op chest exam Acute hypoxic respiratory failure Asthma-COPD overlap syndrome Bronchiectasis Surgical History H/O pneumonectomy History of bronchoscopy Family History Daughter Bronchiectasis Colon polyps Brother Mental health disorder Mother No problems noted. Father Stroke Social History Housing: Apartment Do you presently have visiting nurse or other home services: No Alcohol intake: current Alcohol intake frequency: holidays/special occasions only Alcohol type: wine Patient Tobacco Use Status: Former Tobacco user Tobacco use type: Cigarette Years Smoked: 5 years e-Cigarette/Vaping Use: Never Used Second Hand Smoke Exposure: No service: No Current occupational status: unemployed and retired Cognitive needs: No Hearing needs: No Vision needs: Yes Review of Systems Const Denies chills, Denies fatigue, Denies fever(s), Denies weight gain and Denies weight loss Eyes Reports as per HPI ENT Denies dizziness, Denies lip swelling and Denies tongue swelling Card Denies chest pain, Denies leg edema, Denies lightheadedness, Denies palpitations, Denies dyspnea on exertion, Denies orthopnea and Denies other Resp Denies cough and Denies dyspnea on exertion GI Denies hematochezia and Denies change in stool character Musc Denies abnormal gait, Denies muscle weakness, Denies numbness, Denies radiating pain into limb and Denies tingling Neuro Denies abnormal gait, Denies dizziness, Denies numbness and Denies tingling Psych Denies no additional complaints Endo Denies fatigue and Denies palpitations Jay/Lymph Denies easy bleeding and Denies lymphadenopathy Aller/Immun Denies lip swelling and Denies tongue swelling Physical Exam Vital Signs: Last Vital Signs Pulse 92 02/11/25 14:15 BP 124/70 02/11/25 14:15 Pulse Ox 95 02/11/25 14:15 Oxygen Delivery Method Room Air 02/11/25 14:15 BMI result Body Mass Index 22.5 Const General: alert Neck Neck: Yes normal visual inspection, Yes full ROM and Yes no lymphadenopathy Chest Chest palpation & inspection: normal inspection of the chest Resp Effort & Inspection: normal respiratory effort Auscultation: crackles, no wheezes and diminished lung sounds Cardio Rate: regular rate Rhythm: regular rhythm Heart sounds: S1 normal heart sound present and S2 normal heart sound present GI Palpation (GI): Soft to palpation and nontender Auscultation: normal bowel sounds Skin General skin exam: rashes and/or lesions noted Assessment & Plan Assessment & Plan (1) Asthma: Code(s): J45.909 - Unspecified asthma, uncomplicated Category: Medical Qualifiers: Asthma complication type: uncomplicated Asthma persistence: persistent Asthma severity: severe Qualified Code(s): J45.50 - Severe persistent asthma, uncomplicated (2) Bronchiectasis: Code(s): J47.9 - Bronchiectasis, uncomplicated Category: Medical Qualifiers: Bronchiectasis type: with acute lower respiratory infection Qualified Code(s): J47.0 - Bronchiectasis with acute lower respiratory infection (3) Cough: Code(s): R05 - Cough Category: Medical Qualifiers: Cough type: chronic Qualified Code(s): R05.3 - Chronic cough (4) Asthma-COPD overlap syndrome: Code(s): J44.9 - Chronic obstructive pulmonary disease, unspecified Category: Medical (5) Bronchiectasis: Code(s): J47.9 - Bronchiectasis, uncomplicated Category: Medical Qualifiers: Bronchiectasis type: with acute lower respiratory infection Qualified Code(s): J47.0 - Bronchiectasis with acute lower respiratory infection Plan continue oxygen 2L/pulse with portable oxygen concentrator with activity Continue Breztri Continue nebulized therapy restart inhaled Carlos 28 days on; 28 days off Start Azithromycin 250mg MWF restart Singulair sputum culture if not better CPT with albuterol->hypertonic saline 7% with percussion vest and [facility] [place] for the extensive bronchiectasis in progress Follow-up in 3-4 months Medications: New azithromycin Take 1 tablet on Monday/Monday/Monday 250 mg PO 3XW 12 tabs 6RF 28 days K21.9 - Gastro-esophageal reflux disease without esophagitis montelukast 10 mg PO DAILY 30 tabs 11RF 30 days J45.909 - Unspecified asthma, uncomplicated Coding Level of Care Code Est Pt Level 4 (27759) Complex EM visit Add On G2211 Diagnoses Severe persistent asthma without complication J45.50 Asthma complication type: uncomplicated Asthma persistence: persistent Asthma severity: severe Bronchiectasis with acute lower respiratory infection J47.0 Bronchiectasis type: with acute lower respiratory infection Chronic cough R05.3 Cough type: chronic Asthma-COPD overlap syndrome J44.9 Time Spent (min) 16
[2025-02-11 14:15] VITALS: BP 124/70; PULSE 92; O2SAT 95; BMI 22.5
--- OUTSIDE RECORDS SUMMARY | 2025-02-11 15:26 | XMS_ITS | Clinical Summary ---
Author Organization [employer] Address [address] [place] [address] [address] [place] [address] Care Team Providers Care Ed Case Manager Name Role Phone Unavailable Primary Care Provider [...] 1961 FIT 1961 FOBT 1961 Sigmoidoscopy 1961 Disability Screening 1961 Alcohol/Substance Use Screening 1973 Tobacco Screening 1973 Pap Smear 1982 Cervical Cancer Screening 1991 HPV/Cotest 1991 Pneumococcal Vaccine: 50+ Years (3 of 3 - PCV20 or PCV21) 02/26/2021 02/27/2016, 06/05/2007 Mammogram 01/20/2022 01/21/2020 COVID-19 Vaccine (3 - 2023-2 5 season) 2024 11/30/2020, 11/02/2020 Influenza Vaccine (#1) 2025 0, 06/06/2018 DTaP/Tdap/Td Vaccines (2 - T d or Tdap) 10/16/2029 10/17/2019, 12/22/2013 RSV Patients and Patients Aged 60 years or older (1 - 1-dose 75+ series) 2036 Zoster Vaccines Completed 10/09/2019, 07/26/2019 HIB Vaccines [...]
--- OUTSIDE RECORDS SUMMARY | 2025-02-11 15:26 | XMS_ITS | Clinical Summary ---
Author Organization [facility] Address [address] [place] [id number] Care Team Providers Care Handkerchief Cutter Name Role Phone Noelle Martínez Primary Care Provider [phone] Allergies Active Allergy Reactions Severity Noted Date [...] (Exte rnal Completion) BMI CHECK/ADVISE 07/31/2024 INFLUENZA (#1) 2025 06/06/2018 PNEUMOCOCCAL VACCINE FOR HIG H RISK PATIENTS Completed 02/27/2016, 06/05/2007 Care Teams Handkerchief Cutter Relationship Specialty Start Date End Date Noelle Martínez [address] [place] [address] [phone] [place], [place] [phone] PCP - General 06/13/00
--- OUTSIDE RECORDS SUMMARY | 2025-02-11 15:27 | XMS_ITS | Data Portability ---
Author Organization [employer] [facility], [facility] Address [address] [place] [address] Care Team Providers Care Senior Sales Consultant Name Role Phone [facility] Referring Provider [phone] Assessment Encounter Date Assessment Date Assessment LastModified by Organization Details LastModified Time 09/14/2021 09/14/2021 I have reviewed and agree with the assessment and plan as documented by the control system computer scientist. I provided real time medical direction for this encounter and was immediately available to provide additional phone based assistance as needed. History as noted by control system computer scientist. Pt with history of COPD, has had [...] IA, respiratory specimen 2021 022 [email or web address] [facility], [address] [place] [address], [place], [address] 19:28:56 unlisted lab - covid-19 (novel coronavirus ) PCR 2021 022 gloria [facility] (Centralized Electronic Ordering - All Locations), Patient Can Go To The Location Of Their Choice, [address] 17:23:43 Referral None recorded. Procedures None recorded. Surgeries None recorded. Imaging None recorded. Medication Orders Paxlovid 300 mg (150 mg x 2)-100 mg tablets in a dose pack 2021 [facility]- , [address], [place], [id number], 15:27:26 amoxicillin 875 mg-potassiu m clavulanate 125 mg tablet 2021 [facility]- , [address], [place], [id number], 15:27:26 azithromyci n 250 mg tablet 2021 [facility]- , [address], [place], [id number], 15:27:32 Patient TargetsNo targets recorded. Patient InstructionsNo instructions recorded. Reason for Referral None Reported. Results Created Date Observation Date Name Description Value Unit Range Abnormal Flag Note LastModifiedBy Organization Detail LastModifiedTime 04/13/2004/13/2022 rapid SARS CoV 2 Ag, QL IA, respi rator y speci men rapid SARS CoV 2 Ag, QL IA, respiratory specimen positi ve Not Available [facility] ed [address] [place] [address], [id number] 04/13/2022 19:28:44 Result Notes None recorded. Medical Equipment None Reported. Allergies Allergen ID Allergen Name Allergen Category Reaction Reaction Severity Criticality Documentation Date Start Date Code Code System Note Provider Name and Address Organization Details Recorded Time 7981 Bactrim medicatio n Not available Not available Not available 05/28/2024 81247 9 RxNorm Not Available [facility] 03:41:06 Medications Name Sig Start [...] blood by Pulse oximetry Body temperature Systolic And Diastolic Provider Name and Address Organization Details Last Updated DateTime 2 65 /min 18 /min 96 % 96 % 98 [degF] 129/76 mm[Hg] Nino Rosales MD [address] [facility],[address], [place], [address] [place], [place] - [employer] 2 12:42:05 Date Recorded Body temperature Heart rate Oxygen saturation Oxygen saturation in Arterial blood by Pulse oximetry Respiratory rate Body weight Body height Body weight Heart rate Respiratory rate Body temperature Oxygen saturation Provider Name and Address Organization Details Last Updated DateTime 98 [degF] 96 /min 96 % 96 % 20 /min 54967.2 08 g 157.48 cm 22700.2 08 g 96 /min 20 /min 98 [degF] 96 % Not Available [employer] - production 15:44:27 Date Recorded Oxygen saturation in Arterial blood by Pulse oximetry Body height Systolic And Diastolic Systolic And Diastolic Provider Name and Address Organization Details Last Updated DateTime 04/13/2022 96 % 157.48 cm 126/87 mm[Hg] 126/87 mm[Hg] Not Available [employer] - production 15:44:27 Social History None recorded. [...] 62 Nino Rosales MD Main - [facility] [address] [place] [phone] 09/14/2021 11:46:50 02/15/2022 10:31:29 Malaise and fatigue [id number] R53.83 [id number] Ramirez Will MD Main - [facility] [address] [place] [phone] 04/13/2022 15:17:43 04/25/2022 13:12:17 COVID-19 [id number] U07.1 Will tx empicially with Paxlovid Community acquired pneumonia [id number] J18.9 Per control system computer scientist example, rhonchi in lungs unilateral ly with [...] Fiore Member ID Guarantor Name 08/21/2023 1 [facility] - DOS PRIOR TO 2022 - DUAL ELIGIBLE (MEDICARE REPLACEMENT/ADV ANTAGE - HMO) Dina Vasquez [id number] Dina Vasquez 02/08/2024 1 [facility] - DOS ON OR AFTER 2022 - DUAL ELIGIBLE - [facility] OPTIONS AND ONE CARE (MEDICARE REPLACEMENT/ADV ANTAGE - HMO) Dina Vasquez [id number] Dina Vasquez Notes Date Note Type Note Provider Name and Address Organization Details Recorded Time 09/14/2021 text/html This was a supervised home visit with control system computer scientist Petar Shaffer. Member reports generalized weakness, and [...] SWAB WAS ORDERED, OBTAINED AND BROUGHT TO [facility] FOR ANALYSIS, PATIENT IS TO FOLLOW UP WITH PCP AND CARE TEAM REGARDING S/S. RED FLAGS DISCUSSED. CONTACT 911 FOR ANY RED FLAGS OR EMERGENCIES. Nino Rosales MD [address] [facility],[address], [place], [address], [employer] [facility] [employer] 09/14/2021 13:07:53 04/13/2022 text/html HPI: Yakut speaking member called [facility], reports suspected COVID. [...] .................. .................. .................. .................. .................. .................. ............... Online Marketing Strategist Note: Sent to a call for a [...] dry; Rapid flu: neg, rapid covid: pos; [facility] sends script to pt's pharmacy for antibiotics to treat possible pneumonia and medication for covid. Pt advised to drink honey with tea, steam bowl to loosen phlegm, stay hydrated, and isolate according to covid precautions. Red flags discussed. Pt has no further questions. .................. .................. .................. .................. .................. .................. .................. ............... Disposition: Fulfilled note: , hx per above Ramirez Will MD [address] [facility],[address], [place], [address], [employer] 04/13/2022 19:29:47 OBGyn Episode No OBEpisode recorded.
--- OUTSIDE RECORDS SUMMARY | 2025-02-11 15:27 | XMS_ITS | Clinical Summary ---
Author Organization [facility] Address [address] [place] [address] Care Team Providers Care Ink Jet Operator Name Role Phone Unavailable Primary Care Provider Unavailabl e Surgical History Surgery Date Site/Laterality Comments OTHER SURGICAL HISTORY Right PROCEDURE: [place]OR[place] W/DX WEDGE RESEXN ANATO LUNG RESEXN; COMMENT: [place] Lung [place] COLONOSCOPY 07/05/2013 PROCEDURE: HISTORICAL COLONOSCOPY Medical History Medical History Date Comments Hypertension 01/24/2019 DX:Hypertension Depression 12/11/2018 DX:Depression Panic attacks 01/24/2019 DX:Panic attacks Allergic rhinitis 01/24/2019 DX:Allergic rh initis Bronchiectasis ([facility] V24, [facility] V28) 12/11/2018 DX:Bronchiectasis ([facility]) COPD (chronic obstructive pu lmonary disease) ([facility] V24, [facility] V28) 12/11/2018 DX:COPD (chronic o bstructive pulmonary disease) ([facility]) Pseudomonas pneumonia ([facility]/ [facility] V24, [facility] V28) 12/11/2018 DX:Pseudomonas pneumonia ([facility] C) Family [...] - 2023-2 5 season) 2024 Influenza Vaccine (#1) 2025 06/06/2018 RSV Immunization Adult Patients (1 - 1-dose 75+ series) 2036 HIB Vaccines Aged Out No longer eligi [...]
== END 2025-02-11 14:42 | disposition home or self-care (01) ==
LOC: HO.HPS 14:10
PROVIDERS: PCP Internal Medicine; Visit Provider Hospitalist
DX: J45.50 Severe persistent asthma, uncomplicated (principal); J47.0 Bronchiectasis with acute lower respiratory infection; R05.3 Chronic cough; J44.9 Chronic obstructive pulmonary disease, unspecified
CPT/HCPCS: 99214; G2211

== ENCOUNTER → 2025-02-11 14:09 | Outpatient (BNVA) | payer OTHER, SELFPAY | PROVIDERS: PCP Internal Medicine; Visit Provider Hospitalist | DX: J45.50 Severe persistent asthma, uncomplicated (principal); J47.0 Bronchiectasis with acute lower respiratory infection; R05.3 Chronic cough; J44.9 Chronic obstructive pulmonary disease, unspecified | CPT/HCPCS: 99212 ==

== ENCOUNTER 2025-03-07 13:10 | Outpatient (AMB) | payer OTHER, SELFPAY ==
--- OUTSIDE RECORDS SUMMARY | 2025-03-07 13:13 | XMS_ITS | Clinical Summary ---
Author Organization [employer] Address [address] [place] [address] [address] [place] [address] Care Team Providers Care Media Marketing Manager Name Role Phone Unavailable Primary Care [...]
--- OUTSIDE RECORDS SUMMARY | 2025-03-07 13:13 | XMS_ITS | Clinical Summary ---
Author Organization [facility] Address [address] [place] [address] Phone Care Team Providers Care General Production Manager Name Role Phone Unavailable Primary Care Provider Unavailabl e Allergies No known active allergies Encounters Date Type Department Care Team Description 02/03/2025 Orders Only [facility] [address] [place] [address] Chely Talamantes Research subject (Primary Dx) 01/29/2025 12:37 PM EDT - 01/29/2025 11:59 PM EDT Hospital Encounter [facility] [address] [place] [address] Discharge Disposition: Home 01/29/2025 12:37 PM EDT - 01/29/2025 11:59 PM EDT Hospital Encounter [facility] [address] [place] [address] Bronchiectasis without complication (HCC) Discharge Disposition: Home 01/29/2025 Travel 12/27/2024 Orders Only [facility] [address] [place] [address] Matheus Huber MD Bronchiectasis without complication (HCC) (Primary Dx) from Last 3 Months Social History Tobacco Use Types Packs/Day Years Used Date Smoking Tobacco: Never Assessed Comments Unknown Sex and Gender Information Value Date Recorded Sex Assigned at Female 01/06/2025 1:14 PM EDT Legal Sex Female 7:49 AM EST Gender Identity Female 01/06/2025 1:14 PM EDT Sexual Orientation Not on file Plan of Treatment Health Maintenance Due Date Last Done Comments HIV Screening 1961 MMR Vaccines (1 of 1 - Standard series) 1962 Varicella Vaccines (1 of 2 - 13+ 2-dose series) 1974 Hepatitis C Screening 1979 DTaP/Tdap/Td Vaccines (3 - Td or Tdap) 04/18/2020 10/17/2019, 12/22/2013 COVID-19 Vaccine ( season) 2024 08/06/2021, 01/13/2021, 11/30/2020, Additional history exists Influenza Vaccine (#1) 2025 , 05/19/2022, 10/17/2019, Additional history exists HIB Vaccines Aged Out No longer eligi [...] Procedure Name Priority Date/Time Associated Diagnosis Comments POCT SWEAT TEST - IONTOPHORESIS Routine 01/29/2025 2:06 PM EDT Bronchiectasis without complication (HCC) from Last 3 Months Results * POCT Sweat test - Iontophoresis (01/29/2025 2:06 PM EDT) Sweat Chloride Left, POCT 22 mmol/L [facility]) Sweat Chloride Right, POCT 21 mmol/L [facility]) Sweat Comment, POCT See Impression [facility]) Sweat Test Number, POCT [id number] [facility] ([facility]) Performing Location, [facility], Clinical Labs, [address] [facility] [address], Shukri Garcia MD, PhD, [id number] [facility] Sweat Skin structure / Unknown 01/29/2025 2:06 PM EDT Impressions [facility] - 01/29/2025 2:06 PM EDT Sweat Chloride reference range: < 30 mmol/L - Negative 30 - 59 mmol/L - Indeterminate >= 60 mmol/L - Positive Note: Sweat chloride values less than 30 mmol/L have been documented in genetically proven Cystic Fibrosis patients. Clinical correlation is necessary. CLIA Perinatal Specialist: Kenji Garcia MD, PhD, CLIA license: [id number] Matheus Huber MD POINT OF CARE TEST ENTER/EDIT ORDERABLES Final Result [facility]) from Last 3 Months Insurance [address] [place] [address] [facility] [address] [place] [address] [facility]
--- OUTSIDE RECORDS SUMMARY | 2025-03-07 13:13 | XMS_ITS | Clinical Summary ---
Author Organization [facility] Address [address] [place] [address] Care Team Providers Care Nurse Ortho Name Role Phone Unavailable Primary Care Provider Unavailabl e Surgical History Surgery Date Site/Laterality Comments OTHER SURGICAL HISTORY Right [place]EDURE[place] WEDGE RESEXN ANATO LUNG RESEXN; COMMENT: [place] 07[place]05[place]2013 PROCEDURE: HISTORICAL COLONOSCOPY Medical History Medical History Date Comments Hypertension 01/24/2019 DX:Hypertension Depression 12/11/2018 DX:Depression Panic attacks 01/24/2019 DX:Panic attacks Allergic rhinitis 01/24/2019 DX:Allergic rh initis Bronchiectasis ([facility] V24, [facility] V28) 12/11/2018 DX:Bronchiectasis ([facility]) COPD (chronic obstructive pu lmonary disease) ([facility] V24, [facility] V28) 12/11/2018 DX:COPD (chronic o bstructive pulmonary disease) ([facility]) Pseudomonas pneumonia ([facility]/ [facility] V24, [facility] V28) 12/11/2018 DX:Pseudomonas pneumonia ([facility]) Family [...] Vaccine (1 - 2023-2 5 season) 2024 Depression Screening 07/31/2024 Influenza Vaccine (#1) 2025 06/06/2018 RSV Immunization [...]
--- NOTE | 2025-03-07 13:15 | A.OFFVIS_ITS ---
Vital Signs 03/07/25 13:16 Height 5 ft 3 in Weight 128 lb 11.999 oz BMI 22.8 BP 124/78 Blood Pressure Location Lt brachial Position Sitting Pulse 81 Pulse Source Pulse Oximeter Pulse Oximetry (%) 97 Oxygen Delivery Method Room Air Intake Visit Reasons: joint pain Intake Note: Patient presents today for joint pain. She states it's in her arms, legs, and sometimes feels weak. She states it's been many months. Manufacturing Storeperson Required: Yes Manufacturing Storeperson Name: Juan Miguel [phone] Allergies lisinopril Allergy (Mild, Verified 03/07/25 13:20) cough moxifloxacin (Avelox) Allergy (Mild, Verified 03/07/25 13:20) rash sulfamethoxazole (From Bactrim) Allergy (Mild, Verified 03/07/25 13:20) Rash trimethoprim (From Bactrim) Allergy (Mild, Verified 03/07/25 13:20) Rash Medication List - Last Reconciled 03/07/25 by Dulce Driscoll MD albuterol sulfate 2.5 mg (3 mL) inhalation Q4H PRN albuterol sulfate 90 mcg/actuation 2 puffs inhalation Q6H PRN calcium carbonate-vitamin D3 250 mg-3.125 mcg (125 unit) (Oyster Shell Calcium- Vitamin D3) 1 tab PO BID 90 days cetirizine 10 mg PO DAILY PRN 90 days escitalopram oxalate 20 mg PO DAILY fluticasone propionate 50 mcg/actuation 1 spray intranasal DAILY PRN xjlsnhjveai-hbgfhxqnv-sryjsort 200-62.5-25 mcg (Trelegy Ellipta) 1 ea PO DAILY ibuprofen 600 mg PO Q8H PRN 30 days levalbuterol HCl 1.25 mg (3 mL) inhalation QID 30 days lorazepam 0.5 mg PO BID PRN losartan-hydrochlorothiazide 100-12.5 mg 1 tab PO DAILY 90 days montelukast 10 mg PO DAILY 30 days sodium chloride 7% 4 mL inhalation BID tobramycin in 0.225 % NaCl 300 mg/5 mL (Chris) 300 mg (5 mL) inhalation BID 56 days HPI Comments Details: Patient is a 64 y.o. female with asthma/COPD overlap, bronchiectasis, depression/anxiety, and polyarticular OA here today for revaluation of polyarthralgias Interval History: Patient last seen 06/27/[address] Olea - New patient eval for polyarthralgias - No evidence of autoimmune disease with negative CCP and SOL - Recommended for her to follow up with her PCP Today - She is complaining of neck pain, joint pain. Associated with fatigue - No stiffness Rheumatologic History: Polyarticular OA Current Rheumatology Medication(s): [facility] Medical History (Updated 10/14/24 @ 19:18 by Sol Hall MD) Physical exam Blurry vision, bilateral Asthma Cough Sinusitis Sinusitis Bronchiectasis Asthma Screen for colon cancer Ear discomfort Bronchopneumonia Elevated hemoglobin Influenza A Acute febrile illness Hypoxia Allergies Pre-op chest exam Acute hypoxic respiratory failure Asthma-COPD overlap syndrome Bronchiectasis Surgical History H/O pneumonectomy History of bronchoscopy Family History Daughter Bronchiectasis Colon polyps Brother Mental health disorder Mother No problems noted. Father Stroke Social History Housing: Apartment Do you presently have visiting nurse or other home services: No Alcohol intake: current Alcohol intake frequency: holidays/special occasions only Alcohol type: wine Patient Tobacco Use Status: Former Tobacco user Tobacco use type: Cigarette Years Smoked: 5 years e-Cigarette/Vaping Use: Never Used Second Hand Smoke Exposure: No service: No Current occupational status: unemployed and retired Cognitive needs: No Hearing needs: No Vision needs: Yes Review of Systems Const Details: Review of Systems Constitutional: Denies fever, chills, weight loss ENT: Denies vision changes, eye pain or eye redness, dental caries, dry mouth GI: Denies nausea, vomiting, diarrhea, abdominal pain, change in BM Pulm: Denies SOB, MUNIZ, hemoptysis, wheezing Cards: Denies chest pain, palpitations Skin: Denies Raynaud's, rash, nail changes, photosensitivity, DROP WIRE HANGER: Denies headaches, weakness, paresthesias, recurrent falls MSK: as per HPI All other systems reviewed and are unremarkable except noted above Physical Exam Exam Exam: Vital signs reviewed Physical Examination CONSTITUITIONAL Patient alert and cooperative. Well appearing and in no apparent painful distress MSK Hands * Right Hand: Able to make a fist. No swelling or tenderness to palpation of these joints. * Left Hand: Able to make a fist. No swelling or tenderness to palpation of these joints. * Very mild early Herbedens nodes noted bilaterally Wrists * Right Wrist: Full ROM. 70 degrees of wrist flexion, 80 degrees of wrist extension. No swelling or TTP * Left Wrist: Full ROM. 70 degrees of wrist flexion, 80 degrees of wrist extension. No swelling or TTP Elbows * Right Elbow: Full ROM. No swelling or TTP. No TTP of the medial and lateral epicondyles * Left Elbow: Full ROM. No swelling or TTP. No TTP of the medial and lateral epicondyles Shoulders * Right shoulder: Full ROM. No swelling noted. No TTP of the AC joint, subacromial bursa or posterior shoulder * Left shoulder: Full ROM. No swelling noted. No TTP of the AC joint, subacromial bursa or posterior shoulder Knees * Right knee: Full ROM. No swelling noted. No TTP of the knee joint lie or pes anserine bursa * Left knee: Full ROM. No swelling noted. No TTP of the knee joint lie or pes anserine bursa. Ankles * Right ankle: Good ankle dorsiflexion and plantar flexion. No swelling. No TTP of the ankle joint * Left ankle: Good ankle dorsiflexion and plantar flexion. No swelling. No TTP of the ankle joint Feet * Right foot: Negative squeeze test * Left foot: Negative squeeze test Tender points? * No tenderness to palpation of the bilateral trapezius, supraspinatus, anterior costochondral junctions, bilateral suboccipital muscle insertions SKIN No rashes Vital Signs: Last Vital Signs Pulse 81 03/07/25 13:16 BP 124/78 03/07/25 13:16 Pulse Ox 97 03/07/25 13:16 Oxygen Delivery Method Room Air 03/07/25 13:16 BMI result Body Mass Index 22.8 Results Reviewed Results Reviewed: Laboratory Tests 03/20/23 06/08/24 14:13 09:08 WBC 7.4 RBC 4.94 Hgb 13.2 Hct 41.2 Plt Count 372 D ESR 65 H Sodium 142 Potassium 4.0 Chloride 104 Carbon Dioxide 26 BUN 14 Creatinine 0.70 AST 20 ALT 11 Laboratory Tests 01/07/22 14:42 Cycl Citrul Peptide IgG <16 SOL Screen NEGATIVE DEXA 11/2024 FINDINGS: The bone mineral density of the lumbar spine is 1.251 with a T-score of 0.6, and a Z-score of 2.3. This is indicative of normal bone mineral density. This represents a BMD change of -1.1% compared to the prior exam. This is not statistically significant. The bone mineral density of the left total hip is 0.913 with a T-score of -0.7, and a Z-score of 0.5. This is indicative of normal bone mineral density. This represents a BMD change of -4.8% compared to the prior exam. This is statistically significant. The bone mineral density of the left femoral neck is 0.890 with a T-score of -1.1, and a Z-score of 0.5. This is indicative of osteopenia. This represents a BMD change of -2.4% compared to the prior exam. FRACTURE RISK: The FRAX index suggests a ten year probability of major osteoporotic fracture of 6.8%, and of hip fracture 0.5%. Assessment & Plan Assessment & Plan (1) Generalized osteoarthritis: Code(s): M15.9 - Polyosteoarthritis, unspecified Plan: #Polyarticular OA Patient is a 64-year-old female with polyarticular osteoarthritis. No evidence of any autoimmune or connective tissue disease at this time. No evidence of synovitis on examination. Discussed with patient that osteoarthritis is a degenerative disease that there is no treatment for and management is usually pain control with Tylenol and/or NSAIDs which she can get [id number]. Today her most significant pain is noted in her neck. We will check x-rays and send her to pain management Plan - Follow up with PCP - Tylenol as needed - XR C spine - Pain management referral - RTC prn (2) Osteopenia: Code(s): M85.80 - Other specified disorders of bone density and structure, unspecified site Qualifiers: Osteopenia location: unspecified Qualified Code(s): M85.80 - Other specified disorders of bone density and structure, unspecified site Plan: #Osteopenia Patient had bone density which shows osteopenia with a low FRAX index Continue follow up with primary to get a bone density every 2 years Vitamin-D supplementation and weight-bearing exercises Plan I spent 20 minutes reviewing the record and labs, taking a history, examining the patient, discussing the treatment plan, ordering diagnostic work up and documenting in the medical record Orders: Orders XR cervical spine 4V Today M54.2 - Cervicalgia Referrals Pain Management Referral M54.2 - Cervicalgia Coding Level of Care Code Est Pt Level 3 (84775) Diagnoses Generalized osteoarthritis M15.9 Osteopenia, unspecified location M85.80 Osteopenia location: unspecified
[2025-03-07 13:16] VITALS: BP 124/78; PULSE 81; O2SAT 97; BMI 22.8
== END 2025-03-07 13:45 | disposition home or self-care (01) ==
LOC: HO.RHES 13:11
PROVIDERS: PCP Internal Medicine; Visit Provider Student in an Organized Health Care Education/Training Program
DX: M15.9 Polyosteoarthritis, unspecified (principal); M85.80 Other specified disorders of bone density and structure, unspecified site
CPT/HCPCS: 99213

== ENCOUNTER → 2025-03-07 13:10 | Outpatient (BNVA) | payer OTHER, SELFPAY | PROVIDERS: PCP Internal Medicine; Visit Provider Student in an Organized Health Care Education/Training Program | DX: M54.2 Cervicalgia (principal); M25.50 Pain in unspecified joint; M15.9 Polyosteoarthritis, unspecified | CPT/HCPCS: 99212 ==

== ENCOUNTER 2025-03-27 15:01 | Outpatient (AMB) | payer OTHER, SELFPAY ==
--- NOTE | 2025-03-27 15:05 | MHC.OFFVIS ---
Vital Signs 03/27/25 15:10 Height 5 ft 3 in Weight 126 lb 2 oz BMI 22.3 BP 125/60 Blood Pressure Location Lt brachial Position Sitting Pulse 95 Pulse Source Pulse Oximeter Pulse Oximetry (%) 100 Oxygen Delivery Method Room Air Intake Visit Reasons: Cervicalgia Intake Note: Pain today 09/09 Cold Storage Superintendent Required: Yes Cold Storage Superintendent Language: Talent Acquisition Assistant Name: DaughterNohemi Garcias Accompanied by: Daughter Allergies lisinopril Allergy (Mild, Verified 03/27/25 15:08) cough moxifloxacin (Avelox) Allergy (Mild, Verified 03/27/25 15:08) rash sulfamethoxazole (From Bactrim) Allergy (Mild, Verified 03/27/25 15:08) Rash trimethoprim (From Bactrim) Allergy (Mild, Verified 03/27/25 15:08) Rash HPI Comments Details: The patient is a 64-year-old female presenting with chronic neck pain. The neck pain has been persistent for about one year and affects her daily activities, including sleeping and self-care. She describes the pain as constant with varying intensity, often feeling like muscle tension, aching and spasms. The pain worsens with certain movements, such as looking up and limited lateral rotations, and is more pronounced on the right side. She has not received any prior treatment for her neck pain, including physical therapy or other interventions. Denies previous spine surgery. In addition to neck pain, the patient reports widespread body pain that has been ongoing for approximately five years. She has osteopenia, which was identified through a bone scan, and experiences dizziness and headaches for which she follow up with her PCP. The patient denies having diabetes or taking blood thinners and reports periodically low blood pressure. She does not consume alcohol, smoke, or use marijuana. - Onset: Neck pain for one year, widespread body pain for five years. - Quality: Constant pain with muscle tension, tightness, aching, sharp, pinching, dull, sore, hurting, heavy, spreading and spasms. - Location: Primarily in the neck, worse on the right side. - Radiation: Pain radiates to the arms and back. - Exacerbating factors: Looking up increases neck pain. - Interference: Affects daily activities, including sleeping and self-care. - Affect: Pain impacts daily activities and sleep. - Analgesia: Currently using ibuprofen (Motrin) for pain relief. - Adverse Effects: No adverse effects from current pain medication reported. - Activities of Daily Living: Pain limits self-care and daily functioning. - Aberrant Drug Related Behaviors: No signs of medication misuse or abuse reported. Oswestry Neck Pain Disability Score=27 [facility] Medical History Physical exam Blurry vision, bilateral Asthma Cough Sinusitis Sinusitis Bronchiectasis Asthma Screen for colon cancer Ear discomfort Bronchopneumonia Elevated hemoglobin Influenza A Acute febrile illness Hypoxia Allergies Pre-op chest exam Acute hypoxic respiratory failure Asthma-COPD overlap syndrome Bronchiectasis Surgical History H/O pneumonectomy History of bronchoscopy Family History Daughter Bronchiectasis Colon polyps Brother Mental health disorder Mother No problems noted. Father Stroke Social History Housing: Apartment Do you presently have visiting nurse or other home services: No Alcohol intake: current Alcohol intake frequency: holidays/special occasions only Alcohol type: wine Patient Tobacco Use Status: Former Tobacco user Tobacco use type: Cigarette Years Smoked: 5 years e-Cigarette/Vaping Use: Never Used Second Hand Smoke Exposure: No service: No Current occupational status: unemployed and retired Cognitive needs: No Hearing needs: No Vision needs: Yes Review of Systems Const Details: - Musculoskeletal: Reports chronic neck pain and widespread body pain. - Neurological: Reports dizziness and headaches. - Cardiovascular: Denies heart disease, reports occasionally low blood pressure. - Endocrine: Denies diabetes. All systems reviewed & are unremarkable except as noted in HPI and below Physical Exam Vital Signs: Last Vital Signs Pulse 95 03/27/25 15:10 BP 125/60 03/27/25 15:10 Pulse Ox 100 03/27/25 15:10 Oxygen Delivery Method Room Air 03/27/25 15:10 BMI result Body Mass Index 22.3 General: Appears afebrile. Alert and oriented. Mood and affect appropriate. Follows and participates in conversation appropriately. Respiratory effort is unlabored. No cough. No nasal discharge. Able to transition from sit to stand unassisted. Ambulates with bilaterally normal heel strike and toe off. Neck Other: Patient with decreased cervical ROM in all planes/especially with lateral rotation. Reports increased pain with cervical extension and muscle stiffness with flexion. Spurling compression test negative. Elvey's tension test positive bilaterally, with radiation of pain from neck to upper arms. Lhermitte's test was negative. DTR intact, +2 and symmetrical. Patient demonstrated 5/5 right and 4/5 left motor strength of bilateral upper extremities. 2 + radial pulses. Significant tightness throughout right upper trapezius as well as TTP throughout bilateral upper trapezius muscles. No paravertebral tenderness over facet joints bilaterally. Multiple taut bands palpated throughout bilateral upper trapezius muscles. Neck: Yes normal visual inspection, Yes no lymphadenopathy, Yes supple, No anterior neck swelling, Yes no JVD, No prominent supraclavicular fat pad and No prominent dorsocervical fat pad Back/Spine/Pelvis Cervical Spine: normal cervical lordosis, No Lhermitte's sign positive, cervical muscular tenderness, pain with cervical ROM, No Cervical spine scars present, cervical spasm and No Cervical spine tenderness Thoracic/Lumbar Spine: thoracic and lumbar spine normal to inspection, No Thoracic/lumbar spine scar(s), No thoracic spinal tenderness and No lumbar spinal tenderness Assessment & Plan Assessment & Plan (1) Cervical spondylosis: Code(s): M47.812 - Spondylosis without myelopathy or radiculopathy, cervical region Category: Medical (2) Cervical paraspinal muscle spasm: Code(s): M62.838 - Other muscle spasm Category: Medical (3) Cervicogenic headache: Code(s): G44.86 - Cervicogenic headache Category: Medical Plan The plan for managing chronic neck pain includes initiating formal physical therapy at [facility] to improve range of motion and reduce pain. A referral for aquatherapy at the [facility] [place] has been also provided to complement the physical therapy regimen. The patient is advised to complete a neck x-ray to further evaluate the condition and to assess degree of degenerative changes, any subluxation, listhesis, compression fractures or pars defects. Baclofen, a muscle relaxant, has been prescribed to manage muscle spasms without affecting blood pressure. The generalized body pain is acknowledged as part of the patient's chronic pain syndrome, with a focus on managing the neck pain as a priority. Further interventions will be considered based on the response to initial therapies for neck pain. All questions and concerns have been answered and patient agreed with the treatment plan. Follow up for xray results/after PT and sooner as needed. Patient was informed and verbally consented to the use of an ambient scribe for clinic note documentation during this visit. Orders: Orders PT Evaluation and Treatment Today G44.86 - Cervicogenic headache, M47.812 - Spondylosis without myelopathy or radiculopathy, cervical region, M62.838 - Other muscle spasm XR cervical spine 4V Today G44.86 - Cervicogenic headache, M47.812 - Spondylosis without myelopathy or radiculopathy, cervical region, M62.838 - Other muscle spasm PT Evaluation and Treatment Today G44.86 - Cervicogenic headache, M47.812 - Spondylosis without myelopathy or radiculopathy, cervical region, M62.838 - Other muscle spasm Medications: New baclofen 10 mg PO BID PRN 60 tabs 0RF muscle spasm 30 days G44.86 - Cervicogenic headache, M47.812 - Spondylosis without myelopathy or radiculopathy, cervical region, M62.838 - Other muscle spasm Patient Instructions: I discussed with the patient the importance of starting physical therapy to address her chronic neck pain and improve her quality of life. We talked about the potential benefits of aquatherapy and provided a referral to the [facility] for this purpose. I explained the need for a neck x-ray to further assess her condition and the role of baclofen in managing her muscle spasms. We also discussed the follow-up plan, including completing physical therapy and obtaining the x-ray, after which we will reassess her condition and consider further interventions if necessary. - Start physical therapy as prescribed to improve neck mobility and reduce pain. - Attend aquatherapy sessions at the [facility] with the provided referral. - Complete the neck x-ray at earliest convenience to assist in further evaluation. - Take baclofen as prescribed to manage muscle spasms. - Monitor symptoms of dizziness and headaches, and report any changes to your healthcare provider. Coding Level of Care Code New Pt Level 4 (47753) Diagnoses Cervical spondylosis M47.812 Cervical paraspinal muscle spasm M62.838 Cervicogenic headache G44.86
[2025-03-27 15:10] VITALS: BP 125/60; PULSE 95; O2SAT 100; BMI 22.3
--- OUTSIDE RECORDS SUMMARY | 2025-03-27 15:41 | XMS_ITS | Encounter Summary ---
Author Organization [facility] Address [address] [place] [address] Care Team Providers Care Bit And Shank Department Supervisor Name Role Phone Noelle Martínez Primary Care Provider [phone] Encounter Details Date Type Department Care Team Description 01/16/2019 Release of Information Medical Records [address] [place] [id number] Abstract, Provider Social History Tobacco Use Types [...] on filedocumented in this encounter Care Teams Bit And Shank Department Supervisor Relationship Specialty Start Date End Date Noelle Martínez [address] [place], [place] [id number] PCP - General 06/13/00 documented as of this encounter
--- OUTSIDE RECORDS SUMMARY | 2025-03-27 15:41 | XMS_ITS | Clinical Summary ---
Author Organization [facility] Address [address] [place] [address] [place] [address] Phone Care Team Providers Care Environmental Tech Name Role Phone Sol Mendosa MD Primary Care Provid er Allergies Active Allergy Reactions Criticality Noted Date Comments Amlodipine Swelling 01/24/2019 Of legs Lisinopril Cough 01/24/2019 Moxifloxacin Unknown,Rash Low 01/24/2019 Sulfamethoxazole-Trimethoprim 2023 Medications budesonide-glyc opyr-formoterol (BREZTRI AEROSPHERE) 160-9-4.8 mcg/actuation inhaler Inhale 2 puffs into the lungs 2 (two) times a day. 10.7 g 2 4 Active albuterol 2.5 mg /3 mL (0.083 %) nebulizer solution Take 2.5 mg by nebulization every 6 (six) hours as needed. Active ciprofloxacin HCl (CIPRO) 500 MG tablet Take 500 mg by mouth 2 (two) times a day. 4 Active escitalopram oxalate (LEXAPRO) 20 MG tablet Take 20 mg by mouth daily. 4 Active fluticasone propionate (FLONASE) 50 mcg/actuation nasal spray 1 spray by Nasal route daily. Active LORazepam (ATIVAN) 0.5 MG tablet Take 0.5 mg by mouth as needed. Active losartan-hydroC HLOROthiazide (HYZAAR) 100-12.5 mg per tablet Take 1 tablet by mouth daily. Active predniSONE (DELTASONE) 10 MG tablet Take 10 mg by mouth daily. Active tobramycin, PF, (CARLOS) 300 mg/5 mL nebulizer solution Take 300 mg by nebulization. Active triamcinolone acetonide 0.5 % cream Apply topically 3 (three) times a day. Active Active Problems Patient Care Coordination No te Formatting of this note migh t be different from the original. 06/10/2024 An email has been sent to the P[facility] @ [facility] for a sweat chloride, nasal nitric oxide and enroll the patient in [facility] Research Protocol for Genetic Testing. DEBRA Menard No known active problems Encounters Date Type Department Care Team Description 01/29/2025 11:59 PM EDT Hospital Encounter [facility] Phlebotomy [facility] [address] [place] [address] Glendy Pacheco MD, SCD Discharge Disposition: Home or Self Care 01/29/2025 11:30 AM EDT Office Visit [facility] Infectious Disease Medicine [address] [place] [address] Glendy Pacheco MD, SCD Persistent cough (Primary Dx); Bronchiectasis without complication from Last 3 Months Social History Tobacco Use Types Packs/Day Years Used Date Smoking Tobacco: Never Smokeless Tobacco: Never Education Answer Date Recorded Are you interested in more education? Not on mayela e 11/08/2023 Are you concerned about learning? Not on file 11/08/2023 No 11/08/2023 No 11/08/2023 Digital Access Answer Date Recorded No 11/08/2023 No 11/08/2023 Reliable internet access at home? Not on file 11/08/2023 Device with a working camera? Not on file Comments Unknown Sex and Gender Information Value Date Recorded Sex Assigned at Female 10/17/2023 3:35 PM EDT Legal Sex Female 6:43 PM EDT Gender Identity Female 10/17/2023 3:35 PM EDT Sexual Orientation Straight 10/17/2023 3: 35 PM EDT Last Filed Vital Signs Vital Sign Reading Time Taken Comments Blood Pressure 132/78 01/29/2025 11:36 AM EDT Pulse 71 01/29/2025 11:36 AM EDT Temperature 36.4 C (97.5 F) 01/29/2025 11:35 AM EDT Respiratory Rate 16 08/13/2024 9:09 AM EST Oxygen Saturation 97% 01/29/2025 11:37 AM EDT Inhaled Oxygen Concentration - - Weight 56 kg (123 lb 6.4 oz) 10/29/2024 10:40 AM EDT Height 160 cm (5' 3 ) 10/29/2024 10:40 AM EDT Body Mass Index 21.86 10/29/2024 10:40 AM EDT Plan of Treatment Upcoming Encounters Date Type Department Care Team (Late st Contact Info) Description 05/05/2025 10:30 AM EDT Office Visit [facility] Genetics [address] [place] [address] Matheus Huber MD, MPH [address] [place] [address] [email or web address] 05/14/2025 11:30 AM EDT Telemedicine [facility] Infectious Disease Medicine [address] [place] [address] Glendy Pacheco MD, SCD [address] [place] [address] Building Room [address] [place] [address] [email or web address] 07/22/2025 2:00 PM EST Office Visit [facility] [address] [place] [address] Naya Hernandez MD, PhD [address] [place] [address] Health Maintenance Due Date Last Done Comments LIPID PANEL 1961 HEPATITIS C SCREENING 1979 PAP SMEAR 1982 COLOGUARD 2006 COLONOSCOPY 2006 COLORECTAL CANCER SCREENING 2006 FIT TEST 2006 FOBT 2006 SIGMOIDOSCOPY 2006 VIRTUAL COLONOSCOPY 2006 PNEUMOCOCCAL VACCINES (50+ years) (3 of 3 - PCV20 or PCV21) 02/26/2021 02/27/2016, 06/05/2007 RSV VACCINE (1 - Risk 60-74 years 1-dose series) 2021 MAMMOGRAM 01/20/2022 01/21/2020, 01/21/2020 COVID-19 VACCINE ( - season) 2024 08/06/2021, 01/13/2021, 11/30/2020, Additional history exists CREATININE LEVEL 04/09/2025 04/09/2024 POTASSIUM LEVEL 04/09/2025 04/09/2024 DEPRESSION SCREENING 08/13/2025 08/13/2024 Adult Td,Tdap Booster 10/16/2029 10/17/2019, 014 ZOSTER VACCINES Completed 10/09/2019, 07/26/2019 HIV ONE-TIME SCREENING (18-65 YEARS) Completed 04/09/2024 SMOKING STATUS SCREENING (Once After 26 Yrs) Completed 10/29/2024 HEPATITIS A VACCINES Aged Out No long er eligible based on patient's age to complete this topic HIB VACCINES Aged Out No longer eligi ble based on patient's age to complete this topic MENINGOCOCCAL VACCINES (ACWY) Aged Out No longer eligible based on patient's age to complete this topic MENINGOCOCCAL VACCINES (B) Aged Out N o longer eligible based on patient's age to complete this topic Medical Devices Not on file Procedures Procedure Name Priority Date/Time Associated Diagnosis Comments RESPIRATORY CULTURE/SMEAR Routine 01/29/2025 2:39 PM EDT Bronchiectasis without complication FUNGAL CULTURE Routine 01/29/2025 2:39 PM EDT Bronchiectasis without complication MYCOBACTERIAL CULTURE/SMEAR Routine 01/29/2025 2:39 PM EDT Persistent cough Bronchiectasis with acute lower respiratory infection COMPREHENSIVE METABOLIC PANEL Routine 04/09/2024 10:43 AM EDT Screening for human immunodeficiency virus from Last 3 Months or Most Recently Relevant to Health Maintenance Results * (ABNORMAL) Respiratory Culture/Gram Stain (01/29/2025 2:39 PM EDT) Special Requests None 01/29/2025 2:40 PM EDT [facility] GRAM STAIN 4+ POLYS 01/29/2025 8:41 PM EDT [facility] GRAM STAIN NO EPITHELIAL CELLS 01/29/2025 8:41 PM EDT [facility] GRAM STAIN 1+ MIXED BACTERIA 01/29/2025 8:41 PM EDT [facility] Respiratory Cult/Smear 3+ PSEUDOMONAS AERUGINOSA (MUCOID STRAIN)(A) 01/31/2025 11:07 AM EDT [facility] Respiratory Cult/Smear 2+ ORAL CATA 01/31/2025 11:07 AM EDT [facility] Sputum 01/29/2025 2:39 PM EDT 01/29/2025 4:40 PM EDT Comment:64F WITH COUGH AND B RONCHIECTASIS Narrative Organism Antibiotic Method Susceptibility Pseudomonas aeruginosa (mucoid strain) Cefepime VLAD METHOD 8: Susceptible Pseudomonas aeruginosa (mucoid strain) Ciprofloxacin VLAD METHOD 1: Intermediate Pseudomonas aeruginosa (mucoid strain) Levofloxacin VLAD METHOD 1: Susceptible Pseudomonas aeruginosa (mucoid strain) Piperacillin-tazobactam VLAD METHOD <=4: Susceptible Pseudomonas aeruginosa (mucoid strain) Tobramycin VLAD METHOD 2: Susceptible Pseudomonas aeruginosa (mucoid strain) Meropenem VLAD METHOD <=0.25: Susceptible Pseudomonas aeruginosa (mucoid strain) Ceftazidime ETEST GRADIENT METHOD 2.0: Susceptible Comment: us Glendy Pacheco MD, SCD MICROBIOLOGY - GENERAL ORDERABLES Final Result [facility] [address] [place] [address] * (ABNORMAL) Mycobacterial culture/smear (01/29/2025 2:39 PM EDT) Special Requests HX OF BRONCIECTASIS SP 01/30/2025 6:56 AM EDT [facility] SMEAR NO ACID FAST BACILLI OBSERVED 02/04/2025 3:06 PM EDT [facility] SMEAR (NOTE) Method: Fluorochrome (250x): Acid-fast bacilli not found. 02/04/2025 3:06 PM EDT [facility] Mycobacterial Culture CULTURE OVERGROWN WITH CONTAMINANTS. UNABLE TO RULE OUT ACID FAST BACILLI(A) 02/10/2025 12:45 PM EDT [facility] Mycobacterial Culture (NOTE) CONTAMINANT: Culture unsatisfactory due to an overgrowth of contaminants. Consider a repeat specimen. DRUG SUSCEPTIBILITY TESTING WILL NOT BE DONE ON THIS CULTURE. 02/10/2025 12:45 PM EDT [facility] Sputum 01/29/2025 2:39 PM EDT 01/29/2025 4:40 PM EDT us Dawna Lux PA-C MICROBIOLOGY - GENERAL OR DERABLES Final Result Performing Organization Address [facility] de Phone Number [address] [address] * Fungal culture (01/29/2025 2:39 PM EDT) Special Requests None 01/29/2025 2:40 PM EDT [facility] Fungal Culture Only NO FUNGUS ISOLATED AFTER 28 DAYS 02/26/2025 8:00 AM EDT [facility] Sputum 01/29/2025 2:39 PM EDT 01/29/2025 4:40 PM EDT Comment:64F WITH COUGH AND B RONCHIECTASIS us Glendy Pacheco MD, SCD MICROBIOLOGY - GENERAL ORDERABLES Final Result Performing Organization Address [facility] Co de Phone Number [address] [address] * (ABNORMAL) Comprehensive metabolic panel (04/09/2024 10:43 AM EDT) SODIUM 141 136 - 145 mmol/L [facility] POTASSIUM 3.8 3.4 - 5.1 mmol/L [facility] CHLORIDE 98 98 - 107 mmol/L [facility] CO2 25 22 - 31 mmol/L [facility] BUN 25(H) 6 - 23 mg/dL [facility] CREATININE 0.60 0.50 - 1.20 mg/dL [facility] GLUCOSE 123(H) 70 - 100 mg/dL [facility] ALBUMIN 4.0 3.5 - 5.2 g/dL [facility] TOTAL PROTEIN 8.2 6.4 - 8.3 g/dL [facility] CALCIUM 9.9 8.8 - 10.7 mg/dL [facility] ALKALINE PHOSPHATASE 87 35 - 130 U/L [facility] TOTAL BILIRUBIN <0.2 0.0 - 1.0 mg/dL [facility] AST 13 10 - 50 U/L [facility] ALT 12 10 - 50 U/L [facility] GLOBULIN 4.2 2.2 - 4.2 g/dL [facility] EGFR 101 >59 mL/min/1. 73m2 [facility] Comment:Estimated glomerular filtration rate calculated using the CKD-EPI refit equation. ANION GAP 18(H) 7 - 17 mmol/L [facility] 04/09/2024 10:4 3 AM EDT 04/09/2024 11:46 AM EDT us Glendy Pacheco MD, SCD LAB BLOOD ORDER ZULLY Final Result [facility] [address] [place] [address] from Last 3 Months or Most Recently Relevant to Health Maintenance Insurance MEDICARE PART A & B [facility] ONE CARE MEDICARE REPLACEMENT MEDICARE PART A & B [facility] ONE CARE MEDICARE REPLACEMENT MEDICARE PART A & B Member Subscriber Plan / Payer (Ef fective 2009-Present) Name:Dina Vasquez Member ID:[id number] Relation to Subscriber:Self Name:Dina Vasquez Subscriber ID:[id number] Payer ID:[id number] Group ID:Not on file Type:Medicare Address: [place] [address] ONE CARE MEDICARE REPLACEMENT MEDICARE PART A & B [facility] CARE MEDICARE REPLACEMENT MEDICARE PART A & B ONE CARE MEDICARE REPLACEMENT MEDICARE PART A & B CARE MEDICARE REPLACEMENT Care Teams Environmental Tech Relationship Specialty Start Date End Date Sol Mendosa MD [address] [place] [address] PCP - General Internal Medicine 10/17/23 Additional Source Comments The information contained in this document represents components of the legal health record. It is not the complete legal health record.[facility]
--- OUTSIDE RECORDS SUMMARY | 2025-03-27 15:41 | XMS_ITS | Encounter Summary ---
Author Organization [facility] Address [address] [place] [address] [address] [place] [address] Phone Care Team Providers Care Flying Shear Operator Name Role Phone Sol Mendosa MD Primary Care Provid er Encounter Details Date Type Department Care Team (Late st Contact Info) Description 02/29/2024 Procedure Pass [facility] [address] [place] [address] Social History Tobacco Use Types Packs/Day Years Used Date Smoking Tobacco: Never Assessed Education Answer Date Recorded Are you interested [...] Orientation Straight 10/17/2023 3: 35 PM EDT documented as of this encounter Plan of Treatment Upcoming Encounters Date Type Department Care Team (Late st Contact Info) Description 05/05/2025 10:30 AM EDT Office Visit [facility] Genetics [address] [place] [address] Matheus Huber MD, MPH [address] [place] [phone] [email or web address] 05/14/2025 11:30 AM EDT Telemedicine [facility] Infectious Disease Medicine [address] [place] [address] Glendy Pacheco MD, SCD 75 [facility] Building Room 4 [place] [address] [email or web address] 07/22/2025 2:00 PM EST Office Visit [facility] Arthritis Center [facility] [address] [place] [address] Naya Hernandez MD, PhD [address] [place] [address] [email or web address] documented as of this encounter Visit Diagnoses Not on filedocumented in this encounter Additional Health Concerns Assessment Noted Time PHQ-2 Depression Total Score: 2 02/29/20 24 9:51 AM EDT documented as of this encounter Care Teams Flying Shear Operator Relationship Specialty Start Date End Date Sol Mendosa MD [address] [place] [address] PCP - General Internal Medicine 10/17/23 documented as of this encounter Additional Source Comments The information contained in this document represents components of the legal health record. It is not the complete legal health record.[facility]
--- OUTSIDE RECORDS SUMMARY | 2025-03-27 15:41 | XMS_ITS | Clinical Summary ---
Author Organization [employer] Address [address] [place] [address] 7 [place] [address] Care Team Providers Care Consulting Sales Executive Name Role Phone Unavailable Primary Care Provider [...]
--- OUTSIDE RECORDS SUMMARY | 2025-03-27 15:41 | XMS_ITS | Clinical Summary ---
Author Organization [facility] Address [address] [place] [address] Care Team Providers Care Operations Label Clerk Name Role Phone Unavailable Primary Care Provider Unavailabl e Surgical History Surgery Date Site/Laterality Comments OTHER SURGICAL HISTORY Right PROCEDURE: [place] THORACOSCOPY W/DX WEDGE RESEXN ANATO LUNG RESEXN; COMMENT: UL Lung resection as a child in [place] COLONOSCOPY 07/05/2013 PROCEDURE: HISTORICAL COLONOSCOPY Medical History Medical History Date Comments Hypertension 01/24/2019 DX:Hypertension Depression 12/11/2018 DX:Depression Panic attacks 01/24/2019 DX:Panic attacks Allergic rhinitis 01/24/2019 DX:Allergic rh initis Bronchiectasis ([facility] V24, [facility] V28) 12/11/2018 DX:Bronchiectasis ([facility]) COPD (chronic obstructive pu lmonary disease) ([facility] V24, [facility] V28) 12/11/2018 DX:COPD (chronic o bstructive pulmonary disease) ([facility]) Pseudomonas pneumonia ([facility] V24, [facility] V28) 12/11/2018 DX:Pseudomonas pneumonia ([facility]) [...]
--- OUTSIDE RECORDS SUMMARY | 2025-03-27 15:41 | XMS_ITS | Encounter Summary ---
Author Organization [facility] Address [facility] [place] [address] Care Team Providers Care Stock Clipper Name Role Phone Mauricio Noelle Primary Care Provider [phone] Encounter Details Date Type Department Care Team Description 12/30/2018 Orders Only Pulmonology - [address] [place] [address] Mitchell Barron MD Social History Tobacco Use Types Packs/Day Years [...] on filedocumented in this encounter Care Teams Stock Clipper Relationship Specialty Start Date End Date Noelle Martínez [address] [facility] [address] [place] [address] PCP - General 06/13/00 documented as of this encounter
--- OUTSIDE RECORDS SUMMARY | 2025-03-27 15:41 | XMS_ITS | Encounter Summary ---
Author Organization [facility] Address [address] [place] [address] [place] [address] Phone Care Team Providers Care Horse Doctor Name Role Phone Sol Mendosa MD Primary Care Provid er Encounter Details Date Type Department Care Team (Late st Contact Info) Description 08/13/2024 Procedure Pass [facility] Echocardiography [address] [place] [address] Social History Tobacco Use Types Packs/Day Years [...] Description 05/05/2025 10:30 AM EDT Office Visit [facility] Genetics [address] [place] [address] Matheus Huber MD, MPH [address] [place] [phone] [email or web address] 05/14/2025 11:30 AM EDT Telemedicine [facility] Infectious Disease Medicine [address] [place] [address] Glendy Pacheco MD, SCD 75 [facility] Building Room 4 [place] [address] [email or web address] 07/22/2025 2:00 PM EST Office Visit [facility] Arthritis Center [facility] [address] [place] [address] Naya Hernandez MD, PhD [address] [place] [address] [email or web address] documented as of this encounter Visit Diagnoses Not on filedocumented in this encounter Additional Health Concerns Assessment Noted Time PHQ-2 Depression Total Score: 2 08/13/19 25 9:09 AM EST documented as of this encounter Care Teams Horse Doctor Relationship Specialty Start Date End Date Sol Mendosa MD [address] [place] [address] PCP - General Internal Medicine 10/17/23 documented as of this encounter Additional Source Comments The information contained in this document represents components of the legal health record. It is not the complete legal health record.[facility]
--- OUTSIDE RECORDS SUMMARY | 2025-03-27 15:41 | XMS_ITS | Clinical Summary ---
Author Organization [facility] Address [address] [place] [address] Phone Care Team Providers Care Mask Former Name Role Phone Unavailable Primary Care Provider Unavailabl e Allergies No known active allergies Encounters Date Type Department Care Team Description 02/03/2025 Orders Only [facility] [address] [place] [address] Chely Talamantes Research subject (Primary Dx) 01/29/2025 12:37 PM EDT - 01/29/2025 11:59 PM EDT Hospital Encounter [facility] [address] [place] [address] Discharge Disposition: Home 01/29/2025 12:37 PM EDT - 01/29/2025 11:59 PM EDT Hospital Encounter [facility] [address] [place] [address] Bronchiectasis without complication (HCC) Discharge Disposition: Home 01/29/2025 Travel 12/27/2024 Orders Only [facility] [address] [place] [address] Matheus Huber MD Bronchiectasis without complication (HCC) [...] 76,793 INTERNAL LAB (BEAKER) Performing Location, POCT [facility], Clinical Labs, [address] [facility] [address], Shukri Garcia MD, PhD, [id number] INTERNAL LAB ([place]) Sweat Skin structure / Unknown 01/29/2025 2:06 PM EDT Impressions INTERNAL LAB ([place]) - 01/29/2025 2:06 PM EDT Sweat Chloride reference range: < 30 mmol/L - Negative 30 - 59 mmol/L - Indeterminate >= 60 mmol/L - Positive Note: Sweat chloride values less than 30 mmol/L have been documented in genetically proven Cystic Fibrosis patients. Clinical correlation is necessary. CLIA Sole Buffer: Kenji Garcia MD, PhD, CLIA license: [id number] Matheus Huber MD POINT OF CARE TEST ENTER/EDIT ORDERABLES Final Result INTERNAL LAB ([place]) from Last 3 Months Insurance [address] [place] [address] [facility] [address] [place] [address] [facility]
--- OUTSIDE RECORDS SUMMARY | 2025-03-27 15:41 | XMS_ITS | Encounter Summary ---
Author Organization [facility] Address [address] [facility] [address] [place] [address] Phone Care Team Providers Care Independent Freight Agent Name Role Phone Sol Mendosa MD Primary Care Provid er Encounter Details Date Type Department Care Team (Late st Contact Info) Description 10/29/[address] [facility] [address] [place] [address] Social History Tobacco Use Types Packs/Day Years [...] Description 05/05/2025 10:30 AM EDT Office Visit [facility] Genetics [address] [place] [address] Matheus Huber MD, MPH [address] [address] [email or web address] 05/14/2025 11:30 AM EDT Telemedicine [facility] Infectious Disease Medicine [address] [place] [address] Glendy Pacheco MD, SCD 75 [facility] Building Room 4 [place] [address] [email or web address] 07/22/2025 2:00 PM EST Office Visit [facility] Arthritis Center [facility] [address] [place] [address] Naya Hernandez MD, PhD [address] [place] [address] [email or web address] documented as of this encounter Visit Diagnoses Not on filedocumented in this encounter Additional Health Concerns Assessment Noted Time PHQ-2 Depression Total Score: 2 08/13/19 25 9:09 AM EST documented as of this encounter Care Teams Independent Freight Agent Relationship Specialty Start Date End Date Sol Mendosa MD [address] [place] [address] PCP - General Internal Medicine 10/17/23 documented as of this encounter Additional Source Comments The information contained in this document represents components of the legal health record. It is not the complete legal health record.[facility]
--- OUTSIDE RECORDS SUMMARY | 2025-03-27 15:41 | XMS_ITS | Encounter Summary ---
Author Organization [facility] Address [facility] [place] [address] Care Team Providers Care Ux Ui Designer Name Role Phone Noelle Martínez Primary Care Provider [phone] Reason for Visit * Reason Onset Date Comments Provider Call Back 01/01/2019 Encounter Details Date Type Department Care Team Description 01/01/2019 Telephone Pulmonology - [place] [address] [facility] [address] [place] [address] Mitchell Barron MD Provider Call Back Social History Tobacco Use Types Packs/Day Years Used Date Smoking Tobacco: Former Smokeless Tobacco: Never Alcohol Use Standard Drinks/Week Comments Yes 1 (1 standard drink = 0.6 oz pur e alcohol) Sex Assigned at Date Recorded Not on file documented as of this encounter Miscellaneous Notes * Telephone Encounter - Anabel Colbert - 01/01/2019 9:41 AM EDT Wants to speak with Dr. Barron about her bacteria , Please call documented in this encounter Plan of Treatment Not on file documented as of this encounter Visit Diagnoses Not on filedocumented in this encounter Care Teams Ux Ui Designer Relationship Specialty Start Date End Date CarenaileenNeolle rollins [address] [facility] [address] [place], [place] [id number] PCP - General 06/13/00 documented as of this encounter
== END 2025-03-27 15:46 | disposition home or self-care (01) ==
LOC: HO.PMC 15:02
PROVIDERS: PCP Internal Medicine; Visit Provider Nurse Practitioner Family
DX: M47.812 Spondylosis without myelopathy or radiculopathy, cervical region (principal); M62.838 Other muscle spasm; G44.86 Cervicogenic headache
CPT/HCPCS: 99204

== ENCOUNTER → 2025-03-27 15:01 | Outpatient (BNVA) | payer OTHER, SELFPAY | PROVIDERS: PCP Internal Medicine; Visit Provider Nurse Practitioner Family | DX: M47.812 Spondylosis without myelopathy or radiculopathy, cervical region (principal); M62.838 Other muscle spasm; G44.86 Cervicogenic headache | CPT/HCPCS: 99202 ==

== ENCOUNTER 2025-03-30 13:18 | Inpatient (IN) | payer OTHER, SELFPAY ==
[2025-03-30] VITALS (9 sets, daily range): BP systolic 122–131; BP diastolic 53–83; PULSE 78–99; RESP 13–24; TEMP 36.4–36.9; O2SAT 90–98; BMI 22.3
--- NOTE | 2025-03-30 | ECG_ITS ---
Test Reason : CHEST PAIN Blood Pressure : */* mmHG Vent. Rate : 98 BPM Atrial Rate : 98 BPM P-R Int : 134 ms QRS Dur : 72 ms QT Int : 334 ms P-R-T Axes : 44 55 6 degrees QTcB Int : 426 ms Normal sinus rhythm Nonspecific ST and T wave abnormality Abnormal ECG When compared with ECG of 17-Jun-2024 10:24, No significant change was found Referred By: Generic ED Physician Electronically Signed By: HENNY LAYNE MD
--- NOTE | ~2025-03-30 | CT_ITS ---
CLINICAL HISTORY: Pleuritic chest pain history of pneumonia CT angiography chest with contrast. 3D Postprocessing. Comparison: CT - CT ANGIO CHEST PE PROTOCOL - 03/30/25 15:[address]/REG/SR - CT CHEST WITHOUT IV CONTRAST - 05/02/23 15:07 EDT Findings: The heart size is normal. RV/LV ratio is normal. Calcification of the coronary vasculature. Unremarkable thoracic aorta and great vessels. No aneurysm. No pulmonary artery filling defects. Abrupt narrowing of the right main pulmonary artery. The visualized thyroid is within normal limits. Rightward cardiomediastinal shift is present as before. Severe cystic change within the right mid and lower lung as before, consistent with honeycombing/cystic bronchiectasis, as before. Progressive, moderate cystic change within the right apex. Progressive bronchiectasis and mucous plugging within the left lung base. Scattered nodular densities within the bilateral pulmonary parenchyma, largest of which are in the left upper lobe anteriorly (for example, subpleural 13 mm nodule within the left upper lobe anteriorly on image 91). The upper abdomen is unremarkable. The bones are intact. IMPRESSION: 1. No pulmonary emboli. 2. Progressive [id number]-left pulmonary cystic change as well as bronchiectasis and mucous plugging. 3. Bilateral pulmonary nodules as above. Further assessment with PET-CT examination is recommended. 4. Coronary artery disease. This document has been electronically signed by: Arsen Fernández MD on 03/30/2025 15:59:19
--- OUTSIDE RECORDS SUMMARY | 2025-03-30 13:47 | XMS_ITS | Clinical Summary ---
Author Organization [facility] Address [address] [place] [address] [place] [address] Phone Care Team Providers Care Onsite Case Manager Name Role Phone Sol Mendosa MD Primary [...] been sent to the PFT Lab @ [email or web address] for a sweat chloride, nasal nitric oxide and enroll the patient in [facility] Research Protocol for Genetic Testing. DEBRA Menard No known active problems Encounters Date Type Department Care Team Description 01/29/2025 11:59 PM EDT Hospital Encounter [facility] Phlebotomy [facility] [address] [place] [address] Glendy Pacheco MD, SCD Discharge Disposition: Home or Self Care 01/29/2025 11:30 AM EDT Office Visit [facility] Infectious Disease Medicine [address] [place] [address] Glendy Pacheco MD, SCD Persistent cough (Primary [...] Description 05/05/2025 10:30 AM EDT Office Visit [facility] Genetics [address] [place] [address] Matheus Huber MD, MPH [address] [place] [address] [email or web address] 05/14/2025 11:30 AM EDT Telemedicine [facility] Infectious Disease Medicine [address] [place] [address] Glendy Pacheco MD, SCD [address] [place] [address] Building Room 4 [place] [address] [email or web address] 07/22/2025 2:00 PM EST Office Visit [facility] Arthritis Center [facility] [place] [address] [place] [address] Naya Hernandez MD, PhD [address] [place] [address] Health Maintenance Due Date Last Done Comments [...] Special Requests None 01/29/2025 2:40 PM EDT [facility] GRAM STAIN 4+ POLYS 01/29/2025 8:41 PM EDT [facility] GRAM STAIN NO EPITHELIAL CELLS 01/29/2025 8:41 PM EDT [facility] GRAM STAIN 1+ MIXED BACTERIA 01/29/2025 8:41 PM EDT [facility] Respiratory Cult/Smear 3+ PSEUDOMONAS AERUGINOSA (MUCOID STRAIN)(A) 01/31/2025 11:07 AM EDT [facility] Respiratory Cult/Smear 2+ ORAL CATA 01/31/2025 11:07 AM EDT [facility] Sputum 01/29/2025 2:39 PM [...] SCD MICROBIOLOGY - GENERAL ORDERABLES Final Result [facility] [address] [place] [address] * (ABNORMAL) Mycobacterial culture/smear (01/29/2025 2:39 PM EDT) Special Requests HX OF BRONCIECTASIS SP 01/30/2025 6:56 AM EDT [facility] SMEAR NO ACID FAST BACILLI OBSERVED 02/04/2025 3:06 PM EDT [facility] SMEAR (NOTE) Method: Fluorochrome (250x): Acid-fast bacilli not found. 02/04/2025 3:06 PM EDT [facility] Mycobacterial Culture CULTURE OVERGROWN WITH CONTAMINANTS. UNABLE TO RULE OUT ACID FAST BACILLI(A) 02/10/2025 12:45 PM EDT [facility] Mycobacterial Culture (NOTE) CONTAMINANT: Culture unsatisfactory due to an overgrowth of contaminants. Consider a repeat specimen. DRUG SUSCEPTIBILITY TESTING WILL NOT BE DONE ON THIS CULTURE. 02/10/2025 12:45 PM EDT [facility] Sputum 01/29/2025 2:39 PM EDT 01/29/2025 4:40 PM EDT us Dawna Lux PA-C MICROBIOLOGY - GENERAL OR DERABLES Final Result Performing Organization Address [facility] de Phone Number [address] [address] * Fungal culture (01/29/2025 2:39 PM EDT) Special Requests None 01/29/2025 2:40 PM EDT [facility] Fungal Culture Only NO FUNGUS ISOLATED AFTER 28 DAYS 02/26/2025 8:00 AM EDT [facility] Sputum 01/29/2025 2:39 PM EDT 01/29/2025 4:40 PM EDT Comment:64F WITH COUGH AND B RONCHIECTASIS us Glendy Pacheco MD, SCD MICROBIOLOGY - GENERAL ORDERABLES Final Result Performing Organization Address [facility] Co de Phone Number [address] [address] * (ABNORMAL) Comprehensive metabolic panel (04/09/2024 10:43 AM EDT) SODIUM 141 136 - 145 mmol/L [facility] POTASSIUM 3.8 3.4 - 5.1 mmol/L [facility] CHLORIDE 98 98 - 107 mmol/L [facility] CO2 25 22 - 31 mmol/L [facility] BUN 25(H) 6 - 23 mg/dL [facility] CREATININE 0.60 0.50 - 1.20 mg/dL [facility] GLUCOSE 123(H) 70 - 100 mg/dL [facility] ALBUMIN 4.0 3.5 - 5.2 g/dL [facility] TOTAL PROTEIN 8.2 6.4 - 8.3 g/dL [facility] CALCIUM 9.9 8.8 - 10.7 mg/dL [facility] ALKALINE PHOSPHATASE 87 35 - 130 U/L [facility] TOTAL BILIRUBIN <0.2 0.0 - 1.0 mg/dL [facility] AST 13 10 - 50 U/L [facility] ALT 12 10 - 50 U/L [facility] GLOBULIN 4.2 2.2 - 4.2 g/dL [facility] EGFR 101 >59 mL/min/1. 73m2 [facility] Comment:Estimated glomerular filtration rate calculated using the CKD-EPI refit equation. ANION GAP 18(H) 7 - 17 mmol/L [facility] 04/09/2024 10:4 3 AM EDT 04/09/2024 11:46 AM EDT us Glendy Pacheco MD, SCD LAB BLOOD ORDER ZULLY Final Result [facility] [address] [place] [address] from Last 3 Months or Most Recently Relevant to Health Maintenance Insurance MEDICARE PART A & B [facility] ONE CARE MEDICARE REPLACEMENT MEDICARE PART A & B [facility] ONE CARE MEDICARE REPLACEMENT MEDICARE PART A & B Member Subscriber Plan / Payer (Ef fective 2009-Present) Name:Dina Vasquez Member ID:[id number] Relation to Subscriber:Self Name:Dina Vasquez Subscriber ID:[id number] Payer ID:[id number] Group ID:Not on file Type:Medicare Address: [employer] [address] ONE CARE MEDICARE REPLACEMENT MEDICARE PART A & B [facility] CARE MEDICARE REPLACEMENT MEDICARE PART A & B ONE CARE MEDICARE REPLACEMENT MEDICARE PART A & B CARE MEDICARE REPLACEMENT Care Teams Onsite Case Manager Relationship Specialty Start Date End Date Sol Mendosa MD [address] [place] [address] PCP - General Internal Medicine 10/17/23 Additional Source Comments The information contained in this document represents components of the legal health record. It is not the complete legal health record.[facility]
--- OUTSIDE RECORDS SUMMARY | 2025-03-30 13:47 | XMS_ITS | Clinical Summary ---
Author Organization [facility] Address [address] [place] [address] Care Team Providers Care Sawmill Hand Name Role Phone Unavailable Primary Care Provider Unavailabl e Surgical History Surgery Date Site/Laterality Comments OTHER SURGICAL HISTORY Right PROCEDURE: [place] THORACOSCOPY W/DX WEDGE RESEXN ANATO LUNG RESEXN; COMMENT: UL Lung [place] child [place] COLONOSCOPY 07/05/2013 PROCEDURE: HISTORICAL COLONOSCOPY Medical History Medical History Date Comments Hypertension 01/24/2019 DX:Hypertension Depression 12/11/2018 DX:Depression Panic attacks 01/24/2019 DX:Panic attacks Allergic rhinitis 01/24/2019 DX:Allergic rh initis Bronchiectasis ([facility] V24, [facility] V28) 12/11/2018 DX:Bronchiectasis ([facility]) COPD (chronic obstructive pu lmonary disease) ([facility] V24, [facility] V28) 12/11/2018 DX:COPD (chronic o bstructive pulmonary disease) ([facility]) Pseudomonas pneumonia ([facility] V24, [facility] V28) 12/11/2018 DX:Pseudomonas pneumonia ([facility]) Family [...]
--- OUTSIDE RECORDS SUMMARY | 2025-03-30 13:47 | XMS_ITS | Clinical Summary ---
Author Organization [facility] Address [address] [place] [address] Phone Care Team Providers Care Forming Machine Operator Name Role Phone Unavailable Primary Care Provider Unavailabl e Allergies No known active allergies Encounters Date Type Department Care Team Description 02/03/2025 Orders Only [facility] [address] [place] [address] Chely Talamantes Research subject (Primary Dx) 01/29/2025 12:37 PM EDT - 01/29/2025 11:59 PM EDT Hospital Encounter [facility] [address] [place] [phone] Discharge Disposition: Home 01/29/2025 12:37 PM EDT - 01/29/2025 11:59 PM EDT Hospital Encounter [facility] [address] [place] [address] Bronchiectasis without complication (HCC) Discharge Disposition: Home 01/29/2025 Travel from Last 3 Months Social History Tobacco [...] or Tdap) 04/18/2020 10/17/2019, 12/22/2013 COVID-19 Vaccine (5 - season) 2024 08/06/2021, 01/13/2021, 11/30/2020, Additional [...] 76,793 INTERNAL LAB (BEAKER) Performing Location, POCT [facility], Clinical Labs, [address] [place] [address], Shukri Garcia MD, PhD, [id number] INTERNAL LAB (BEComprimato) Sweat Skin structure / Unknown 01/29/2025 2:06 PM EDT Impressions INTERNAL LAB ([place]AK[place]) - 01/29/2025 2:06 PM EDT Sweat Chloride reference range: < 30 mmol/L - Negative 30 - 59 mmol/L - Indeterminate >= 60 mmol/L - Positive Note: Sweat chloride values less than 30 mmol/L have been documented in genetically proven Cystic Fibrosis patients. Clinical correlation is necessary. CLIA Brush And Broom Clipper: Kenji Garcia MD, PhD, CLIA license: [id number] Matheus Huber MD POINT OF CARE TEST ENTER/EDIT ORDERABLES Final Result [facility] ([place]) from Last 3 Months Insurance [address] [place] [address] [facility] [address] [place] [address] [facility]
--- OUTSIDE RECORDS SUMMARY | 2025-03-30 13:47 | XMS_ITS | Continuity of Care Document ---
Author Name [facility], Medical Address [address] [place] [address] Organization Unknown Address [address] [place] [address] Medications No known medications Problems No known problems
--- OUTSIDE RECORDS SUMMARY | 2025-03-30 13:47 | XMS_ITS | Encounter Summary ---
Author Organization [facility] Address [address] [place] [address] [place] [phone] Phone Care Team Providers Care Surgery Specialist Name Role Phone Sol Mendosa MD Primary Care Provid er Encounter Details Date Type Department Care Team (Late st Contact Info) Description 08/13/2024 Procedure Pass [facility] Echocardiography [address] [place] [address] Social History Tobacco Use Types Packs/Day Years [...] Description 05/05/2025 10:30 AM EDT Office Visit [facility] Genetics [address] [place] [address] Matheus Huber MD, MPH [address] [place] [phone] [email or web address] 05/14/2025 11:30 AM EDT Telemedicine [facility] Infectious Disease Medicine [address] [place] [address] Glendy Pacheco MD, SCD 75 [facility] Building Room 4 [place] [address] [email or web address] 07/22/2025 2:00 PM EST Office Visit [facility] [address] [place] [address] Naya Hernandez MD, PhD [address] [place] [address] [email or web address] documented as of this encounter Visit Diagnoses Not on filedocumented in this encounter Additional Health Concerns Assessment Noted Time PHQ-2 Depression Total Score: 2 08/13/19 25 9:09 AM EST documented as of this encounter Care Teams Surgery Specialist Relationship Specialty Start Date End Date Sol Mendosa MD [address] [place] [address] PCP - General Internal Medicine 10/17/23 documented as of this encounter Additional Source Comments The information contained in this document represents components of the legal health record. It is not the complete legal health record.[facility]
--- OUTSIDE RECORDS SUMMARY | 2025-03-30 13:47 | XMS_ITS | Encounter Summary ---
Author Organization [facility] Address [address] [place] [address] Phone Care Team Providers Care Jewelry Technician Name Role Phone Sol Mendosa MD Primary Care Provid er Encounter Details Date Type Department Care Team (Late st Contact Info) Description 10/29/[address] [facility] [address] [place] [address] Social History Tobacco Use Types Packs/Day Years [...] Description 05/05/2025 10:30 AM EDT Office Visit [facility] Genetics [address] [place] [address] Matheus Huber MD, MPH [address] [address] [email or web address] 05/14/2025 11:30 AM EDT Telemedicine [facility] Infectious Disease Medicine [address] [place] [address] Glendy Pacheco MD, SCD 75 [facility] Building Room 4 [place] [address] [email or web address] 07/22/2025 2:00 PM EST Office Visit [facility] [address] [place] [address] Naya Hernandez MD, PhD [address] [place] [address] [email or web address] documented as of this encounter Visit Diagnoses Not on filedocumented in this encounter Additional Health Concerns Assessment Noted Time PHQ-2 Depression Total Score: 2 08/13/19 25 9:09 AM EST documented as of this encounter Care Teams Jewelry Technician Relationship Specialty Start Date End Date Sol Mendosa MD [address] [place] [address] PCP - General Internal Medicine 10/17/23 documented as of this encounter Additional Source Comments The information contained in this document represents components of the legal health record. It is not the complete legal health record.[facility]
--- OUTSIDE RECORDS SUMMARY | 2025-03-30 13:47 | XMS_ITS | Clinical Summary ---
Author Organization [facility] [employer] [facility] Address [address] [place] [address] 7 [place] [address] Care Team Providers Care Tiedown Operator Name Role Phone Unavailable Primary Care [...] topic Meningococcal Vaccine Aged Out No meryl tiomthy eligible based on patient's age to complete [...]
--- OUTSIDE RECORDS SUMMARY | 2025-03-30 13:47 | XMS_ITS | Encounter Summary ---
Author Organization [facility] Address [address] [place] [address] Encounters * CPT with [facility] at [facility] on 2025-03-30 { reasonForRequest : Patient woke up w/ chills - and pain on left side of chest whenshe breaths. , patientReports : , denies :[ History of Heart Attack, in the setting of active chest pain , Active Chest pain, radiates to neck jaw and or arm , Diaphoretic/Sweating , Describes as crushing , Sudden onset of nausea/Vomiting and shortness of breath. , Shortness of Breath , Unable to speak in full sentences without distress ], chiefComplaints : Chest Pain", pmh : COPD/Asthma, Hypertension , allergies : Bactrim , otherAllergies :null, painAssessment : , visitOutcome :&q uot; , additionalComments : 64 y.o female complains of Chest Pain\n\nPatient wit h intermittent left sided chest pain with inspiration/expiration since last Monday.\nShe has not consulted with her doctor.\nShe denies any prior MIs.\nCurrent blood pressure is 145/82, HR 124, o2 95% on RA.\nPatient denies left sided jaw, neck, shoulder or arm pain, but does have generalized pain from arthritis.\nDenies any acute shortness of breath, has mild shortness of breath at baseline.\nDenies any nausea, vomiting or diarrhea, no acid reflux\nNo diaphoresis\nShe did wake up with a headache and mild dizziness upon standing this morning.\nShe would like to be evaluated.\n\nI provided information on the mobile health provider response time and advised the patient and/or caregiver to monitor reported signs and symptoms. I discussed the warning signs of when to seek emergency care. } 64-year-old female complaining of shortness of breath with pain woke up, coughing up green phlegm recently had a pseudomonas pneumonia after long- standing history of fungal pneumonia???s [place] in [place]. Patient states not short of breath when sitting, but heart rate goes up to 125 when she???s walking around and she had to start using her portable concentrator at 2.4 in order to Help her feel better. Patient states that it hurts to cough has a hockey wheezy cough when she does cough, but lung sounds are clear and equal bilaterally at rest. Patient was recently diagnosed with a new pneumonia probably fungal and was on an anabiotic but does not know the name. Patient had chills and 99.7 [address] Doctor Osbaldo reviewed information and thought she was a good candidate for sepsis and wanted her to go in and be Evaluated at [facility]. Granddaughter called 911. Report to [facility] and [employer] fire. Patient taken down steps with stair chair report toEMS and patient appeared to be in no distress. Granddaughter was going with her and her other daughter was on FaceTime translating for the paramedics. Granddaughter thanked us for a visit as well as daughter. All questions answered. [address] Roblero who reviewed it and said no concernswith the 12 lead. 12 lead left with paramedics. ORAL_MEDICATION, EKG, POC_FLU_STREP, COVID_TEST Written by [facility] on 2025-03-30
--- OUTSIDE RECORDS SUMMARY | 2025-03-30 13:47 | XMS_ITS | Encounter Summary ---
Author Organization [facility] Address [address] [place] [address] [address] [place] [address] Phone Care Team Providers Care Instructional Media Services Technician Name Role Phone Sol Mendosa MD Primary Care Provid er Encounter Details Date Type Department Care Team (Late st Contact Info) Description 02/29/2024 Procedure Pass [facility] [address] [place] [address] Social History Tobacco Use Types Packs/Day Years [...] Description 05/05/2025 10:30 AM EDT Office Visit [facility] Genetics [address] [place] [address] Matheus Huber MD, MPH [address] [place] [address] [email or web address] 05/14/2025 11:30 AM EDT Telemedicine [facility] Infectious Disease Medicine [address] [place] [address] Glendy Pacheco MD, SCD 75 [facility] Building Room 4 [place] [address] [email or web address] 07/22/2025 2:00 PM EST Office Visit [facility] [address] [place] [address] Naya Hernandez MD, PhD [address] [place] [address] [email or web address] documented as of this encounter Visit Diagnoses Not on filedocumented in this encounter Additional Health Concerns Assessment Noted Time PHQ-2 Depression Total Score: 2 02/29/20 24 9:51 AM EDT documented as of this encounter Care Teams Instructional Media Services Technician Relationship Specialty Start Date End Date Sol Mendosa MD [address] [place] [address] PCP - General Internal Medicine 10/17/23 documented as of this encounter Additional Source Comments The information contained in this document represents components of the legal health record. It is not the complete legal health record.[facility]
--- NOTE | 2025-03-30 13:51 | ED.GENADULT ---
HPI - General Adult General Chief complaint: General Medical Stated complaint: COUGHING Time Seen by Provider: 03/30/25 14:09 Source: patient and EMS Mode of arrival: EMS Limitations: no limitations History of Present Illness ED Provider: JARROD Clement HPI narrative: This is a 64-year-old female past medical history significant for anxiety, depression, chronic constipation, hypertension, asthma-COPD overlap who presents to the emergency department with shortness of breath, right-sided chest discomfort ongoing for the past few weeks worsening. Patient reports she just has not been feeling right since January 2025 she reports at that time she had pneumonia and a fungal infection at the same time. She reports chest pain is mostly right-sided in his worse when she takes a deep breath in. She reports shortness of breath both at rest and with exertion however much worse when she is exerting herself. She denies any chest trauma. No sick contacts, fevers, chills, headache, vision changes, dizziness, weakness. No history of DVT or PE, not on contraceptives no recent travel. Related Data Home Medications ?Medication ?Instructions ?Recorded ?Confirmed escitalopram oxalate 20 mg tablet 20 mg PO DAILY 07/16/20 03/07/25 lorazepam 0.5 mg tablet 0.5 mg PO BID PRN Anxiety 05/19/22 03/07/25 fluticasone propionate 50 1 spray intranasal DAILY PRN 06/27/23 03/07/25 mcg/actuation nasal Allergy Symptoms spray,suspension sodium chloride 7 % for 4 ml inhalation BID 08/22/23 03/07/25 nebulization Previous Rx's ?Medication ?Instructions ?Recorded albuterol sulfate 2.5 mg/3 mL 2.5 mg (3 mL) inhalation Q4H PRN 08/24/21 (0.083 %) solution for nebulization for wheezing #300 mL albuterol sulfate 90 mcg/actuation 2 puff inhalation Q6H PRN for 10/27/22 aerosol inhaler wheezing #1 ea cetirizine 10 mg tablet 10 mg PO DAILY PRN allergy 04/15/24 symptoms 90 days #90 tabs ibuprofen 600 mg tablet 600 mg PO Q8H PRN pain 30 days #90 10/14/24 tabs levalbuterol HCl 1.25 mg/3 mL 1.25 mg (3 mL) inhalation QID 30 11/29/24 solution for nebulization days #360 mL calcium 250 mg (as 1 tab PO BID 90 days #180 tabs 12/15/24 carbonate)-vitamin D3 3.125 mcg (125 unit) tablet (Oyster Shell Calcium-Vitamin D3) fluticasone fur. 200 mcg-umeclid 1 ea PO DAILY #60 ea 12/25/24 62.5 mcg-vilant 25 mcg inhalat.powder (Trelegy Ellipta) losartan 100 1 tab PO DAILY 90 days #90 tabs 12/25/24 mg-hydrochlorothiazide 12.5 mg tablet tobramycin 300 mg/5 mL in 0.225 % 300 mg (5 mL) inhalation BID 56 12/25/24 sodium chloride for nebulization days #560 mL (Chris) montelukast 10 mg tablet 10 mg PO DAILY 30 days #30 tabs 02/11/25 baclofen 10 mg tablet 10 mg PO BID PRN muscle spasm 30 03/27/25 days #60 tabs Allergies Allergy/AdvReac Type Severity Reaction Status Date / Time lisinopril Allergy Mild cough Verified 03/30/25 13:33 moxifloxacin (Avelox) Allergy Mild rash Verified 03/30/25 13:33 sulfamethoxazole (From Allergy Mild Rash Verified 03/30/25 13:33 Bactrim) trimethoprim (From Bactrim) Allergy Mild Rash Verified 03/30/25 13:33 Review of Systems Review of Systems: Yes all other systems are reviewed and are negative [facility] Past Medical History Attestation statement: The following information was validated with the patient. Source: old records reviewed and nursing notes reviewed Medical History Physical exam Blurry vision, bilateral Asthma Cough Sinusitis Sinusitis Bronchiectasis Asthma Screen for colon cancer Ear discomfort Bronchopneumonia Elevated hemoglobin Influenza A Acute febrile illness Hypoxia Allergies Pre-op chest exam Acute hypoxic respiratory failure Asthma-COPD overlap syndrome Bronchiectasis Surgical History H/O pneumonectomy History of bronchoscopy Family History Family History Daughter Bronchiectasis Colon polyps Brother Mental health disorder Mother No problems noted. Father Stroke Social History Social History Housing: Apartment Do you presently have visiting nurse or other home services: No Alcohol intake: current Alcohol intake frequency: holidays/special occasions only Alcohol type: wine Patient Tobacco Use Status: Former Tobacco user Tobacco use type: Cigarette Years Smoked: 5 years Smoked in Last 30 Days: No e-Cigarette/Vaping Use: Never Used Second Hand Smoke Exposure: No Use of substances other than those prescribed or required for medical reasons: No Advance Directives: Yes Advance Directives on File: Yes Advance Directives Date on File: 08/24/23 Do you have a plan to hurt others: No Plan Patient : No service: No Current occupational status: unemployed and retired Cognitive needs: No Hearing needs: No Vision needs: Yes Physical Exam ED Exam Exam: Appearance: Alert.? Oriented X3.? Increased respiratory effort Head: Normocephalic, atraumatic, no step-offs or deformities Eyes: Pupils equal, round and reactive to light.? Neck: Normal inspection.? Neck supple.? CVS: Normal heart rate and rhythm.? Pulses normal.? Respiratory: Increased respiratory effort.? Breath sounds bibasilar crackles with diminished breath sounds.? Abdomen: Soft and nontender.? Skin: Skin warm and dry.? Normal skin color.? Normal skin turgor.? Extremities: No lower extremity edema.? No calf ttp. 5/5 strength to bilateral upper and lower extremities Back: No midline tenderness, no C-spine tenderness, full range of motion, no CVA tenderness bilaterally Neuro: Oriented X 3.? No motor deficit.? No sensory deficit. CN 2-12 intact Vital Signs: Vital Signs - 24 hr 03/30/25 13:28 03/30/25 13:30 03/30/25 15:40 Temperature 98.3 F 98.3 F 98.5 F Pulse Rate 97 97 84 Respiratory Rate 16 16 13 Blood Pressure 126/53 L 126/53 L 122/56 L Pulse Oximetry 93 93 94 Oxygen Delivery Method Room Air Room Air Room Air 03/30/25 16:10 Temperature 97.6 F Pulse Rate 80 Respiratory Rate 13 Blood Pressure 130/64 Pulse Oximetry 96 Oxygen Delivery Method Room Air BMI result Body Mass Index 22.3 Course Reevaluation(s) Reevaluation #1: Patient's CBC with leukocytosis and left shift. Chemistry with no acute findings meeting intervention. Normal lactic acid. Flu and COVID negative. EKG is nonischemic. With negative troponin I do not suspect ACS. Time: 16:04 Reevaluation #2: CTA with no pulmonary emboli progressive right greater than left pulmonary cystic changes as well as bronchiectasis and mucous plugging bilateral pulmonary nodules further assessment is recommended. Coronary artery disease noted. Patient was treated as a sepsis alert based off of her labs she received antibiotics, fluids. Plan hospital admission Time: 16:07 Reevaluation #3: Patient ambulated around the department 95% when she returned back to her bed after ambulation she was now 90% on room air. I did discuss this case with pulmonology who agrees that this is definitely an acute exacerbation of underlying bronchiectasis with significant mucus. I do have some concern for efficacy of outpatient antibiotics as patient was on Cipro in November of this year and was then placed on azithromycin 3 times a week in January which patient did not tolerate well. Plan again hospital admission Medications Administered Discontinued Medications Generic Name Dose Route Start Last Admin Trade Name Freq PRN Reason Stop Dose Admin Cefepime HCl 2 gm in 50 mls @ 100 mls/hr 03/30/25 15:05 03/30/25 16:21 Maxipime IV 03/30/25 15:34 Infused ONCE ONE Infusion Sodium Chloride 1,714.59 mls @ 1,714.59 mls/hr 03/30/25 15:14 03/30/25 16:36 Ns 30 ml/kg infuse over 1 hr (1714.59 ml) 03/30/25 16:13 Infused IV Infusion .Q1H STA Medical Decision Making Medical Decision Making [facility] Narrative: 1357 64-year-old female presents with shortness of breath, right-sided chest pain described as pleuritic ongoing for the past few weeks. Recent history of fungal pneumonia January 2025. Physical exam diminished breath sounds bilaterally with bibasilar crackles. History and physical exam concerning for pulmonary embolism versus pneumonia that never completely cleared. Unlikely dissection, ACS. I do not suspect pneumothorax or metabolic derangements. Other differential includes viral illness Plan labs, imaging, viral testing Differential Diagnosis Differential Diagnoses: The differential diagnosis associated with the presentation includes (History and physical exam concerning for pulmonary embolism versus pneumonia that never completely cleared. Unlikely dissection, ACS. I do not suspect pneumothorax or metabolic derangements. Other differential includes viral illness) Admission/Observation Consideration of admission/observation: Escalation of care including admission/observation considered Lab Data MDM Lab Attestation statement: I reviewed the patient's lab results. 03/30/25 14:18 03/30/25 14:18 Labs: Lab Results 03/30/25 03/30/25 Range/Units 14:18 15:32 WBC 15.7 H (4.8-10.8) X10*3/uL RBC 4.98 (4.20-5.50) X10*6/uL Hgb 13.3 (12.0-16.0) g/dl Hct 39.8 (37.0-47.0) % MCV 79.9 L (80.0-98.0) fL MCH 26.7 L (27.0-33.0) pg MCHC 33.4 (31.0-35.0) g/dl RDW 14.6 (11.0-16.0) % Plt Count 379 (160-400) X10*3/uL MPV 8.7 L (9.4-12.3) fL Immature Gran % (Auto) 0.4 (0.0-0.4) % Neut % (Auto) 90.6 H (45-73) % Lymph % (Auto) 6.9 L (20-40) % Nicollet % (Auto) 1.7 L (2-11) % Eos % (Auto) 0.2 (0-4) % Baso % (Auto) 0.2 (0-2) % Lymph # (Auto) 1.1 L (1.2-4.9) X10*3/uL Nicollet # (Auto) 0.3 (0.1-1.2) X10*3/uL Eos # (Auto) 0.0 (0.0-0.4) X10*3/uL Baso # (Auto) 0.0 (0.0-0.2) X10*3/uL Abs Immat Gran (auto) 0.07 H (0.00-0.03) X10*3/uL Absolute Neuts (auto) 14.2 H (2.0-8.3) x10*3/uL Absolute Nucleated RBC 0.000 (0.0-0.012) X10*3/uL Nucleated RBC % (auto) 0.0 (0.0-0.2) /100WBC Smear Tech's Comments VERIFIED D-Dimer High Sensitivty 312 NG/ML Sodium 140 (135-145) mmol/L Potassium 3.9 (3.3-5.1) mmol/L Chloride 103 (96-108) mmol/L Carbon Dioxide 25 (22-29) mmol/L Anion Gap 16 (12-20) BUN 12 (9-16) mg/dL Creatinine 0.64 (0.5-1.4) mg/dL Estim Creat Clear Calc 74.4 Estimated GFR > 60 Random Glucose 129 H (60-115) mg/dL Lactic Acid 0.9 (0.5-2.0) mmol/L Calcium 9.7 (8.4-10.2) mg/dL Magnesium 2.0 (1.6-2.6) mg/dL Total Bilirubin 0.3 (0.0-1.0) mg/dL AST 17 (5-31) U/L ALT 9 (0-31) U/L Alkaline Phosphatase 76 (39-117) U/L Troponin I High Sens < 2.7 (<3.5-17.0) ng/L Total Protein 8.4 H (6.5-8.0) g/dL Albumin 4.1 (3.5-5.0) g/dL COVID-19 (TOSIN) Negative (Negative) COVID-19 Clin Com See Note Influenza Type A (FLORINDA) Negative (Negative) Influenza Type B (FLORINDA) Negative (Negative) Influenza A & B Note See Note Independent Interpretation I performed an independent interpretation of an: CT Scan (1. No pulmonary emboli. 2. Progressive ykbsv-zqzraja-bmie-left pulmonary cystic change as well as bronchiectasis and mucous plugging. 3. Bilateral pulmonary nodules as above. Further assessment with PET-CT examination is recommended. 4. Coronary artery disease.) Radiology Impression Discussion of test interpretation with radiology: I have reviewed the radiologist's reading. External Record Review External record reviewed: Inpatient record, Office record, Outpatient record, Prior outpatient labs, Prior outpatient radiology, Primary care record and Outside ED record Chronic Conditions Patient?s care impacted by: Hypertension and Other (Anxiety, depression, asthma, COPD) Critical Care Time Critical Care Time Critical Care Time: Yes Total Critical Care Time: 45 Attestation: I attest to this time spent taking care of the patient, obtaining history, physical, reviewing labs, imaging, treatment of patients condition +/- specialist/hospitalist consult +/- procedure Discharge Plan Discharge Clinical Impression: Pneumonia, Shortness of breath, Hypoxia Patient Disposition: Admitted As Inpatient Print Language: Khmer
[2025-03-30 14:28] LABS: Hematocrit 39.8 % (37.0-47.0); Hemoglobin 13.3 g/dl (12.0-16.0); Imm Gran Abs Auto 0.07 X10*3/uL (0.00-0.03); Imm Gran Pct Auto 0.4 % (0.0-0.4); Lymphocytes Absolute Auto 1.1 X10*3/uL (1.2-4.9); MANUAL DIFF FLAG SCAN; Mean Corpuscular HGB Conc 33.4 g/dl (31.0-35.0); Mean Corpuscular Hemoglobin 26.7 pg (27.0-33.0); Mean Corpuscular Volume 79.9 fL (80.0-98.0); NRBC Abs Auto 0.000 X10*3/uL (0.0-0.012); NRBC Pct Auto 0.0 /100WBC (0.0-0.2); Platelet Count 379 X10*3/uL (160-400); Red Blood Count 4.98 X10*6/uL (4.20-5.50); SCAN SMEAR FLAG 1; White Blood Count 15.7 X10*3/uL (4.8-10.8)
[2025-03-30 14:36] LABS: D Dimer High Sensitivity 312 NG/ML
[2025-03-30 14:43] LABS: Alanine Aminotransferase 9 U/L (0-31); Albumin Level 4.1 g/dL (3.5-5.0); Alkaline Phosphatase 76 U/L (39-117); Anion Gap 16 (12-20); Aspartate Amino Transferase 17 U/L (5-31); Blood Urea Nitrogen 12 mg/dL (9-16); Calcium 9.7 mg/dL (8.4-10.2); Carbon Dioxide 25 mmol/L (22-29); Chloride 103 mmol/L (96-108); Creatinine Clr Calc Pharmacy 74.4; Estimated Glomerular Filt Rate > 60; Magnesium 2.0 mg/dL (1.6-2.6); Potassium 3.9 mmol/L (3.3-5.1); Sodium 140 mmol/L (135-145); Total Protein 8.4 g/dL (6.5-8.0)
[2025-03-30 14:52] LABS: COVID-19 Test Negative (Negative); IDNOW Serial# 55D5AD1C; Troponin-I High Sensitivity < 2.7 ng/L (<3.5-17.0)
[2025-03-30 14:53] LABS: IDNOW Serial# 58CA691E; Influenza B2 Negative (Negative)
[2025-03-30] MEDS: cefEPime HCl/D5W 2 GM/50 ML PIGGYBACK IV ×2 (15:34→23:25)
[2025-03-30] MEDS: SODIUM CHLORIDE 1714.59 ML IV (15:39)
--- NOTE | 2025-03-30 17:30 | PHA.MEDREC ---
Addendum entered by Raquel Prado RPh 03/30/25 17:48: REVIEWED BY PHARMACIST Original Note: Pharmacy Consult ? Medication Reconciliation Pharmacy has completed the medication reconciliation.Confirmed medication list with patient. Relative acted as salesperson art objects, and also helped confirm medication list.
--- NOTE | 2025-03-30 19:34 | P.HPHOSP_ITS ---
History of Present Illness Date of Service: 03/30/25 Attending physician on admission: [facility] Chief Complaint: Pleuritic chest pain Pt is a 64-year-old female with a PMH significant for asthma/COPD overlap syndrome on 2.5L home O2 prn, bronchiectasis, HTN, anxiety, and depression who presents to the ED with worsening SOB, MUNIZ, productive cough, and left-sided chest pain. Chest pain is non-radiating, a squeezing sensation, and occurs with deep inspiration. Also complains of HOROWITZ, fatigue, chills, weakness, and loss of appetite. Follows with both Dr. Barron and pulmonology in [place]. Started on azithromycin three times a week in January, but unable to tolerate therapy. In the ED pt was tachycardic up to 97 and desatting to 90% on RA. Labs were significant for leukocytosis of 15.7, otherwise grossly unremarkable and baseline for pt. Stable H&H. No electrolyte abnormalities. Renal and hepatic function WNL. Lactic acid WNL. Troponin negative. CTA of chest was negative for PE but showed progressive right greater than left pulmonary cystic change as well as bronchiectasis and mucous plugging. Pt was treated in the ED with IVF and cefepime. Pt is admitted to the hospital for treatment and further evaluation of worsening bronchectasis with superimposed pneumonia with sepsis. Review of Systems 2 Review of Systems: Negative except for that which is stated in the [facility] Medical History Physical exam Blurry vision, bilateral Asthma Cough Sinusitis Sinusitis Bronchiectasis Asthma Screen for colon cancer Ear discomfort Bronchopneumonia Elevated hemoglobin Influenza A Acute febrile illness Hypoxia Allergies Pre-op chest exam Acute hypoxic respiratory failure Asthma-COPD overlap syndrome Bronchiectasis Family History Daughter Bronchiectasis Colon polyps Brother Mental health disorder Mother No problems noted. Father Stroke Surgical History H/O pneumonectomy History of bronchoscopy Social History Housing: Apartment Do you presently have visiting nurse or other home services: No Alcohol intake: current Alcohol intake frequency: holidays/special occasions only Alcohol type: wine Patient Tobacco Use Status: Former Tobacco user Tobacco use type: Cigarette Years Smoked: 5 years Smoked in Last 30 Days: No e-Cigarette/Vaping Use: Never Used Second Hand Smoke Exposure: No Use of substances other than those prescribed or required for medical reasons: No Advance Directives: Yes Advance Directives on File: Yes Advance Directives Date on File: 08/24/23 Do you have a plan to hurt others: No Plan Patient : No service: No Current occupational status: unemployed and retired Cognitive needs: No Hearing needs: No Vision needs: Yes Meds Allergies Allergy/AdvReac Type Severity Reaction Status Date / Time lisinopril Allergy Mild cough Verified 03/30/25 13:33 moxifloxacin (Avelox) Allergy Mild rash Verified 03/30/25 13:33 sulfamethoxazole (From Allergy Mild Rash Verified 03/30/25 13:33 Bactrim) trimethoprim (From Bactrim) Allergy Mild Rash Verified 03/30/25 13:33 Active Medications: Current Medications Cefepime HCl (Maxipime) 2 gm in 50 mls @ 100 mls/hr IV Q8H CHELY Home Medications ?Medication ?Instructions ?Recorded ?Confirmed ?Last Taken ?Type lorazepam 0.5 mg tablet 0.5 mg PO BID PRN Anxiety 03/30/25 Unknown History fluticasone propionate 50 1 spray intranasal DAILY PRN 06/27/23 03/30/25 03/30/25 History mcg/actuation nasal Allergy Symptoms spray,suspension fluticasone fur. 200 mcg-umeclid 1 inh inhalation TABBY Y 03/30/25 03/30/25 03/30/25 History 62.5 mcg-vilant 25 mcg inhalat.powder (Trelegy Ellipta) Physical Exam 2 Vital Signs and Narrative: Vital Signs: Last Vital Signs Temp 97.6 F 03/30/25 16:10 Pulse 91 03/30/25 17:30 Resp 13 03/30/25 16:10 BP 127/55 L 03/30/25 17:30 Pulse Ox 90 L 03/30/25 16:48 O2 Del Method Room Air 03/30/25 16:48 BMI result Body Mass Index 22.3 General: AOx3, no acute distress Resp: Coarse breath sounds bilaterally CVS: S1, S2, RRR GI: +BS, NT, no distention Skin: Warm, dry Neuro: Cranial nerves II-XII grossly intact bilaterally. Motor grossly intact bilaterally Extremities: No edema Psych: Appropriate affect Results Labs 03/30/25 14:18 03/30/25 14:18 Labs: Laboratory Results - last 24 hr 03/30/25 03/30/25 14:18 15:32 MCV 79.9 L MCH 26.7 L MCHC 33.4 RDW 14.6 Plt Count 379 MPV 8.7 L Immature Gran % (Auto) 0.4 Neut % (Auto) 90.6 H Lymph % (Auto) 6.9 L [place] % (Auto) 1.7 L Eos % (Auto) 0.2 Baso % (Auto) 0.2 Lymph # (Auto) 1.1 L [place] # (Auto) 0.3 Eos # (Auto) 0.0 Baso # (Auto) 0.0 Abs Immat Gran (auto) 0.07 H Absolute Neuts (auto) 14.2 H Absolute Nucleated RBC 0.000 Nucleated RBC % (auto) 0.0 Smear Tech's Comments VERIFIED D-Dimer High Sensitivty 312 Anion Gap 16 Estim Creat Clear Calc 74.4 Estimated GFR > 60 Random Glucose 129 H Lactic Acid 0.9 Calcium 9.7 Magnesium 2.0 Total Bilirubin 0.3 AST 17 ALT 9 Alkaline Phosphatase 76 Total Protein 8.4 H Albumin 4.1 COVID-19 (TOSIN) Negative COVID-19 Clin Com See Note Influenza Type A (FLORINDA) Negative Influenza Type B (FLORINDA) Negative Influenza A & B Note See Note Assessment and Plan (1) Pneumonia: Status: Acute (2) Bronchiectasis: Qualifiers: Bronchiectasis type: with acute lower respiratory infection Qualified Code(s): J47.0 - Bronchiectasis with acute lower respiratory infection Status: Acute Plan Pt is a 64-year-old female with a PMH significant for asthma/COPD overlap syndrome on 2.5L home O2 prn, bronchiectasis, HTN, anxiety, and depression who presents to the ED with worsening SOB, MUNIZ, productive cough, and left-sided chest pain. Pt is admitted to the hospital for treatment and further evaluation of worsening bronchectasis with superimposed pneumonia with sepsis. Bronchectasis with superimposed pneumonia with sepsis CTA of chest showing progressive right greater than left pulmonary cystic change as well as bronchiectasis and mucous plugging Met sepsis criteria with tachycardia and leukocytosis; lactic acid WNL, no severe features Hx of psudomonous pneuonia, will cover with cefepime, day 1 Duonebs, chest physiotherapy, O2 as necessary Continue home inhalers, montelukast Pulmonology consult HTN Continue losart, hydrochlorothiazide Anxiety Continue lorazepam Full Code Attending:?Dr. Sanchez DVT Prophylaxis: Lovenox Pt will require a hospitalization of at least two nights for treatment of?brochestasis with superimposed pneumonia with sepsis that will reuqire IV antiobiotics and specialist consultation with pulmonology. Quality Stroke Does the patient have a stroke diagnosis?: No VTE Prior VTE?: No VTE Risk Level:: Medical - moderate - high VTE Device Contraindication: Treatment Not Indicated VTE Drug Contraindication: N/A - Med Ordered
--- NOTE | 2025-03-30 20:55 | MHC.EDTECH ---
Called Pulmonology service for routine consult and they took the message
--- NOTE | 2025-03-30 21:39 | PC.NURSE ---
pt SOB when walking to/from bathroom. 91% RA.
[2025-03-30] MEDS: Calcium + Vitamin D 250 MG TABLET PO (21:46)
[2025-03-30] MEDS: 0.9 % Sodium Chloride Flush 3 ML SYRINGE IVFLUSH (23:25)
[2025-03-31] VITALS (10 sets, daily range): BP systolic 99–130; BP diastolic 53–75; PULSE 64–89; RESP 12–18; TEMP 36.1–37; O2SAT 92–100; BMI 22.3
[2025-03-31] MEDS: cefEPime HCl/D5W 2 GM/50 ML PIGGYBACK IV ×3 (06:11→22:52)
--- NOTE | 2025-03-31 06:20 | PC.NURSE ---
Assumed care of patient around 2200. She is alert and oriented x 3. Ambulating with standby assist, calm, cooperative. She is able to make needs known. Medicating per MAR. No acute events overnight. Bed in lowest setting, locked. Call roche at bedside. Patient currently waiting for [facility] bed.
[2025-03-31 06:23] LABS: Hematocrit 34.5 % (37.0-47.0); Hemoglobin 11.4 g/dl (12.0-16.0); Mean Corpuscular HGB Conc 33.0 g/dl (31.0-35.0); Mean Corpuscular Hemoglobin 26.4 pg (27.0-33.0); Mean Corpuscular Volume 79.9 fL (80.0-98.0); NRBC Abs Auto 0.000 X10*3/uL (0.0-0.012); NRBC Pct Auto 0.0 /100WBC (0.0-0.2); Platelet Count 343 X10*3/uL (160-400); Red Blood Count 4.32 X10*6/uL (4.20-5.50); White Blood Count 11.5 X10*3/uL (4.8-10.8)
[2025-03-31 06:37] LABS: Anion Gap 13 (12-20); Blood Urea Nitrogen 12 mg/dL (9-16); Calcium 9.4 mg/dL (8.4-10.2); Carbon Dioxide 26 mmol/L (22-29); Chloride 106 mmol/L (96-108); Creatinine Clr Calc Pharmacy 85.0; Estimated Glomerular Filt Rate > 60; Potassium 3.9 mmol/L (3.3-5.1); Sodium 141 mmol/L (135-145)
--- NOTE | 2025-03-31 07:43 | P.PNIM_ITS ---
Subjective Subjective Date of Service: 03/31/25 Interval History: Patient reports improvement in SOB/dyspnea since initiating broad-spectrum antibiotics with pseudomonal coverage Pulm consulted Added tobramycin Review of Systems Review of Systems: Yes all other systems are reviewed and are negative Physical Exam 2 Exam: Exam: General: AOx3, no acute distress Resp: Mild expiratory wheezing heard in bilateral lower lobes CVS: S1, S2, RRR GI: +BS, NT, no distention Skin: Warm, dry Neuro: Cranial nerves II-XII grossly intact bilaterally. Motor grossly intact bilaterally Extremities: No edema Psych: Appropriate affect Vital Signs: Vital Signs: Last Vital Signs Temp 97.3 F 03/31/25 06:00 Pulse 67 03/31/25 06:00 Resp 18 03/31/25 06:00 BP 110/64 03/31/25 06:00 Pulse Ox 97 03/31/25 06:00 O2 Del Method Room Air 03/31/25 06:00 BMI result Body Mass Index 22.3 Objective Data Active Medications Acetaminophen (Acetaminophen 325 Mg Tablet) 650 mg PO Q6H PRN PRN Reason: Pain, Mild 1-3,fever,headache Albuterol Sulfate (Albuterol Sulfate 90 Mcg 8 Gm Inhaler) 2 puff INHALE RQ6H PRN PRN Reason: for wheezing Albuterol/Ipratropium (Albuterol/Iprat 2.5/0.5mg 3 Ml Ampul.Neb) 3 ml INHALE RQ4H WHILE AWAKE PRN PRN Reason: Shortness of Breath/Wheezing Baclofen (Baclofen 10 Mg Tablet) 10 mg PO BID PRN PRN Reason: Muscle Spasm Calcium Carbonate (Calcium Carbonate 750 Mg Tab.Chew) 750 mg PO Q4H PRN PRN Reason: Heartburn Calcium Carbonate/Cholecalciferol (Calcium + Vitamin D 250 Mg Tablet) 250 mg PO BID [facility] Last Admin: 03/30/25 21:46 Dose: 250 mg Documented By: CHER Enoxaparin Sodium (Enoxaparin Sodium 40 Mg/0.4 Ml Syringe) 40 mg SUBCUT Q24H [facility] Last Admin: 03/30/25 20:52 Dose: 40 mg Documented By: CHER Fluticasone Propionate (Fluticasone Propionate Nasal 16 Gm [place]) 1 spray NOSTRIL-B DAILY PRN PRN Reason: Allergy Symptoms Fluticasone/Umeclidinium/Vilanterol (Fluticasone/Umeclidinium/Vilanterol 200/62.5/25 Blst.W.Dev) 1 puff INHALE RDAILY [facility] Hydrochlorothiazide (Hydrochlorothiazide 12.5 Mg Tablet) 12.5 mg PO DAILY [facility] Cefepime HCl (Maxipime) 2 gm in 50 mls @ 100 mls/hr IV Q8H [facility] Last Infusion: 03/31/25 06:41 Dose: Infused Documented By: TEAGAN Levalbuterol HCl (Levalbuterol Hcl 1.25 Mg/3 Ml Vial.Neb) 1.25 mg INHALE RQID [facility] Last Admin: 03/30/25 20:17 Dose: 1.25 mg Documented By: CHRISSIE Loratadine (Loratadine 10 Mg Tablet) 10 mg PO DAILY PRN PRN Reason: allergy symptoms Lorazepam (Lorazepam 0.5 Mg Tablet) 0.5 mg PO BID PRN PRN Reason: Anxiety Last Admin: 03/31/25 00:06 Dose: 0.5 mg Documented By: TEAGAN Losartan Potassium (Losartan Potassium 50 Mg Tablet) 100 mg PO DAILY [facility] Magnesium Hydroxide (Milk Of Magnesia 30 Ml Oral.Susp) 30 ml PO DAILY PRN PRN Reason: Constipation Melatonin (Melatonin 3 Mg Tablet) 6 mg PO BEDTIME PRN PRN Reason: Insomnia Montelukast Sodium (Montelukast Sodium 10 Mg Tablet) 10 mg PO DAILY [facility] Ondansetron HCl (Ondansetron Hcl 4 Mg/2 Ml Vial) 4 mg IVPUSH Q8H PRN PRN Reason: Nausea and Vomiting Sodium Chloride (0.9 % Sodium Chloride Flush 3 Ml Syringe) 3 ml IVFLUSH QSHIFT [facility] Last Admin: 03/30/25 23:25 Dose: 3 ml Documented By: TEAGAN Labs 03/31/25 06:17 03/31/25 06:17 Labs: Laboratory Results - last 24 hr 03/30/25 03/30/25 03/31/25 14:18 15:32 06:17 MCV 79.9 L 79.9 L MCH 26.7 L 26.4 L MCHC 33.4 33.0 RDW 14.6 14.7 Plt Count 379 343 MPV 8.7 L 8.6 L Immature Gran % (Auto) 0.4 Neut % (Auto) 90.6 H Lymph % (Auto) 6.9 L [place] % (Auto) 1.7 L Eos % (Auto) 0.2 Baso % (Auto) 0.2 Lymph # (Auto) 1.1 L [place] # (Auto) 0.3 Eos # (Auto) 0.0 Baso # (Auto) 0.0 Abs Immat Gran (auto) 0.07 H Absolute Neuts (auto) 14.2 H Absolute Nucleated RBC 0.000 0.000 Nucleated RBC % (auto) 0.0 0.0 Smear Tech's Comments VERIFIED D-Dimer High Sensitivty 312 Anion Gap 16 13 Estim Creat Clear Calc 74.4 85.0 Estimated GFR > 60 > 60 Random Glucose 129 H 116 H Lactic Acid 0.9 Calcium 9.7 9.4 Magnesium 2.0 Total Bilirubin 0.3 AST 17 ALT 9 Alkaline Phosphatase 76 Total Protein 8.4 H Albumin 4.1 COVID-19 (TOSIN) Negative COVID-19 Clin Com See Note Influenza Type A (FLORINDA) Negative Influenza Type B (FLORINDA) Negative Influenza A & B Note See Note Assessment and Plan (1) Bronchiectasis: Status: Acute Plan pt with pmh sig for underlying asthma/COPD overlap syndrome on 2-1/2 L supplemental oxygen, progressive bronchiectasis ,recent Pseudomonas admitted on 03/30/2025 with worsening dyspnea on exertion, productive cough and left-sided pleuritic chest pain. Her CT angio chest demonstrated no pulmonary emboli, but progressive bronchiectasis with significant mucus burden. Subacute/acute onset worsening dyspnea on exertion in a patient with progressive bronchiectasis Chronic hypoxemic failure secondary to Asthma COPD overlap on 2 to 2.5 L O2- currently back to baseline Recent pseudomonal infection PE ruled out with CTA PE protocol Pulmonology consulted We will continue broad-spectrum antibiotic with Pseudomonas coverage with cefepime-day 2-start date 2024 Tobramycin was added by pulmonology We will continue current broad-spectrum antibiotics and if continues to improve, we will likely discharge in a couple of days pending clinical status Acapella valve, incentive spirometer COPD management with albuterol, DuoNeb, montelukast, chest PT HTN Continue losart, hydrochlorothiazide Anxiety Continue lorazepam DVT Prophylaxis: Lovenox This note is constructed using voice recognition software. While every effort has been made to ensure accuracy, industrial engineering technician errors may have been included. Total time managing care of this patient today: 35 minutes. Quality Stroke Does the patient have a stroke diagnosis?: No VTE Prior VTE?: No VTE Risk Level:: Medical - moderate - high VTE Device Contraindication: Treatment Not Indicated VTE Drug Contraindication: N/A - Med Ordered
--- NOTE | 2025-03-31 08:15 | MHC.EDTECH ---
pt ate 100% breakfast
--- NOTE | 2025-03-31 08:30 | MHC.EDTECH ---
pt was assisted in washing up and teeth brushed with linen change and standby assistance to the commode and voided.
[2025-03-31] MEDS: Calcium + Vitamin D 250 MG TABLET PO ×2 (09:26→20:00)
--- NOTE | 2025-03-31 12:35 | MHC.EDTECH ---
pt ate 75% lunch
--- NOTE | 2025-03-31 12:59 | P.CONPL_ITS ---
History of Present Illness History of Present Illness Consult date: 03/31/25 Chief complaint: pneumonia with sepsis Narrative: 64-year-old lady with underlying asthma/COPD overlap syndrome on 2-1/2 L supplemental oxygen, progressive bronchiectasis with prior Gram-negative infections including recently Pseudomonas admitted on 03/30/2025 with worsening dyspnea on exertion, productive cough and left-sided pleuritic chest pain. Her CT angio chest demonstrated no pulmonary emboli, but progressive bronchiectasis with significant mucus burden. Patient was started on empiric antibiotics and admitted to medicine service. Review of Systems 2 Constitutional: Constitutional: Denies daytime sleepiness, Denies excessive sweating, Denies fatigue, Denies fever(s), Denies lethargy, Denies malaise, Denies night sweats, Denies snoring and Denies weight loss Eyes: Eyes: Denies blurry vision and Denies itchy eyes ENT: Denies nasal congestion, Denies post nasal drip, Denies sinus pain, Denies sinus pressure and Denies other ( Thrush) Cardiovascular: Cardiovascular: Reports chest pain (Pleuritic), Denies pedal edema, Denies dyspnea, Reports dyspnea on exertion, Denies orthopnea and Denies paroxysmal nocturnal dyspnea Respiratory: Respiratory: Reports cough, Denies hemoptysis, Reports excessive phlegm production, Denies dyspnea, Reports dyspnea on exertion, Denies snoring and Denies wheezing Gastrointestinal: Gastrointestinal: Denies abdominal pain and Denies heartburn Musculoskeletal: Musculoskeletal: Denies myalgias, Denies arthralgias and Denies joint swelling Integumentary/Breasts: Skin/Breast: Denies rash Neurologic: Denies memory loss and Denies seizure-like activity Psychiatric: Psychiatric: Denies abnormal sleep pattern, Denies anxiety and Denies memory loss Endocrine: Endocrine: Denies excessive sweating, Denies fatigue and Denies heat intolerance Hematologic/Lymphatic: Hematologic/Lymphatic: Denies easy bruising Allergic/Immunologic: Allergic/Immunologic: Denies itchy eyes, Denies seasonal rhinorrhea and Denies wheezing PMFSH Past Medical History Medical History Physical exam Blurry vision, bilateral Asthma Cough Sinusitis Sinusitis Bronchiectasis Asthma Screen for colon cancer Ear discomfort Bronchopneumonia Elevated hemoglobin Influenza A Acute febrile illness Hypoxia Allergies Pre-op chest exam Acute hypoxic respiratory failure Asthma-COPD overlap syndrome Bronchiectasis Family History Family History Daughter Bronchiectasis Colon polyps Brother Mental health disorder Mother No problems noted. Father Stroke Surgical History Surgical History H/O pneumonectomy History of bronchoscopy Social History Social History Housing: Apartment Do you presently have visiting nurse or other home services: No Alcohol intake: current Alcohol intake frequency: holidays/special occasions only Alcohol type: wine Patient Tobacco Use Status: Former Tobacco user Tobacco use type: Cigarette Years Smoked: 5 years Smoked in Last 30 Days: No e-Cigarette/Vaping Use: Never Used Second Hand Smoke Exposure: No Use of substances other than those prescribed or required for medical reasons: No Advance Directives: Yes Advance Directives on File: Yes Advance Directives Date on File: 08/24/23 Do you have a plan to hurt others: No Plan Patient : No service: No Current occupational status: unemployed and retired Cognitive needs: No Hearing needs: No Vision needs: Yes Meds Allergies Allergy/AdvReac Type Severity Reaction Status Date / Time lisinopril Allergy Mild cough Verified 03/30/25 13:33 moxifloxacin (Avelox) Allergy Mild rash Verified 03/30/25 13:33 sulfamethoxazole (From Allergy Mild Rash Verified 03/30/25 13:33 Bactrim) trimethoprim (From Bactrim) Allergy Mild Rash Verified 03/30/25 13:33 Active Medications: Current Medications Acetaminophen (Acetaminophen 325 Mg Tablet) 650 mg PO Q6H PRN PRN Reason: Pain, Mild 1-3,fever,headache Last Admin: 03/31/25 08:37 Dose: 650 mg Albuterol Sulfate (Albuterol Sulfate 90 Mcg 8 Gm Inhaler) 2 puff INHALE RQ6H PRN PRN Reason: for wheezing Albuterol/Ipratropium (Albuterol/Iprat 2.5/0.5mg 3 Ml Ampul.Neb) 3 ml INHALE RQ4H WHILE AWAKE PRN PRN Reason: Shortness of Breath/Wheezing Baclofen (Baclofen 10 Mg Tablet) 10 mg PO BID PRN PRN Reason: Muscle Spasm Calcium Carbonate (Calcium Carbonate 750 Mg Tab.Chew) 750 mg PO Q4H PRN PRN Reason: Heartburn Calcium Carbonate/Cholecalciferol (Calcium + Vitamin D 250 Mg Tablet) 250 mg PO BID [facility] Last Admin: 03/31/25 09:26 Dose: 250 mg Enoxaparin Sodium (Enoxaparin Sodium 40 Mg/0.4 Ml Syringe) 40 mg SUBCUT Q24H [facility] Last Admin: 03/30/25 20:52 Dose: 40 mg Fluticasone Propionate (Fluticasone Propionate Nasal 16 Gm [place]) 1 spray NOSTRIL-B DAILY PRN PRN Reason: Allergy Symptoms Fluticasone/Umeclidinium/Vilanterol (Fluticasone/Umeclidinium/Vilanterol 200/62.5/25 Blst.W.Dev) 1 puff INHALE RDAILY [facility] Last Admin: 03/31/25 10:07 Dose: Not Given Hydrochlorothiazide (Hydrochlorothiazide 12.5 Mg Tablet) 12.5 mg PO DAILY [facility] Last Admin: 03/31/25 09:26 Dose: 12.5 mg Cefepime HCl (Maxipime) 2 gm in 50 mls @ 100 mls/hr IV Q8H [facility] Last Infusion: 03/31/25 06:41 Dose: Infused Levalbuterol HCl (Levalbuterol Hcl 1.25 Mg/3 Ml Vial.Neb) 1.25 mg INHALE RQID [facility] Last Admin: 03/31/25 11:15 Dose: 1.25 mg Loratadine (Loratadine 10 Mg Tablet) 10 mg PO DAILY PRN PRN Reason: allergy symptoms Lorazepam (Lorazepam 0.5 Mg Tablet) 0.5 mg PO BID PRN PRN Reason: Anxiety Last Admin: 03/31/25 00:06 Dose: 0.5 mg Losartan Potassium (Losartan Potassium 50 Mg Tablet) 100 mg PO DAILY [facility] Last Admin: 03/31/25 08:37 Dose: 100 mg Magnesium Hydroxide (Milk Of Magnesia 30 Ml Oral.Susp) 30 ml PO DAILY PRN PRN Reason: Constipation Melatonin (Melatonin 3 Mg Tablet) 6 mg PO BEDTIME PRN PRN Reason: Insomnia Montelukast Sodium (Montelukast Sodium 10 Mg Tablet) 10 mg PO DAILY [facility] Last Admin: 03/31/25 08:36 Dose: 10 mg Ondansetron HCl (Ondansetron Hcl 4 Mg/2 Ml Vial) 4 mg IVPUSH Q8H PRN PRN Reason: Nausea and Vomiting Sodium Chloride (0.9 % Sodium Chloride Flush 3 Ml Syringe) 3 ml IVFLUSH QSHIFT [facility] Last Admin: 03/31/25 09:26 Dose: Not Given Home Medications ?Medication ?Instructions ?Recorded ?Confirmed ?Last Taken ?Type lorazepam 0.5 mg tablet 0.5 mg PO BID PRN Anxiety 03/30/25 Unknown History fluticasone propionate 50 1 spray intranasal DAILY PRN 06/27/23 03/30/25 03/30/25 History mcg/actuation nasal Allergy Symptoms spray,suspension fluticasone fur. 200 mcg-umeclid 1 inh inhalation TABBY Y 03/30/25 03/30/25 03/30/25 History 62.5 mcg-vilant 25 mcg inhalat.powder (Trelegy Ellipta) Physical Exam 2 Vital Signs: Vital Signs: Last Vital Signs Temp 97.3 F 03/31/25 06:00 Pulse 67 03/31/25 11:18 Resp 18 03/31/25 11:18 BP 110/64 03/31/25 06:00 Pulse Ox 93 03/31/25 11:18 O2 Del Method Room Air 03/31/25 06:00 BMI result Body Mass Index 22.3 Const: General: no acute distress and alert Nutritional Appearance: not obese Orientation/consciousness: Other orientation findings ( oriented) HEENT: Head: Yes atraumatic Eyes: General: appearance normal, both eyes and all related structures S clerae: sclerae normal EOM: EOMs intact bilaterally Neck: Neck: Yes supple Lymphatic: no lymphadenopathy noted Resp: Effort & Inspection: normal respiratory effort and no use of accessory muscles Auscultation: clear to auscultation bilaterally Cardio: Rate: regular rate Rhythm: regular rhythm Heart sounds: no gallops, no murmurs and no rubs GI: Palpation (GI): Soft to palpation and Other GI palpation findings present ( Nontender) Auscultation: normal bowel sounds Skin: General skin exam: other ( warm) Extrem: General: No clubbing, No cyanosis and No edema Results Laboratory Findings 03/31/25 06:17 03/31/25 06:17 Abnormal lab findings: Abnormal Labs 03/30/25 03/31/25 14:18 06:17 WBC 15.7 H 11.5 H Hgb 11.4 L Hct 34.5 L MCV 79.9 L 79.9 L MCH 26.7 L 26.4 L MPV 8.7 L 8.6 L Neut % (Auto) 90.6 H Lymph % (Auto) 6.9 L [place] % (Auto) 1.7 L Lymph # (Auto) 1.1 L Abs Immat Gran (auto) 0.07 H Absolute Neuts (auto) 14.2 H Random Glucose 129 H 116 H Total Protein 8.4 H Assessment and Plan (1) Bronchiectasis: Qualifiers: Bronchiectasis type: with acute lower respiratory infection Qualified Code(s): J47.0 - Bronchiectasis with acute lower respiratory infection Status: Acute (2) Asthma-COPD overlap syndrome: Status: Acute Plan Impression: 64-year-old lady with underlying progressive bronchiectasis admitted with worsening dyspnea and productive cough consistent with bronchiectasis exacerbation. Recommendation: Agree with empiric broad-spectrum antibiotics with Pseudomonas coverage. Will add inhaled tobramycin. Procedures Date of Service Date of Service: 03/31/25
--- NOTE | 2025-03-31 13:04 | MHC.CM.PN ---
CM MET WITH PT WITH A HEAD CONCIERGE PT REPORTS SHE LIVES ALONE AND HAS DAILY [employer] SHE HAS A CANE SHE USES PRN WELL A SHOWER CHAIR HCP ON FILE PCP: [facility] DELIVERED DCP: HOME, RESUME [facility] VS [employer]
[2025-03-31] MEDS: 0.9 % Sodium Chloride Flush 3 ML SYRINGE IVFLUSH (19:58)
[2025-04-01] VITALS (8 sets, daily range): BP systolic 105–125; BP diastolic 58–67; PULSE 67–90; RESP 16–18; TEMP 36–36.7; O2SAT 95–96
[2025-04-01 06:23] LABS: MANUAL DIFF FLAG NO
[2025-04-01] MEDS: cefEPime HCl/D5W 2 GM/50 ML PIGGYBACK IV ×3 (06:24→22:58)
[2025-04-01 06:39] LABS: Hematocrit 34.9 % (37.0-47.0); Hemoglobin 10.9 g/dl (12.0-16.0); Imm Gran Abs Auto 0.03 X10*3/uL (0.00-0.03); Imm Gran Pct Auto 0.3 % (0.0-0.4); Lymphocytes Absolute Auto 3.2 X10*3/uL (1.2-4.9); Mean Corpuscular HGB Conc 31.2 g/dl (31.0-35.0); Mean Corpuscular Hemoglobin 25.9 pg (27.0-33.0); Mean Corpuscular Volume 82.9 fL (80.0-98.0); NRBC Abs Auto 0.000 X10*3/uL (0.0-0.012); NRBC Pct Auto 0.0 /100WBC (0.0-0.2); Platelet Count 327 X10*3/uL (160-400); Red Blood Count 4.21 X10*6/uL (4.20-5.50); White Blood Count 9.7 X10*3/uL (4.8-10.8)
[2025-04-01 07:06] LABS: Alanine Aminotransferase 7 U/L (0-31); Albumin Level 3.1 g/dL (3.5-5.0); Alkaline Phosphatase 77 U/L (39-117); Anion Gap 9 (12-20); Aspartate Amino Transferase 16 U/L (5-31); Blood Urea Nitrogen 24 mg/dL (9-16); Calcium 9.2 mg/dL (8.4-10.2); Carbon Dioxide 29 mmol/L (22-29); Chloride 108 mmol/L (96-108); Creatinine Clr Calc Pharmacy 69.0; Estimated Glomerular Filt Rate > 60; Potassium 4.4 mmol/L (3.3-5.1); Sodium 142 mmol/L (135-145); Total Protein 6.5 g/dL (6.5-8.0)
--- NOTE | 2025-04-01 08:27 | P.PNIM_ITS ---
Subjective Subjective Date of Service: 04/01/25 Interval History: Patient appears to be having some anemia of unclear etiology no overt signs of bleed-patient's hemoglobin drop from 13.3 on 03/30 25-10.9 on 04/01/2025 Thankfully leukocytosis has normalized with the broad-spectrum antibiotics Review of Systems Review of Systems: Yes all other systems are reviewed and are negative Physical Exam 2 Exam: Exam: General: AOx3, no acute distress Resp: Mild expiratory wheezing heard in bilateral lower lobes CVS: S1, S2, RRR GI: +BS, NT, no distention Skin: Warm, dry Neuro: Cranial nerves II-XII grossly intact bilaterally. Motor grossly intact bilaterally Extremities: No edema Psych: Appropriate affect Vital Signs: Vital Signs: Last Vital Signs Temp 97.3 F 03/31/25 06:00 Pulse 67 03/31/25 06:00 Resp 18 03/31/25 06:00 BP 110/64 03/31/25 06:00 Pulse Ox 97 03/31/25 06:00 O2 Del Method Room Air 03/31/25 06:00 BMI result Body Mass Index 22.3 Objective Data Active Medications Acetaminophen (Acetaminophen 325 Mg Tablet) 650 mg PO Q6H PRN PRN Reason: Pain, Mild 1-3,fever,headache Last Admin: 03/31/25 08:37 Dose: 650 mg Documented By: SPARKLE Albuterol Sulfate (Albuterol Sulfate 90 Mcg 8 Gm Inhaler) 2 puff INHALE RQ6H PRN PRN Reason: for wheezing Albuterol/Ipratropium (Albuterol/Iprat 2.5/0.5mg 3 Ml Ampul.Neb) 3 ml INHALE RQ4H WHILE AWAKE PRN PRN Reason: Shortness of Breath/Wheezing Baclofen (Baclofen 10 Mg Tablet) 10 mg PO BID PRN PRN Reason: Muscle Spasm Calcium Carbonate (Calcium Carbonate 750 Mg Tab.Chew) 750 mg PO Q4H PRN PRN Reason: Heartburn Calcium Carbonate/Cholecalciferol (Calcium + Vitamin D 250 Mg Tablet) 250 mg PO BID [facility] Last Admin: 03/31/25 20:00 Dose: 250 mg Documented By: TARSHA Enoxaparin Sodium (Enoxaparin Sodium 40 Mg/0.4 Ml Syringe) 40 mg SUBCUT Q24H [facility] Last Admin: 03/31/25 19:57 Dose: 40 mg Documented By: TARSHA Fluticasone Propionate (Fluticasone Propionate Nasal 16 Gm [place]) 1 spray NOSTRIL-B DAILY PRN PRN Reason: Allergy Symptoms Fluticasone/Umeclidinium/Vilanterol (Fluticasone/Umeclidinium/Vilanterol 200/62.5/25 Blst.W.Dev) 1 puff INHALE RDAILY [facility] Last Admin: 04/01/25 07:59 Dose: Not Given Documented By: ONEIDA Non-Admin Reason: Med Not Available Hydrochlorothiazide (Hydrochlorothiazide 12.5 Mg Tablet) 12.5 mg PO DAILY [facility] Last Admin: 03/31/25 09:26 Dose: 12.5 mg Documented By: SPARKLE Cefepime HCl (Maxipime) 2 gm in 50 mls @ 100 mls/hr IV Q8H [facility] Last Infusion: 04/01/25 07:03 Dose: Infused Documented By: ANT Levalbuterol HCl (Levalbuterol Hcl 1.25 Mg/3 Ml Vial.Neb) 1.25 mg INHALE RQID [facility] Last Admin: 04/01/25 07:59 Dose: 1.25 mg Documented By: ONEIDA Loratadine (Loratadine 10 Mg Tablet) 10 mg PO DAILY PRN PRN Reason: allergy symptoms Lorazepam (Lorazepam 0.5 Mg Tablet) 0.5 mg PO BID PRN PRN Reason: Anxiety Last Admin: 03/31/25 22:11 Dose: 0.5 mg Documented By: TARSHA Losartan Potassium (Losartan Potassium 50 Mg Tablet) 100 mg PO DAILY [facility] Last Admin: 03/31/25 08:37 Dose: 100 mg Documented By: SPARKLE Magnesium Hydroxide (Milk Of Magnesia 30 Ml Oral.Susp) 30 ml PO DAILY PRN PRN Reason: Constipation Melatonin (Melatonin 3 Mg Tablet) 6 mg PO BEDTIME PRN PRN Reason: Insomnia Montelukast Sodium (Montelukast Sodium 10 Mg Tablet) 10 mg PO DAILY [facility] Last Admin: 03/31/25 08:36 Dose: 10 mg Documented By: SPARKLE Ondansetron HCl (Ondansetron Hcl 4 Mg/2 Ml Vial) 4 mg IVPUSH Q8H PRN PRN Reason: Nausea and Vomiting Sodium Chloride (0.9 % Sodium Chloride Flush 3 Ml Syringe) 3 ml IVFLUSH QSHIFT [facility] Last Admin: 03/31/25 19:58 Dose: 3 ml Documented By: TARSHA Tobramycin Sulfate (Tobramycin Sulfate 80 Mg/2 Ml Vial) 300 mg INHALE Q12H [facility] Last Admin: 04/01/25 07:59 Dose: 300 mg Documented By: ONEIDA Labs 04/01/25 05:32 04/01/25 05:32 Labs: Laboratory Results - last 24 hr 04/01/25 05:32 MCV 82.9 MCH 25.9 L MCHC 31.2 RDW 15.0 Plt Count 327 MPV 9.3 L Immature Gran % (Auto) 0.3 Neut % (Auto) 56.5 Lymph % (Auto) 33.0 [place] % (Auto) 6.8 Eos % (Auto) 2.9 Baso % (Auto) 0.5 Lymph # (Auto) 3.2 [place] # (Auto) 0.7 Eos # (Auto) 0.3 Baso # (Auto) 0.1 Abs Immat Gran (auto) 0.03 Absolute Neuts (auto) 5.5 Absolute Nucleated RBC 0.000 Nucleated RBC % (auto) 0.0 Anion Gap 9 L Estim Creat Clear Calc 69.0 Estimated GFR > 60 Random Glucose 79 Calcium 9.2 Total Bilirubin 0.2 AST 16 ALT 7 Alkaline Phosphatase 77 Total Protein 6.5 Albumin 3.1 L Microbiology Microbiology Results: Microbiology 03/31/25 17:26 Gram Stain - Final Sputum - Expectorated Sputum Culture - Preliminary No growth to date. 03/30/25 15:34 Blood Culture - Preliminary Blood - Venous No growth after 24 hours. 03/30/25 15:32 Blood Culture - Preliminary Blood - Venous No growth after 24 hours. Assessment and Plan (1) Bronchiectasis: Status: Acute Plan pt with pmh sig for underlying asthma/COPD overlap syndrome on 2-1/2 L supplemental oxygen, progressive bronchiectasis ,recent Pseudomonas admitted on 03/30/2025 with worsening dyspnea on exertion, productive cough and left-sided pleuritic chest pain. Her CT angio chest demonstrated no pulmonary emboli, but progressive bronchiectasis with significant mucus burden. Improving with broad- spectrum antibiotics If patient continues to clinically improve, in conjunction with pulmonology, we will likely discharge the patient in a day or 2 Subacute/acute onset worsening dyspnea on exertion in a patient with progressive bronchiectasis Chronic hypoxemic failure secondary to Asthma COPD overlap on 2 to 2.5 L O2- currently back to baseline Recent pseudomonal infection PE ruled out with CTA PE protocol Pulmonology consulted - We will continue broad-spectrum antibiotic with Pseudomonas coverage with cefepime-day 3-start date 2024 Tobramycin was added by pulmonology , will comtinue We will continue current broad-spectrum antibiotics and if continues to improve, we will likely discharge in a couple of days pending clinical status Acapella valve, incentive spirometer COPD management with albuterol, DuoNeb, montelukast, chest PT Mucomyst once to look for relief of mucus plug Occult drop in hemoglobin Patient drop nearly 2 units since admission For now we will continue to monitor and if she continues to drop, we will check stool guaiac HTN Continue losart, hydrochlorothiazide Anxiety Continue lorazepam DVT Prophylaxis: Lovenox This note is constructed using voice recognition software. While every effort has been made to ensure accuracy, grain combiner errors may have been included. Total time managing care of this patient today: 35 minutes. Quality Stroke Does the patient have a stroke diagnosis?: No VTE Prior VTE?: No VTE Risk Level:: Medical - moderate - high VTE Device Contraindication: Treatment Not Indicated VTE Drug Contraindication: N/A - Med Ordered
[2025-04-01] MEDS: Calcium + Vitamin D 250 MG TABLET PO ×2 (08:59→20:30)
[2025-04-01] MEDS: 0.9 % Sodium Chloride Flush 3 ML SYRINGE IVFLUSH ×3 (08:59→20:31)
[2025-04-01] MEDS: Acetylcysteine 10 % 400 MG/4 ML VIAL 200 MG INHALE (19:54)
[2025-04-02 03:41] VITALS: BP 109/55; PULSE 85; RESP 16; TEMP 36.4; O2SAT 96
[2025-04-02 05:56] LABS: MANUAL DIFF FLAG NO
[2025-04-02 06:02] LABS: Hematocrit 35.6 % (37.0-47.0); Hemoglobin 11.2 g/dl (12.0-16.0); Imm Gran Abs Auto 0.04 X10*3/uL (0.00-0.03); Imm Gran Pct Auto 0.5 % (0.0-0.4); Lymphocytes Absolute Auto 3.3 X10*3/uL (1.2-4.9); Mean Corpuscular HGB Conc 31.5 g/dl (31.0-35.0); Mean Corpuscular Hemoglobin 26.1 pg (27.0-33.0); Mean Corpuscular Volume 83.0 fL (80.0-98.0); NRBC Abs Auto 0.000 X10*3/uL (0.0-0.012); NRBC Pct Auto 0.0 /100WBC (0.0-0.2); Platelet Count 330 X10*3/uL (160-400); Red Blood Count 4.29 X10*6/uL (4.20-5.50); White Blood Count 8.1 X10*3/uL (4.8-10.8)
[2025-04-02] MEDS: cefEPime HCl/D5W 2 GM/50 ML PIGGYBACK IV (06:03)
[2025-04-02 06:12] LABS: Alanine Aminotransferase 7 U/L (0-31); Albumin Level 3.3 g/dL (3.5-5.0); Alkaline Phosphatase 59 U/L (39-117); Anion Gap 11 (12-20); Aspartate Amino Transferase 16 U/L (5-31); Blood Urea Nitrogen 15 mg/dL (9-16); Calcium 9.3 mg/dL (8.4-10.2); Carbon Dioxide 30 mmol/L (22-29); Chloride 104 mmol/L (96-108); Creatinine Clr Calc Pharmacy 74.4; Estimated Glomerular Filt Rate > 60; Potassium 3.8 mmol/L (3.3-5.1); Sodium 141 mmol/L (135-145); Total Protein 6.8 g/dL (6.5-8.0)
[2025-04-02 07:09] VITALS: BP 109/60; PULSE 68; RESP 16; TEMP 36.4; O2SAT 98
[2025-04-02 07:30] VITALS: PULSE 70; RESP 18
[2025-04-02] MEDS: Fluticasone/Umeclidinium/Vilanterol 200/62.5/25 BLST.W.DEV 1 PUFF INHALE (07:35)
--- NOTE | 2025-04-02 08:09 | HO.PM.IMPN ---
Subjective Subjective Date of Service: 04/02/25 Physical Exam Vital Signs: Vital Signs: Last Vital Signs Temp 97.6 F 04/02/25 07:09 Pulse 70 04/02/25 07:30 Resp 18 04/02/25 07:30 BP 109/60 04/02/25 07:09 Pulse Ox 98 04/02/25 07:09 O2 Del Method Room Air 04/02/25 07:09 O2 Flow Rate 2 04/01/25 03:32 BMI result Body Mass Index 22.3 Objective Data Active Medications Acetaminophen (Acetaminophen 325 Mg Tablet) 650 mg PO Q6H PRN PRN Reason: Pain, Mild 1-3,fever,headache Last Admin: 03/31/25 08:37 Dose: 650 mg Documented By: SPARKLE Albuterol Sulfate (Albuterol Sulfate 90 Mcg 8 Gm Inhaler) 2 puff INHALE RQ6H PRN PRN Reason: for wheezing Albuterol/Ipratropium (Albuterol/Iprat 2.5/0.5mg 3 Ml Ampul.Neb) 3 ml INHALE RQ4H WHILE AWAKE PRN PRN Reason: Shortness of Breath/Wheezing Baclofen (Baclofen 10 Mg Tablet) 10 mg PO BID PRN PRN Reason: Muscle Spasm Calcium Carbonate (Calcium Carbonate 750 Mg Tab.Chew) 750 mg PO Q4H PRN PRN Reason: Heartburn Calcium Carbonate/Cholecalciferol (Calcium + Vitamin D 250 Mg Tablet) 250 mg PO BID [facility] Last Admin: 04/01/25 20:30 Dose: 250 mg Documented By: TARSHA Enoxaparin Sodium (Enoxaparin Sodium 40 Mg/0.4 Ml Syringe) 40 mg SUBCUT Q24H [facility] Last Admin: 04/01/25 20:31 Dose: 40 mg Documented By: TARSHA Fluticasone Propionate (Fluticasone Propionate Nasal 16 Gm [place]) 1 spray NOSTRIL-B DAILY PRN PRN Reason: Allergy Symptoms Fluticasone/Umeclidinium/Vilanterol (Fluticasone/Umeclidinium/Vilanterol 200/62.5/25 Blst.W.Dev) 1 puff INHALE RDAILY [facility] Last Admin: 04/02/25 07:35 Dose: 1 puff Documented By: ONEIDA Hydrochlorothiazide (Hydrochlorothiazide 12.5 Mg Tablet) 12.5 mg PO DAILY [facility] Last Admin: 04/01/25 08:59 Dose: 12.5 mg Documented By: ANT Cefepime HCl (Maxipime) 2 gm in 50 mls @ 100 mls/hr IV Q8H [facility] Last Infusion: 04/02/25 06:36 Dose: Infused Documented By: TARSHA Levalbuterol HCl (Levalbuterol Hcl 1.25 Mg/3 Ml Vial.Neb) 1.25 mg INHALE RQID [facility] Last Admin: 04/02/25 07:28 Dose: 1.25 mg Documented By: ONEIDA Loratadine (Loratadine 10 Mg Tablet) 10 mg PO DAILY PRN PRN Reason: allergy symptoms Lorazepam (Lorazepam 0.5 Mg Tablet) 0.5 mg PO BID PRN PRN Reason: Anxiety Last Admin: 04/01/25 21:54 Dose: 0.5 mg Documented By: TARSHA Losartan Potassium (Losartan Potassium 50 Mg Tablet) 100 mg PO DAILY [facility] Last Admin: 04/01/25 08:59 Dose: 100 mg Documented By: ANT Magnesium Hydroxide (Milk Of Magnesia 30 Ml Oral.Susp) 30 ml PO DAILY PRN PRN Reason: Constipation Melatonin (Melatonin 3 Mg Tablet) 6 mg PO BEDTIME PRN PRN Reason: Insomnia Montelukast Sodium (Montelukast Sodium 10 Mg Tablet) 10 mg PO DAILY [facility] Last Admin: 04/01/25 08:59 Dose: 10 mg Documented By: ANT Ondansetron HCl (Ondansetron Hcl 4 Mg/2 Ml Vial) 4 mg IVPUSH Q8H PRN PRN Reason: Nausea and Vomiting Sodium Chloride (0.9 % Sodium Chloride Flush 3 Ml Syringe) 3 ml IVFLUSH QSHIFT [facility] Last Admin: 04/02/25 07:33 Dose: Not Given Documented By: DANIEL Non-Admin Reason: Previously Administered Tobramycin Sulfate (Tobramycin Sulfate 80 Mg/2 Ml Vial) 300 mg INHALE RBID [facility] Last Admin: 04/02/25 07:32 Dose: Not Given Documented By: ONEIDA Non-Admin Reason: Medication Discontinued Labs 04/02/25 05:04 04/02/25 05:04 Labs: Laboratory Results - last 24 hr 04/02/25 05:04 MCV 83.0 MCH 26.1 L MCHC 31.5 RDW 15.0 Plt Count 330 MPV 9.0 L Immature Gran % (Auto) 0.5 H Neut % (Auto) 46.0 Lymph % (Auto) 40.3 H [place] % (Auto) 6.9 Eos % (Auto) 5.7 H Baso % (Auto) 0.6 Lymph # (Auto) 3.3 [place] # (Auto) 0.6 Eos # (Auto) 0.5 H Baso # (Auto) 0.1 Abs Immat Gran (auto) 0.04 H Absolute Neuts (auto) 3.7 Absolute Nucleated RBC 0.000 Nucleated RBC % (auto) 0.0 Anion Gap 11 L Estim Creat Clear Calc 74.4 Estimated GFR > 60 Random Glucose 79 Calcium 9.3 Total Bilirubin 0.2 AST 16 ALT 7 Alkaline Phosphatase 59 Total Protein 6.8 Albumin 3.3 L Microbiology Microbiology Results: Microbiology 03/30/25 15:34 Blood Culture - Preliminary Blood - Venous No growth after 48 hours. 03/30/25 15:32 Blood Culture - Preliminary Blood - Venous No growth after 48 hours. 03/31/25 17:26 Gram Stain - Final Sputum - Expectorated Sputum Culture - Preliminary No growth to date. Quality Stroke Does the patient have a stroke diagnosis?: No VTE Prior VTE?: No VTE Risk Level:: Medical - moderate - high VTE Device Contraindication: Treatment Not Indicated VTE Drug Contraindication: N/A - Med Ordered
[2025-04-02] MEDS: Calcium + Vitamin D 250 MG TABLET PO (09:18)
[2025-04-02 10:06] VITALS: PULSE 78; RESP 16
[2025-04-02 11:24] VITALS: PULSE 80; RESP 16
--- NOTE | 2025-04-02 14:26 | PM.DS ---
DS: Providers Provider Date of Service: 04/02/25 Date of admission: 03/30/25 16:16 Date of discharge: 04/02/25 Primary care physician: Sol Hall MD Consults: 03/30/25 19:29 Consult to Pulmonology Routine Consulting Provider: [facility] Pulmonology Services Reason for consultation: Pneumonia in pt with complicated pulm hx DS: Diagnosis Discharge Diagnosis (1) Bronchiectasis: Status: Acute DS: Summary Hospital Course Hospital Course: pt with pmh sig for underlying asthma/COPD overlap syndrome on 2-1/2 L supplemental oxygen, progressive bronchiectasis ,recent Pseudomonas admitted on 03/30/2025 with worsening dyspnea on exertion, productive cough and left-sided pleuritic chest pain. Her CT angio chest demonstrated no pulmonary emboli, but progressive bronchiectasis with significant mucus burden. Improved with broad-spectrum antibiotics. Subacute/acute onset worsening dyspnea on exertion in a patient with progressive bronchiectasis -resolved Chronic hypoxemic failure secondary to Asthma COPD overlap on 2 to 2.5 L O2- currently back to baseline - stable/back to baseline Recent pseudomonal infection -likely now colonized Insulation Machine Operator daughter and Betsey were used for interpretation PE ruled out with CTA PE protocol Pulmonology consulted - We rx with continue broad-spectrum antibiotic with Pseudomonas coverage with cefepime for 3 day and was switched to Levaquin 10 more days to complete a total 14 days of antibiotics Tobramycin was added by pulmonology , ashish abraham for 1 month Patient has been advised to follow up with original candy maker helper Dr. Barron. We will continue current broad-spectrum antibiotics and if continues to improve, we will likely discharge in a couple of days pending clinical status COPD management with albuterol, DuoNeb, montelukast, chest PT Occult drop in hemoglobin Patient's hemoglobin drop from 13.3-11.2-likely hemoconcentration, patient did not have any overt signs of bleed and did not have any further drop. Remained hemodynamically stable HTN Continued losart, hydrochlorothiazide during this admission with good effect Anxiety Continue lorazepam during this admission with good effect DVT prophylaxis was managed with Lovenox during this admission This note is constructed using voice recognition software. While every effort has been made to ensure accuracy, disintegrator feeder errors may have been included. Time spent discussing smoking cessation with patient: more than 10 minutes Time Attestation Discharge Coordination Time (in mins): 35 Quality: Safe Use of Opioids Does Pt have an Active Cancer Diagnosis on the Problem List?: No Quality: Stroke Does the patient have a stroke diagnosis?: No Physical Exam Vital Signs: Vital Signs: Last Vital Signs Temp 97.6 F 04/02/25 07:09 Pulse 80 04/02/25 11:24 Resp 16 04/02/25 11:24 BP 109/60 04/02/25 07:09 Pulse Ox 98 04/02/25 07:09 O2 Del Method Room Air 04/02/25 07:09 O2 Flow Rate 2 04/01/25 03:32 BMI result Body Mass Index 22.3 DS: Data Data Completed and Pending Labs on day of discharge: Laboratory Results - last 24 hr 04/02/25 05:04 WBC 8.1 RBC 4.29 Hgb 11.2 L Hct 35.6 L MCV 83.0 MCH 26.1 L MCHC 31.5 RDW 15.0 Plt Count 330 MPV 9.0 L Immature Gran % (Auto) 0.5 H Neut % (Auto) 46.0 Lymph % (Auto) 40.3 H Laporte % (Auto) 6.9 Eos % (Auto) 5.7 H Baso % (Auto) 0.6 Lymph # (Auto) 3.3 Laporte # (Auto) 0.6 Eos # (Auto) 0.5 H Baso # (Auto) 0.1 Abs Immat Gran (auto) 0.04 H Absolute Neuts (auto) 3.7 Absolute Nucleated RBC 0.000 Nucleated RBC % (auto) 0.0 Sodium 141 Potassium 3.8 Chloride 104 Carbon Dioxide 30 H Anion Gap 11 L BUN 15 Creatinine 0.64 Estim Creat Clear Calc 74.4 Estimated GFR > 60 Random Glucose 79 Calcium 9.3 Total Bilirubin 0.2 AST 16 ALT 7 Alkaline Phosphatase 59 Total Protein 6.8 Albumin 3.3 L Preliminary micro results at discharge 03/31/25 17:26 Sputum Culture - Preliminary Sputum - Expectorated Gram negative abraham 03/30/25 15:34 Blood Culture - Preliminary Blood - Venous No growth after 48 hours. 03/30/25 15:32 Blood Culture - Preliminary Blood - Venous No growth after 48 hours. Discharge Plan Discharge Anticipated Discharge Date/Time: 04/02/25 14:09 Patient Disposition: Home, Self-Care Discharge Diagnosis: AHRF 2/2 A/C Bronchiectasis, A-O overlap Referrals: Sol Mendosa MD [Primary Care Provider, Internal Medicine] - 1 Week Referral Note: Hospital discharge Mitchell Barron MD [Physician, Pulmonology] - 1 Week Referral Note: Hospital discharge for acute on hypoxic respiratory failure secondary to chronic bronchiectasis Discharge Medications: New levofloxacin 750 mg Tablet 750 mg PO Q24H 10 Days Qty: 10 0RF tobramycin sulfate 40 mg/mL Solution 300 mg inhalation RBID 30 Days Qty: 450 0RF Continued albuterol sulfate 2.5 mg /3 mL (0.083 %) solution for nebulization 2.5 mg inhalation Q4H PRN (Reason: for wheezing) Qty: 300 0RF albuterol sulfate 90 mcg/actuation HFA aerosol inhaler 2 puff inhalation Q6H PRN (Reason: for wheezing) Qty: 1 0RF calcium carbonate-vitamin D3 [Oyster Shell Calcium-Vit D3] 250 mg-3.125 mcg (125 unit) tablet 1 tab PO BID 90 Days Qty: 180 1RF losartan-hydrochlorothiazide 100-12.5 mg tablet 1 tab PO DAILY 90 Days Qty: 90 1RF Trelegy Ellipta 200-62.5-25 mcg Blister With Device 1 inh INHALATION DAILY lorazepam 0.5 mg tablet 0.5 mg PO BID PRN (Reason: Anxiety) fluticasone propionate 50 mcg/actuation spray,suspension 1 spray intranasal DAILY PRN (Reason: Allergy Symptoms) levalbuterol HCl 1.25 mg/3 mL solution for nebulization 1.25 mg inhalation QID 30 Days Qty: 360 11RF cetirizine 10 mg tablet 10 mg PO DAILY PRN (Reason: allergy symptoms) 90 Days Qty: 90 1RF ibuprofen 600 mg tablet 600 mg PO Q8H PRN (Reason: pain) 30 Days Qty: 90 0RF montelukast 10 mg tablet 10 mg PO DAILY 30 Days Qty: 30 11RF baclofen 10 mg tablet 10 mg PO BID PRN (Reason: muscle spasm) 30 Days Qty: 60 0RF Discharge Orders: Discharge Order (Routine); Ordered 04/02/25 Ordered By: India Roy Diet: Advance to usual diet Activity on Discharge: As tolerated Stand Alone Forms: Patient Portal Discharge page Print Language: Palestinian Care Plan Goals: Follow-up of bronchiectasis with candy maker helper Dr. Barron Continue antibiotics oral and inhaled Health Concerns: See above Plan of Treatment: See above Assessment: See above
[2025-04-02 14:55] VITALS: BP 132/61; PULSE 95; RESP 16; TEMP 36.5; O2SAT 94
--- NOTE | 2025-04-02 14:56 | MHC.CM.PN ---
Patient is discharged today. She will return home with PO ABX. She has arranged for a ride home.
--- NOTE | 2025-04-02 15:34 | PC.NURSE ---
chef saucier at bedside for assessment and med pass. pt was educated upon discharge. iv removed and meds received from pharmacy.
== END 2025-04-02 15:32 | disposition home or self-care (01) | DRG 871 ==
LOC: HO.ED 15:47 → HO.EDOVER 16:49 → HO.S3 03-31 12:39
PROVIDERS: Physician Assistant; Admitting Provider Student in an Organized Health Care Education/Training Program; Emergency Provider Emergency Medicine; PCP Internal Medicine; Visit Provider Student in an Organized Health Care Education/Training Program
DX: A41.9 Sepsis, unspecified organism (principal); J18.9 Pneumonia, unspecified organism; J47.0 Bronchiectasis with acute lower respiratory infection; J47.1 Bronchiectasis with (acute) exacerbation; J96.11 Chronic respiratory failure with hypoxia; K59.09 Other constipation; Z99.81 Dependence on supplemental oxygen; J45.909 Unspecified asthma, uncomplicated; I10 Essential (primary) hypertension; F41.9 Anxiety disorder, unspecified; Z20.822 Contact with and (suspected) exposure to COVID-19; Z79.899 Other long term (current) drug therapy
CPT/HCPCS: 36415; 71275; 80048; 80053; 83605; 83735; 84484; 85025; 85027; 85379; 87040; 87070; 87077; 87186; 87205; 87502; 87635; 93005; 94640; 99285; J0692; J1650; J3260

== ENCOUNTER → 2025-03-30 13:32 | Outpatient (BNV) | payer OTHER, SELFPAY | PROVIDERS: Admitting Provider Student in an Organized Health Care Education/Training Program; Emergency Provider Emergency Medicine; PCP Internal Medicine; Visit Provider Internal Medicine Cardiovascular Disease | DX: R94.31 Abnormal electrocardiogram [ECG] [EKG] (principal); R07.89 Other chest pain | CPT/HCPCS: 93010 ==

== ENCOUNTER → 2025-03-30 13:51 | Outpatient (BNV) | payer OTHER, SELFPAY | PROVIDERS: Emergency Provider Emergency Medicine; PCP Internal Medicine; Visit Provider Radiology Diagnostic Radiology | DX: R91.8 Other nonspecific abnormal finding of lung field (principal); I25.10 Atherosclerotic heart disease of native coronary artery without angina pectoris | CPT/HCPCS: 71275 ==

== ENCOUNTER → 2025-03-30 16:16 | Outpatient (BNV) | payer OTHER, SELFPAY | PROVIDERS: Admitting Provider Student in an Organized Health Care Education/Training Program; Emergency Provider Emergency Medicine; PCP Internal Medicine; Visit Provider Internal Medicine Pulmonary Disease | DX: J47.0 Bronchiectasis with acute lower respiratory infection (principal); J44.9 Chronic obstructive pulmonary disease, unspecified | CPT/HCPCS: 99222 ==

== ENCOUNTER → 2025-03-30 16:16 | Outpatient (BNV) | payer OTHER, SELFPAY | PROVIDERS: Admitting Provider Student in an Organized Health Care Education/Training Program; Emergency Provider Emergency Medicine; PCP Internal Medicine; Visit Provider Student in an Organized Health Care Education/Training Program | DX: J18.9 Pneumonia, unspecified organism (principal); J47.0 Bronchiectasis with acute lower respiratory infection | CPT/HCPCS: 99223 ==

== ENCOUNTER 2025-04-04 14:11 | Outpatient (AMB) | payer OTHER, SELFPAY ==
--- NOTE | 2025-04-04 14:15 | MHC.PC.OV ---
Vital Signs 04/04/25 14:16 Height 5 ft 3 in Weight 127 lb 2 oz BMI 22.5 BP 112/66 Blood Pressure Location Lt brachial Position Sitting Pulse 95 Pulse Source Pulse Oximeter Temp 97.3 F Temp Source Temporal Artery Scan Pulse Oximetry (%) 97 Oxygen Delivery Method Room Air Intake Visit Reasons: [facility] 04/02 pneumonia w/ sepsis Intake Note: Patient is here for hospital discharge and TCM follow up. Patient was discharged from [facility] [place] 04[place]. Admitted on 03/30 for pneumonia complicated by sepsis. Barrel Endshaker Adjuster Required: No Executive Secretary: Present Accompanied by: Daughter Allergies lisinopril Allergy (Mild, Verified 04/04/25 14:16) cough moxifloxacin (Avelox) Allergy (Mild, Verified 04/04/25 14:16) rash sulfamethoxazole (From Bactrim) Allergy (Mild, Verified 04/04/25 14:16) Rash trimethoprim (From Bactrim) Allergy (Mild, Verified 04/04/25 14:16) Rash Tobacco use date assessed: 04/04/25 Dental Screening Dental Screen Date: 10/14/24 HPI TCM TCM Information Date of Discharge 04/02/25 Discharged From [facility] Interactive Contact Date (Reference documentation from this date) 04/03/25 HPI Comments History of Present Illness Details The patient is a 64-year-old female presenting with a follow-up after hospitalization for COPD exacerbation and bacterial pneumonia. She was admitted for three days due to an infection in her lungs and was treated with antibiotics, which she continues to take at home. The patient reports feeling better but still experiences congestion and some pain related to the infection. The patient has been experiencing episodes of tachycardia, particularly after physical exertion such as bathing, with heart rates reaching up to 150 bpm. These episodes have been more severe than previous occurrences, causing concern. The patient uses albuterol as needed, which does not seem to exacerbate the tachycardia. The patient has a history of anemia, which may contribute to her elevated heart rate. There is uncertainty about whether an iron panel and vitamin B12 levels were checked during her hospital stay, and these tests are planned to be reordered. The patient reports dizziness, particularly when standing up, which may be related to her current health status. She uses oxygen as needed and has a follow-up appointment with her mobile security architect scheduled. to note during her hospitalization, her CTA showed lung nodules and PET/CT was recommended. [facility] Medical History Physical exam Blurry vision, bilateral Asthma Cough Sinusitis Sinusitis Bronchiectasis Asthma Screen for colon cancer Ear discomfort Bronchopneumonia Elevated hemoglobin Influenza A Acute febrile illness Hypoxia Allergies Pre-op chest exam Acute hypoxic respiratory failure Asthma-COPD overlap syndrome Bronchiectasis Surgical History H/O pneumonectomy History of bronchoscopy Family History Daughter Bronchiectasis Colon polyps Brother Mental health disorder Mother No problems noted. Father Stroke Social History Household Members: Friend(s) Housing: Apartment Do you presently have visiting nurse or other home services: Yes ([facility]) Alcohol intake: current Alcohol intake frequency: holidays/special occasions only Alcohol type: wine Patient Tobacco Use Status: Never used Tobacco Tobacco use type: Cigarette Years Smoked: 5 years e-Cigarette/Vaping Use: Never Used Second Hand Smoke Exposure: No Advance Directives Date on File: 08/24/23 service: No Current occupational status: unemployed and retired Cognitive needs: No Hearing needs: No Vision needs: Yes Questionnaire Thrive Questionnaire Date Thrive assessed: 10/14/24 I am a: Patient What is your living situation today?: I have a steady place to live Within the past 12 months, did the food you bought not last and you didn't have the money to get more?: Sometimes True Within the past 12 months, did you worry whether your food would run out before you got money to buy more?: Sometimes True Do you have trouble paying for medicines?: No Do you have trouble getting transportation to medical appointments?: No Do you have trouble paying your heating and electricity bill?: Yes Do you have trouble taking care of your child, family member or friend?: No Do you have trouble with day-to-day activities such as bathing, preparing meals, shopping, managing finances, etc.?: Yes Are you currently unemployed and looking for a job?: No Are you interested in more education?: No Please select the resources that you would like help with: None Currently or been in a relationship where the following occur: No concerns reported THRIVE Score: 3 AMNA-7 AMB Questionnaire AMNA-7 Date AMNA - 7 assessed: 10/14/24 Source: Developed by Drs. Fredy Quiñones, Elsi Dominguez, Isiah Larkin and colleagues, with an educational joshua from [employer]. Review of Systems Const Details: - Respiratory: Reports congestion, denies wheezing. - Cardiovascular: Reports episodes of tachycardia, denies chest pain. - Neurological: Reports dizziness, denies severe confusion. - Gastrointestinal: Denies diarrhea or constipation, reports mild stomach pain. Physical exam (Primary Care) Vital Signs: Last Vital Signs Temp 97.3 F 04/04/25 14:16 Pulse 95 04/04/25 14:16 BP 112/66 04/04/25 14:16 Pulse Ox 97 04/04/25 14:16 Oxygen Delivery Method Room Air 04/04/25 14:16 BMI result Body Mass Index 22.5 Tobacco/Smoking Status: Tobacco use Status Tobacco use date assessed 04/04/25 04/04/25 14:22 Patient Tobacco Use Status Never used Tobacco 04/04/25 14:22 Tobacco use type Cigarette 04/04/25 14:22 e-Cigarette/Vaping Use Never Used 04/04/25 14:22 Thrive Assessment: Date of Thrive Assessment Date Thrive assessed 10/14/24 04/04/25 14:22 Currently or been in a relationship where the following occur: No concerns reported Const General: cooperative, healthy appearing, comfortable and no acute distress Nutritional Appearance: well nourished Orientation/consciousness: patient oriented x3 Limitations: no limitations HENMT Head: Yes normal to inspection Eyes Other: Not done Neck Neck: Yes normal visual inspection and Yes full ROM Chest Other: Not done Resp Effort & Inspection: able to speak in complete sentences and tachypneic Auscultation: rhonchi Cardio Jugular venous distension: no JVD Palpation: normal PMI Rate: regular rate Rhythm: regular rhythm Heart sounds: S1 normal heart sound present and S2 normal heart sound present GI Inspection: Yes normal to inspection Percussion: Yes normal to percussion Auscultation: normal bowel sounds Other: Not done Back/Spine/Pelvis Other: Not done Skin Other: Not done Neuro General: patient oriented x3 Coding Level of Care Code TCM High MDM <= 14 days Diagnoses Asthma-COPD overlap syndrome J44.9 Pneumonia of right lower lobe due to infectious organism J18.9 Laterality: right Lung location: lower lobe of lung Pneumonia type: due to unspecified organism Shortness of breath R06.02 Tachycardia R00.0 Anemia, unspecified type D64.9 Anemia type: unspecified type Lung nodules R91.8 Assessment & Plan Assessment & Plan (1) Asthma-COPD overlap syndrome: Code(s): J44.9 - Chronic obstructive pulmonary disease, unspecified Category: Medical Plan: The patient was hospitalized for a COPD exacerbation and treated with antibiotics, which she continues to take at home. She is advised to continue using her inhalers as prescribed and follow up with her mobile security architect. (2) Pneumonia: Comment: Patient requested new tubing for nebulizer kit. Code(s): J18.9 - Pneumonia, unspecified organism Category: Medical Qualifiers: Laterality: right Lung location: lower lobe of lung Pneumonia type: due to unspecified organism Qualified Code(s): J18.9 - Pneumonia, unspecified organism Plan: The patient was treated for bacterial pneumonia during her hospital stay and continues to recover at home. She should complete her course of antibiotics and monitor for any worsening symptoms Mucinex. (3) Shortness of breath: Comment: Patient requested shower handles. Code(s): R06.02 - Shortness of breath Category: Medical Plan: Continue home oxygen as needed. Continue inhalers. F-U with pulm as schedueled. Trelegy to be restarted by pulm in td indicated. It was stopped in the hospital for no clear reason. Patient reports still using her home supply. (4) Tachycardia: Code(s): R00.0 - Tachycardia, unspecified Category: Medical Plan: The patient experiences episodes of tachycardia, particularly after exertion, with heart rates reaching up to 150 bpm. It is recommended to monitor her heart rate and consider further evaluation if episodes persist. (5) Anemia: Code(s): D64.9 - Anemia, unspecified Category: Medical Qualifiers: Anemia type: unspecified type Qualified Code(s): D64.9 - Anemia, unspecified Plan: The patient has a history of anemia, which may contribute to her symptoms of tachycardia and dizziness. An iron panel and vitamin B12 levels are to be reordered to assess her current status. (6) Lung nodules: Comment: on CTA during hospitalization. Code(s): R91.8 - Other nonspecific abnormal finding of lung field Category: Medical Plan: F-U with pulm on the need for further assesement. Plan As above. Medications: New food supplemt, lactose-reduced (Ensure oral liquid) 500 ea PO DAILY 3,792 mL 0RF Nutrition 30 days guaifenesin 200 mg PO QID PRN 30 tabs 0RF cough 8 days
[2025-04-04 14:16] VITALS: BP 112/66; PULSE 95; TEMP 36.3; O2SAT 97; BMI 22.5
--- OUTSIDE RECORDS SUMMARY | 2025-04-04 14:40 | XMS_ITS | Clinical Summary ---
Author Organization [facility] Address [address] [place] [address] Care Team Providers Care Electro Mechanical Technologist Name Role Phone Unavailable Primary Care Provider Unavailabl e Surgical History Surgery Date Site/Laterality Comments OTHER SURGICAL HISTORY Right PROCEDURE: CT THORACOSCOPY W/DX WEDGE RESEXN ANATO LUNG RESEXN; COMMENT: UL Lung resection as a child in [place] COLONOSCOPY 07/05/2013 PROCEDURE: HISTORICAL COLONOSCOPY Medical History Medical History Date Comments Hypertension 01/24/2019 DX:Hypertension Depression 12/11/2018 DX:Depression Panic attacks 01/24/2019 DX:Panic attacks Allergic rhinitis 01/24/2019 DX:Allergic rh initis Bronchiectasis ([facility] V24, [facility] V28) 12/11/2018 DX:Bronchiectasis ([facility]) COPD (chronic obstructive pu lmonary disease) ([facility] V24, [facility] V28) 12/11/2018 DX:COPD (chronic o bstructive pulmonary disease) ([facility]) Pseudomonas pneumonia ([facility] V24, [facility] V28) 12/11/2018 DX:Pseudomonas pneumonia ([facility] C) Family [...] (2 - Td or Tdap) 12/23/2023 12/22/2013 Depression Screening 07/31/2024 COVID-19 Vaccine (1 - 2023-2 5 season) 2025 Influenza Vaccine (#1) 2025 06/06/2018 RSV Immunization [...]
--- OUTSIDE RECORDS SUMMARY | 2025-04-04 14:40 | XMS_ITS | Encounter Summary ---
Author Organization [facility] Address [address] [place] [phone] Phone Care Team Providers Care Flexible Shaft Winder Name Role Phone Sol Mendosa MD Primary Care Provid er Encounter Details Date Type Department Care Team (Late st Contact Info) Description 10/29/2024 Procedure Pass [facility] [address] [place] [address] Social History Tobacco Use Types Packs/Day Years [...] Description 05/05/2025 10:30 AM EDT Office Visit [facility] Genetics [address] [place] [address] Matheus Huber MD, MPH [address] [address] [email or web address] 05/14/2025 11:30 AM EDT Telemedicine [facility] Infectious Disease Medicine [address] [place] [address] Glendy Pacheco MD, SCD [address] [facility] Building Room [address] [place] [address] [email or web address] 07/22/2025 2:00 PM EST Office Visit [facility] Arthritis Center [facility] [address] [place] [address] Naya Hernandez MD, PhD [address] [place] [address] [email or web address] documented as of this encounter Visit Diagnoses Not on filedocumented in this encounter Additional Health Concerns Assessment Noted Time PHQ-2 Depression Total Score: 2 08/13/19 25 9:09 AM EST documented as of this encounter Care Teams Flexible Shaft Winder Relationship Specialty Start Date End Date Sol Mendosa MD [address] [place] [address] PCP - General Internal Medicine 10/17/23 documented as of this encounter Additional Source Comments The information contained in this document represents components of the legal health record. It is not the complete legal health record.[facility]
--- OUTSIDE RECORDS SUMMARY | 2025-04-04 14:40 | XMS_ITS | Encounter Summary ---
Author Organization [facility] Address [address] [place] [address] Drive [address] [place] [phone] Phone Care Team Providers Care Plate Straightener Name Role Phone Sol Mendosa MD Primary Care Provid er Encounter Details Date Type Department Care Team (Late st Contact Info) Description 08/13/[address] [facility] Echocardiography [address] [place] [address] Social History Tobacco Use Types Packs/Day Years [...] Description 05/05/2025 10:30 AM EDT Office Visit [facility] Genetics [address] [place] [address] Matheus Huber MD, MPH [address] [place] [phone] [email or web address] 05/14/2025 11:[address] [facility] Infectious Disease Medicine [address] [place] [address] Glendy Pacheco MD, SCD 75 [facility] Building Room [address] [place] [address] [email or web address] 07/22/2025 2:00 PM EST Office Visit [facility] Arthritis Center [facility] [address] [place] [address] Naya Hernandez MD, PhD [address] [place] [address] [email or web address] documented as of this encounter Visit Diagnoses Not on filedocumented in this encounter Additional Health Concerns Assessment Noted Time PHQ-2 Depression Total Score: 2 08/13/19 25 9:09 AM EST documented as of this encounter Care Teams Plate Straightener Relationship Specialty Start Date End Date Sol Mendosa MD [address] [place] [address] PCP - General Internal Medicine 10/17/23 documented as of this encounter Additional Source Comments The information contained in this document represents components of the legal health record. It is not the complete legal health record.[facility]
--- OUTSIDE RECORDS SUMMARY | 2025-04-04 14:40 | XMS_ITS | Clinical Summary ---
Author Organization [employer] Address [address] [place] [address] [address] [place] [address] Care Team Providers Care Blood Bank Assistant Name Role Phone Unavailable Primary Care Provider [...] Mammogram 01/20/2022 01/21/2020 COVID-19 Vaccine (3 - 2024-2 6 season) 2025 11/30/2020, 11/02/2020 Influenza Vaccine (#1) 2025 0, [...]
--- OUTSIDE RECORDS SUMMARY | 2025-04-04 14:40 | XMS_ITS | Encounter Summary ---
Author Organization [facility] Address [address] [place] [address] Drive [address] [place] [phone] Phone Care Team Providers Care Supervisor Customer Complaint Service Name Role Phone Sol Mendosa MD Primary Care Provid er Encounter Details Date Type Department Care Team (Late st Contact Info) Description 02/29/2024 Procedure Pass [facility] [address] [place] [address] Social History Tobacco Use Types Packs/Day Years [...] Description 05/05/2025 10:30 AM EDT Office Visit [facility] Genetics [address] [place] [address] Matheus Huber MD, MPH [address] [place] [id number] [email or web address] 05/14/2025 11:30 AM EDT Telemedicine [facility] Infectious Disease Medicine [address] [place] [address] Glendy Pacheco MD, SCD 75 [facility] Building Room [address] [place] [address] [email or web address] 07/22/2025 2:00 PM EST Office Visit [facility] Arthritis Center [facility] [address] [place] [address] Naya Hernandez MD, PhD [address] [place] [address] [email or web address] documented as of this encounter Visit Diagnoses Not on filedocumented in this encounter Additional Health Concerns Assessment Noted Time PHQ-2 Depression Total Score: 2 02/29/20 24 9:51 AM EDT documented as of this encounter Care Teams Supervisor Customer Complaint Service Relationship Specialty Start Date End Date Sol Mendosa MD [address] [place] [address] PCP - General Internal Medicine 10/17/23 documented as of this encounter Additional Source Comments The information contained in this document represents components of the legal health record. It is not the complete legal health record.[facility]
--- OUTSIDE RECORDS SUMMARY | 2025-04-04 14:40 | XMS_ITS | Clinical Summary ---
Author Organization [facility] Address [address] [place] [phone] Phone Care Team Providers Care Car Electronics Installer Name Role Phone Sol Mendosa MD Primary [...] been sent to the PFT Lab @ [facility] for a sweat chloride, nasal nitric oxide and enroll the patient in [facility] Research Protocol for Genetic Testing. DEBRA Menard No known active problems Encounters Date Type Department Care Team Description 01/29/2025 11:59 PM EDT Hospital Encounter [facility] Phlebotomy [facility] [address] [place] [address] Glendy Pacheco MD, SCD Discharge Disposition: Home or Self Care 01/29/2025 11:30 AM EDT Office Visit [facility] Infectious Disease Medicine [address] [place] [address] Glendy Pacheco MD, SCD Persistent cough (Primary [...] Description 05/05/2025 10:30 AM EDT Office Visit [facility] Genetics [address] [place] [address] Matheus Huber MD, MPH [address] [place] [phone] [email or web address] 05/14/2025 11:30 AM EDT Telemedicine [facility] Infectious Disease Medicine [address] [place] [address] Glendy Pacheco MD, SCD [address] [place] [address] Building Room [address] [place] [address] [email or web address] 07/22/2025 2:00 PM EST Office Visit [facility] Arthritis Center [address] [place] [place] [address] Naya Hernandez MD, PhD [address] [place] [address] Health Maintenance Due Date Last Done Comments LIPID PANEL 1961 HEPATITIS C SCREENING 1979 PAP SMEAR 1982 COLOGUARD 2006 COLONOSCOPY 2006 COLORECTAL CANCER SCREENING 2006 FIT TEST 2006 FOBT 2006 SIGMOIDOSCOPY 2006 VIRTUAL COLONOSCOPY 2006 PNEUMOCOCCAL VACCINES (50+ years) (3 of 3 - PCV20 or PCV21) 02/26/2021 02/27/2016, 06/05/2007 RSV VACCINE (1 - Risk 60-74 years 1-dose series) 2021 MAMMOGRAM 01/20/2022 01/21/2020, 01/21/2020 INFLUENZA VACCINE (#1) 2025 , 05/19/2022, 10/17/2019, Additional history exists COVID-19 VACCINE ( season) 2025 08/06/2021, 01/13/2021, 11/30/2020, Additional history exists CREATININE [...] Special Requests None 01/29/2025 2:40 PM EDT [facility] GRAM STAIN 4+ POLYS 01/29/2025 8:41 PM EDT [facility] GRAM STAIN NO EPITHELIAL CELLS 01/29/2025 8:41 PM EDT [facility] GRAM STAIN 1+ MIXED BACTERIA 01/29/2025 8:41 PM EDT [facility] Respiratory Cult/Smear 3+ PSEUDOMONAS AERUGINOSA (MUCOID STRAIN)(A) 01/31/2025 11:07 AM EDT [facility] Respiratory Cult/Smear 2+ ORAL CATA 01/31/2025 11:07 AM EDT [facility] Sputum 01/29/2025 2:39 PM EDT [...] SCD MICROBIOLOGY - GENERAL ORDERABLES Final Result [facility] [address] [place] [address] * (ABNORMAL) Mycobacterial culture/smear (01/29/2025 2:39 PM EDT) Special Requests HX OF BRONCIECTASIS SP 01/30/2025 6:56 AM EDT [facility] SMEAR NO ACID FAST BACILLI OBSERVED 02/04/2025 3:06 PM EDT [facility] SMEAR (NOTE) Method: Fluorochrome (250x): Acid-fast bacilli not found. 02/04/2025 3:06 PM EDT [facility] Mycobacterial Culture CULTURE OVERGROWN WITH CONTAMINANTS. UNABLE TO RULE OUT ACID FAST BACILLI(A) 02/10/2025 12:45 PM EDT [facility] Mycobacterial Culture (NOTE) CONTAMINANT: Culture unsatisfactory due to an overgrowth of contaminants. Consider a repeat specimen. DRUG SUSCEPTIBILITY TESTING WILL NOT BE DONE ON THIS CULTURE. 02/10/2025 12:45 PM EDT [facility] Sputum 01/29/2025 2:3 9 PM EDT 01/29/2025 4:40 PM EDT Dawna Lux PA-C MICROBIOLOGY - GENERAL OR DERABLES Final Result Performing Organization Address [facility] Co de Phone Number [address] [address] * Fungal culture (01/29/2025 2:39 PM EDT) Pathologist [facility] Special Requests None 01/29/2025 2:40 PM EDT [facility] Fungal Culture Only NO FUNGUS ISOLATED AFTER 28 DAYS 02/26/2025 8:00 AM EDT [facility] Sputum 01/29/2025 2:39 PM EDT 01/29/2025 4:40 PM EDT Comment:64F WITH COUGH AND B RONCHIECTASIS Glendy Pacheco MD, SCD MICROBIOLOGY - GENERAL ORDERABLES Final Result Performing Organization Address [facility] Co de Phone Number [address] [address] * (ABNORMAL) Comprehensive metabolic panel (04/09/2024 10:43 AM EDT) Pathologist [facility] SODIUM 141 136 - 145 mmol/L [facility] POTASSIUM 3.8 3.4 - 5.1 mmol/L [facility] CHLORIDE 98 98 - 107 mmol/L [facility] CO2 25 22 - 31 mmol/L [facility] BUN 25(H) 6 - 23 mg/dL [facility] CREATININE 0.60 0.50 - 1.20 mg/dL [facility] GLUCOSE 123(H) 70 - 100 mg/dL [facility] ALBUMIN 4.0 3.5 - 5.2 g/dL [facility] TOTAL PROTEIN 8.2 6.4 - 8.3 g/dL [facility] CALCIUM 9.9 8.8 - 10.7 mg/dL [facility] ALKALINE PHOSPHATASE 87 35 - 130 U/L [facility] TOTAL BILIRUBIN <0.2 0.0 - 1.0 mg/dL [facility] AST 13 10 - 50 U/L [facility] ALT 12 10 - 50 U/L [facility] GLOBULIN 4.2 2.2 - 4.2 g/dL [facility] EGFR 101 >59 mL/min/1. 73m2 [facility] Comment:Estimated glomerular filtration rate calculated using the CKD-EPI refit equation. ANION GAP 18(H) 7 - 17 mmol/L [facility] 04/09/2024 10:4 3 AM EDT 04/09/2024 11:46 AM EDT us Glendy Pacheco MD, SCD LAB BLOOD ORDER ZULLY Final Result Performing Organization Address City/State/[facility] de Phone Number [facility] [address] [place] [phone] from Last 3 Months or Most Recently Relevant to Health Maintenance Insurance MEDICARE PART A & B [facility] ONE CARE MEDICARE REPLACEMENT MEDICARE PART A & B Member Subscriber Plan / Payer ( fective 2009-Present) Name:Dina Vasquez Member ID:[id number] Relation to Subscriber:Self Name:Dina Vasquez Subscriber ID:[id number] Payer ID:[id number] Group ID:Not on file Type:Medicare Address: [employer] [address] [place] [id number] [facility] CARE MEDICARE REPLACEMENT [address] [place] [address] MEDICARE PART A & B Member Subscriber Plan / Payer ( fective 2009-Present) Name:Dina Vasquez Member ID:[id number] Relation to Subscriber:Self Name:Dina Vasquez Subscriber ID:[id number] Payer ID:[id number] Group ID:Not on file Type:Medicare Address: [employer] [address] ONE CARE MEDICARE REPLACEMENT [place] [id number] MEDICARE PART A & B CARE MEDICARE REPLACEMENT MEDICARE PART A & B CARE MEDICARE REPLACEMENT JARROD PINTO [facility] MEDICARE PART A & B [facility] ONE CARE MEDICARE REPLACEMENT Care Teams Car Electronics Installer Relationship Specialty Start Date End Date Sol Mendosa MD [address] [place] [address] PCP - General Internal Medicine 10/17/23 Additional Source Comments The information contained in this document represents components of the legal health record. It is not the complete legal health record.[facility]
--- OUTSIDE RECORDS SUMMARY | 2025-04-04 14:40 | XMS_ITS | Clinical Summary ---
Author Organization [facility] Address [address] [place] [address] Phone Care Team Providers Care Protection Specialist Name Role Phone Unavailable Primary Care Provider Unavailabl e Allergies No known active allergies Encounters Date Type Department Care Team Description 02/03/2025 Orders Only [facility] [address] [place] [address] Chely Talamantes Research subject (Primary Dx) 01/29/2025 12:37 PM EDT - 01/29/2025 11:59 PM EDT Hospital Encounter [facility] [address] [place] [phone] Discharge Disposition: Home 01/29/2025 12:37 PM EDT - 01/29/2025 11:59 PM EDT Hospital Encounter [facility] [address] [place] [phone] Bronchiectasis without complication (HCC) Discharge Disposition: Home [...] 10/17/2019, 12/22/2013 COVID-19 Vaccine (5 - season) 2025 08/06/2021, 01/13/2021, 11/30/2020, Additional history exists Influenza Vaccine (#1) 2025 4, 05/19/2022, 10/17/2019, Additional history exists HIB Vaccines [...] 76,793 INTERNAL LAB (BEAKER) Performing Location, [facility], Clinical Labs, [address] [place] [address], Shukri Garcia MD, PhD, [id number] INTERNAL LAB (BESense of Skin) Sweat Skin structure / Unknown 01/29/2025 2:06 PM EDT Impressions INTERNAL LAB (BEAKER) - 01/29/2025 2:06 PM EDT Sweat Chloride reference range: < 30 mmol/L - Negative 30 - 59 mmol/L - Indeterminate >= 60 mmol/L - Positive Note: Sweat chloride values less than 30 mmol/L have been documented in genetically proven Cystic Fibrosis patients. Clinical correlation is necessary. CLIA Segmental Paving Supervisor: Kenji Garcia MD, PhD, CLIA license: [id number] Matheus Huber MD POINT OF CARE TEST ENTER/EDIT ORDERABLES Final Result [facility] ([place]) from Last 3 Months Insurance [address] [place] [address] [facility] [address] [place] [address] [facility]
== END 2025-04-04 15:40 | disposition home or self-care (01) ==
LOC: HO.HMCH 14:13
PROVIDERS: PCP Internal Medicine; Visit Provider Internal Medicine
DX: J44.9 Chronic obstructive pulmonary disease, unspecified (principal); J18.9 Pneumonia, unspecified organism; R06.02 Shortness of breath; R00.0 Tachycardia, unspecified; D64.9 Anemia, unspecified; R91.8 Other nonspecific abnormal finding of lung field

== ENCOUNTER → 2025-04-04 14:11 | Outpatient (BNVA) | payer OTHER, SELFPAY | PROVIDERS: PCP Internal Medicine; Visit Provider Internal Medicine | DX: R42 Dizziness and giddiness (principal); J44.9 Chronic obstructive pulmonary disease, unspecified; R00.0 Tachycardia, unspecified; D64.9 Anemia, unspecified; J18.9 Pneumonia, unspecified organism; R06.02 Shortness of breath; R91.8 Other nonspecific abnormal finding of lung field | CPT/HCPCS: 99495 ==

== ENCOUNTER 2025-04-10 09:20 | Outpatient (REF) | payer OTHER, SELFPAY ==
--- NOTE | ~2025-04-10 | XR_ITS ---
EXAMINATION: XR CERVICAL SPINE CLINICAL INFORMATION: M47.812 - Spondylosis without myelopathy or radiculopathy, cervical region COMPARISON: None available. TECHNIQUE: AP oblique lateral and atlantoodontoid views. FINDINGS: Craniocervical junction is intact. Marginal osteophyte formation and endplate sclerosis and decreased intervertebral disc height C3-4, C4-5 C5-6 levels. Grade 1 retrolisthesis C4-5. Bilateral neuroforamina narrowing secondary to posterior osteophyte formation at C4-5 and C5-6 levels. Vascular desiccation's both ICAs and the neck. Multiple vascular clips in the right lower neck and right upper hemithorax with bronchiectasis, right lung apex. XR/XR cervical spine 4V IMPRESSION: Cervical spondylosis C3 C6 pronounced at C4-5 resulting in grade 1 retrolisthesis. Please refer to CT chest dated May 02, 2023. Electronically signed by: Chan Linton MD 04/10/2025 11:30 AM EDT
--- OUTSIDE RECORDS SUMMARY | 2025-04-10 12:09 | XMS_ITS | Encounter Summary ---
Author Organization [facility] Address [address] [place] [address] Care Team Providers Care Strap Buckler Machine Name Role Phone Noelle Martínez Primary Care Provider [phone] Encounter Details Date Type Department Care Team Description 01/16/2019 Release of Information Medical Records [address] [place] [address] Abstract, Provider Social History Tobacco Use Types [...] on filedocumented in this encounter Care Teams Strap Buckler Machine Relationship Specialty Start Date End Date Noelle Martínez [address] [facility] [address] [place], [place] [phone] PCP - General 06/13/00 documented as of this encounter
--- OUTSIDE RECORDS SUMMARY | 2025-04-10 12:09 | XMS_ITS | Encounter Summary ---
Author Organization [facility] Address [facility] [place] [address] Care Team Providers Care Flavoring Maker Name Role Phone Noelle Martínez Primary Care Provider [phone] Reason for Visit * Reason Onset Date Comments Provider Call Back 01/01/2019 Encounter Details Date Type Department Care Team Description 01/01/2019 Telephone Pulmonology - [place] [address] [facility] [address] [place] [address] Mitchell Barron MD Provider Call [...] on filedocumented in this encounter Care Teams Flavoring Maker Relationship Specialty Start Date End Date CarensuzeNoelle [address] [facility] [address] [place], [place] [phone] PCP - General 06/13/00 documented as of this encounter
--- OUTSIDE RECORDS SUMMARY | 2025-04-10 12:09 | XMS_ITS | Encounter Summary ---
Author Organization [facility] Address [facility] [place] [address] Care Team Providers Care Excel Developer Name Role Phone Mauricio Noelle Primary Care Provider [phone] Encounter Details Date Type Department Care Team Description 12/30/2018 Orders Only Pulmonology - [address] [place] [address] Mitchell Barron MD Social History Tobacco Use [...] on filedocumented in this encounter Care Teams Excel Developer Relationship Specialty Start Date End Date Noelle Martínez [address] [facility] [address] [place] [address] PCP - General 06/13/00 documented as of this encounter
--- OUTSIDE RECORDS SUMMARY | 2025-04-10 12:09 | XMS_ITS | Encounter Summary ---
Author Organization [facility] Address [facility] [place] [address] Care Team Providers Care Revenue Analyst Name Role Phone Noelle Martínez Primary Care Provider [phone] Reason for Visit * Reason Comments E-prescribe Rx Request Encounter Details Date Type Department Care Team Description 01/21/2019 Refill Pulmonology - [place] [address] [facility] [address] [place] [address] Mitchell Barron MD E-prescribe Rx [...] NO Patients current insurance carrier is: Payor[facility] [place] M[facility] / Plan: [facility] [place] / Product Type: HMO [id number] documented in this encounter Plan of Treatment Not on file documented as of this encounter Visit Diagnoses Not on filedocumented in this encounter Care Teams Revenue Analyst Relationship Specialty Start Date End Date Noelle Martínez [address] [place] [address] [address] [place] [address] PCP - General 06/13/00 documented as of this encounter
== END 2025-04-10 09:21 | disposition home or self-care (01) ==
LOC: HO.XRAY 09:20
PROVIDERS: Absent Provider Internal Medicine Medical Oncology; PCP Internal Medicine; Visit Provider Nurse Practitioner Family
DX: J45.50 Severe persistent asthma, uncomplicated (principal); J47.0 Bronchiectasis with acute lower respiratory infection; R05.3 Chronic cough; J44.89 Other specified chronic obstructive pulmonary disease; J15.1 Pneumonia due to Pseudomonas; M47.812 Spondylosis without myelopathy or radiculopathy, cervical region; G44.86 Cervicogenic headache; M62.838 Other muscle spasm; Z99.81 Dependence on supplemental oxygen
CPT/HCPCS: 72050; 99212

== ENCOUNTER 2025-04-10 09:20 | Outpatient (AMB) | payer OTHER, SELFPAY ==
--- OUTSIDE RECORDS SUMMARY | 2025-04-08 11:05 | XMS_ITS | Encounter Summary ---
Author Organization [facility] Address [address] [place] [address] Phone Care Team Providers Care Roof Fitter Name Role Phone Unavailable Primary Care Provider Unavailabl e Reason for Visit * Genetic Testing (Routine) - Canceled Specialty Diagnoses / Procedures Referred By Titus [email or web address] Referred To Contact Lab Diagnoses Research subject Procedures CLIA Confirmation of Research Finding Matheus Huber MD [address] [place] [address] Phone: tel: fax: Referral ID Status Reason Start Date Expiration Date V isits Requested Visits Authorized [id number] Canceled 04/08/2025 04/08/2026 1 1 Encounter Details Date Type Department Care Team ([facility] st Contact Info) Description 04/08/2025 11:05 AM EDT Office Visit [facility] [address] [place] [phone] Research subject Social History Tobacco Use Types Packs/Day Years Used Date Smoking Tobacco: Never Assessed Comments Unknown Sex and Gender Information Value Date Recorded Sex Assigned at Female 01/06/2025 1:14 PM EDT Legal Sex Female 7:49 AM EST Gender Identity Female 01/06/2025 1:14 PM EDT Sexual Orientation Not on file documented as of this encounter Plan of Treatment Pending Results Name Type Priority Associated Diagnoses Date /Time CLIA Confirmation of Research Finding Lab Routine Research subject 04/08/2025 11:01 AM EDT documented as of this encounter Visit Diagnoses Diagnosis Research subject documented in this encounter
--- NOTE | 2025-04-10 09:26 | A.OFFVIS_ITS ---
Vital Signs 04/10/25 09:27 Height 5 ft 3 in Weight 127 lb 13.89 oz BMI 22.6 BP 104/62 Blood Pressure Location Lt brachial Position Sitting Pulse 82 Pulse Source Pulse Oximeter Pulse Oximetry (%) 97 Oxygen Delivery Method Room Air Intake Visit Reasons: ER F/U ok per MR Allergies lisinopril Allergy (Mild, Verified 04/10/25 09:29) cough moxifloxacin (Avelox) Allergy (Mild, Verified 04/10/25 09:29) rash sulfamethoxazole (From Bactrim) Allergy (Mild, Verified 04/10/25 09:29) Rash trimethoprim (From Bactrim) Allergy (Mild, Verified 04/10/25 09:29) Rash HPI Comments Details: The patient is a 64 year-old woman known severe persistent asthma and also bronchiectasis. She was in her usual state health until about a week ago when she started developing productive cough with yellowish phlegm. She has also had some chills and subjective fevers. Also has been complaining of pleuritic discomfort mainly on the right side. Mild in nature. In the office she was noted to be wheezing. She did receive a nebulized treatment. We try getting a sputum sample which he was unable to do so. She has had bronchoscopies in the past. I would have to go to [facility] to review her cultures. In the meantime going to treated for pneumonia. She was treated with Augmentin for bronchopneumonia. Her x-ray also demonstrated worsening right basilar opacity. She is status post bronchoscopy. Ultimately doing much better after the procedure. She did have significant period secretions. She did grow Proteus and was treated with antibiotics. No Pseudomonas was found into specimens which is reassuring that she no longer has Pseudomonas in her bronchiectatic airways. Unfortunate she did become sick with flu-like symptoms. She then developed a sore throat. She also has a cough. But otherwise has not had any fevers or chills or any other constitutional complaint. She has been on multiple antibiotics already so therefore will try to hold off on any antibiotics at this time. She has been using her nebulizer treatments and has been using her percussion vest. She is to continue to do so. 06/26/2023 the patient is here for a pulmonary follow-up visit. She is doing better from a medication adherence standpoint. She did complete the Augmentin and treated the Proteus lung infection. She has been using her percussion vest. She also has been using the Trelegy inhaler and also hypertonic saline for CPT. The patient also has been taking the azithromycin 3 times a week. She is doing a little better and I did remind her that this is chronic therapy and she needs to continue. It is helping. Recently she did have a respiratory illness and she was having worsening respiratory symptoms and she responded well to just using her nebulizer more often. Did not need any more prednisone which is reassuring. Right now her respiratory exam is better. Also, we did review her CT scan of the chest. She has extensive bronchiectatic changes. significantly cystic in nature. Affecting primarily the right hemithorax although also has some in the left lower lobe. We did review the blood work. No evidence of any immunodeficiencies or connective tissue conditions. She did have a surgery when she was in [place]. We do not have the pathology although that would be helpful. based on the severity of disease in her asthma we did review her blood work. Her IgE level was actually within normal and also her eosinophilic level. Therefore biologic therapies are likely to be effective for her. Therefore hold off. I did recommend she get a 2nd opinion in [place]. Ideally the same hospital that her daughter goes to in case there is a genetic disposition. The patient will give me the name in the hospital so I can make the referral. In the meantime we are going to repeat her sweat test looking for cystic fibrosis variance and also would be also a candidate for lung transplant specially the bronchiectasis were to worsen. 09/12/2023 the patient has a telehealth visit today. She was recently in the hospital with severe influenza. The patient did have an abnormal chest x-ray with airspace disease and she was treated with antiviral therapy. She was also given antibiotics and prednisone. She was receiving oxygen. She was able to be weaned off oxygen and be able to be discharged on oral antibiotics. Initially she was feeling well and now she started to develop worsening cough chest congestion. Her mucus secretions are greenish in color. They are thick and tenacious. She is using the nebulizer. She also has a percussion vest that she can use for chest physical therapy. Will go ahead and send doxycycline to the pharmacy to treat her for postviral bacterial infections. In the meantime if symptoms worsen or not improve she should call back the office back to the hospital the patient did complete a course of prednisone although she still feels chest tightness and wheezing. Will go ahead and send a lower dose for longer period of time. Otherwise follow-up in several weeks in the office to perform a 6 minute walk test. Likely the patient will need additional imaging studies. 10/06/2023 the patient is here for pulmonary follow-up visit. She still struggles with her cough and chest congestion. Her cough is productive of purulent like secretions. We were able to get 1 for the laboratory. Will waiting for the results. In the meantime she had been on doxycycline and she did respond well to it while she was on it for few weeks. Now she is offering her symptoms are getting worse. It may be that she has a component of stenotrophomonas. Will go ahead and send another sputum in place her back on doxycycline. If she has a resistant organism or resistant enteric organism we may need to do additional antibiotics. We could also consider inhaled tobramycin for Pseudomonas. Will have to wait for the results. In the meantime she does have significant bronchiectasis. She does not always use her vest. I did have an Acapella valve I did provide her she can use that in between when she can not get to using her percussion vest. She understands the importance of mucus clearance. She continues with respiratory therapy. Currently she has not on any prednisone. We also talked about a referral to [place]. Right now which the waiting for her to be scheduled but I do believe that based on the severity of disease would be very reasonable to have her go to [place] for a 2nd opinion. 12/18/2023 the patient is here for a pulmonary follow-up visit. Since we last spoke the patient did have a sputum sample positive for Pseudomonas. We did order the inhaled tobramycin but she had an allergic reaction with some redness of the eyes. She then took a break and then she restarted the medicine just once a day she still had a reaction should she stopped it altogether. The patient starting to get more chest congestion. She feels shortness of breath. During the office visit we did taken for 6 minute walk test the patient did desaturate down to 88% during the walk. She was visibly dyspneic with a dyspnea score of 6/10. The patient at this point based on her chronic lung disease and now seems to be worsening progressive in nature would benefit from oxygen supplementation. Will set her up with a local [employer] with a portable oxygen concentrator that she can use with activity. The patient also will start ciprofloxacin to see if we can treat her underlying Pseudomonas in her lungs seems to be getting worse at this time. She has had a reaction to Avelox in the past. Although was mainly rash. Will go ahead and start a small dose and see if she can not tolerate it. If she does then she will continue. Then, I did give her a Ernestine system where she could try to see if using this device will be less contact with her eyes and hopefully she could tolerate the inhaled CARLOS. But she knows not to start both antibiotics together because then we will not know if she has a reaction or interaction. The patient does have a referral to [place] for her underlying bronchiectasis and she will be seeing 1 of the hospitals in [place] in the beginning all this. So the Will try to improve her respiratory issues right now but hopefully she will get further guidance when she goes for her 2nd opinion. 03/26/2024 the patient is here for a pulmonary follow-up visit. The patient did go to [place]. She is currently being evaluated. She is going to undergo a CT scan is PFTs in the near future. In the meantime she does continue to use inhaled tobramycin. She has been taking care for daughter who has been sick after a cardiac transplant. Therefore she has not been as compliant to the therapy. She does have worsening chest congestion. Moderate severity. Significant mucus production. Will go ahead and start her on ciprofloxacin times if we can help with significant worsening of respiratory symptoms. She has been using the oxygen with good effect. She does have a portable oxygen concentrator that she uses with activity. 06/17/2024 the patient is here for preoperative evaluation. The patient overall has been doing okay from a respiratory status. She has been doing the inhaled tobramycin and also the azithromycin 3 times a week. She also continues with chest PT. she is having issues with her tearing specially on the left eye. She did follow-up with Ophthalmology they did recommend surgery. She was referred to us for preoperative evaluation. Respiratory status is doing okay. She is having some on and off discomfort in the right lung which she has significant bronchiectasis. The patient also has oxygen that she uses with activity. She has been able to intermittently use it since she has been feeling a little better. The patient also followed up in [place] and getting additional workup for the bronchiectasis and sinusitis. She completed spirometry in the office and her FEV1 is only 48% consistent with severe obstructive airway disease. 11/29/2024 the patient is here for a pulmonary follow-up visit. She is complaining of worsening respiratory symptoms. Has had significant chest tightness and cough. Very thick tenacious mucus difficult to clear. Yellowish in color. She has a Aerobika valve that she uses regularly. Unfortunately she has been taking care of her very sick daughter that underwent a cardiac transplant and she was not being adherent to her therapy. She is no longer using the inhaled CARLOS 20 days on 20 days off for the bronchiectasis and Pseudomonas. Therefore we did resubmit to the pharmacy and will go ahead and get him started on that. In the meantime will start her on Cipro she is colonized with Pseudomonas and gets frequent infections. She will continue with CPT. She does get tremulous from the albuterol so I will send her Xopenex that she can use between 2 to 4 times a day. She also has been using the hypertonic saline should be using that twice a day. She does have a percussion vest but do es not seem to use it regularly. So at least she can use the Aerobika for now. She is following up in [place] soon and will be having a CT scan of the chest. Further recommendations based on forthcoming data. 02/11/2025 the patient is here for pulmonary follow-up visit. Overall she is doing well she continues on the inhaled CARLOS 28 days on and 28 days off. She continues with rest with respiratory therapy. He does not perform as much CPT as she should although she does have all the resources for. The patient did follow-up in [place]. She did have a CT scan also a sputum sample sent. She was told she did not have any lung infections actively. Overall reassuring. In the meantime she does complaint of cough and chest congestion and sneezing. Will go ahead and restart her back in the Singulair and also will start her on azithromycin 3 times a week. She will continue with his current respiratory therapy and we did talk about the importance of CPT. The patient will follow-up in about 4 months. Otherwise if she has any issues she will call for further recommendations. We also talked about vaccines. She needs to get her Prevnar 21 vaccine. In the fall she should get her RSV and her flu and COVID as she gets it. 04/10/2025 the patient is here for hospital follow-up visit. She was hospitalized here at [facility] with a bronchiectasis exacerbation due to Pseudomonas. She was placed on Levaquin 750 mg which she seems to be tolerating. Although she is getting a little bit of tendonitis. Seems to come and go. She uses a couple more days so she will try to finish it if possible if not she will stop it if she develops any more symptoms. She also continues on the inhaled CARLOS twice a day. She is a little more adherent to the therapy as she understands that this is very important. She has not been doing performing the percussion vest. We talked about the importance of doing so especially with the hypertonic saline. If her symptoms were to worsen we can always perform a bronchoscopy for therapeutic cleaning of the airways and deep cultures. The patient continues with respiratory therapy. We did review her CT scan of the chest which demonstrates interval worsening of the bronchiectasis and airspace disease primarily in the right lung but also on the left lower lobe area. She does follow-up in [place]. We did talk about although alternatives to treat her bronchiectasis but for now will focus on the infectious conditions that are impacting her. We had started her on azithromycin 3 times a week but the patient did not tolerate it. If for some reason the patient continues to be symptomatic specially during her 28 days off the CARLOS we can always consider colistin inhaled or other inhaled anti Pseudomonas therapies. [facility] Medical History (Updated 04/10/25 @ 19:57 by Mitchell Barron MD) Pseudomonas pneumonia Physical exam Blurry vision, bilateral Asthma Cough Sinusitis Sinusitis Bronchiectasis Asthma Screen for colon cancer Ear discomfort Bronchopneumonia Elevated hemoglobin Influenza A Acute febrile illness Hypoxia Allergies Pre-op chest exam Acute hypoxic respiratory failure Asthma-COPD overlap syndrome Bronchiectasis Surgical History H/O pneumonectomy History of bronchoscopy Family History Daughter Bronchiectasis Colon polyps Brother Mental health disorder Mother No problems noted. Father Stroke Social History Household Members: Friend(s) Housing: Apartment Do you presently have visiting nurse or other home services: Yes ([facility]) Alcohol intake: current Alcohol intake frequency: holidays/special occasions only Alcohol type: wine Patient Tobacco Use Status: Never used Tobacco Tobacco use type: Cigarette Years Smoked: 5 years e-Cigarette/Vaping Use: Never Used Second Hand Smoke Exposure: No Advance Directives Date on File: 08/24/23 service: No Current occupational status: unemployed and retired Cognitive needs: No Hearing needs: No Vision needs: Yes Review of Systems Const Denies chills, Denies fatigue, Denies fever(s), Denies weight gain and Denies weight loss Eyes Reports as per HPI ENT Denies dizziness, Denies lip swelling and Denies tongue swelling Card Denies chest pain, Denies leg edema, Denies lightheadedness, Denies palpitations, Denies orthopnea and Denies other Resp Reports chest congestion and Reports cough GI Denies hematochezia and Denies change in stool character Musc Denies abnormal gait, Denies muscle weakness, Denies numbness, Denies radiating pain into limb and Denies tingling Neuro Denies abnormal gait, Denies dizziness, Denies numbness and Denies tingling Psych Denies no additional complaints Endo Denies fatigue and Denies palpitations Jay/Lymph Denies easy bleeding and Denies lymphadenopathy Aller/Immun Denies lip swelling and Denies tongue swelling Physical Exam Vital Signs: Last Vital Signs Pulse 82 04/10/25 09:27 BP 104/62 04/10/25 09:27 Pulse Ox 97 04/10/25 09:27 Oxygen Delivery Method Room Air 04/10/25 09:27 BMI result Body Mass Index 22.6 Const General: alert Neck Neck: Yes normal visual inspection, Yes full ROM and Yes no lymphadenopathy Chest Chest palpation & inspection: normal inspection of the chest Resp Effort & Inspection: normal respiratory effort Auscultation: crackles, no wheezes and diminished lung sounds Cardio Rate: regular rate Rhythm: regular rhythm Heart sounds: S1 normal heart sound present and S2 normal heart sound present GI Palpation (GI): Soft to palpation and nontender Auscultation: normal bowel sounds Skin General skin exam: rashes and/or lesions noted Results Reviewed Results Reviewed: personally reviewed CT chest with worsening right sided airspace disase and progressive bronchiectasis Assessment & Plan Assessment & Plan (1) Asthma: Code(s): J45.909 - Unspecified asthma, uncomplicated Category: Medical Qualifiers: Asthma complication type: uncomplicated Asthma persistence: persistent Asthma severity: severe Qualified Code(s): J45.50 - Severe persistent asthma, uncomplicated (2) Bronchiectasis: Code(s): J47.9 - Bronchiectasis, uncomplicated Category: Medical Qualifiers: Bronchiectasis type: with acute lower respiratory infection Qualified Code(s): J47.0 - Bronchiectasis with acute lower respiratory infection (3) Cough: Code(s): R05 - Cough Category: Medical Qualifiers: Cough type: chronic Qualified Code(s): R05.3 - Chronic cough (4) Asthma-COPD overlap syndrome: Code(s): J44.9 - Chronic obstructive pulmonary disease, unspecified Category: Medical (5) Bronchiectasis: Code(s): J47.9 - Bronchiectasis, uncomplicated Category: Medical Qualifiers: Bronchiectasis type: with acute lower respiratory infection Qualified Code(s): J47.0 - Bronchiectasis with acute lower respiratory infection (6) Pseudomonas pneumonia: Code(s): J15.1 - Pneumonia due to Pseudomonas Category: Medical Plan continue oxygen 2L/pulse with portable oxygen concentrator with activity Continue Breztri Continue nebulized therapy continue inhaled Carlos 28 days on; 28 days off, if not helpful consider Colistin inhaled holding Azithromycin 250mg MWF while on Levaqion complete Levaquin Singulair CPT with albuterol->hypertonic saline 7% with percussion vest and also has an acapella If worsens then bronchosocpy for therapeutic and diagnostic intervention referral to [place] for the extensive bronchiectasis in progress Follow-up in 2-3 months Coding Level of Care Code Est Pt Level 5 (17397) Complex EM visit Add On G2211 Diagnoses Severe persistent asthma without complication J45.50 Asthma complication type: uncomplicated Asthma persistence: persistent Asthma severity: severe Bronchiectasis with acute lower respiratory infection J47.0 Bronchiectasis type: with acute lower respiratory infection Chronic cough R05.3 Cough type: chronic Asthma-COPD overlap syndrome J44.9 Pseudomonas pneumonia J15.1 Time Spent (min) 55
[2025-04-10 09:27] VITALS: BP 104/62; PULSE 82; O2SAT 97; BMI 22.6
--- OUTSIDE RECORDS SUMMARY | 2025-04-10 10:52 | XMS_ITS | Encounter Summary ---
Author Organization [facility] Address [address] [place] [id number] Phone Care Team Providers Care Wireline Field Operator Name Role Phone Sol Mendosa MD Primary Care Provid er Encounter Details Date Type Department Care Team (Late st Contact Info) Description 10/29/2024 Procedure Pass [facility] [address] [place] [address] Social History Tobacco Use Types Packs/Day Years [...] Description 05/05/2025 10:30 AM EDT Office Visit [facility] Genetics [address] [place] [address] Matheus Huber MD, MPH [address] [address] [email or web address] 05/14/2025 11:30 AM EDT Telemedicine [facility] Infectious Disease Medicine [address] [place] [address] Glendy Pacheco MD, SCD [address] [facility] Building Room [address] [place] [address] [email or web address] 07/22/2025 2:00 PM EST Office Visit [facility] Arthritis Center [facility] [address] [place] [address] Naya Hernandez MD, PhD [address] [place] [address] [email or web address] documented as of this encounter Visit Diagnoses Not on filedocumented in this encounter Additional Health Concerns Assessment Noted Time PHQ-2 Depression Total Score: 2 08/13/19 25 9:09 AM EST documented as of this encounter Care Teams Wireline Field Operator Relationship Specialty Start Date End Date Sol Mendosa MD [address] [place] [address] PCP - General Internal Medicine 10/17/23 documented as of this encounter Additional Source Comments The information contained in this document represents components of the legal health record. It is not the complete legal health record.[facility]
--- OUTSIDE RECORDS SUMMARY | 2025-04-10 10:52 | XMS_ITS | Encounter Summary ---
Author Organization [facility] Address [address] [place] [address] Phone Care Team Providers Care Voice Professor Name Role Phone Unavailable Primary Care Provider Unavailabl e Reason for Referral * Genetic Testing (Routine) - Canceled Specialty Diagnoses / Procedures Referred By Titus [email or web address] Referred To Contact Lab Diagnoses Research subject Procedures CLIA Confirmation of Research Finding Matheus Huber MD [address] [place] [id number] Phone: tel: fax: Referral ID Status Reason Start Date Expiration Date V isits Requested Visits Authorized [id number] Canceled 04/08/2025 04/08/2026 1 1 Encounter Details Date Type Department Care Team (Late st Contact Info) Description 04/08/2025 Orders Only [facility] [address] [place] [phone] Sallie Ring CGC Research subject Social History Tobacco Use Types [...] Routine Research subject 04/08/2025 11:01 AM EDT Scheduled Orders Name Type Priority Associated Diagnoses Orde r Schedule CLIA Confirmation of Research Finding Lab Routine Research subject Expected: 04/08/2025 (Approximate), Expires: 04/08/2026 documented as of this encounter Visit Diagnoses Diagnosis Research subject documented in this encounter
--- OUTSIDE RECORDS SUMMARY | 2025-04-10 10:52 | XMS_ITS | Clinical Summary ---
Author Organization [facility] Address [address] [place] [address] [address] [place] [address] Care Team Providers Care Yard Crane Operator Name Role Phone Unavailable Primary Care [...]
--- OUTSIDE RECORDS SUMMARY | 2025-04-10 10:52 | XMS_ITS | Clinical Summary ---
Author Organization [facility] Address [address] [facility] [address] [place] [address] Phone Care Team Providers Care Water Mechanic Name Role Phone Sol Mendosa MD Primary [...] been sent to the PFT Lab @ [facility] for a sweat chloride, nasal nitric oxide and enroll the patient in [facility] Research Protocol for Genetic Testing. DEBRA Menard No known active problems Encounters Date Type Department Care Team Description 01/29/2025 11:59 PM EDT Hospital Encounter [facility] Phlebotomy [facility] [address] [place] [address] Glendy Pacheco MD, SCD Discharge Disposition: Home or Self Care 01/29/2025 11:30 AM EDT Office Visit [facility] Infectious Disease Medicine [address] [place] [address] Glendy Pacheco MD, SCD Persistent cough (Primary [...] Description 05/05/2025 10:30 AM EDT Office Visit [facility] Genetics [address] [place] [address] Matheus Huber MD, MPH [address] [place] [address] [email or web address] 05/14/2025 11:30 AM EDT Telemedicine [facility] Infectious Disease Medicine [address] [place] [address] Glendy Pacheco MD, SCD [address] [place] [address] Building Room 4 [place] [address] [email or web address] 07/22/2025 2:00 PM EST Office Visit [facility] [place] [address] [place] [address] Naya Hernandez MD, PhD [address] [place] [address] Health Maintenance Due Date Last Done Comments [...] Special Requests None 01/29/2025 2:40 PM EDT [facility] GRAM STAIN 4+ POLYS 01/29/2025 8:41 PM EDT [facility] GRAM STAIN NO EPITHELIAL CELLS 01/29/2025 8:41 PM EDT [facility] GRAM STAIN 1+ MIXED BACTERIA 01/29/2025 8:41 PM EDT [facility] Respiratory Cult/Smear 3+ PSEUDOMONAS AERUGINOSA (MUCOID STRAIN)(A) 01/31/2025 11:07 AM EDT [facility] Respiratory Cult/Smear 2+ ORAL CATA 01/31/2025 11:07 AM EDT [facility] Sputum 01/29/2025 2:39 PM [...] SCD MICROBIOLOGY - GENERAL ORDERABLES Final Result [facility] [address] [place] [address] * (ABNORMAL) Mycobacterial culture/smear (01/29/2025 2:39 PM EDT) Special Requests HX OF BRONCIECTASIS SP 01/30/2025 6:56 AM EDT [facility] SMEAR NO ACID FAST BACILLI OBSERVED 02/04/2025 3:06 PM EDT [facility] SMEAR (NOTE) Method: Fluorochrome (250x): Acid-fast bacilli not found. 02/04/2025 3:06 PM EDT [facility] Mycobacterial Culture CULTURE OVERGROWN WITH CONTAMINANTS. UNABLE TO RULE OUT ACID FAST BACILLI(A) 02/10/2025 12:45 PM EDT [facility] Mycobacterial Culture (NOTE) CONTAMINANT: Culture unsatisfactory due to an overgrowth of contaminants. Consider a repeat specimen. DRUG SUSCEPTIBILITY TESTING WILL NOT BE DONE ON THIS CULTURE. 02/10/2025 12:45 PM EDT [facility] Sputum 01/29/2025 2:3 9 PM EDT 01/29/2025 4:40 PM EDT Dawna Lux PA-C MICROBIOLOGY - GENERAL OR DERABLES Final Result Performing Organization Address [facility] Co de Phone Number [address] [address] * Fungal culture (01/29/2025 2:39 PM EDT) Pathologist [facility] Special Requests None 01/29/2025 2:40 PM EDT [facility] Fungal Culture Only NO FUNGUS ISOLATED AFTER 28 DAYS 02/26/2025 8:00 AM EDT [facility] Sputum 01/29/2025 2:39 PM EDT 01/29/2025 4:40 PM EDT Comment:64F WITH COUGH AND B RONCHIECTASIS Glendy Pacheco MD, SCD MICROBIOLOGY - GENERAL ORDERABLES Final Result Performing Organization Address [facility] Co de Phone Number [address] [address] * (ABNORMAL) Comprehensive metabolic panel (04/09/2024 10:43 AM EDT) Pathologist [facility] SODIUM 141 136 - 145 mmol/L [facility] POTASSIUM 3.8 3.4 - 5.1 mmol/L [facility] CHLORIDE 98 98 - 107 mmol/L [facility] CO2 25 22 - 31 mmol/L [facility] BUN 25(H) 6 - 23 mg/dL [facility] CREATININE 0.60 0.50 - 1.20 mg/dL [facility] GLUCOSE 123(H) 70 - 100 mg/dL [facility] ALBUMIN 4.0 3.5 - 5.2 g/dL [facility] TOTAL PROTEIN 8.2 6.4 - 8.3 g/dL [facility] CALCIUM 9.9 8.8 - 10.7 mg/dL [facility] ALKALINE PHOSPHATASE 87 35 - 130 U/L [facility] TOTAL BILIRUBIN <0.2 0.0 - 1.0 mg/dL [facility] AST 13 10 - 50 U/L [facility] ALT 12 10 - 50 U/L [facility] GLOBULIN 4.2 2.2 - 4.2 g/dL [facility] EGFR 101 >59 mL/min/1. 73m2 [facility] Comment:Estimated glomerular filtration rate calculated using the CKD-EPI refit equation. ANION GAP 18(H) 7 - 17 mmol/L [facility] 04/09/2024 10:4 3 AM EDT 04/09/2024 11:46 AM EDT us Glendy Pacheco MD, SCD LAB BLOOD ORDER ZULLY Final Result Performing Organization Address City/State/[facility] de Phone Number [facility] [address] [place] [phone] from Last 3 Months or Most Recently Relevant to Health Maintenance Insurance MEDICARE PART A & B [facility] ONE CARE MEDICARE REPLACEMENT MEDICARE PART A & B Member Subscriber Plan / Payer ( fective 2009-Present) Name:Dina Vasquez Member ID:[id number] Relation to Subscriber:Self Name:Dina Vasquez Subscriber ID:[id number] Payer ID:[id number] Group ID:Not on file Type:Medicare Address: [employer] [address] [place] [id number] [facility] MEDICARE REPLACEMENT [address] [place] [address] MEDICARE PART A & B Member Subscriber Plan / Payer ( fective 2009-Present) Name:Dina Vasquez Member ID:[id number] Relation to Subscriber:Self Name:Dina Vasquez Subscriber ID:[id number] Payer ID:[id number] Group ID:Not on file Type:Medicare Address: [employer] [address] ONE CARE MEDICARE REPLACEMENT JARROD PINTO [id number] MEDICARE PART A & B CARE MEDICARE REPLACEMENT MEDICARE PART A & B CARE MEDICARE REPLACEMENT JARROD PINTO [facility] MEDICARE PART A & B [facility] ONE CARE MEDICARE REPLACEMENT Care Teams Water Mechanic Relationship Specialty Start Date End Date Sol Mendosa MD [address] [place] [address] PCP - General Internal Medicine 10/17/23 Additional Source Comments The information contained in this document represents components of the legal health record. It is not the complete legal health record.[facility]
--- OUTSIDE RECORDS SUMMARY | 2025-04-10 10:52 | XMS_ITS | Clinical Summary ---
Author Organization [facility] Address [address] [place] [address] Care Team Providers Care Hourly Shift Manager Name Role Phone Unavailable Primary Care [...] Allergic rhinitis 01/24/2019 DX:Allergic rh initis Bronchiectasis ([facility] V24, [facility] V28) 12/11/2018 DX:Bronchiectasis ([facility]) COPD (chronic obstructive pu lmonary disease) ([facility] V24, [facility] V28) 12/11/2018 DX:COPD (chronic o bstructive pulmonary disease) ([facility]) Pseudomonas pneumonia ([facility] V24, [facility] V28) 12/11/2018 DX:Pseudomonas pneumonia ([facility]) [...]
--- OUTSIDE RECORDS SUMMARY | 2025-04-10 10:52 | XMS_ITS | Encounter Summary ---
Author Organization [facility] Address [address] [place] [address] [address] [place] [address] Phone Care Team Providers Care Sumac Tanner Name Role Phone Sol Mendosa MD Primary Care Provid er Encounter Details Date Type Department Care Team (Late st Contact Info) Description 08/13/2024 Procedure Pass [facility] Echocardiography [address] [place] [address] Social History Tobacco Use Types Packs/Day Years [...] Description 05/05/2025 10:30 AM EDT Office Visit [facility] Genetics [address] [place] [address] Matheus Huber MD, MPH [address] [place] [address] [email or web address] 05/14/2025 11:30 AM EDT Telemedicine [facility] Infectious Disease Medicine [address] [place] [address] Glendy Pacheco MD, SCD [address] [facility] Building Room 4 [place] [address] [email or web address] 07/22/2025 2:00 PM EST Office Visit [facility] Ar[facility]ritis Center [facility] [address] [place] [address] Naya Hernandez MD, PhD [address] [place] [address] [email or web address] documented as of this encounter Visit Diagnoses Not on filedocumented in this encounter Additional Health Concerns Assessment Noted Time PHQ-2 Depression Total Score: 2 08/13/19 25 9:09 AM EST documented as of this encounter Care Teams Sumac Tanner Relationship Specialty Start Date End Date Sol Mendosa MD [address] [place] [address] PCP - General Internal Medicine 10/17/23 documented as of this encounter Additional Source Comments The information contained in this document represents components of the legal health record. It is not the complete legal health record.[facility]
--- OUTSIDE RECORDS SUMMARY | 2025-04-10 10:52 | XMS_ITS | Encounter Summary ---
Author Organization [facility] Address [address] [place] [address] Drive [address] [place] [address] Phone Care Team Providers Care Surgical Scrub Technologist Name Role Phone Sol Mendosa MD Primary Care Provid er Encounter Details Date Type Department Care Team (Late st Contact Info) Description 02/29/2024 Procedure Pass [facility] [address] [place] [address] Social History Tobacco Use Types Packs/Day Years [...] Description 05/05/2025 10:30 AM EDT Office Visit [facility] Genetics [address] [place] [address] Matheus Huber MD, MPH [address] [place] [address] [email or web address] 05/14/2025 11:30 AM EDT Telemedicine [facility] Infectious Disease Medicine [address] [place] [address] Glendy Pacheco MD, SCD [address] [facility] Building Room 4 [place] [address] [email or web address] 07/22/2025 2:00 PM EST Office Visit [facility] Arthritis Center [facility] [address] [place] [address] Naya Hernandez MD, PhD [address] [place] [address] [email or web address] documented as of this encounter Visit Diagnoses Not on filedocumented in this encounter Additional Health Concerns Assessment Noted Time PHQ-2 Depression Total Score: 2 02/29/20 24 9:51 AM EDT documented as of this encounter Care Teams Surgical Scrub Technologist Relationship Specialty Start Date End Date Sol Mendosa MD [address] [place] [address] PCP - General Internal Medicine 10/17/23 documented as of this encounter Additional Source Comments The information contained in this document represents components of the legal health record. It is not the complete legal health record.[facility]
--- OUTSIDE RECORDS SUMMARY | 2025-04-10 10:52 | XMS_ITS | Clinical Summary ---
Author Organization [facility] Address [address] [place] [address] Phone Care Team Providers Care Yarding Supervisor Name Role Phone Unavailable Primary Care Provider Unavailabl e Allergies No known active allergies Encounters Date Type Department Care Team Description 04/08/2025 11:05 AM EDT Office Visit [facility] [address] [place] [address] Research subject 04/08/2025 Orders Only [facility] [address] [place] [address] Sallie Ring CGC Research subject 02/03/2025 Orders Only [facility] [address] [place] [address] Chely Talamantes Research subject (Primary Dx) 01/29/2025 12:37 PM EDT - 01/29/2025 11:59 PM EDT Hospital Encounter [facility] [address] [place] [address] Discharge Disposition: Home 01/29/2025 12:37 PM EDT - 01/29/2025 11:59 PM EDT Hospital Encounter [facility] [address] [place] [address] Bronchiectasis without complication (HCC) Discharge Disposition: Home [...] - Td or Tdap) 04/18/2020 10/17/2019, 12/22/2013 Influenza Vaccine (#1) 2025 4, 05/19/2022, 10/17/2019, Additional history exists HIB Vaccines Aged Out No longer eligi ble based on patient's age to complete this topic HPV Vaccines (No Doses Required) Completed Hepatitis A Vaccines Aged Out No long [...] 76,793 INTERNAL LAB (BEAKER) Performing Location, POCT [facility], Clinical Labs, [address] [facility] [address], Shukri Garcia MD, PhD, [id number] INTERNAL LAB ([facility]) Sweat Skin structure / Unknown 01/29/2025 2:06 PM EDT Impressions [facility] ([place]) - 01/29/2025 2:06 PM EDT Sweat Chloride reference range: < 30 mmol/L - Negative 30 - 59 mmol/L - Indeterminate >= 60 mmol/L - Positive Note: Sweat chloride values less than 30 mmol/L have been documented in genetically proven Cystic Fibrosis patients. Clinical correlation is necessary. CLIA Tumbling Machine Operator: Kenji Garcia MD, PhD, CLIA license: [id number] Matheus Huber MD POINT OF CARE TEST ENTER/EDIT ORDERABLES Final Result [facility] ([place]) from Last 3 Months Insurance [address] [place] [address] [facility] [address] [place] [address] [facility]
== END 2025-04-10 10:00 | disposition home or self-care (01) ==
PROVIDERS: PCP Internal Medicine; Visit Provider Hospitalist
DX: J45.50 Severe persistent asthma, uncomplicated (principal); J47.0 Bronchiectasis with acute lower respiratory infection; R05.3 Chronic cough; J44.9 Chronic obstructive pulmonary disease, unspecified; J15.1 Pneumonia due to Pseudomonas
CPT/HCPCS: 99215; G2211

== ENCOUNTER → 2025-04-10 10:10 | Outpatient (BNV) | payer OTHER, SELFPAY | PROVIDERS: Absent Provider Internal Medicine Medical Oncology; PCP Internal Medicine; Visit Provider Radiology Diagnostic Radiology | DX: M47.812 Spondylosis without myelopathy or radiculopathy, cervical region (principal) | CPT/HCPCS: 72050 ==